=== PATIENT | male | born 1940 | race Caucasian/White ===

== ENCOUNTER → 2017-06-24 07:39 | Outpatient (CLI) | payer MEDICARE, OTHER, SELFPAY ==
[2017-06-24 07:51] LABS: Red Blood Cells-Urine 0 SEEN /hpf (0-5); Squamous Epithelial Cells - UA 0 SEEN /hpf (0-5)
[2017-06-24 10:02] LABS: Anion Gap 8 (5-15); BUN 22 mg/dL (7-18); BUN/Creat Ratio 13.7 RATIO (10-20); Calcium,Total 8.4 mg/dL (8.5-10.1); Chloride 107 mmol/L (98-107); Creatinine, Serum 1.61 mg/dL (0.70-1.30); EST Glomerular Filtration Rate 45 mL/min (>60); Est Glom Filt Rate - Afr Amer 54 mL/min (>60); Glucose 83 mg/dL (74-106); Potassium 3.9 mmol/L (3.5-5.1); Sodium Level 141 mmol/L (136-145)
[2017-06-24 12:08] LABS: Color, Urine Yellow (Yellow); Glucose, Dipstick Normal (Normal); Ketone-Dipstick Negative (Negative); Leukocyte Esterase-Dipstick 25 /ul (Negative); Nitrite-Dipstick Negative (Negative); Occult Blood-Urine Negative /ul (Negative); Protein-Dipstick Negative (Negative); Urine Bilirubin Dipstick Negative (Negative); Urine Clarity Clear (Clear); Urine Urobilinogen Normal (Normal)
[2017-06-24 12:19] LABS: Bacteria RARE /hpf (None Seen); Mucous, Urine 2+ /hpf (<or=2+); White Blood Cells 0-5 SEEN /hpf (0-5)
[2017-06-24 12:29] LABS: Protein, Urine (Random) 15.6 mg/dL (<11.9); Protein:Creat Ratio 116 mg/g CRE (0-200)
== END ==
PROVIDERS: Family Provider Family Medicine; PCP Family Medicine; Visit Provider Family Medicine
DX: R94.4 Abnormal results of kidney function studies (principal)
CPT/HCPCS: 36415; 80048; 81001; 82570; 84156

== ENCOUNTER → 2017-07-23 14:17 | Outpatient (CLI) | payer MEDICARE, OTHER, SELFPAY ==
--- NOTE | 2017-07-23 14:18 | US_ITS ---
STUDY: ULTRASOUND - URINARY BLADDER REASON FOR EXAM: Male, 76 years old. Chronic kidney disease TECHNIQUE: Ultrasound evaluation of the urinary bladder was performed with real-time and static barraza-scale imaging. COMPARISON: None. FINDINGS: There is no right UVJ calculus. There is no left UVJ calculus. The distended volume of the urinary bladder is 484 ml. The empty volume of the urinary bladder is 59 ml. The bladder wall is within normal limits. The bladder wall measures 2.8 mm. There is no demonstrated bladder wall mass lesion. There are no demonstrated bladder calculi. US/Post Void Residual Bladder IMPRESSION: Postvoid residual of 59 cc. There was, unremarkable urinary bladder ultrasound. Electronically Signed: Ernie Lincoln, at 23:57 EDT Tel , Service support ,
== END ==
PROVIDERS: Family Provider Family Medicine; PCP Family Medicine; Visit Provider Family Medicine
DX: I12.9 Hypertensive chronic kidney disease with stage 1 through stage 4 chronic kidney disease, or unspecified chronic kidney disease (principal); N18.3 Chronic kidney disease, stage 3 (moderate)
CPT/HCPCS: 51798

== ENCOUNTER → 2017-08-02 08:53 | Outpatient (CLI) | payer MEDICARE, OTHER, SELFPAY ==
--- NOTE | 2017-08-02 08:56 | RDU_ITS ---
Reason For Study: CKD Right Renal Artery Left Renal Artery Right renal artery ostium Left renal artery ostium 151.0/19.2 103.0/25.5 RSV/EDV. PSV/EDV. Right renal artery proximal Left renal artery proximal PSV/EDV 120.0/21.0 PSV/EDV. 135.0/21.9 . Right renal artery mid 107.0/19.7 Left renal artery mid 131.0/21.9 PSV/EDV. PSV/EDV . Right renal artery distal 99.4/15.5 Left renal artery distal 141.0/29.3 PSV/EDV. PSV/EDV. Right RAR 1.3. Left RAR 1.7. Right Renal Parenchyma Left Renal Parenchyma Upper Pole Medula 20.5/5.8 PSV/EDV. Left upper pole medulla 31.8/6.4 Right upper pole medulla EDR .29 . PSV/EDV . Right upper pole medulla R.I. .72 . Left upper pole medulla EDR .20 . Upper Aron Cortx 14.4/3.7 PSV/EDV. Left upper pole medulla R.I. .80 . Right upper pole cortex EDR .26 . UP Cortex 23.2/5.5 PSV/EDV. Right upper pole cortex R.I. .74 . Left upper pole cortex EDR .24 . Right lower Pole medulla 21.3/3.5 Left upper pole cortex R.I. .76 . PSV/EDV . Left lower Pole medulla 22.3/4.9 Right lower pole medulla EDR .16 . PSV/EDV . Right lower pole medulla R.I. .83 . Left lower pole medulla EDR .22 . Lower Pole Cortex 16.9/3.5 PSV/EDV. Left lower pole medulla R.I. .78 . Right lower pole cortex EDR .21 . Lower Pole Cortx 21.1/5.2 PSV/EDV. Right lower pole cortex R.I. .79 . Left lower pole cortex EDR .25 . Right Renal Hilar Left lower pole cortex R.I. .75 . Right Hilar avg 65.2/11.9 PSV/EDV. Left Renal Hilar Right hilar acceleration time 51 LT Hilar avg 68.9/15.5 PSV/EDV . m/sec. Left hilar acceleration time 44 Right Renal Dimensions m/sec. Right kidney size 10.6 cm . Left Renal Dimensions Right cortical dimension 1.6 cm . Left kidney size 9.6 cm . Left cortical dimension 1.5 cm . Aorta Proximal abdominal aorta 1.8 x 1.8 cm . Distal abdominal aorta 1.7 x 1.7 cm . Proximal abdominal aorta peak systolic velocity is 89.1 cm/sec . Distal abdominal aorta peak systolic velocity is 118.0 cm/sec . Interpretation Summary Dimensions of the intra-abdominal aorta appear normal, without evidence of aneurysmal dilatation. Renal artery velocities are bilaterally normal. Acceleration times are normal bilaterally. Renal- aortic ratios are also bilaterally normal. There is no evidence of hemodynamically significant renal artery stenosis on either side. Renovascular resistance appears to be bilaterally elevated . The right cortical dimension is increased. The left cortical dimension is normal. Kidneys appear normal in size bilaterally. Ordering Physician: Marino Patrick Referring Physician: Marino Patrick Performed By: Devorah Damon RVT
== END ==
PROVIDERS: Family Provider Family Medicine; PCP Family Medicine; Visit Provider Family Medicine
DX: I12.9 Hypertensive chronic kidney disease with stage 1 through stage 4 chronic kidney disease, or unspecified chronic kidney disease (principal); N18.3 Chronic kidney disease, stage 3 (moderate)
CPT/HCPCS: 93975

== ENCOUNTER → 2017-08-19 08:06 | Outpatient (CLI) | payer MEDICARE, OTHER, SELFPAY ==
[2017-08-19 10:23] LABS: AST(SGOT) 15 U/L (15-37); Alanine Aminotransfer ALT/SGPT 18 U/L (16-61); Albumin, Serum 3.2 g/dL (3.2-5.0); Alkaline Phosphatase 83 U/L (45-117); Bilirubin, Direct 0.25 mg/dL (0.00-0.30); Cholesterol 97 mg/dL (200); Globulin 3.2 g/dL (2.2-4.2); High Density Lipoprotein 40 mg/dL; Protein, Total 6.4 g/dL (6.4-8.2); Triglycerides 95 mg/dL; Very Low Density Lipoprotein 19 mg/dL (5-40)
== END ==
PROVIDERS: Family Provider Family Medicine; PCP Family Medicine; Visit Provider Internal Medicine Cardiovascular Disease
DX: E78.5 Hyperlipidemia, unspecified (principal); Z79.899 Other long term (current) drug therapy
CPT/HCPCS: 36415; 80061; 80076

== ENCOUNTER → 2017-10-04 07:51 | Outpatient (CLI) | payer MEDICARE, OTHER, SELFPAY ==
[2017-10-04 10:35] LABS: Hematocrit 37.6 % (40-54); Hemoglobin 13.1 g/dl (13.0-16.5); Mean Corp Hgb Conc 34.8 g/gl (32-36); Mean Corpuscular Hgb 37.3 pg (27.0-32.0); Mean Corpuscular Volume 107.1 fL (80-94); Mean Platelet Vol. 11.3 fl (6.2-12.0); Platelet Count 142 K/mm3 (150-450); RBC Distribution Width SD 46.1 fl (35.1-43.9); Red Blood Count 3.51 M/mm3 (4.6-6.2); White Blood Count 6.3 K/mm3 (4.4-11.0)
[2017-10-04 10:36] LABS: Scan Indicated on CBC? Y/N NO
[2017-10-04 10:57] LABS: AST(SGOT) 16 U/L (15-37); Alanine Aminotransfer ALT/SGPT 24 U/L (16-61); Albumin, Serum 3.3 g/dL (3.2-5.0); Alkaline Phosphatase 57 U/L (45-117); Anion Gap 6 (5-15); BUN 19 mg/dL (7-18); Calcium,Total 8.4 mg/dL (8.5-10.1); Chloride 111 mmol/L (98-107); Cholesterol 114 mg/dL (200); Creatinine, Serum 1.46 mg/dL (0.70-1.30); EST Glomerular Filtration Rate 50 mL/min (>60); Est Glom Filt Rate - Afr Amer 60 mL/min (>60); Globulin 3.2 g/dL (2.2-4.2); Glucose 80 mg/dL (74-106); High Density Lipoprotein 51 mg/dL; Phosphorus 2.7 mg/dL (2.5-4.9); Potassium 4.2 mmol/L (3.5-5.1); Protein, Total 6.5 g/dL (6.4-8.2); Sodium Level 146 mmol/L (136-145); Triglycerides 131 mg/dL; Very Low Density Lipoprotein 26 mg/dL (5-40)
[2017-10-04 11:06] LABS: PTHIN 57.2 pg/mL (18.4-80.1)
[2017-10-04 11:08] LABS: Vitamin D,25 Hydroxy 40.6 ng/mL (29.95-100.01)
[2017-10-06 09:36] LABS: Vitamin B12 851 pg/mL (211-911)
== END ==
PROVIDERS: Family Provider Family Medicine; PCP Family Medicine; Visit Provider Family Medicine
DX: E78.5 Hyperlipidemia, unspecified (principal); E55.9 Vitamin D deficiency, unspecified; D75.89 Other specified diseases of blood and blood-forming organs; I12.9 Hypertensive chronic kidney disease with stage 1 through stage 4 chronic kidney disease, or unspecified chronic kidney disease; N18.3 Chronic kidney disease, stage 3 (moderate)
CPT/HCPCS: 80053; 80061; 81002; 82306; 82570; 82607; 82746; 83970; 84100; 84156; 85027

== ENCOUNTER → 2018-03-08 07:39 | Outpatient (CLI) | payer MEDICARE, OTHER, SELFPAY ==
[2018-03-08 08:12] LABS: Red Blood Cells-Urine 0 SEEN /hpf (0-5); Squamous Epithelial Cells - UA 0 SEEN /hpf (0-5)
[2018-03-08 10:28] LABS: Color, Urine Yellow (Yellow); Glucose, Dipstick Normal (Normal); Ketone-Dipstick Negative (Negative); Leukocyte Esterase-Dipstick 25 /ul (Negative); Nitrite-Dipstick Negative (Negative); Occult Blood-Urine Negative /ul (Negative); Protein-Dipstick Negative (Negative); Specific Gravity, Urine 1.025 (1.002-1.030); Urine Bilirubin Dipstick Negative (Negative); Urine Clarity Sl. Cloudy (Clear); Urine Urobilinogen Normal (Normal)
[2018-03-08 10:31] LABS: Protein, Urine (Random) 10.6 mg/dL (<11.9); Protein:Creat Ratio 59 mg/g CRE (0-200)
[2018-03-08 10:36] LABS: White Blood Cells 0-5 SEEN /hpf (0-5)
[2018-03-08 10:37] LABS: Bacteria RARE /hpf (None Seen); Mucous, Urine 1+ /hpf (<or=2+)
[2018-03-08 10:49] LABS: Basophil# 0.02 X10^3/uL; Basophil% 0.4 % (0-1); Eosinophil# 0.11 X10^3/uL; Eosinophils% 2.2 % (0-5); Hematocrit 37.5 % (40-54); Hemoglobin 12.5 g/dl (13.0-16.5); Lymphocyte % 30.4 % (19-41); Mean Corp Hgb Conc 33.3 g/gl (32-36); Mean Corpuscular Hgb 35.6 pg (27.0-32.0); Mean Corpuscular Volume 106.8 fL (80-94); Mean Platelet Vol. 10.8 fl (6.2-12.0); Monocyte# 0.34 X10^3/uL; Monocyte% 6.9 % (0-10); Neutrophil # 2.96 X10^3/uL (2.7-7.7); Neutrophil % 59.9 % (47-70); Platelet Count 137 K/mm3 (150-450); RBC Distribution Width CV 12.8 % (11.6-14.6); RBC Distribution Width SD 49.4 fl (35.1-43.9); Red Blood Count 3.51 M/mm3 (4.6-6.2); White Blood Count 4.9 K/mm3 (4.4-11.0)
[2018-03-08 10:51] LABS: POSITIVE COUNT NO; POSITIVE DIFFERENTIAL NO; POSITIVE MORPHOLOGY NO
[2018-03-08 11:12] LABS: AST(SGOT) 17 U/L (15-37); Alanine Aminotransfer ALT/SGPT 20 U/L (16-61); Alkaline Phosphatase 57 U/L (45-117); Anion Gap 8 (5-15); BUN 18 mg/dL (7-18); BUN/Creat Ratio 11.4 RATIO (10-20); Calcium,Total 8.5 mg/dL (8.5-10.1); Chloride 110 mmol/L (98-107); Cholesterol 108 mg/dL (200); Creatinine, Serum 1.58 mg/dL (0.70-1.30); EST Glomerular Filtration Rate 45 mL/min (>60); Est Glom Filt Rate - Afr Amer 55 mL/min (>60); Globulin 3.1 g/dL (2.2-4.2); Glucose 78 mg/dL (74-106); High Density Lipoprotein 40 mg/dL; Potassium 4.2 mmol/L (3.5-5.1); Protein, Total 6.1 g/dL (6.4-8.2); Sodium Level 144 mmol/L (136-145); Triglycerides 127 mg/dL; Very Low Density Lipoprotein 25 mg/dL (5-40)
[2018-03-08 12:01] LABS: PTHIN 37.3 pg/mL (18.4-80.1)
[2018-03-08 12:02] LABS: Vitamin D,25 Hydroxy 40.5 ng/mL (29.95-100.01)
== END ==
PROVIDERS: Family Provider Family Medicine; PCP Family Medicine; Referring Provider Family Medicine; Visit Provider Family Medicine
DX: I12.9 Hypertensive chronic kidney disease with stage 1 through stage 4 chronic kidney disease, or unspecified chronic kidney disease (principal); N18.3 Chronic kidney disease, stage 3 (moderate); E78.5 Hyperlipidemia, unspecified; E55.9 Vitamin D deficiency, unspecified
CPT/HCPCS: 36415; 80053; 80061; 81001; 82306; 82570; 83970; 84100; 84156; 85025

== ENCOUNTER → 2018-09-15 | Outpatient (CLI) | payer MEDICARE, OTHER, SELFPAY ==
[2017-10-19 15:07] VITALS: BMI 27.0
[2018-09-15 08:20] LABS: Bacteria 0 SEEN /hpf (None Seen); Red Blood Cells-Urine 0 SEEN /hpf (0-5); Squamous Epithelial Cells - UA 0 SEEN /hpf (0-5); White Blood Cells 0 SEEN /hpf (0-5)
[2018-09-15 10:00] LABS: Color, Urine Yellow (Yellow); Glucose, Dipstick Normal (Normal); Ketone-Dipstick 5 mg/dl (Negative); Leukocyte Esterase-Dipstick 25 /ul (Negative); Nitrite-Dipstick Negative (Negative); Occult Blood-Urine Negative /ul (Negative); Protein-Dipstick 15 mg/dl (Negative); Urine Bilirubin Dipstick Negative (Negative); Urine Clarity Clear (Clear); Urine Urobilinogen 1 mg/dl (Normal)
[2018-09-15 10:06] LABS: Absolute Lymphocyte Count 1.49 X10^3/ul (0.83-4.51); Absolute Neutrophil Count 3.2 X10^3/uL (2.0-7.7); Basophil# 0.01 X10^3/uL; Basophil% 0.2 % (0-1); Eosinophil# 0.07 X10^3/uL; Eosinophils% 1.3 % (0-5); Hematocrit 38.5 % (40-54); Hemoglobin 13.1 g/dl (13.0-16.5); Lymphocyte # 1.49 X10^3/ul (4.0); Lymphocyte % 28.5 % (19-41); Mean Corpuscular Volume 105.8 fL (80-94); Mean Platelet Vol. 10.8 fl (6.2-12.0); Monocyte# 0.43 X10^3/uL; Monocyte% 8.2 % (0-10); Neutrophil # 3.21 X10^3/uL (2.7-7.7); Neutrophil % 61.6 % (47-70); Platelet Count 141 K/mm3 (150-450); RBC Distribution Width CV 12.3 % (11.6-14.6); RBC Distribution Width SD 47.2 fl (35.1-43.9); Red Blood Count 3.64 M/mm3 (4.6-6.2); White Blood Count 5.2 K/mm3 (4.4-11.0)
[2018-09-15 10:10] LABS: POSITIVE COUNT NO; POSITIVE DIFFERENTIAL NO; POSITIVE MORPHOLOGY NO
[2018-09-15 10:12] LABS: Mucous, Urine 3+ /hpf (<or=2+)
[2018-09-15 11:07] LABS: ALB/GLOB Ratio 1.1 RATIO (0.9-2.4); AST(SGOT) 12 U/L (15-37); Alanine Aminotransfer ALT/SGPT 17 U/L (16-61); Albumin, Serum 3.3 g/dL (3.2-5.0); Alkaline Phosphatase 59 U/L (45-117); Anion Gap 2 (5-15); BUN 22 mg/dL (7-18); BUN/Creat Ratio 14.3 RATIO (10-20); Calcium,Total 8.5 mg/dL (8.5-10.1); Chloride 111 mmol/L (98-107); Cholesterol 98 mg/dL (200); Creatinine, Serum 1.54 mg/dL (0.70-1.30); EST Glomerular Filtration Rate 47 mL/min (>60); Est Glom Filt Rate - Afr Amer 56 mL/min (>60); Globulin 3.1 g/dL (2.2-4.2); Glucose 90 mg/dL (74-106); High Density Lipoprotein 40 mg/dL; Potassium 4.3 mmol/L (3.5-5.1); Protein, Total 6.4 g/dL (6.4-8.2); Sodium Level 140 mmol/L (136-145); Triglycerides 111 mg/dL; Very Low Density Lipoprotein 22 mg/dL (5-40)
[2018-09-15 15:20] LABS: Vitamin B12 751 pg/mL (211-911)
== END | disposition home or self-care (01) ==
PROVIDERS: Family Provider Family Medicine; PCP Family Medicine; Referring Provider Family Medicine; Visit Provider Family Medicine
DX: E78.5 Hyperlipidemia, unspecified (principal); D53.9 Nutritional anemia, unspecified; I12.9 Hypertensive chronic kidney disease with stage 1 through stage 4 chronic kidney disease, or unspecified chronic kidney disease; N18.3 Chronic kidney disease, stage 3 (moderate)
CPT/HCPCS: 36415; 80053; 80061; 81001; 82607; 82746; 85025

== ENCOUNTER → 2018-12-26 | Outpatient (CLI) | payer MEDICARE, OTHER, SELFPAY ==
[2018-10-28 09:28] VITALS: BMI 26.9
[2018-12-26 14:17] LABS: PSA,Total - Annual Screen 0.42 ng/mL (0.00-4.00)
== END | disposition home or self-care (01) ==
LOC: MFPLAB 11:15
PROVIDERS: Family Provider Family Medicine; PCP Family Medicine; Visit Provider Family Medicine
DX: Z12.5 Encounter for screening for malignant neoplasm of prostate (principal)
CPT/HCPCS: 36415; 84153; G0103

== ENCOUNTER → 2019-06-06 | Outpatient (CLI) | payer MEDICARE, OTHER, SELFPAY ==
[2018-10-28 09:28] VITALS: BMI 26.9
[2019-06-06 08:16] LABS: Bacteria 0 SEEN /hpf (None Seen); Mucous, Urine 0 SEEN /hpf (<or=2+); Red Blood Cells-Urine 0 SEEN /hpf (0-5); Squamous Epithelial Cells - UA 0 SEEN /hpf (0-5)
[2019-06-06 10:24] LABS: Absolute Lymphocyte Count 1.45 X10^3/uL (0.83-4.51); Absolute Neutrophil Count 3.4 X10^3/uL (2.0-7.7); Basophil# 0.02 X10^3/uL; Basophil% 0.4 % (0-1); Eosinophil# 0.07 X10^3/uL; Eosinophils% 1.3 % (0-5); Hemoglobin 12.6 g/dL (13.0-16.5); Lymphocyte # 1.45 X10^3/ul (4.0); Lymphocyte % 27.3 % (19-41); Mean Corp Hgb Conc 34.1 g/dL (32-36); Mean Corpuscular Hgb 36.6 pg (27.0-32.0); Mean Corpuscular Volume 107.6 fL (80-94); Mean Platelet Vol. 11.2 fl (6.2-12.0); Monocyte# 0.38 X10^3/uL; Monocyte% 7.2 % (0-10); NRBC Flagged by Analyzer 0 % (0-5); Neutrophil # 3.38 X10^3/uL (2.7-7.7); Neutrophil % 63.6 % (47-70); Platelet Count 132 K/mm3 (150-450); RBC Distribution Width CV 12.6 % (11.6-14.6); RBC Distribution Width SD 48.9 fl (35.1-43.9); Red Blood Count 3.44 M/mm3 (4.6-6.2); White Blood Count 5.3 K/mm3 (4.4-11.0)
[2019-06-06 10:34] LABS: Color, Urine Yellow (Yellow); Glucose, Dipstick Normal (Normal); Ketone-Dipstick Negative (Negative); Leukocyte Esterase-Dipstick 25 /ul (Negative); Nitrite-Dipstick Negative (Negative); Occult Blood-Urine Negative /ul (Negative); Protein-Dipstick Negative (Negative); Specific Gravity, Urine 1.025 (1.002-1.030); Urine Bilirubin Dipstick Negative (Negative); Urine Clarity Sl. Cloudy (Clear); Urine Urobilinogen Normal (Normal)
[2019-06-06 10:39] LABS: Protein, Urine (Random) 10.5 mg/dL (<11.9); Protein:Creat Ratio 66 mg/g CRE (0-200)
[2019-06-06 10:42] LABS: Vitamin B12 632 pg/mL (211-911); Vitamin D,25 Hydroxy 49.4 ng/mL
[2019-06-06 10:44] LABS: PTHIN 71.2 pg/mL (18.4-80.1)
[2019-06-06 10:46] LABS: Calcium Oxalate Crystals Ur 2+ /hpf (<or=2+); White Blood Cells 0-5 SEEN /hpf (0-5)
[2019-06-06 11:31] LABS: AST(SGOT) 15 U/L (15-37); Alanine Aminotransfer ALT/SGPT 21 U/L (16-61); Albumin, Serum 3.2 g/dL (3.2-5.0); Alkaline Phosphatase 65 U/L (45-117); Anion Gap 3 (5-15); BUN 23 mg/dL (7-18); BUN/Creat Ratio 14.4 RATIO (10-20); Calcium,Total 8.6 mg/dL (8.5-10.1); Chloride 113 mmol/L (98-107); Cholesterol 103 mg/dL (200); EST Glomerular Filtration Rate 45 mL/min (>60); Est Glom Filt Rate - Afr Amer 54 mL/min (>60); Globulin 3.2 g/dL (2.2-4.2); Glucose 84 mg/dL (74-106); High Density Lipoprotein 44 mg/dL; Phosphorus 3.1 mg/dL (2.5-4.9); Protein, Total 6.4 g/dL (6.4-8.2); Sodium Level 142 mmol/L (136-145); Triglycerides 104 mg/dL; Very Low Density Lipoprotein 21 mg/dL (5-40)
== END | disposition home or self-care (01) ==
LOC: MFPLAB 08:13
PROVIDERS: PCP Family Medicine; Referring Provider Family Medicine; Visit Provider Family Medicine
DX: E55.9 Vitamin D deficiency, unspecified (principal); D53.9 Nutritional anemia, unspecified; E78.5 Hyperlipidemia, unspecified; I12.9 Hypertensive chronic kidney disease with stage 1 through stage 4 chronic kidney disease, or unspecified chronic kidney disease; N18.3 Chronic kidney disease, stage 3 (moderate)
CPT/HCPCS: 36415; 80053; 80061; 81001; 82306; 82570; 82607; 82746; 83970; 84100; 84156; 85025

== ENCOUNTER → 2019-10-09 | Outpatient (CLI) | payer MEDICARE, OTHER, SELFPAY ==
[2019-09-20 10:28] VITALS: BMI 26.4
--- NOTE | 2019-10-09 06:57 | ECHOD_ITS ---
Left Ventricle Normal LV size. The estimated ejection fraction is 65 %. Stage 3 diastolic dysfunction. No regional wall motion abnormalities noted. Right Ventricle Normal RV size. Normal systolic function. Atria The left atrium is moderately enlarged. Normal right atrium. Mitral Valve Normal mitral valve. Mild (1+) eccentric mitral valve insufficiency. Tricuspid Valve Normal tricuspid valve. Mild (1+) tricuspid valve insufficiency. Aortic Valve Trisinus/trileaflet aortic valve. Mild focal aortic valve calcification. Pulmonic Valve Normal pulmonic valve. Great Vessels Normal aortic root. The pulmonary artery is normal size. Normal inferior vena cava. Pericardium/Pleural No pericardial effusion. MMode/2D Measurements & Calculations LVIDd: 5.1 cm IVSd: 0.86 cm Ao root diam: 3.5 cm LVIDs: 3.5 cm LVPWd: 0.78 cm RVDd: 3.9 cm FS: 31.9 % LAV(MOD-bp): 85.5 ml LA A4 area: 29.4 cm2 LA dimension(2D): 4.9 cm LAV(MOD-bp) Indexed: 43.3 ml/m2 LAV(MOD-sp2): 65.3 ml LAV(MOD-sp4): 102.9 ml RA A4 area: 16.5 cm2 Time Measurements MV dec time: 0.16 sec Doppler Measurements & Calculations MV E max micheal: 120.9 cm/sec Lat Peak E' Micheal: 11.6 cm/sec Med Peak E' Micheal: 5.8 cm/sec MV A max micheal: 55.1 cm/sec E/E' lat: 10.4 E/E' med: 20.8 MV E/A: 2.2 MV V2 max: 126.8 cm/sec Ao V2 max: 154.2 cm/sec LV V1 max: 105.9 cm/sec MV max P.4 mmHg Ao max P.5 mmHg LV V1 max P.5 mmHg MV V2 mean: 46.3 cm/sec Ao V2 mean: 113.6 cm/sec LV V1 mean P.5 mmHg MV mean P.3 mmHg Ao mean P.6 mmHg LV V1 mean: 73.9 cm/sec MV V2 VTI: 41.6 cm Ao V2 VTI: 40.4 cm LV V1 VTI: 28.0 cm TR max micheal: 285.2 cm/sec MV P1/2t-pr_phl: 162.3 msec TR max P.5 mmHg Interpretation Summary Normal LV size. The estimated ejection fraction is 65 %. Stage 3 diastolic dysfunction. The left atrium is moderately enlarged. Mild (1+) tricuspid valve insufficiency. Ordering Physician: Markos Dey Referring Physician: Markos Dey
--- NOTE | 2019-10-09 09:10 | STRESSREP_ITS ---
Stress Test Report Exercise and pharmacologic myocardial perfusion stress test. 79-year-old man with a history of coronary artery bypass surgery. Stress protocol: Resting EKG demonstrated sinus bradycardia with a rate of 44 bpm resting blood pressure 104/58 mmHg. The patient exercised for a total duration of 4 minutes and 30 seconds attaining a maximum heart rate of 65 bpm which was 46% of maximum predicted heart rate the maximum workload was 6.4 metabolic equivalents. The patient maintained sinus rhythm throughout the recording. The test was termi nated prematurely due to leg discomfort. No chest pain no dizziness was noted shortness of breath was noted. The test was switched to a pharmacologic myocardial perfusion stress test. 0.4 mg of regadenoson was infused per usual protocol followed by rapid intravenous saline flush injection continuous EKG monitoring was performed. The maximum heart rate was 58 bpm which was 41% of maximum predicted heart rate the maximum workload was 1 metabolic equivalent. At rest there were no ST or T wave changes noted to suggest abnormal flow reserve at peak infusion nonspecific ST-T wave changes were noted. The peak blood pressure was 120/60 with a final blood pressure 100/52 mmHg. Myocardial perfusion protocol. 11.4 mCi of technetium 99m sestamibi was injected at rest. 0.4 mg of regadenoson was infused per usual protocol. At peak infusion 35.2 mCi of technetium 99m sestamibi was injected stress images were obtained stress and rest images were reconstructed and compared in the short axis vertical long horizontal long axis. Gated images were also obtained per Perfusion SPECT analysis: Review of the stress images demonstrate normal uptake of tracer noted in all areas of myocardium except for small portion of the basal inferior wall. This is present on the stress and resting images to a similar extent suggesting previous basal inferior infarct. No obvious ischemia was noted. Gated SPECT analysis: The gated ejection fraction is 65%. Conclusion: Pharmacologic myocardial perfusion stress test with no evidence of ischemia noted. Previous basal inferior infarct cannot be completely excluded. Preserved ejection fraction.
== END | disposition home or self-care (01) ==
LOC: CVS 06:57
PROVIDERS: PCP Family Medicine; Referring Provider Internal Medicine Cardiovascular Disease; Visit Provider Internal Medicine Cardiovascular Disease
DX: I25.10 Atherosclerotic heart disease of native coronary artery without angina pectoris (principal); R06.00 Dyspnea, unspecified; Z95.1 Presence of aortocoronary bypass graft
CPT/HCPCS: 78452; 93017; 93306; A9500; A4216; J2785

== ENCOUNTER → 2019-12-13 | Outpatient (CLI) | payer MEDICARE, OTHER, SELFPAY ==
[2019-10-31 13:49] VITALS: BMI 27.0
--- NOTE | 2019-12-13 14:33 | RAD_ITS ---
STUDY: X-RAY - RIGHT SHOULDER REASON FOR EXAM: Male, 79 years old. Pain TECHNIQUE: 4 view(s) of the shoulder. COMPARISON: None. FINDINGS: There is no evidence of fracture or dislocation. There are mild degenerative changes in the acromioclavicular joint and glenohumeral joint. There are no radiodense foreign bodies. RAD/Shoulder min 2 Views IMPRESSION: No fracture or dislocation in the right shoulder. Mild degenerative change. Electronically Signed: Ernie Lincoln, at 16:27 EDT Tel , Service support ,
== END | disposition home or self-care (01) ==
LOC: MTRAD 14:32
PROVIDERS: PCP Family Medicine; Referring Provider Family Medicine; Visit Provider Family Medicine
DX: M25.511 Pain in right shoulder (principal)
CPT/HCPCS: 73030

== ENCOUNTER → 2020-02-26 08:07 | Outpatient (CLI) | payer MEDICARE, OTHER, SELFPAY ==
[2019-10-31 13:49] VITALS: BMI 27.0
[2020-02-26 10:10] LABS: Absolute Lymphocyte Count 1.65 X10^3/uL (0.83-4.51); Absolute Neutrophil Count 4.5 X10^3/uL (2.0-7.7); Basophil# 0.04 X10^3/uL; Basophil% 0.6 % (0-1); Eosinophil# 0.33 X10^3/uL; Eosinophils% 4.7 % (0-5); Hematocrit 35.6 % (40-54); Hemoglobin 11.8 g/dL (13.0-16.5); Lymphocyte # 1.65 X10^3/ul (4.0); Lymphocyte % 23.5 % (19-41); Mean Corp Hgb Conc 33.1 g/dL (32-36); Mean Corpuscular Hgb 36.8 pg (27.0-32.0); Mean Corpuscular Volume 110.9 fL (80-94); Mean Platelet Vol. 10.6 fl (6.2-12.0); Monocyte# 0.47 X10^3/uL; Monocyte% 6.7 % (0-10); NRBC Flagged by Analyzer 0 % (0-5); Neutrophil # 4.48 X10^3/uL (2.7-7.7); Neutrophil % 63.6 % (47-70); Platelet Count 208 K/mm3 (150-450); RBC Distribution Width CV 12.7 % (11.6-14.6); RBC Distribution Width SD 51.9 fl (35.1-43.9); Red Blood Count 3.21 M/mm3 (4.6-6.2)
[2020-02-26 10:27] LABS: Vitamin B12 916 pg/mL (211-911)
[2020-02-26 10:47] LABS: ALB/GLOB Ratio 0.9 RATIO (0.9-2.4); AST(SGOT) 19 U/L (15-37); Alanine Aminotransfer ALT/SGPT 25 U/L (16-61); Alkaline Phosphatase 80 U/L (45-117); Anion Gap 6 (5-15); BUN 24 mg/dL (7-18); BUN/Creat Ratio 13.2 RATIO (10-20); Calcium,Total 8.6 mg/dL (8.5-10.1); Chloride 108 mmol/L (98-107); Cholesterol 119 mg/dL (200); Creatinine, Serum 1.82 mg/dL (0.70-1.30); EST Glomerular Filtration Rate 38 mL/min (>60); Est Glom Filt Rate - Afr Amer 46 mL/min (>60); Globulin 3.5 g/dL (2.2-4.2); Glucose 84 mg/dL (74-106); High Density Lipoprotein 42 mg/dL; Potassium 3.3 mmol/L (3.5-5.1); Protein, Total 6.5 g/dL (6.4-8.2); Sodium Level 142 mmol/L (136-145); Triglycerides 145 mg/dL; Very Low Density Lipoprotein 29 mg/dL (5-40)
== END ==
PROVIDERS: PCP Family Medicine; Visit Provider Family Medicine
DX: I25.10 Atherosclerotic heart disease of native coronary artery without angina pectoris (principal); D53.9 Nutritional anemia, unspecified; E55.9 Vitamin D deficiency, unspecified
CPT/HCPCS: 36415; 80053; 80061; 82306; 82607; 82746; 85025

== ENCOUNTER → 2020-04-11 13:50 | Outpatient (CLI) | payer MEDICARE, OTHER, SELFPAY ==
[2020-03-08 13:29] VITALS: BMI 25.5
[2020-04-11 15:43] LABS: Anion Gap 5 (5-15); BUN 23 mg/dL (7-18); BUN/Creat Ratio 12.2 RATIO (10-20); Calcium,Total 8.7 mg/dL (8.5-10.1); Chloride 108 mmol/L (98-107); Creatinine, Serum 1.89 mg/dL (0.70-1.30); EST Glomerular Filtration Rate 37 mL/min (>60); Est Glom Filt Rate - Afr Amer 44 mL/min (>60); Glucose 92 mg/dL (74-106); Potassium 3.9 mmol/L (3.5-5.1); Sodium Level 141 mmol/L (136-145)
== END ==
PROVIDERS: PCP Family Medicine; Referring Provider Family Medicine; Visit Provider Family Medicine
DX: N18.30 Chronic kidney disease, stage 3 unspecified (principal)
CPT/HCPCS: 36415; 80048

== ENCOUNTER → 2020-05-10 09:55 | Outpatient (CLI) | payer MEDICARE, OTHER, SELFPAY ==
[2020-03-08 13:29] VITALS: BMI 25.5
== END ==
PROVIDERS: PCP Family Medicine; Referring Provider Internal Medicine Cardiovascular Disease; Visit Provider Internal Medicine Cardiovascular Disease
DX: R07.89 Other chest pain (principal); R00.2 Palpitations; R55 Syncope and collapse; R42 Dizziness and giddiness; I25.709 Atherosclerosis of coronary artery bypass graft(s), unspecified, with unspecified angina pectoris; Z95.1 Presence of aortocoronary bypass graft
CPT/HCPCS: 93225; 93226

== ENCOUNTER → 2020-07-31 09:06 | Outpatient (CLI) | payer MEDICARE, OTHER, SELFPAY ==
[2020-03-08 13:29] VITALS: BMI 25.5
[2020-07-31 10:25] LABS: Basophil# 0.05 X10^3/uL; Basophil% 0.7 % (0-1); Eosinophil# 0.05 X10^3/uL; Eosinophils% 0.7 % (0-5); Hematocrit 40.9 % (40-54); Hemoglobin 13.7 g/dL (13.0-16.5); Mean Corp Hgb Conc 33.5 g/dL (32-36); Mean Corpuscular Hgb 36.8 pg (27.0-32.0); Mean Corpuscular Volume 109.9 fL (80-94); Mean Platelet Vol. 11.1 fl (6.2-12.0); Monocyte# 0.49 X10^3/uL; Monocyte% 6.5 % (0-10); NRBC Flagged by Analyzer 0 % (0-5); Neutrophil # 4.97 X10^3/uL (2.7-7.7); Neutrophil % 65.4 % (47-70); Platelet Count 139 K/mm3 (150-450); RBC Distribution Width CV 12.1 % (11.6-14.6); RBC Distribution Width SD 49.6 fl (35.1-43.9); Red Blood Count 3.72 M/mm3 (4.6-6.2); White Blood Count 7.6 K/mm3 (4.4-11.0)
[2020-07-31 10:48] LABS: Protein, Urine (Random) < 6.0 mg/dL (<11.9)
[2020-07-31 11:02] LABS: PTHIN 95.6 pg/mL (18.4-80.1)
[2020-07-31 11:05] LABS: Vitamin B12 554 pg/mL (211-911); Vitamin D,25 Hydroxy 45.1 ng/mL
[2020-07-31 11:44] LABS: ALB/GLOB Ratio 1.1 RATIO (0.9-2.4); AST(SGOT) 16 U/L (15-37); Alanine Aminotransfer ALT/SGPT 18 U/L (16-61); Albumin, Serum 3.3 g/dL (3.2-5.0); Alkaline Phosphatase 63 U/L (45-117); Anion Gap 5 (5-15); BUN 31 mg/dL (7-18); BUN/Creat Ratio 17.3 RATIO (10-20); Calcium,Total 8.7 mg/dL (8.5-10.1); Chloride 107 mmol/L (98-107); Cholesterol 137 mg/dL (200); Creatinine, Serum 1.79 mg/dL (0.70-1.30); EST Glomerular Filtration Rate 39 mL/min (>60); Est Glom Filt Rate - Afr Amer 47 mL/min (>60); Glucose 85 mg/dL (74-106); High Density Lipoprotein 52 mg/dL; Potassium 3.9 mmol/L (3.5-5.1); Protein, Total 6.3 g/dL (6.4-8.2); Sodium Level 141 mmol/L (136-145); Triglycerides 133 mg/dL; Very Low Density Lipoprotein 27 mg/dL (5-40)
== END ==
PROVIDERS: PCP Family Medicine; Referring Provider Family Medicine; Visit Provider Family Medicine
DX: E78.5 Hyperlipidemia, unspecified (principal); D53.9 Nutritional anemia, unspecified; N18.30 Chronic kidney disease, stage 3 unspecified; E55.9 Vitamin D deficiency, unspecified
CPT/HCPCS: 36415; 80053; 80061; 82306; 82570; 82607; 82746; 83970; 84156; 85025

== ENCOUNTER → 2020-12-26 08:31 | Outpatient (CLI) | payer MEDICARE, OTHER, SELFPAY ==
[2020-12-26 08:41] LABS: Bacteria 0 SEEN /hpf (None Seen); Mucous, Urine 0 SEEN /hpf (<or=2+); Red Blood Cells-Urine 0 SEEN /hpf (0-5); Squamous Epithelial Cells - UA 0 SEEN /hpf (0-5); White Blood Cells 0 SEEN /hpf (0-5)
[2020-12-26 09:52] LABS: Color, Urine Yellow (Yellow); Glucose, Dipstick Normal (Normal); Ketone-Dipstick Negative (Negative); Leukocyte Esterase-Dipstick Negative /ul (Negative); Nitrite-Dipstick Negative (Negative); Occult Blood-Urine Negative /ul (Negative); Protein-Dipstick Negative (Negative); Urine Bilirubin Dipstick Negative (Negative); Urine Clarity Clear (Clear); Urine Urobilinogen Normal (Normal)
[2020-12-26 09:55] LABS: Absolute Lymphocyte Count 1.57 X10^3/uL (0.83-4.51); Absolute Neutrophil Count 3.6 X10^3/uL (2.0-7.7); Basophil# 0.02 X10^3/uL; Basophil% 0.3 % (0-1); Eosinophil# 0.06 X10^3/uL; Hematocrit 37.7 % (40-54); Hemoglobin 12.7 g/dL (13.0-16.5); Lymphocyte # 1.57 X10^3/ul (0.83-4.51); Lymphocyte % 27.4 % (19-41); Mean Corp Hgb Conc 33.7 g/dL (32-36); Mean Corpuscular Hgb 36.7 pg (27.0-32.0); Mean Platelet Vol. 10.9 fl (6.2-12.0); Monocyte# 0.44 X10^3/uL; Monocyte% 7.7 % (0-10); NRBC Flagged by Analyzer 0 % (0-5); Neutrophil # 3.62 X10^3/uL (2.7-7.7); Neutrophil % 63.1 % (47-70); Platelet Count 132 K/mm3 (150-450); RBC Distribution Width CV 12.1 % (11.6-14.6); RBC Distribution Width SD 48.1 fl (35.1-43.9); Red Blood Count 3.46 M/mm3 (4.6-6.2); White Blood Count 5.7 K/mm3 (4.4-11.0)
[2020-12-26 10:05] LABS: Protein, Urine (Random) < 6.0 mg/dL (<11.9); Protein:Creat Ratio 92 mg/g CRE (0-200)
[2020-12-26 10:42] LABS: PTHIN 89.6 pg/mL (18.4-80.1)
[2020-12-26 10:45] LABS: ALB/GLOB Ratio 0.9 RATIO (0.9-2.4); AST(SGOT) 19 U/L (15-37); Alanine Aminotransfer ALT/SGPT 22 U/L (16-61); Albumin, Serum 2.9 g/dL (3.2-5.0); Alkaline Phosphatase 55 U/L (45-117); Anion Gap 2 (5-15); BUN 18 mg/dL (7-18); BUN/Creat Ratio 11.1 RATIO (10-20); Calcium,Total 8.4 mg/dL (8.5-10.1); Chloride 109 mmol/L (98-107); Cholesterol 109 mg/dL (200); Creatinine, Serum 1.62 mg/dL (0.70-1.30); EST Glomerular Filtration Rate 44 mL/min (>60); Est Glom Filt Rate - Afr Amer 53 mL/min (>60); Globulin 3.3 g/dL (2.2-4.2); Glucose 91 mg/dL (74-106); High Density Lipoprotein 45 mg/dL; Phosphorus 2.7 mg/dL (2.5-4.9); Potassium 3.9 mmol/L (3.5-5.1); Protein, Total 6.2 g/dL (6.4-8.2); Sodium Level 139 mmol/L (136-145); Triglycerides 122 mg/dL; Very Low Density Lipoprotein 24 mg/dL (5-40)
[2020-12-27 17:04] LABS: Ferritin 355 ng/mL (26-388); Iron 115 ug/dL (65-175); Iron Binding Capacity,Total 270 ug/dL (250-450); PERCENT IRON SATURATION 42.6 % (15.0-55.0)
[2020-12-27 17:18] LABS: Vitamin B12 824 pg/mL (211-911)
== END ==
PROVIDERS: PCP Family Medicine; Referring Provider Family Medicine; Visit Provider Family Medicine
DX: I12.9 Hypertensive chronic kidney disease with stage 1 through stage 4 chronic kidney disease, or unspecified chronic kidney disease (principal); N18.30 Chronic kidney disease, stage 3 unspecified; E78.5 Hyperlipidemia, unspecified; D64.9 Anemia, unspecified; D63.1 Anemia in chronic kidney disease
CPT/HCPCS: 36415; 80053; 80061; 81001; 82570; 82607; 82728; 83540; 83550; 83970; 84100; 84156; 85025

== ENCOUNTER → 2021-02-25 16:13 | Outpatient (CLI) | payer MEDICARE, OTHER, SELFPAY ==
--- NOTE | 2021-02-25 16:16 | MRI_ITS ---
STUDY: MRI BRAIN WITHOUT CONTRAST REASON FOR EXAM: Male, 80 years old. Dysdiadochokinesia and lightheadedness TECHNIQUE: Standardized multiplanar fat and water weighted pulse sequences were obtained. COMPARISON: None. FINDINGS: Brain parenchyma is intact without focal lesions, mass effect, extra parenchymal fluid collections, hydrocephalus or herniation. There is moderate chronic white matter ischemic change and mild global brain atrophy. Major vascular flow structures are intact. Craniocervical junction is unremarkable. There are bilateral mastoid effusions. Nasopharynx is clear. MRI/Brain without Contrast IMPRESSION: 1. No acute or focal disease. 2. Moderate chronic white matter involutional/ischemic change. Electronically Signed: Rodriguez Bright MD at 20:29 EST Tel , Service support ,
== END ==
PROVIDERS: PCP Family Medicine; Visit Provider Family Medicine
DX: R27.8 Other lack of coordination (principal)
CPT/HCPCS: 70551

== ENCOUNTER 2021-04-10 11:07 | Outpatient (CLI) | payer MEDICARE, OTHER, SELFPAY ==
[2021-04-10 11:55] LABS: PTHIN 41.5 pg/mL (18.4-80.1)
[2021-04-10 11:56] LABS: Albumin, Serum 2.9 g/dL (3.2-5.0); BUN 18 mg/dL (7-18); BUN/Creat Ratio 11.8 RATIO (10-20); Calcium,Total 8.9 mg/dL (8.5-10.1); Chloride 109 mmol/L (98-107); Creatinine, Serum 1.52 mg/dL (0.70-1.30); EST Glomerular Filtration Rate 47 mL/min (>60); Est Glom Filt Rate - Afr Amer 57 mL/min (>60); Glucose 86 mg/dL (74-106); Phosphorus 3.4 mg/dL (2.5-4.9); Potassium 4.6 mmol/L (3.5-5.1); Sodium Level 139 mmol/L (136-145)
== END 2021-04-10 23:59 | disposition short-term general hospital (02) ==
LOC: POLAB3 11:08
PROVIDERS: PCP Family Medicine; Visit Provider Internal Medicine Nephrology
DX: N18.32 Chronic kidney disease, stage 3b (principal)
CPT/HCPCS: 36415; 80069; 83970

== ENCOUNTER 2021-04-15 14:53 | Outpatient (CLI) | payer MEDICARE, OTHER, SELFPAY ==
--- NOTE | 2021-04-15 14:59 | US_ITS ---
STUDY: RENAL ULTRASOUND - COMPLETE REASON FOR EXAM: Male, 80 years old. CKD3 TECHNIQUE: Ultrasound evaluation of the kidneys was performed with real-time and static zafar-scale imaging. COMPARISON: 18 FINDINGS: RIGHT KIDNEY: Normal location of the right kidney, which is normal in size. The right kidney measures 10x5.2 x4.7cm. There is a normal cortex of the right kidney. The renal cortex measures 1.5 cm. Cyst measures 15 x 13 mm. There are no right renal calculi. There is no right hydronephrosis. DISTAL RIGHT URETER: There is non-visualization of the distal right ureter. There is no demonstrated right ureterovesical junction calculus. There is a visualized right ureteral jet. LEFT KIDNEY: Normal location of the left kidney, which is normal in size. The left kidney measures 9.9 x 4.9 x 5.5 cm. There is a normal cortex of the left kidney. The renal cortex measures 1.5 cm. Cyst measures 7 x 9 mm. There are no left renal calculi. There is no left hydronephrosis. DISTAL LEFT URETER: There is non-visualization of the distal left ureter. There is no demonstrated left ureterovesical junction calculus. There is a visualized left ureteral jet. AORTA: There is no elongation or tortuosity of the abdominal aorta. I.V.C.: The IVC is obscured. BLADDER: The distended urinary bladder has a volume of 386 ml. There is a normal wall thickness of the distended urinary bladder. There is no demonstrated mass within the urinary bladder. There are no demonstrated bladder calculi. US/Kidney and Bladder IMPRESSION: There are simple cysts in both kidneys. No follow up required. Electronically Signed: Leif Manjarrez MD at 15:57 EST , Service support ,
== END 2021-04-15 23:59 | disposition short-term general hospital (02) ==
LOC: US 14:57
PROVIDERS: PCP Family Medicine; Referring Provider Internal Medicine Nephrology; Visit Provider Internal Medicine Nephrology
DX: N18.32 Chronic kidney disease, stage 3b (principal)
CPT/HCPCS: 76770

== ENCOUNTER 2021-05-27 08:18 | Outpatient (CLI) | payer MEDICARE, OTHER, SELFPAY ==
[2021-05-27 10:08] LABS: Albumin, Serum 3.1 g/dL (3.2-5.0); BUN 19 mg/dL (7-18); BUN/Creat Ratio 12.1 RATIO (10-20); Calcium,Total 8.6 mg/dL (8.5-10.1); Chloride 109 mmol/L (98-107); Creatinine, Serum 1.57 mg/dL (0.70-1.30); EST Glomerular Filtration Rate 45 mL/min (>60); Est Glom Filt Rate - Afr Amer 55 mL/min (>60); Glucose 86 mg/dL (74-106); Phosphorus 3.1 mg/dL (2.5-4.9); Potassium 3.8 mmol/L (3.5-5.1); Sodium Level 141 mmol/L (136-145)
== END 2021-05-27 23:59 | disposition home or self-care (01) ==
LOC: MFPLAB 08:20
PROVIDERS: PCP Family Medicine; Referring Provider Family Medicine; Visit Provider Internal Medicine Nephrology
DX: N18.32 Chronic kidney disease, stage 3b (principal)
CPT/HCPCS: 36415; 80069

== ENCOUNTER → 2021-10-21 | Outpatient (CLI) | payer MEDICARE, OTHER, SELFPAY ==
[2021-10-21 10:37] LABS: AST(SGOT) 19 U/L (15-37); Alanine Aminotransfer ALT/SGPT 21 U/L (16-61); Albumin, Serum 3.2 g/dL (3.2-5.0); Alkaline Phosphatase 56 U/L (45-117); Anion Gap 7 (5-15); BUN 20 mg/dL (7-18); BUN/Creat Ratio 11.3 RATIO (10-20); Calcium,Total 8.8 mg/dL (8.5-10.1); Chloride 109 mmol/L (98-107); Cholesterol 95 mg/dL (200); Creatinine, Serum 1.77 mg/dL (0.70-1.30); EST Glomerular Filtration Rate 39 mL/min (>60); Est Glom Filt Rate - Afr Amer 48 mL/min (>60); Glucose 91 mg/dL (74-106); High Density Lipoprotein 38 mg/dL; Phosphorus 2.7 mg/dL (2.5-4.9); Potassium 4.1 mmol/L (3.5-5.1); Protein, Total 6.2 g/dL (6.4-8.2); Sodium Level 141 mmol/L (136-145); Triglycerides 119 mg/dL; Very Low Density Lipoprotein 24 mg/dL (5-40)
== END | disposition home or self-care (01) ==
LOC: MFPLAB 08:23
PROVIDERS: Internal Medicine Cardiovascular Disease; PCP Family Medicine; Visit Provider Internal Medicine Nephrology
DX: N18.32 Chronic kidney disease, stage 3b (principal); I25.709 Atherosclerosis of coronary artery bypass graft(s), unspecified, with unspecified angina pectoris; E78.5 Hyperlipidemia, unspecified
CPT/HCPCS: 36415; 80048; 80061; 80076; 84100

== ENCOUNTER 2022-01-28 08:57 | Outpatient (CLI) | payer MEDICARE, OTHER, SELFPAY | END 2022-01-28 23:59 | disposition home or self-care (01) | LOC: CVS 08:57 | PROVIDERS: PCP Family Medicine; Visit Provider Internal Medicine Cardiovascular Disease | DX: R03.0 Elevated blood-pressure reading, without diagnosis of hypertension (principal); I95.1 Orthostatic hypotension; I10 Essential (primary) hypertension | CPT/HCPCS: 93788 ==

== ENCOUNTER → 2022-05-25 | Outpatient (CLI) | payer MEDICARE, OTHER, SELFPAY ==
--- NOTE | 2022-05-25 09:59 | CDU_ITS ---
Reason For Study: Dizziness Rt. Velocities/BP Lt. Velocities/BP Prox CCA 80.6/10.6 cm/sec. Prox CCA 83.3/13.9 cm/sec. Mid CCA 73.2/10.6 cm/sec. Mid CCA 71.0/12.7 cm/sec. Dist CCA 57.2/5.6 cm/sec. Dist CCA 61.1/14.9 cm/sec. Prox ICA 87.9/19.2 cm/sec. Prox ICA 108.9/23.0 cm/sec. Mid ICA 73.2/17.9 cm/sec. Mid ICA 76.6/21.0 cm/sec. Dist ICA 91.4/20.0 cm/sec. Dist ICA 77.0/22.5 cm/sec. Rt. ICA/CCA = 1.2. Lt. ICA/CCA = 1.5. Prox ECA 103.9/4.4 cm/sec. Prox ECA 102.7/5.6 cm/sec. Rt. Vert. 23.9/4.0 cm/sec. Lt. Vert. 44.0/10.0 cm/sec. Right Extracranial There is heterogeneous, irregular atherosclerotic plaque noted in the right common carotid artery. There is heterogeneous, irregular atherosclerotic plaque noted in the right internal carotid artery. There is heterogeneous, irregular atherosclerotic plaque noted in the right external carotid artery. Antegrade flow is noted in the right vertebral artery. Left Extracranial There is heterogeneous, irregular atherosclerotic plaque noted in the left common carotid artery. There is heterogeneous, irregular atherosclerotic plaque noted in the left internal carotid artery. There is heterogeneous, irregular atherosclerotic plaque noted in the left external carotid artery. Antegrade flow is noted in the left vertebral artery. Procedure Carotid Duplex [id number]. This is a Carotid Duplex examination using B-mode, color flow and specral Doppler. The exam was diagnostic. Exam performed in department. VL/Carotid Duplex Ultrasound Interpretation Summary Mild (<50%) stenosis right extracranial internal carotid. Mild (<50%) stenosis left extracranial internal carotid. Patent and antegrade vertebrals bilaterally. Ordering Physician: Markos Dey Referring Physician: Marino Patrick Performed By: Serg Schmidt RVT
== END | disposition home or self-care (01) ==
LOC: CVS 09:58
PROVIDERS: PCP Family Medicine; Visit Provider Internal Medicine Cardiovascular Disease
DX: R42 Dizziness and giddiness (principal); I73.9 Peripheral vascular disease, unspecified; I25.709 Atherosclerosis of coronary artery bypass graft(s), unspecified, with unspecified angina pectoris; I10 Essential (primary) hypertension; E78.5 Hyperlipidemia, unspecified
CPT/HCPCS: 93880

== ENCOUNTER → 2022-06-03 | Outpatient (CLI) | payer MEDICARE, OTHER, SELFPAY ==
[2022-06-03 17:28] LABS: Absolute Lymphocyte Count 1.41 X10^3/uL (0.83-4.51); Basophil# 0.03 X10^3/uL; Basophil% 0.5 % (0-1); Eosinophil# 0.06 X10^3/uL; Hematocrit 37.5 % (40-54); Hemoglobin 12.7 g/dL (13.0-16.5); Lymphocyte # 1.41 X10^3/ul (0.83-4.51); Lymphocyte % 23.8 % (19-41); Mean Corp Hgb Conc 33.9 g/dL (32-36); Mean Corpuscular Hgb 36.3 pg (27.0-32.0); Mean Corpuscular Volume 107.1 fL (80-94); Mean Platelet Vol. 10.6 fl (6.2-12.0); Monocyte# 0.39 X10^3/uL; Monocyte% 6.6 % (0-10); NRBC Flagged by Analyzer 0 % (0-5); Neutrophil % 67.6 % (47-70); Platelet Count 161 K/mm3 (150-450); RBC Distribution Width CV 12.6 % (11.6-14.6); RBC Distribution Width SD 49.6 fl (35.1-43.9); White Blood Count 5.9 K/mm3 (4.4-11.0)
[2022-06-03 18:10] LABS: Vitamin B12 705 pg/mL (211-911)
[2022-06-03 18:34] LABS: AST(SGOT) 24 U/L (15-37); Alanine Aminotransfer ALT/SGPT 21 U/L (16-61); Albumin, Serum 3.2 g/dL (3.2-5.0); Alkaline Phosphatase 56 U/L (45-117); Anion Gap 6 (5-15); BUN 26 mg/dL (7-18); Calcium,Total 8.7 mg/dL (8.5-10.1); Chloride 104 mmol/L (98-107); Cholesterol 118 mg/dL (200); Creatinine, Serum 1.63 mg/dL (0.70-1.30); EST Glomerular Filtration Rate 43 mL/min (>60); Est Glom Filt Rate - Afr Amer 52 mL/min (>60); Globulin 3.2 g/dL (2.2-4.2); Glucose 106 mg/dL (74-106); High Density Lipoprotein 40 mg/dL; Phosphorus 2.6 mg/dL (2.5-4.9); Potassium 4.7 mmol/L (3.5-5.1); Protein, Total 6.4 g/dL (6.4-8.2); Sodium Level 136 mmol/L (136-145); Thyroid Stim Hormone (TSH) 3.23 uIU/mL (0.358-3.74); Triglycerides 192 mg/dL; Very Low Density Lipoprotein 38 mg/dL (5-40)
[2022-06-04 07:49] LABS: PTHIN 60.8 pg/mL (18.4-80.1)
== END | disposition home or self-care (01) ==
LOC: MFPLAB 14:43
PROVIDERS: PCP Family Medicine; Referring Provider Family Medicine; Visit Provider Family Medicine
DX: N18.30 Chronic kidney disease, stage 3 unspecified (principal); D53.9 Nutritional anemia, unspecified; I25.10 Atherosclerotic heart disease of native coronary artery without angina pectoris
CPT/HCPCS: 36415; 80053; 80061; 82306; 82607; 82746; 83970; 84100; 84443; 85025

== ENCOUNTER → 2022-06-26 | Outpatient (CLI) | payer MEDICARE, OTHER, SELFPAY ==
[2022-06-26 15:33] LABS: CPK Total, Creatine Kinase 115 U/L (39-308); Ferritin 347 ng/mL (26-388)
== END | disposition home or self-care (01) ==
LOC: MTLAB 12:35
PROVIDERS: PCP Family Medicine; Referring Provider Family Medicine; Visit Provider Family Medicine
DX: M79.10 Myalgia, unspecified site (principal); G62.9 Polyneuropathy, unspecified
CPT/HCPCS: 36415; 82550; 82728; 83735; 84207; 84425

== ENCOUNTER → 2022-08-19 | Outpatient (CLI) | payer MEDICARE, OTHER, SELFPAY ==
--- NOTE | 2022-08-19 13:36 | NEURO ---
NCS and/or EMG Patient Report Ordering Doctor: Marino Patrick DATE OF SERVICE: 08/19/22 Deon presents for electrodiagnostic testing of the lower limbs. He reports frequent falls, but is unsure of the reason why he is falling. He does report some weakness. Electrodiagnostic findings: Right peroneal motor nerve demonstrates normal distal latency, amplitude with borderline reduced conduction velocity. Left peroneal motor nerve demonstrates normal distal latency, amplitude and conduction velocity. Tibial motor response is normal bilaterally. Prolonged right tibial, right peroneal and left tibial F wave. Prolonged left peroneal F-wave. Prolonged H reflex bilaterally. Prolonged sural latency is noted bilaterally. Normal superficial peroneal responses. On needle EMG, all muscles tested in the lower limbs, as well as the lumbar paraspinals showed no evidence of denervation with normal motor unit action potentials. Electrodiagnostic impression: This is an abnormal study in the lower limbs 1. Electrodiagnostic findings suggestive of a mild peripheral polyneuropathy, with motor and sensory nerve involvement, without evidence of axon loss. However, this seems unlikely to account for all his symptoms 2. No EMG evidence is noted for lumbosacral radiculopathy. Multi Select Codes Neurology Neurology Interp Codes: 58175-89 Musc test done w/n test comp (interp) (2) and 70661-53 Nrv cndj test 9-10 studies (interp)
== END | disposition home or self-care (01) ==
LOC: PSN 12:05
PROVIDERS: PCP Family Medicine; Referring Provider Family Medicine; Visit Provider Family Medicine
DX: G62.9 Polyneuropathy, unspecified (principal); R53.81 Other malaise
CPT/HCPCS: 95886; 95912

== ENCOUNTER → 2022-09-29 | Outpatient (CLI) | payer MEDICARE, OTHER, SELFPAY ==
[2022-09-29 10:23] LABS: Bacteria 0 SEEN /hpf (None Seen); Mucous, Urine 0 SEEN /hpf (<or=2+); Red Blood Cells-Urine 0 SEEN /hpf (0-5)
[2022-09-29 12:49] LABS: Glucose, Dipstick Normal (Normal); Ketone-Dipstick Negative (Negative); Leukocyte Esterase-Dipstick 25 /ul (Negative); Nitrite-Dipstick Negative (Negative); Occult Blood-Urine Negative /ul (Negative); Protein-Dipstick Negative (Negative); Specific Gravity, Urine 1.025 (1.002-1.030); Urine Bilirubin Dipstick Negative (Negative); Urine Urobilinogen Normal (Normal)
[2022-09-29 12:51] LABS: Absolute Lymphocyte Count 1.13 X10^3/uL (0.83-4.51); Absolute Neutrophil Count 3.6 X10^3/uL (2.0-7.7); Basophil# 0.02 X10^3/uL; Basophil% 0.4 % (0-1); Eosinophil# 0.06 X10^3/uL; Eosinophils% 1.2 % (0-5); Hematocrit 37.5 % (40-54); Hemoglobin 12.4 g/dL (13.0-16.5); Lymphocyte # 1.13 X10^3/ul (0.83-4.51); Lymphocyte % 21.8 % (19-41); Mean Corp Hgb Conc 33.1 g/dL (32-36); Mean Corpuscular Hgb 36.3 pg (27.0-32.0); Mean Corpuscular Volume 109.6 fL (80-94); Mean Platelet Vol. 11.3 fl (6.2-12.0); Monocyte# 0.35 X10^3/uL; Monocyte% 6.8 % (0-10); NRBC Flagged by Analyzer 0 % (0-5); Neutrophil # 3.59 X10^3/uL (2.7-7.7); Neutrophil % 69.2 % (47-70); POSITIVE COUNT YES; Platelet Count 122 K/mm3 (150-450); RBC Distribution Width CV 12.2 % (11.6-14.6); RBC Distribution Width SD 49.3 fl (35.1-43.9); Red Blood Count 3.42 M/mm3 (4.6-6.2); White Blood Count 5.2 K/mm3 (4.4-11.0)
[2022-09-29 12:56] LABS: Color, Urine Yellow (Yellow); Urine Clarity Clear (Clear)
[2022-09-29 13:01] LABS: Protein, Urine (Random) 9.6 mg/dL (<11.9); Protein:Creat Ratio 115 mg/g CRE (0-200)
[2022-09-29 13:28] LABS: Differential Comment SCANNED; Differential Indicated SCAN CRITERIA MET
[2022-09-29 13:40] LABS: Vitamin B12 816 pg/mL (211-911)
[2022-09-29 13:42] LABS: PTHIN 58.5 pg/mL (18.4-80.1)
[2022-09-29 13:49] LABS: Squamous Epithelial Cells - UA 0-5 SEEN /hpf (0-5); White Blood Cells 0-5 SEEN /hpf (0-5)
[2022-09-29 15:01] LABS: ALB/GLOB Ratio 0.9 RATIO (0.9-2.4); AST(SGOT) 16 U/L (15-37); Alanine Aminotransfer ALT/SGPT 17 U/L (16-61); Alkaline Phosphatase 74 U/L (45-117); Anion Gap 6 (5-15); BUN 24 mg/dL (7-18); BUN/Creat Ratio 12.8 RATIO (10-20); Calcium,Total 8.8 mg/dL (8.5-10.1); Chloride 109 mmol/L (98-107); Cholesterol 111 mg/dL (200); Creatinine, Serum 1.88 mg/dL (0.70-1.30); EST Glomerular Filtration Rate 37 mL/min (>60); Est Glom Filt Rate - Afr Amer 44 mL/min (>60); Ferritin 347 ng/mL (26-388); Globulin 3.3 g/dL (2.2-4.2); Glucose 92 mg/dL (74-106); High Density Lipoprotein 42 mg/dL; Iron 127 ug/dL (65-175); Iron Binding Capacity,Total 321 ug/dL (250-450); Phosphorus 3.1 mg/dL (2.5-4.9); Potassium 4.7 mmol/L (3.5-5.1); Protein, Total 6.3 g/dL (6.4-8.2); Sodium Level 137 mmol/L (136-145); Thyroid Stim Hormone (TSH) 3.12 uIU/mL (0.358-3.74); Triglycerides 55 mg/dL; Very Low Density Lipoprotein 11 mg/dL (5-40)
[2022-10-07 03:06] LABS: Vitamin B1, Thiamine 139.1 nmol/L (66.5-200.0)
== END | disposition home or self-care (01) ==
LOC: MFPLAB 10:19
PROVIDERS: PCP Family Medicine; Visit Provider Family Medicine
DX: I12.9 Hypertensive chronic kidney disease with stage 1 through stage 4 chronic kidney disease, or unspecified chronic kidney disease (principal); N18.30 Chronic kidney disease, stage 3 unspecified; D64.9 Anemia, unspecified
CPT/HCPCS: 36415; 80053; 80061; 81001; 82570; 82607; 82728; 82746; 83540; 83550; 83970; 84100; 84156; 84207; 84425; 84443; 85025

== ENCOUNTER 2022-11-03 15:40 | Emergency (ER) | payer MEDICARE, OTHER, SELFPAY ==
[2022-11-03 15:43] VITALS: BP 209/81; PULSE 51; RESP 12; TEMP 35.9; O2SAT 100; BMI 23.8
--- NOTE | 2022-11-03 15:46 | EKG12_ITS ---
Test Reason : WEAKNESS Blood Pressure : / mmHG Vent. Rate : 050 BPM Atrial Rate : 050 BPM P-R Int : 136 ms QRS Dur : 090 ms QT Int : 474 ms P-R-T Axes : 044 034 037 degrees QTc Int : 432 ms Sinus bradycardia Otherwise normal ECG Confirmed by KERWIN MORELOS, WALDEMAR ([id number]), image editor REGINALD ESPINOZA ([id number]) on 11/05/2022 8:58:51 AM Referred By: Marino Patrick Confirmed By:FELIPE SURESH MD
--- NOTE | 2022-11-03 16:47 | EX.ED.DYSGE1 ---
HPI History of Present Illness Chief Complaint: Weakness Narrative Narrative: Patient presenting for evaluation. He was told by his [place] doctor that his potassium was high. He reports that it is 5.7. Patient states he does not have any symptoms of anything. He does have a history of CABG, CAD, hypertension, orthostatic hypotension and is on midodrine. He feels at his normal baseline. He has chronic lightheadedness this was not new. He states he went in today for routine blood work and was sent to the ER after resulted. 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 Atherosclerosis of coronary artery bypass graft without angina pectoris Chronic kidney disease (CKD) Claudication Dyspnea on exertion Essential (primary) hypertension Hyperlipidemia Left ventricular diastolic dysfunction Lightheadedness Home Medications aspirin 81 mg tablet,delayed release 81 mg PO BID 05/13/15 [History Last Taken 03/16/17 05:30 81 MG] cholecalciferol (vitamin D3) 25 mcg (1,000 unit) tablet 1,000 unit PO BID 05/13/15 [History Last Taken 03/16/17 05:30 1000 UNIT] cyanocobalamin (vitamin B-12) 1,000 mcg tablet 1,000 mcg PO DAILY 05/13/15 [History Last Taken 03/16/17 05:30 1000 MCG] nitroglycerin 0.4 mg sublingual tablet 0.4 mg sublingual Q5M PRN Chest Pain 05/13/15 [History Last Taken Unknown] Handicap Parking Placard #1 ea 06/03/21 [Rx Last Taken Unknown] ranolazine 1,000 mg tablet,extended release,12 hr (Ranexa) 1,000 mg PO BID #180 tabs 08/21/21 [Rx Last Taken Unknown] pravastatin 10 mg tablet 10 mg PO QHS #30 tabs 11/20/21 [Rx Last Taken Unknown] atenolol 25 mg tablet 12.5 mg PO BID 02/24/22 [History Last Taken Unknown] midodrine 2.5 mg tablet 2.5 mg PO TID Fax to [facility] #270 tabs 02/24/22 [Rx Last Taken Unknown] Allergy/AdvReac Type Severity Reaction Status Date / Time Penicillins Allergy Hives Verified 11/03/22 15:43 amlodipine AdvReac Intermediate dizziness Verified 11/03/22 15:43 Iodinated Contrast Media AdvReac Other Verified 11/03/22 15:43 [DYEE] Family History Father Cancer Mother Hypertension Surgical History H/O coronary artery bypass surgery (05/17/15) History of appendectomy History of herniorrhaphy History of left heart catheterization (09/2015) Hx of cholecystectomy (03/16/17) Social History Smoking Status: Former smoker ROS ROS ED Constitutional Constitutional ED: Denies chills, fever(s) or sweats Eyes Eyes: Denies blurry vision or change in vision ENT ENT ED: Denies ear pain or sore throat Cardiovascular Cardiovascular: Denies chest pain, palpitations or racing heartbeat Respiratory/Chest Respiratory/Chest: Denies cough, dyspnea or sputum Gastrointestinal Gastrointestinal: Denies abdominal pain, constipation, diarrhea, nausea or vomiting Genitourinary Genitourinary ED: Denies dysuria, hematuria or urinary frequency Musculoskeletal Musculoskeletal: Denies arthralgias, myalgias or neck pain Integumentary Denies abscess, Abrasions or rash Neurologic Neurologic: Denies headache(s), paresthesias or weakness Psychiatric Psychiatric: Denies anxiety, depression, suicidal ideation or suicidal thoughts Endocrine Endocrinology: Denies polydipsia or polyuria EXAM Physical Exam Const Vital Signs: 11/03/22 15:43 11/03/22 17:05 11/03/22 17:16 Temperature 96.7 F L Temperature Source Temporal Pulse Rate 51 L Respiratory Rate 12 Respiratory Effort Normal Non-Labored Blood Pressure 209/81 H 202/69 H Blood Pressure Mean 123 113 Pulse Ox 100 Oxygen Delivery Method Room Air 11/03/22 17:55 11/03/22 18:53 Temperature Temperature Source Pulse Rate 85 Respiratory Rate 18 Respiratory Effort Blood Pressure 191/74 H 214/92 H Blood Pressure Mean 113 Pulse Ox 56 Oxygen Delivery Method Positive well nourished General Appearance ED: NAD; Negative for pallor HEENT Reports moist mucous membranes Eyes PERRL and EOMs intact bilaterally Chest Wall inspection of chest normal and palpation of chest normal Resp normal respiratory effort and clear to auscultation bilaterally Auscultation: Negative for rales, rhonchi or wheezes Cardio regular rate and regular rhythm GI normal to inspection, nondistended, normoactive bowel sounds Extremity General Extremety ED: Negative for edema General Extremity: Negative for edema Neuro oriented x3 and CN's II-XII intact bilaterally Motor Exam: strength 5/5 throughout Psych mental status grossly normal Skin no rashes or lesions noted General Skin Exam: Negative for jaundice or pallor MDM MDM MDM Narrative Medical decision making narrative: Patient asymptomatic with an elevated potassium. I will obtain a CBC and BMP. He has no other symptoms. I will address his blood pressure if needed. Patient CBC was unremarkable. BMP shows a creatinine 1.68 which is near baseline. Electrolytes are normal. No hyperkalemia. Patient's blood pressure is still elevated although he is asymptomatic of it. I did speak with Dr. Bull Mcguire who is on-call for Dr. Marino Patrick. We did discuss his high blood pressure and the fact that he does get orthostatic hypotension and is on midodrine. He has not taken his nighttime dose of atenolol either. I discussed with him that the patient was asymptomatic of this and he only came in because he was told his potassium was high. 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 Patient amenable to this. I do not believe he needs further work-up or imaging. He will check his blood pressures at home and call the office tomorrow for follow-up visit. Impression 1. Feared complaint not found 2. Hypertension Lab Data Labs: Laboratory Results - last 24 hr 11/03/22 16:35 WBC 5.8 RBC 3.48 L Hgb 12.9 L Hct 37.5 L MCV 107.8 H MCH 37.1 H MCHC 34.4 RDW Std Deviation 48.7 H RDW Coeff of Fidelia 12.3 Plt Count 127 L MPV 10.5 Immature Gran % (Auto) 0.300 Neut % (Auto) 66.4 Lymph % (Auto) 25.3 Bourbon % (Auto) 6.2 Eos % (Auto) 1.6 Baso % (Auto) 0.2 Absolute Neuts (auto) 3.8 Absolute Lymphs (auto) 1.46 Nucleated RBC % 0 Sodium 138 Potassium 4.4 Chloride 108 H Carbon Dioxide 25.0 Anion Gap 5 BUN 23 H Creatinine 1.68 H Estim Creat Clear Calc 33.90 Est GFR (MDRD) Af Amer 51 L Est GFR (MDRD) Non-Af 42 L BUN/Creatinine Ratio 13.7 Glucose 84 Calcium 9.0 Discharge Plan Triage Chief Complaint: Weakness ED Provider: John Stewart Dx/Rx/DC Orders Instructions: ED Hypertension, Established Prescriptions: No Action ranolazine [Ranexa] 1,000 mg tablet extended release 12 hr 1,000 mg PO BID Qty: 180 3RF atenolol 25 mg tablet 12.5 mg PO BID Rx Instructions: 1/2 tab bid cyanocobalamin (vitamin B-12) 1,000 MCG tablet 1,000 mcg PO DAILY Patient Comments: Vitamin B supplement aspirin 81 MG tablet 81 mg PO BID Patient Comments: Blood thinner for heart health nitroglycerin 0.4 MG tablet 0.4 mg SUBLINGUAL Q5M PRN (Reason: Chest Pain) Patient Comments: Chest pain cholecalciferol (vitamin D3) 1,000 UNIT tablet 1,000 unit PO BID Patient Comments: Vitamin D supplement (DME) Handicap Parking Placard See Rx Instructions .Route .MEDSUPPLY Qty: 1 0RF Rx Instructions: As directed pravastatin 10 mg tablet 10 mg PO QHS Qty: 30 11RF midodrine 2.5 mg tablet 2.5 mg PO TID Qty: 270 3RF Primary Care Provider: Marino Patrick Referrals: Marino Patrick MD [Primary Care Provider] - Disposition Disposition: Home, Self Care Discharge Date/Time: 11/03/22 18:54
[2022-11-03 17:03] LABS: Absolute Lymphocyte Count 1.46 X10^3/uL (0.83-4.51); Absolute Neutrophil Count 3.8 X10^3/uL (2.0-7.7); Basophil# 0.01 X10^3/uL; Basophil% 0.2 % (0-1); Eosinophil# 0.09 X10^3/uL; Eosinophils% 1.6 % (0-5); Hematocrit 37.5 % (40-54); Hemoglobin 12.9 g/dL (13.0-16.5); Lymphocyte # 1.46 X10^3/ul (0.83-4.51); Lymphocyte % 25.3 % (19-41); Mean Corp Hgb Conc 34.4 g/dL (32-36); Mean Corpuscular Hgb 37.1 pg (27.0-32.0); Mean Corpuscular Volume 107.8 fL (80-94); Mean Platelet Vol. 10.5 fl (6.2-12.0); Monocyte# 0.36 X10^3/uL; Monocyte% 6.2 % (0-10); NRBC Flagged by Analyzer 0 % (0-5); Neutrophil # 3.84 X10^3/uL (2.7-7.7); Neutrophil % 66.4 % (47-70); Platelet Count 127 K/mm3 (150-450); RBC Distribution Width CV 12.3 % (11.6-14.6); RBC Distribution Width SD 48.7 fl (35.1-43.9); Red Blood Count 3.48 M/mm3 (4.6-6.2); White Blood Count 5.8 K/mm3 (4.4-11.0)
[2022-11-03 17:16] VITALS: BP 202/69
[2022-11-03 17:51] LABS: Anion Gap 5 (5-15); BUN 23 mg/dL (7-18); BUN/Creat Ratio 13.7 RATIO (10-20); Chloride 108 mmol/L (98-107); Creatinine, Serum 1.68 mg/dL (0.70-1.30); EST Glomerular Filtration Rate 42 mL/min (>60); Est Glom Filt Rate - Afr Amer 51 mL/min (>60); Glucose 84 mg/dL (74-106); Potassium 4.4 mmol/L (3.5-5.1); Sodium Level 138 mmol/L (136-145)
[2022-11-03 17:55] VITALS: BP 191/74
--- NOTE | 2022-11-03 18:52 | ED.RN ---
BP UPON DISCHARGE 214/92. PER RODNEY BUSH FOR DISCHARGE AT THIS TIME. PT TO TAKE BP MEDS AT HOME AND HOLD MIDODRINE FOR TONIGHT
[2022-11-03 18:53] VITALS: BP 214/92; PULSE 85; RESP 18; O2SAT 56
== END 2022-11-03 18:54 | disposition home or self-care (01) ==
PROVIDERS: Emergency Provider Student in an Organized Health Care Education/Training Program; PCP Family Medicine; Visit Provider Student in an Organized Health Care Education/Training Program
DX: Z71.1 Person with feared health complaint in whom no diagnosis is made (principal); I12.9 Hypertensive chronic kidney disease with stage 1 through stage 4 chronic kidney disease, or unspecified chronic kidney disease; N18.9 Chronic kidney disease, unspecified; E78.5 Hyperlipidemia, unspecified; Z87.891 Personal history of nicotine dependence; I25.10 Atherosclerotic heart disease of native coronary artery without angina pectoris; Z95.1 Presence of aortocoronary bypass graft; Z79.899 Other long term (current) drug therapy; Z79.82 Long term (current) use of aspirin; Z90.49 Acquired absence of other specified parts of digestive tract
CPT/HCPCS: 80048; 85025; 93005; 99283; A4216

== ENCOUNTER 2022-11-24 12:00 | Outpatient (RCR) | payer MEDICARE, OTHER, SELFPAY ==
--- NOTE | 2022-07-06 18:25 | HP.PTEVAL_ITS ---
Patient's Visit Information PEDRO LUIS THAYER is a 81 year old M referred to Physical Therapy by Dr. Marino Patrick MD with a diagnosis of NEUROPATHY, DEBILITY AND LOSS OF BALANCE. Date of Evaluation: 07/06/22 Physical Therapist: Mary Hurst, PT, Cert MDT - Visit Plan Frequency: 2x /Week Duration: 4-6 Weeks Plan: GAIT AND BALANCE TRAINING. STAIR TRAINING. JERED LE ROM, STRETCHING AND STRENGTHENING. START SLOW AND PROGRESS SLOW. AVOID PAIN. - Subjective THIS PATIENT PRESENTS TO PT WITH C/O BURNING IN HIS HAMSTRINGS AND WEAKNESS IN HIS QUADS. HE REPORTS HE IS DIZZY ALL THE TIME AND SOME DAYS IT IS STRONGER THAN OTHERS. 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 HE STATES HE FEELS HIS HEART PROBLEM IS RELATED TO HIS DIZZINESS BUT THE DOCTORS DON'T COMPLETELY AGREE. HE REPORTS HE TIRES VERY EASILY. HE REPORTS HIS GOAL FOR THERAPY IS TO START IMPROVING AGAIN LIKE HE WAS WHEN HE WAS GOING TO THERAPY AT [facility] IN APPROX MAY 2022. HE REPORTS HE WAS IMPROVING AND THE THERAPIST THOUGHT HE WAS AT A POINT WHERE HE COULD CONTINUE TO IMPROVE ON HIS OWN BUT HE HASN'T. HE REPORTS COMPLIANCE WITH HOME PT PROGRAM GIVEN. PATIENT REPORTS HIS BALANCE IS TERRIBLE AND IT HAS BEEN DETERIORATING OVER THE LAST YEAR. PAIN: JERED BUTTOCK/HAMSTRINGS: WORST 8/10, LEAST 0/10. WORSE: WALKING - HAS TO STOP AFTER ABOUT 1/2 MILE TO REST FOR ABOUT 5 MIN THEN CAN GO MORE. BETTER: SITTING. OTHER: HAS BEEN WALKING ABOUT A MILE AT THE [facility] [place] EVERY DAY AND IT IS LIMITED BY HIS BUTTOCK AND HAMSTRING SORENESS/PAIN AND LIGHT HEADEDNESS. August [employer] IN [place] PENDING. P MH/Recent major surgery: NEUROSTATIC HYPOTENTION. COVID JULY 2019. R BICEP RUPTURE. OTHER: PATIENT REPORTS THAT A FEW MONTHS AGO HE GOT A TWINGE OF PAIN BEHIND HIS LEFT KNEE AND EVER SINCE THEN HE CAN'T SET HIS L FOOT FLAT ON THE FLOOR WHEN HE FIRST GETS UP IN THE MORNING BUT THEN IT STRETCHES OUT IN ABOUT 5- 10 MINUTES. HE REPORTS IT DOESN'T HURT WHEN HE STRETCHES IT OUT IT JUST LOOSENS UP. HE REPORTS THIS OCCURED BEFORE HAVING THERAPY AT [facility]. - Objective Sitting/Standing Posture: POOR. FH. RSH'S. DECREASED LORDOSIS. . INCREASED KYPHOSIS. UNABLE TO STAND ERECT. Other Observations: THIS PATIENT AMBULATES INDEP'LY INTO PT WITH STRAIGHT CANE AND UNSTEADY GAIT BUT NO LOB. HE REPORTS HE HASN'T HAD ANY FALLS SINCE MAY AND THAT ALTHOUGH HIS GAIT IS UNSTEADY HE ISN'T CURRENTLY FALLING. Sensory deficit: JERED LE LIGHT TOUCH SENSATION GROSSLY INTACT AND SYMMETRICAL. ROM deficit: TIGHT JERED HIPS, KNEES AND ANKLE. ONLY ABLE TO DORSIFLEX LEFT ANKLE TO NEUTRAL AND R ANKLE TO +5 DEG IN SITTING. Motor deficit: LLE: HIP 4-/5, KNEES 4-/5, ANKLE DORSIFLEX 2+/5. R LE: HIP 4-/5, KNEE 4-/5, ANKLE DORSIFLEX 3-/5. Lumbar mvmt loss: flex - MIN. ext - CORINNE. R SG - MOD. L SG - MOD. Core strength: POOR. Palpation: PATIENT DENIES TENDERNESS WITH PALPATION OF JERED KNEES, HS'S AND CALVES. OTHER: SEE TUG TIME BELOW. PATIENT REPOTS THAT EVEN THOUGH IT WASN'T MUCH EX IT DID CAUSE PRESSURE IN HIS HEAD AND HE IS USE TO THAT. - Balance/Special Test Scores Lower Extremity Functional Score: 32 TUG Test Time Seconds: 28.9 30 Second Chair Rise Test Seconds: 7 - Goals Goal 1:: DECREASE C/O JERED BUTTOCK/HS PAIN WITH WALKING Goal Time Frame: 6-8 Weeks Goal 2:: PATIENT WILL BE INDEP AND SAFE WITH GAIT WITH LEAST ASSISTIVE DEVICE X 1 MILE WITHOUT INCREASED PAIN. Goal Time Frame: 8-12 Weeks Goal 3:: PATIENT WILL COMPLETE 10 STANDS IN 30 SECS WITH ONE OR LESS UE ASSIST TO DEMONSTRATE IMPROVED FUNCTIONAL STRENGTH Goal Time Frame: 4-6 Weeks Goal 4:: PATIENT WILL COMPLETE TUG IN < 20 SECS WITH STRAIGHT CANE INDEP'LY WITHOUT LOB TO DEMONSTRATE IMPROVED GAIT STABILITY Goal 5:: PATIENT WILL BE INDEP WITH A HEP FOR CONTINUED IMPROVEMENT ONCE FORMAL PHYSICAL THERAPY CONCLUDES. - Anticipated Interventions Patient/Client Instruction: Educate patient on: Condition, Plan of Care, Risk Factors For the Purpose of:: To improve self management Therapeutic Exercise to Include: Strength training, Balance training, Flexibilty training, Gait and locomotor training, Neuromotor development For the Purpose of:: To decrease pain, To increase ROM, To improve muscle performance and motor function, To increase tolerance to activity/condition/position, To improve ability of physical actions for home/community/work/leisure, To improve gait and locomotor functions Thank you for the opportunity to evaluate your patient. For Medicare and Medicare HMO plans, please review the plan of care and approve it. It will need to be FAXED BACK to us at [phone] for Medicare purposes. For Medicare only, by signing this I certify the plan of care. Please let me know if there are questions or concerns regarding this plan of care. Physician Signature: Date:
--- NOTE | 2022-08-07 13:50 | HP.PTREVAL_ITS ---
Dr. Marino Patrick MD, It has been my pleasure to treat PEDRO LUIS THAYER over the last 10 visits for NEUROPATHY, DEBILITY AND LOSS OF BALANCE. Please see the progress note below for an update on the physical therapy plan of care! Subjective: PATIENT REPORTS FALLING YESTERDAY BUT STATES HE DIDN'T HURT HIMSELF. REPORTS HE WAS GETTING TIRED WALKING AT THE [facility], STARTED TO SEE DOUBLE SO DECIDED TO SIT DOWN. WHEN HE WENT TO SIT DOWN HE LEANED FORWARD AND JUST KEPT GOING BEFORE HE COULD GET HIS BUTT ON THE BENCH. ABLE TO GET HIMSELF UP. REPORTS THIS IS FIRST FALL IN ABOUT A MONTH. PATIENT REPORTS IMPROVEMENT SINCE STARTING THERAPY HERE. STATES HE IS ABLE TO WALK A LITTLE FURTHER WITH A LITTLE LESS PAIN. I'M FEELING A LITTLE MORE EASE AND STRENGTH IN MY LEGS. PATIENT REPORTS HE LIKES THE THERAPY AND HE FEELS BETTER AFTER THE SESSIONS. STATES HE WOULD LIKE TO CONTINUE PT TO SEE IF HE CAN CONTINUE TO MORE PROGRESS. I REALLY DON'T HAVE A LOT OF PAIN NOW EXCEPT IN THE MORNINGS. PATIENT REPORTS HE CAN GET HIS LEFT FOOT FLAT ON THE FLOOR BETTER NOW BUT IT IS STILL PRETTY HARD IN THE MORNING - NOT BAD THOUGH. Objective/Function: PATIENT WAS SEEN TODAY FOR RE-ASSESSMENT OF PROGRESS TOWARD THE SET PT GOALS AND THE NEED FOR FURTHER PHYSICAL THERAPY VS READINESS FOR DISCHARGE. PATIENT IS MAKING SLOW PROGRESS TOWARD ALL PT GOALS AND IS A GOOD CANDIDAT TO CONTINUE PT BASED ON PROGRESS MADE AND ROOM FOR FURTHER IMPROVEMENT. PATIENT IS AGREEABLE. UPON EXAM TODAY: ROM deficit: TIGHT JERED HIPS, KNEES AND ANKLE. ABLE TO DORSIFLEX LEFT ANKLE TO +5 AND R ANKLE TO +8 DEG IN SITTING. Motor deficit: LLE: HIP 4-/5, KNEES 4-/5, ANKLE DORSIFLEX 3-/5. R LE: HIP 4- /5, KNEE 4-/5, ANKLE DORSIFLEX 3/5. Lumbar mvmt loss: flex - MIN. ext - CORINNE. R SG - MOD. L SG - MOD. PATIENT DENIES PAIN WITH LUMBAR ROM TESTING ALL PLANES. Core strength: POOR Plan Plan: CONT PT 2X'S A WK X 10 VISITS FOR. GAIT AND BALANCE TRAINING. STAIR TRAINING. JERED LE ROM, STRETCHING AND STRENGTHENING. START SLOW AND PROGRESS SLOW. AVOID PAIN. Balance/Gait/Functional tests - Balance/Special Test Scores Lower Extremity Functional Score: 32 TUG Test Time Seconds: 20.99 Tug Test: 20-30sec.=variable mobility 30 Second Chair Rise Test Seconds: 8 Goals Goal 1:: DECREASE C/O JERED BUTTOCK/HS PAIN WITH WALKING Goal Time Frame: 6-8 Weeks Goal Progress: Progressing Goal 2:: PATIENT WILL BE INDEP AND SAFE WITH GAIT WITH LEAST ASSISTIVE DEVICE X 1 MILE WITHOUT INCREASED PAIN. Goal Time Frame: 8-12 Weeks Goal Progress: Progressing Goal 3:: PATIENT WILL COMPLETE 10 STANDS IN 30 SECS WITH ONE OR LESS UE ASSIST TO DEMONSTRATE IMPROVED FUNCTIONAL STRENGTH Goal Time Frame: 4-6 Weeks Goal Progress: Progressing Goal 4:: PATIENT WILL COMPLETE TUG IN < 20 SECS WITH STRAIGHT CANE INDEP'LY WITHOUT LOB TO DEMONSTRATE IMPROVED GAIT STABILITY Goal Progress: Progressing Goal 5:: PATIENT WILL BE INDEP WITH A HEP FOR CONTINUED IMPROVEMENT ONCE FORMAL PHYSICAL THERAPY CONCLUDES. Goal Progress: Progressing Anticipated Interventions Patient/Client Instruction: Educate patient on: Condition, Plan of Care, Risk Factors For the Purpose of:: To improve self management Therapeutic Exercise to Include: Strength training, Balance training, Flexibilty training, Gait and locomotor training, Neuromotor development For the Purpose of:: To decrease pain, To increase ROM, To improve muscle performance and motor function, To increase tolerance to activity/condition/position, To improve ability of physical actions for home/community/work/leisure, To improve gait and locomotor functions Please do not hesitate to contact me at [phone] by phone or if you have questions or concerns regarding this new plan of care! Sincerely, Mary Hurst, PT, Cert MDT
--- NOTE | 2022-10-05 15:39 | HP.PTREVAL_ITS ---
Re-Evaluation Intro: Dr. Marino Patrick MD, It has been my pleasure to treat PEDRO LUIS THAYER over the last 19 visits for NEUROPATHY, DEBILITY AND LOSS OF BALANCE. Please see the progress note below for an update on the physical therapy plan of care! Subjective Subjective: I CAN CLIMB STEPS NOW WITHOUT TOO MUCH DIFFICULTY A COUPLE TIMES NOW. PATIENT REPORTS HE FEELS HE IS GETTING STRONGER AND HE CAN GET UP OUT OF A CHAIR EASIER NOW. STATES HIS PROGRESS IS VERY MUCH LIMITED BY HIS DIZZINESS. HE REPORTS DX OF NEUROSTATIC HYPOTENSION. STATES HE HAS GOOD DAYS AND BAD DAYS WITH THE DIZZINESS BUT MORE BAD DAYS THAN GOOD. STATES THE DIZZINESS MAKES HIM FEEL WOBBLY. HE REPORTS THAT AFTER A LOT OF TESTING THEY HAVE NOT DETERMINED A TREATMENT TO HELP HIS DIZZINESS. PATIENT DENIES ANY RECENT FALLS BUT SOME NEAR FALLS. PATIENT REPORTS COMPLIANCE WITH HIS STRENGTHENING HEP WHICH TAKES HIM ABOUT 25 MINUTES A DAY. STATES HE WALKED 1/2 MILE TODAY AND ONLY STOPPED ONCE BECAUSE HIS HIPS WERE SORE (RESTED ABOUT 1-2 MINUTES THEN COULD KEEP GOING). STATES HE WALKS A 1/2 MILE JUST ABOUT EVERY DAY. PATIENT REPORTS THAT HIS LEGS STILL GET STIFF AND SORE (LIKE THEY HAVE FOR 2 YEARS) WHEN HE WALKS, DOES HIS HEP AND AFTER PT SESSIONS BUT THEY RECOVER QUICKLY WITH REST AFTER 5-10 MINUTES. PATIENT REPORTS HE WANTS TO CONTINUE PT TO SEE HOW MUCH STRONGER HE CAN GET AND TO LEARN THE BEST HOME EX PROGRAM POSSIBLE THAT HE CAN CONTINUE THE REST OF HIS LIFE. HE STATES HE DOES NOT PLAN TO COME TO A GYM WITH OR WITHOUT A CAREGIVER ONCE FORMAL PHYSICAL THERAPY IS DONE. PATIENT REPORTS HE SOLD HIS CAR BUT STILL DRIVES A LITTLE BIT AND DROVE HIMSELF TO THE [employer] TO WALK AND HERE TO PT TODAY. Objective Objective/Function: PATIENT WAS SEEN TODAY FOR RE-ASSESSMENT OF PROGRESS TOWARD THE SET PT GOALS AND THE NEED FOR FURTHER PHYSICAL THERAPY VS READINESS FOR DISCHARGE. PATIENT IS MAKING SLOW PROGRESS TOWARD ALL PT GOALS AND IS A GOOD CANDIDAT TO CONTINUE PT BASED ON PROGRESS MADE AND ROOM FOR FURTHER IMPROVEMENT. PATIENT IS AGREEABLE. UPON EXAM TODAY: ROM deficit: TIGHT JERED HIPS, KNEES AND ANKLE. ABLE TO DORSIFLEX LEFT ANKLE TO +5 AND R ANKLE TO +8 DEG IN SITTING. Motor deficit: LLE: HIP 4-/5, KNEES 4-/5, ANKLE DORSIFLEX 4-/5 (IN AVAILABLE ROM). R LE: HIP 4-/5, KNEE 4-/5, ANKLE DORSIFLEX 3+/5 (IN AVAILABLE ROM). Core strength: FAIR. SEE IMPROVED TUG TIME AND STS TEST SCORES BELOW. PATIENT BECAME LIGHT HEADED AFTER STS TEST AND IT TOOK ABOUT 5 MINUTES FOR IT TO RESOLVE BACK TO BASELINE. PATIENT AMBULATED INDEP'LY INTO AND OUT OF PT (CONTACT GUARD WITH PATIENTS BELT) TODAY WITH STRAIGHT CANE AND NO LOB. PATIENT questioning IF DOING HEP EVERY OTHER DAY MIGHT HELP HIS PAIN. THIS PT RECOMMENDED CONTINUING HEP DAILY TOLERATED BUT NOT TO DO HEP ON DAYS HE COMES TO PT. PATIENT AGREEABLE. 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 Plan Plan Plan: *GAIT BELT FOR SAFETY* CONT PT 2X'S A WK X 10 VISITS FOR... GAIT AND BALANCE TRAINING. STAIR TRAINING. JERED LE ROM, STRETCHING AND STRENGTHENING. AVOID PAIN AND LIGHT HEADEDNESS BY GIVING MANY REST BREAKS NEEDED. FOCUS ON HEP PATIENT DOES NOT PLAN TO EX IN A GYM ONCE FORMAL PT CONCLUDES. Balance/Gait/Functional tests Balance/Special Test Scores Lower Extremity Functional Score: 40 TUG Test Time Seconds: 16.23 Tug Test: <20 sec.=mostly independent 30 Second Chair Rise Test Seconds: 9 Goals Goals Goal 1:: DECREASE C/O JERED BUTTOCK/HS PAIN WITH WALKING Goal Time Frame: 6-8 Weeks Goal Progress: Progressing Goal 2:: PATIENT WILL BE INDEP AND SAFE WITH GAIT WITH LEAST ASSISTIVE DEVICE X 1 MILE WITHOUT INCREASED PAIN. Goal Time Frame: 8-12 Weeks Goal Progress: Progressing Goal 3:: PATIENT WILL COMPLETE 10 STANDS IN 30 SECS WITH ONE OR LESS UE ASSIST TO DEMONSTRATE IMPROVED FUNCTIONAL STRENGTH Goal Time Frame: 4-6 Weeks Goal Progress: Progressing Goal 4:: PATIENT WILL COMPLETE TUG IN < 20 SECS WITH STRAIGHT CANE INDEP'LY WITHOUT LOB TO DEMONSTRATE IMPROVED GAIT STABILITY Goal Progress: Goal Met Goal 5:: PATIENT WILL BE INDEP WITH A HEP FOR CONTINUED IMPROVEMENT ONCE FORMAL PHYSICAL THERAPY CONCLUDES. Goal Progress: Progressing Anticipated Interventions Anticipated Interventions Patient/Client Instruction: Educate patient on: Condition, Plan of Care and Risk Factors For the Purpose of:: To improve self management Therapeutic Exercise to Include: Strength training, Balance training, Flexibilty training, Gait and locomotor training and Neuromotor development For the Purpose of:: To decrease pain, To increase ROM, To improve muscle performance and motor function, To increase tolerance to activity/condition/position, To improve ability of physical actions for home/community/work/leisure and To improve gait and locomotor functions Re-Evaluation Ending Re-evaluation ending: Please do not hesitate to contact me at [phone] by phone or if you have questions or concerns regarding this new plan of care! Sincerely, Mary Hurst, PT, Cert MDT
--- NOTE | 2022-11-24 12:48 | HP.PTDCS(3) ---
Discharge Summary D/C Summary: It has been my pleasure to treat PEDRO LUIS THAYER referred by Dr. Marino Patrick MD, with the diagnosis of for a total of visit(s). Discharge Date: Please see the following information for a summary of their discharge status. D/C Information d/c sentence: If there are questions or concerns regarding this patient's physical therapy, please feel free to call me at [phone]. Thank you for the referral of this patient. Sincerely, Mary Hurst, PT, Cert MDT Balance/Gait/Functional tests Balance/Special Test Scores Tug Test: <20 sec.=mostly independent TUG Test Time Seconds: 18.23
== END 2022-11-24 19:00 | disposition home or self-care (01) ==
LOC: PT 12:00
PROVIDERS: PCP Family Medicine; Referring Provider Family Medicine; Visit Provider Family Medicine
DX: G62.9 Polyneuropathy, unspecified (principal); R53.81 Other malaise; R26.81 Unsteadiness on feet
CPT/HCPCS: 97110; 97162; 97164

== ENCOUNTER 2023-03-04 11:00 | Outpatient (RCR) | payer MEDICARE, OTHER, SELFPAY ==
--- NOTE | 2023-02-04 11:55 | HP.PTEVAL ---
Patient's Visit Information Visit Information Visit Information: PEDRO LUIS THAYER is a 82 year old M referred to Physical Therapy by MINDY Briceno with a diagnosis of debility. Date of Evaluation: 02/04/23 Physical Therapist: Bull Chaudhry, JASONT, OCS, CSCS Visit Plan Frequency: 2x /Week Duration: 4-6 Weeks Plan: 2x/week for 4-6 weeks Pt to start going back to [facility] and walking with family 2-3x/week, take bigger steps and always use wh walker, also reviewed picking up throw rugs and turning on lights) In clinic: please ensure HEp for UE and LE strength(pt to bring copies of previous exercises), also wrk on balance and weight shift and gait training with longer steps and up taller, steps as an exercise, funcitonal strength. Goal to get him going at home, previous EXTRACTOR FILLER states gym ex at [facility] likely not realistic. Subjective Subjective: Losing strength in my legs. Has orthrostatic hypotension and is lightheaded alot which has effect on stability. Was here for therapy August through November. Two falls in last 2 weeks. First helping look for blanket bending over to get heat control and bumped off balance. Throw rug in doorway tripped him. uses wh walker to get around all the time. Lives in house one story with steps to enter without railing but has railing in garage. basic ADLs: Increased time to dress(20 minutes), Dtr makes meals, has stage 4 ovarian CA, Dtr helping out. bathjroom self, shower in walk in but has railing in shower stall and chair. Not employed. Spends day eating breakfast, reading a book or watch TV, eat lunch, take a nap, reead a book, eat dinner. Sometimes goes to [facility] but limited since got sick. used to do 5 days per week 5-8 laps. used to use a cane. Neuropathy none. Objective Objective: walks hunched over with short steps with and without walker but needs walker for safety or SBA without it. Turns with short choppy steps slowly and poor balance. Trasnfers using UE only , slow and stiff. Steps with two rails reciprocally SBA. VC to take bigger steps and walkup taller are very helpful and appears safer immediately although fatigues quickly. Walked 200 feet today. Stiffness obvious in B HS and quads and gastroc. AROM hips and knees and ankles WFL for elderly movement. reflexes 1/3 patella and achilles sensation LE WNL to gross light touch. coordination toe tap is challenging, heel tap is OK. DF strength 3+, knee flex/ext 4-, hip flexion, abd and ext 3+ R and 3 L. Balance/Special Test Scores Functional Gait Assessment Score: 15 % Disability: 50.0000 Lower Extremity Functional Score: 18 TUG Test Time Seconds: 30 30 Second Chair Rise Test Seconds: 7 Goals Goal 1:: 11 30 sec sit to stand and ,20 on TUG Goal Time Frame: 4-6 Weeks Goal 2:: FGA 20/30 to minimize fallr isk Goal Time Frame: 4-6 Weeks Goal 3:: I appropr HEP to limit future difficulties and falls Goal Time Frame: 4-6 Weeks Goal 4:: Pt feel 505 better in overall mobility at home Goal Time Frame: 4-6 Weeks Goal 5:: 38 LEFS Goal Time Frame: 4-6 Weeks Rehabilitation Potential Physical Therapy Diagnosis: weakness and imbalance effecting funcitona nd safety at home. Got away from HEp since terminal diagnosis Rehabilitation Potential: Good Anticipated Interventions Patient/Client Instruction: Educate patient on: Condition and Risk Factors For the Purpose of:: To decrease pain, To increase ROM, To improve nutrient delivery to tissue, To improve muscle performance and motor function, To improve ability to perform ADL's and To increase tolerance to activity/condition/position Therapeutic Exercise to Include: Strength training, Balance training, Coordination, Flexibilty training and Gait and locomotor training For the Purpose of:: To improve nutrient delivery to tissue, To improve muscle performance and motor function, To increase tolerance to activity/condition/position, To improve performance and independence with ADL's and To improve ability of physical actions for home/community/work/leisure Text: Thank you for the opportunity to evaluate your patient. For Medicare and Medicare HMO plans, please review the plan of care and approve it. It will need to be FAXED BACK to us at [phone] for Medicare purposes. For Medicare only, by signing this I certify the plan of care. Please let me know if there are questions or concerns regarding this plan of care. Physician Signature: Date:
--- NOTE | 2023-03-04 11:57 | HP.PTDCSUM ---
Discharge Summary D/C summary: It has been my pleasure to treat PEDRO LUIS THAYER referred by MINDY Briceno, with the diagnosis of debility for a total of 8 visit(s). Discharge Date: 03/04/23 Please see the following information for a summary of their discharge status. Subjective Subjective: Feels stronger. Doing HEP most days at home. Has some B HS pain rated at 8/10. Some days hard to get out of bed. Overall Improvement % Improvement: 50 Objective Objective/Function: Walking safe adn mod I with wh walker. Improved on FGA by 6 points, TUG by 12 seconds adn 30 sec sit to stand by 4 Wants to continue via HEP vs more therapy Goals Goal 1:: 11 30 sec sit to stand and ,20 on TUG Goal Progress: Goal Met Goal 2:: FGA 20/30 to minimize fallr isk Goal Progress: Goal Met Goal 3:: I appropr HEP to limit future difficulties and falls Goal Progress: Goal Met Goal 4:: Pt feel 505 better in overall mobility at home Goal Progress: Goal Met Goal 5:: 38 LEFS Goal Progress: Progressing Plan Plan: d/ c D/C Information d/c sentence: If there are questions or concerns regarding this patient's physical therapy, please feel free to call me at [phone]. Thank you for the referral of this patient. Sincerely, Bull Chaudhry, DPT, OCS, CSCS Balance/Gait/Functional tests Balance/Special Test Scores Functional Gait Assessment Score: 21 % Disability: 30.0000 Lower Extremity Functional Score: 26 TUG Test Time Seconds: 18 Tug Test: >30sec.=impaired mobility 30 Second Chair Rise Test Seconds: 12 Improvement % Improvement: 50
== END 2023-03-04 19:00 | disposition home or self-care (01) ==
LOC: PT 11:00
PROVIDERS: PCP Family Medicine; Referring Provider Nurse Practitioner Family; Visit Provider Nurse Practitioner Family
DX: R53.81 Other malaise (principal)
CPT/HCPCS: 97110; 97162; 97164

== ENCOUNTER → 2023-04-22 | Outpatient (CLI) | payer MEDICARE, OTHER, SELFPAY ==
--- NOTE | 2023-04-22 13:58 | VDLE_ITS ---
Reason For Study: swelling RIGHT LEFT GSV is normal. GSV is normal. CFV is compressible, spontaneous, phasic, CFV is compressible, spontaneous, phasic, competent and demonstrates normal competent, and demonstrates normal augmentation. augmentation. FV is compressible, spontaneous, phasic, FV is compressible, spontaneous, phasic, competent and demonstrates normal competent and demonstrates normal augmentation. augmentation. POP V is compressible, spontaneous, phasic, POP V is compressible, spontaneous, phasic, competent and demonstrates normal competent and demonstrates normal augmentation. augmentation. T/P Trunk is compressible. T/P Trunk is compressible. PTV is compressible. PTV is compressible. RT PerV is compressible. LT PerV is compressible. Procedure This is a venous duplex using B-mode, color flow and spectral Doppler. Exam performed in department. The exam was diagnostic. A preliminary report was called and/or faxed to Joceline Barrera. VL/Venous Duplex US - Juni Extrem Interpretation Summary Deep veins of the bilateral lower extremities are patent and compressible segme ntally. There is no evidence of bilateral lower extremity deep vein thrombosis. The bilateral great saphenous veins appear patent and compressible segmentally. Ordering Physician: Joceline Mejia Performed By: Colt Frausto, RVT
== END | disposition home or self-care (01) ==
PROVIDERS: PCP Family Medicine; Referring Provider Nurse Practitioner Family; Visit Provider Nurse Practitioner Family
DX: R60.0 Localized edema (principal); M79.89 Other specified soft tissue disorders
CPT/HCPCS: 93970

== ENCOUNTER → 2023-04-30 | Outpatient (CLI) | payer MEDICARE, OTHER, SELFPAY ==
--- OUTSIDE RECORDS SUMMARY | 2023-04-30 13:17 | XMS RPT_ITS | CCD ---
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 Name Role Phone Meena JOHNSON, Deb Jack Unavailable Unavailable MD Yissel, [place] S Unavailable Sean Baron Unavailable Unavailable Unavailable Primary Care Provider UnavailMarii Kramer Primary Care Provider Bill Deyril S Unavailable MIGUELINA SOTO Referring Unavailabl e SCHINNER, MARII BERUMEN Primary Care Unavailabl e MIGUELINA SOTO Referring Unavailabl e SCHINNERMARII EDPOST Primary Care Unavailabl e MIGUELINA SOTO Referring Unavailabl e SCHMARII FRAZIER Primary Care Unavailabl e ARSH, ALESHIA Y Referring Unavailable ARSH, ALESHIA Y Referring Unavailable O'CRISTHIAN, ROBB Attending Unavailable ARSH, ALESHIA Y Referring Unavailable O'CRISTHIAN, ROBB Attending Unavailable ARSH, ALESHIA Y Referring Unavailable ARSH, ALESHIA Y Referring Unavailable O'CRISTHIAN, ROBB Attending Unavailable ARSH, ALESHIA Y Referring Unavailable O'CRISTHIAN, ROBB Attending Unavailable ARSH, ALESHIA Y Referring Unavailable O'CRISTHIAN, ROBB Attending Unavailable ARSH, ALESHIA Y Referring Unavailable ARSH, ALESHIA Y Referring Unavailable O'CRISTHIAN, ROBB Attending Unavailable ARSH, ALESHIA Y Referring Unavailable O'CRISTHIAN, ROBB Attending Unavailable ARSH, ALESHIA Y Referring Unavailable O'CRISTHIAN, ROBB Attending Unavailable ARSH, ALESHIA Y Attending Unavailable ARSH, ALESHIA Y Referring Unavailable SCHMARII FRAZIER EDPOST Primary Care Unavailabl e ARSH, ALESHIA Y Referring Unavailable [facility] Primary Care MIGUELINA Light Attending ALESHIA Hein Referring Unavailable Allergies Allergy Classification Reported Allergen(s) Allergy Type Date of Onset Reaction(s) Facility (20 sources) iodine; Translations: [IODINE] Drug Allergy 07-16-2010 [facility] [employer] Work Phone: (3 sources) Penicillin G Potassium drug allergy 07-16-2010 [facility] Work Phone: (20 sources) Penicillins; Translations: [PENICILLINS] Propensity to adverse reactions to drug 07-09-2005 [facility] Work Phone: Medications Completed/Discontinued Medications Medication Drug Class(es) Dates Sig (Normalized) Sig (Original) acetaminophen 325 mg oral tablet (20 sources) take 2 tablets by mouth every six hours as needed acetaminophen (TYLENOL) 325 mg tablet Take 650 mg by mouth every 6 hours as needed. 0 Active Problems Active Problems Problem Classification Problem Date Documented Date Episodic/Chronic Complication of device; implant or graft (9 sources) Atherosclerosis of coronary artery bypass graft(s) without angina pectoris; Translations: [Arteriosclerosis of coronary artery bypass graft] Onset: 07-16-2010 11-27-2015 Chronic Conditions associated with dizziness or vertigo (20 sources) Dizziness; Translations: [Dizziness and giddiness] Onset: 03-25-2022 Episodic Coronary atherosclerosis and other heart disease (20 sources) Atherosclerotic heart disease of telida coronary artery without angina pectoris; Translations: [Coronary arteriosclerosis] Onset: 07-09-2005 Resolved: 09-11-2015 11-27-2015 Chronic Disorders of lipid metabolism (3 sources) Hyperlipidemia; Translations: [Hyperlipidemia, unspecified] Onset: 04-01-2011 04-01-2011 Chronic Essential hypertension (20 sources) Benign essential hypertension; Translations: [Essential (primary) hypertension] Onset: 07-09-2005 07-09-2005 Chronic Other circulatory disease (3 sources) Orthostatic hypotension; Translations: [Orthostatic hypotension] Episodic Other circulatory disease (1 source) Orthostatic hypotension; Translations: [Orthostatic hypotension] Onset: 08-14-2022 Episodic Other connective tissue disease (1 source) Recurrent falls ; Translations: [Repeated falls] Episodic Other nervous system disorders (1 source) Ataxia; Translations: [Ataxia, unspecified] Episodic Other nervous system disorders (1 source) Dysarthria; Translations: [Dysarthria and anarthria] Episodic Peripheral and visceral atherosclerosis (3 sources) Peripheral vascular disease; Translations: [Peripheral vascular disease, unspecified] Onset: 09-24-2015 09-24-2015 Chronic Spondylosis; intervertebral disc disorders; other back problems (20 sources) Degeneration of cervical intervertebral disc; Translations: [Other cervical disc degeneration, unspecified cervical region] Onset: 09-11-2009 09-11-2009 Chronic Unclassified (9 sources) Body mass index (BMI) 32.0-32.9, adult; Translations: [Body mass index (BMI) 31.0-31.9, adult] Onset: 09-05-2013 Resolved: 03-14-2015 03-08-2014 Chronic Unclassified (3 sources) Aortocoronary artery bypass graft, repeated; Translations: [Presence of aortocoronary bypass graft] Onset: 05-23-2015 05-23-2015 Unclassified (3 sources) Long-term drug therapy; 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] Onset: 07-16-2010 07-16-2010 Past or Other Problems Problem Classification Problem Date Documented Da te Episodic/Chronic Coronary atherosclerosis and other heart disease (3 sources) Presence of aortocoronary bypass graft; Translations: [Presence of aortocoronary bypass graft] Onset: 07-16-2010 07-16-2010 Episodic Other and unspecified benign neoplasm (20 sources) History of polyp of colon; Translations: [Personal history of colonic polyps] Onset: 06-04-2008 06-04-2008 Episodic Other and unspecified benign neoplasm (20 sources) Benign neoplasm of rectum and anal canal; Translations: [Benign neoplasm of rectum] Onset: 06-18-2011 06-18-2011 Episodic Other circulatory disease (3 sources) Elevated blood-pressure reading without diagnosis of hypertension; Translations: [Elevated blood-pressure reading, without diagnosis of hypertension] Onset: 09-24-2015 09-24-2015 Episodic Other connective tissue disease (20 sources) Impingement syndrome of shoulder region; Translations: [Impingement syndrome of unspecified shoulder] Onset: 06-29-2014 06-29-2014 Episodic Other non-traumatic joint disorders (20 sources) Shoulder pain; Translations: [Pain in left shoulder] Onset: 06-29-2014 06-29-2014 Episodic Other non-traumatic joint disorders (1 source) Pain in left shoulder; Translations: [Pain in joint, shoulder region] Onset: 06-29-2014 06-29-2014 Episodic Spondylosis; intervertebral disc disorders; other back problems (20 sources) Brachial neuritis; Translations: [Radiculopathy, cervical region] Onset: 12-14-2011 12-14-2011 Episodic Unclassified (6 sources) Abnormal result of cardiovascular function study, unspecified; Translations: [Abnormal result of cardiovascular function study, unspecified] Onset: 07-16-2010 Resolved: 11-27-2015 07-16-2010 Episodic Unclassified (3 sources) FH: Hypertension; Translations: [Family history of ischemic heart disease and other diseases of the circulatory system] 03-08-2014 Episodic Results Test Name Value Interpretation Reference Range Facil ity Vital Signs Date Time Vital Sign Value Performing Clinician Ten gonzalez 09-04-2022 11:56-0400 Body height 176.5 cm Card Nurse Work Phone: [facility] 09-04-2022 11:56-0400 Body weight 70.76 kg Card Nurse Work Phone: [facility] 09-04-2022 11:56-0400 Diastolic blood pressure 55 mm[Hg] Card Nurse Work Phone: [facility] 09-04-2022 11:56-0400 Heart rate 54 /min Card Nurse Work Phone: [facility] 09-04-2022 11:56-0400 Systolic blood pressure 113 mm[Hg] Card Nurse Work Phone: [facility] 08-14-2022 13:08-0400 Body height 176.5 cm Miguelina Soto DO Work Phone: [facility] 08-14-2022 13:08-0400 Body weight 70.76 kg Miguelina Soto DO Work Phone: [facility] 03-25-2022 11:00-0500 Diastolic blood pressure 78 mm[Hg] Robb Rosas PT [facility] 03-25-2022 11:00-0500 Heart rate 59 /min Robb Rosas PT [facility] 03-25-2022 11:00-0500 SaO2% (BldA) [Mass fraction] 93 % Robb Rosas PT [facility] 03-25-2022 11:00-0500 Systolic blood pressure 162 mm[Hg] Robb Rosas PT [facility] 03-17-2022 10:23-0500 SaO2% (BldA) [Mass fraction] 100 % Aleshia Ray MD Work Phone: [facility] 03-17-2022 10:07-0500 Body height 177.8 cm Aleshia Ray MD Work Phone: [facility] 03-17-2022 10:07-0500 Body weight 73.48 kg Aleshia Ray MD Work Phone: [facility] 03-17-2022 10:07-0500 Respiratory rate 16 /min Aleshia Ray MD Work Phone: [facility] 03-02-2017 11:39-0500 BMI (Body Mass Index) 26.43 kg/m2 Deb Sam[facility]go [facility] Work Phone: 03-02-2017 11:39-0500 BP Diastolic 60 mm[Hg] Deb Robledo RN [facility] Work Phone: 03-02-2017 11:39-0500 BP Systolic 100 mm[Hg] Deb Robledo RN [facility] Work Phone: 03-02-2017 11:39-0500 Height 175.26 cm Deb Robledo RN [facility] Work Phone: 03-02-2017 11:39-0500 Pulse (Heart Rate) 56 /min Deb Robledo RN [facility] Work Phone: 03-02-2017 11:39-0500 Respiratory Rate 20 /min Deb Robledo RN [facility] Work Phone: 03-02-2017 11:39-0500 Weight 81.19 kg Deb Robledo RN [facility] Work Phone: 08-26-2016 10:01-0400 BMI (Body Mass Index) 27.21 kg/m2 MD [facility] Work Phone: 08-26-2016 10:01-0400 BP Diastolic 50 mm[Hg] MD [facility] Work Phone: 08-26-2016 10:01-0400 BP Systolic 100 mm[Hg] MD [facility] Work Phone: 08-26-2016 10:01-0400 Height 175.26 cm MD [facility] Work Phone: 08-26-2016 10:01-0400 Pulse (Heart Rate) 64 /min MD [facility] Work Phone: 08-26-2016 10:01-0400 Respiratory Rate 24 /min MD [facility] Work Phone: 08-26-2016 10:01-0400 Weight 83.6 kg MD [facility] Work Phone: 05-26-2016 14:12-0500 BSA (Body Surface Area) 2 m2 MD [facility] Work Phone: 10-03-2015 14:58-0400 Pulse Oximetry 98 % MD [facility] Work Phone: Encounters Encounter Date Encounter Type Care Provider Facility Start: 09-11-2022 End: 09-11-2022 ambulatory MIGUELINA SOTO Facility:[facility] Start: 09-04-2022 End: 09-04-2022 ambulatory MIGUELINA SOTO Facility:[facility] Start: 09-04-2022 End: 09-04-2022 Nursing evaluation of patient and report Card Prevention Nurse Work Phone: Preventive Cardiology Procedures Date Procedure Procedure Detail Performing Clinician Start: 04-20-2022 Mri brain brain stem w/o contrast material Aleshia Ray MD Work Phone: Start: 03-02-2017 End: 03-02-2017 HANDY Dey MD Start: 03-02-2017 End: 03-02-2017 Follow Up Appt 6 months Jersey Felix Start: 01-27-2017 End: 02-17-2017 *Hepatic Function Panel Jersey Felix Start: 01-27-2017 End: 02-17-2017 Lipid Perri panel - Serum or Plasma Markos Dey MD Start: 08-26-2016 End: 03-02-2017 HANDY Dey MD Start: 08-26-2016 End: 03-02-2017 Follow Up Appt 6 months Jersey Felix Start: 07-29-2016 End: 07-29-2016 *Hepatic Function Panel Jersey Felix Start: 07-29-2016 End: 07-29-2016 Lipid Perri panel - Serum or Plasma Markos Dey MD Start: 05-26-2016 End: 05-26-2016 HANDY Fermin PA-C Work Phone: Start: 05-26-2016 End: 05-26-2016 Follow Up Appt 3 months Thuy lewis PA-C Work Phone: Start: 02-24-2016 End: 02-25-2016 *Hepatic Function Panel Jersey Felix Start: 02-24-2016 End: 02-25-2016 Lipid Perri panel - Serum or Plasma Markos Dey MD Start: 11-28-2015 End: 11-28-2015 Follow Up Appt 6 months Jersey Felix Start: 11-28-2015 End: 11-28-2015 MMM Markos Dey MD Start: 10-03-2015 End: 10-03-2015 BRASS PICKLER Markos Dey MD Start: 10-03-2015 End: 10-03-2015 Follow Up Appt 2 months Jersey Felix Start: 09-11-2015 End: 09-25-2015 Us abdominal real time w/image limited Markos Dey MD Start: 09-09-2015 End: 09-09-2015 *BMP Markos Dey MD Start: 09-09-2015 End: 09-09-2015 CBC W Auto Differential panel - Blood Markos Dey MD Start: 08-04-2015 End: 08-26-2015 *Hepatic Function Panel Jersey Felix Start: 08-04-2015 End: 08-26-2015 Lipid 1996 panel - Serum or Plasma Markos Dey MD Start: 07-22-2015 End: 09-25-2015 Nuclear stress test -exercise Markos Dey MD Start: 06-05-2015 End: 09-25-2015 Chest x-ray Markos Dey MD Start: 06-05-2015 End: 06-05-2015 Ecg routine ecg w/least 12 lds w/i&r Markos Dey MD Start: 06-05-2015 End: 06-05-2015 Follow Up Appt 3 months Jersey Felix Start: 06-05-2015 End: 06-05-2015 MMJersey Dey MD Start: 06-05-2015 End: 06-06-2015 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 to 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 wildlife officer Markos Dey MD Start: 03-14-2015 End: 03-14-2015 HANDY Fermin PA-C Work Phone: Start: 03-14-2015 End: 03-14-2015 Follow Up Appt 6 months Thuy lewis PA-C Work Phone: Start: 09-06-2014 End: 09-07-2014 Documentation of current medications Markos Dey MD Start: 09-06-2014 End: 09-06-2014 Follow Up Appt 6 months Jersey Felix Start: 09-06-2014 End: 09-06-2014 MMM Markos Dey MD Start: 09-01-2014 End: 03-21-2015 *Hepatic Function Panel Jersey Felix Start: 09-01-2014 End: 03-21-2015 Lipid 1996 panel - Serum or Plasma Markos Dey MD Start: 03-08-2014 End: 03-08-2014 HANDY Fermin PA-C Work Phone: Start: 03-08-2014 End: 03-08-2014 Ecg routine ecg w/least 12 lds w/i&r Thuy Fermin PA-C Work Phone: Start: 03-08-2014 End: 03-08-2014 Follow Up Appt 6 months Thuy lewis PA-C Work Phone: Start: 03-08-2014 End: 03-23-2014 Nuclear stress test -exercise Thuy Fermin PA-C Work Phone: Start: 02-03-2014 End: 02-21-2014 *Hepatic Function Panel Jersey Felix Start: 02-03-2014 End: 02-21-2014 Lipid 1996 panel - Serum or Plasma Markos Dey MD Start: 09-05-2013 End: 09-05-2013 Follow Up Appt 6 months Jersey Felix Start: 09-05-2013 End: 09-05-2013 DEEPA Dey MD Start: 07-04-2013 End: 08-16-2013 *Hepatic Function Panel Jersey Felix Start: 07-04-2013 End: 08-16-2013 Lipid 1996 panel - Serum or Plasma Markos Dey MD Start: 03-06-2013 End: 03-06-2013 BRASS PICKLER Thuy Fermin PA-C Work Phone: Start: 03-06-2013 End: 03-06-2013 Ecg routine ecg w/least 12 lds w/i&r Thuy Fermin PA-C Work Phone: Start: 03-06-2013 End: 03-06-2013 Follow Up Appt 6 months Thuy lewis PA-C Work Phone: Start: 01-03-2013 End: 01-26-2013 *Hepatic Function Panel Jersey Felix Start: 01-03-2013 End: 01-26-2013 Lipid 1996 panel - Serum or Plasma Markos Dey MD Start: 09-02-2012 End: 09-02-2012 Follow Up Appt 6 months Jersey Felix Start: 09-02-2012 End: 09-02-2012 DEEPA Dey MD Start: 07-04-2012 End: 07-29-2012 *Hepatic Function Panel Jersey Felix Start: 07-04-2012 End: 07-29-2012 Lipid 1996 panel - Serum or Plasma Markos Dey MD Start: 01-29-2012 End: 01-29-2012 Follow Up Appt 6 months Jersey Felix Start: 10-01-2011 End: 02-02-2012 *Hepatic Function Panel Jersey Felix Start: 10-01-2011 End: 02-02-2012 Lipid 1996 panel - Serum or Plasma Markos Dey MD Start: 06-12-2011 End: 06-12-2011 Follow Up Appt 6 months Jersey Felix History of coronary artery bypass grafting Hx of CABG Miguelina Soto DO Work Phone: Plan of Treatment Date Care Activity Detail Author Start: 12-04-2022 Covid-19 Vaccine ( season) Covid-19 Vaccine () [facility] Start: 12-04-2022 Influenza vaccination C [facility] Start: 04-05-2022 ADVANCE DIRECTIVE DISCUSSION ADVANCE DIRECTIVE DISCUSSION [facility] Start: 04-05-2022 DEPRESSION ASSESSMENT DEPRESSION ASS ESSMENT [facility] Start: 03-17-2022 End: 05-17-2022 Cobalamin (Vitamin B12) [Mass/volume] in Serum or Plasma VITAMIN B12 BLOOD Lab Routine Dizziness Expected: 03/17/2022, Expires: 05/17/2022 [facility] Work Phone: Immunizations Immunization Date Immunization Notes Care Provider Fa cility 01-07-2021 influenza virus vacc ine, unspecified formulation Mri (I-Stat/1.5t) Work Phone: [facility] 02-12-2016 pneumococcal conjuga te vaccine, 13 valent Aleshia Ray MD Work Phone: [facility] 01-31-2015 FLUZONE HIGH-DOSE 2015-16, PF, 180 mcg/0.5 mL injection Aleshia Ray MD Work Phone: [facility] 07-09-2005 pneumococcal polysaccharide vaccine, 23 valent Aleshia Ray MD Work Phone: [facility] Work Phone: 07-09-2005 tetanus and diphther ia toxoids, adsorbed, preservative free, for adult use (2 Lf of tetanus toxoid and 2 Lf of diphtheria toxoid) Aleshia Ray MD Work Phone: [facility] Work Phone: Payers Date Payer Category Payer Medicare [id number] 2021 Unknown MMO MMO MEDICARE SUPPLEMENT [id number] 2021-Present [phone] [address] [place] [address] Indemnity [id number] 2005 Medicare MEDICARE MEDICAR E A AND B [id number] 2005-Present [phone] [address] [address] [place] [address] Medicare [id number] 2005 Medicare [id number] Social History Date Type Detail Facility Start: 03-17-2022 [facility] End: 07-09-1981 History of tobacco use Current smoker [facility] End: 07-09-1981 History of tobacco use Cigarette Smoker [facility] Start: 03-17-2022 End: 04-18-2022 Cigarettes smoked current (pack per day) - Reported [address] [facility] Start: 03-17-2022 Tobacco use and exposure Smoke less tobacco non-user [facility] Start: 03-17-2022 End: 08-14-2022 Alcohol intake Current drinker of alcohol (finding) [facility] Start: 03-17-2022 Tobacco Comment Former smoker; Never used smokeless; Smoking details Type: cigarette; Amount: 40+ cigs/day; Tobocco comments 3 packs per day for 50 years; Tobacco modified 05/16/[address] [facility] Start: 1940 Sex Assigned At Not on file C [facility] Start: 03-17-2022 End: 04-18-2022 Tobacco use panel [facility] Adult Depression Scr eening Assessment [address] [facility] Clinical Notes 03-17-2022 to 09-04-2022 Radha Thompson RN - 09/04/2022 11:58 AM EDTTelephone Encounter - Liudmila Vinicius - 09/02/2022 12:51 PM EDTTelephone Encounter - Hue Fowler - 08/17/2022 11:26 AM EDT Note Date & Type Note Facility 09-04-2022 Nurse Note Chief Complaint: Supine Hypertension Vitals: BP 113/55 (BP Site: Right Arm, BP Position: Standing, BP Cuff Size: Regular Adult) Pulse (!) 54 Ht 176.5 cm (5' 9.5 ) Wt 70.8 kg (156 lb) BMI 22.71 kg/m Patient presents for 24 hour ambulatory blood pressure monitoring. Instructions given for monitor. [employer] monitor programmed for patient Applied patient monitor. Explained to patient the event form and also explained that on the event form they must document blood pressure medications and diuretic/water pills taken morning, noon, and night. Explained to the patient that they must keep the 24-hour monitor dry, to be still when the cuff inflates (to help reduce errors), and to resume daily activity once cuff deflates. Explained to patient to return monitor by mail via FedEx no later than: 09/06/2022. Patient understood. Patient signed financial release form and is aware that they will be billed if the monitor is not returned by the specified date. Patient received copy of the financial responsibility form. documented in this encounter [facility] 09-02-2022 Miscellaneous Notes Left voicemail for Pedro Luis on 09/02/2022 letting him know that a [employer] message has been sent to him with some important medication instructions for his autonomic testing on 09/11/2022. I asked him to please review his [employer] message as soon as possible and if he has any questions to please call the autonomic lab at [phone]. documented in this encounter [facility] 08-17-2022 Miscellaneous Notes August 17, 2022 Patient Name:PATIENT Pedro Luis Bell Contact Information: [phone] Last visit with EP Provider: 08/14/2022 Reason for Call: Received Outside records dated for 08/14/[address] Soto. Records available in shared EP drive / patients epic chart Physician: Miguelina Soto MD Thank you, Hue Fowler The patient was informed that our caregivers are afforded 72 business hours to review and respond telephone messages. documented in this encounter [facility] 08-14-2022 Miscellaneous Notes Left voicemail for Pedro Luis on 08/14/2022 letting him know that a [employer] message has been sent to him with some important medication instructions for his autonomic testing on 08/18/2022. I asked him to please review his [employer] message as soon as possible and if he has any questions to please call the autonomic lab at [phone]. documented in this encounter [facility] 08-14-2022 Note HNO ID: [id number] Author: Miguelina Soto, DO Service: ? Author Type: Physician Type: Progress Notes Filed: 08/14/2022 7:06 PM Note Text: [facility] Department of Cardiovascular Medicine SECTION OF CARDIAC PACING and ELECTROPHYSIOLOGY OUTPATIENT VISIT DATE August 14, 2022 OUTPATIENT VISIT TYPE CONSULTATION PRIMARY CARE PHYSICIAN: To use this Smartlink, specify the provider ID whose address you want to display, e.g., .PROVADDR[1 (where 1 is the provider ID). REFERRING PHYSICIAN Aleshia Ray [address] [facility] [address] CHIEF COMPLAINT: [place] HISTORY OF PRESENT ILLNESS: Cardiac consultation at the request of Dr. Aleshia Ray. A copy of this consultation note will be provided to the requesting physician by way of shared Medical record or letter to requesting physician via US mail. Mr. Bell is a 82 year old male who is seen today for an opinion regarding postural lightheadedness and OH. He has seen Dr. Ray from neurology as well and Dr. 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 He was treated with midodrine without improvement. He also has been to physical therapy for this as well. He relates he feels trouble focusing, he has trouble with his balance, when he turns he feel he is going to fall. He has had these episodes. He relates an episode when he hung his coat up and when he backed up he lost his balance and fell. This started about two years ago and thinks this was related, he relates that he thinks his speech may be related. His feels he had always been a cautious speaker, but feels his speech is lower and harder to understand, he feels he loses the strength in his speech. Denies bladder complaints drinks 2 liters of water a day so relates voids often. Monitor 05/10/2020 Echo 10/09/2019 Stress Test 10/09/2019 09/10/2015 Cath 09/10/2015 Stress 03/23/2014 Nursing Intake: Mr. Bell is a 82 year old male who is seen today for orthostatic hypotension. He has a PMH of colon cancer, CAD, HLD, HTN and pre-infarction syndrome. He had a CABG x1 in 1981 followed by a CABG x4 in 2015. He has had lightheadedness and dizziness for the past two to three years. It is constant when he stands, never sitting or lying. He was diagnosed with orthostatic hypotension and prescribed midodrine but noted no improvement. He also complains of feeling off balance with walking which has improved slightly with physical therapy. He has been seen by Dr. Ray in neurology and had a normal MRI. He denies chest pain, orthopnea, edema, palpitations, PND or syncope. He drinks 64 ounces of water a day. He eats a normal sodium diet. He wears knee high compression garments. He does his physical therapy. He recounts he had a sinus infection, tooth infection, the flu and then covid in July and symptoms may have started after that. PAST CARDIAC HISTORY: CAD with history of CABG PAST MEDICAL HISTORY Diagnosis Date Benign neoplasm of colon Benign neoplasm of rectum and anal canal Coronary atherosclerosis of unspecified type of vessel, telida or graft Coronary artery disease Family history of malignant neoplasm of gastrointestinal tract Hyperlipidemia Leukocytosis Personal history of colonic polyps Preinfarction syndrome (HCC) Unspecified essential hypertension Essential hypertension PAST SURGICAL HISTORY Procedure Laterality Date APPENDECTOMY CABG (2) VEIN GRAFTS AND ARTERIAL GRAFT(S 05/17/2015 redo x4 CARDIAC CATH multiple COLONOSCOPY FLX DX W/COLLJ SPEC WHEN PFRMD 2008 Colonoscopy COLONOSCOPY FLX DX W/COLLJ SPEC WHEN PFRMD 04/23/2015 COLONOSCOPY W/BIOPSY SINGLE/MULTIPLE 06/18/11 repeat 3 years COLSC FLX W/RMVL OF TUMOR POLYP LESION SNARE TQ 06/14/08 CORONARY ARTERY BYP W/VEIN AND ARTERY GRAFT 1 VEIN 1981 CABG, single graft HEART SURGERY HX PAST SURGICAL HISTORY OF Sinus surgery, Dr. Celine Kiser PAST SURGICAL HISTORY OF Nasal polypectomy RPR UMBILICAL HRNA 5 YRS/> REDUCIBLE Hernia repair, umbilical >5yr SOCIAL HISTORY Social History Tobacco Use Smoking status: Former Packs/day: 3.00 Years: 50.00 Pack years: 150.00 Types: Cigarettes Quit date: 07/09/1981 Years since quittin.1 Smokeless tobacco: Never Tobacco comments: Former smoker; Never used smokeless; Smoking details Type: cigarette; Amount: 40+ cigs/day; Tobocco comments 3 packs per day for 50 years; Tobacco modified 05/16/2015 Substance Use Topics Alcohol use: Yes Alcohol/week: 3.0 standard drinks Types: 3 Cans of beer per week Drug use: No FAMILY HISTORY Problem Relation Age of Onset Colon Cancer Father Cancer Sister suspected colon Hypertension Mother Alzheimer's Disease Mother ALLERGIES: ALLERGIES Allergen Reactions Penicillins Hives Iodine Hives Severity: Moderate Allergy to heart cath dye MEDICATIONS: atenolol (TENORMIN) 25 mg tablet Take 12.5 mg by mouth twi (more content not included)... [facility] 08-14-2022 History of Presen t illness Narrative Images from the original note were not included. [facility] Department of Cardiovascular Medicine SECTION OF CARDIAC PACING and ELECTROPHYSIOLOGY OUTPATIENT VISIT DATE August 14, 2022 OUTPATIENT VISIT TYPE CONSULTATION PRIMARY CARE PHYSICIAN: To use this Smartlink, specify the provider ID whose address you want to display, e.g., .[email or web address][1 (where 1 is the provider ID). REFERRING PHYSICIAN Aleshia Ray [address] [facility] [place] [address] CHIEF COMPLAINT: OH HISTORY OF PRESENT ILLNESS: Cardiac consultation at the request of Dr. Aleshia Ray. A copy of this consultation note will be provided to the requesting physician by way of shared Medical record or letter to requesting physician via US mail. Mr. Bell is a 82 year old male who is seen today for an opinion regarding postural lightheadedness and OH. He has seen Dr. Ray from neurology as well and Dr. 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 He was treated with midodrine without improvement. He also has been to physical therapy for this as well. He relates he feels trouble focusing, he has trouble with his balance, when he turns he feel he is going to fall. He has had these episodes. He relates an episode when he hung his coat up and when he backed up he lost his balance and fell. This started about two years ago and thinks this was related, he relates that he thinks his speech may be related. His feels he had always been a cautious speaker, but feels his speech is lower and harder to understand, he feels he loses the strength in his speech. Denies bladder complaints drinks 2 liters of water a day so relates voids often. Monitor 05/10/2020 Echo 10/09/2019 Stress Test 10/09/2019 09/10/2015 Cath 09/10/2015 Stress 03/23/2014 Nursing Intake: Mr. Bell is a 82 year old male who is seen today for orthostatic hypotension. He has a PMH of colon cancer, CAD, HLD, HTN and pre-infarction syndrome. He had a CABG x1 in 1981 followed by a CABG x4 in 2015. He has had lightheadedness and dizziness for the past two to three years. It is constant when he stands, never sitting or lying. He was diagnosed with orthostatic hypotension and prescribed midodrine but noted no improvement. He also complains of feeling off balance with walking which has improved slightly with physical therapy. He has been seen by Dr. Ray in neurology and had a normal MRI. He denies chest pain, orthopnea, edema, palpitations, PND or syncope. He drinks 64 ounces of water a day. He eats a normal sodium diet. He wears knee high compression garments. He does his physical therapy. He recounts he had a sinus infection, tooth infection, the flu and then covid in July and symptoms may have started after that. PAST CARDIAC HISTORY: CAD with history of CABG PAST MEDICAL HISTORY Diagnosis Date Benign neoplasm of colon Benign neoplasm of rectum and anal canal Coronary atherosclerosis of unspecified type of vessel, telida or graft Coronary artery disease Family history of malignant neoplasm of gastrointestinal tract Hyperlipidemia Leukocytosis Personal history of colonic polyps Preinfarction syndrome (HCC) Unspecified essential hypertension Essential hypertension PAST SURGICAL HISTORY Procedure Laterality Date APPENDECTOMY CABG (2) VEIN GRAFTS & ARTERIAL GRAFT(S 05/17/2015 redo x4 CARDIAC CATH multiple COLONOSCOPY FLX DX W/COLLJ SPEC WHEN PFRMD 2008 Colonoscopy COLONOSCOPY FLX DX W/COLLJ SPEC WHEN PFRMD 04/23/2015 COLONOSCOPY W/BIOPSY SINGLE/MULTIPLE 06/18/11 repeat 3 years COLSC FLX W/RMVL OF TUMOR POLYP LESION SNARE TQ 06/14/08 CORONARY ARTERY BYP W/VEIN & ARTERY GRAFT 1 VEIN 1981 CABG, single graft HEART SURGERY HX PAST SURGICAL HISTORY OF Sinus surgery, Dr. Celine Kiser PAST SURGICAL HISTORY OF Nasal polypectomy RPR UMBILICAL HRNA 5 YRS/> REDUCIBLE Hernia repair, umbilical >5yr SOCIAL HISTORY Social History Tobacco Use Smoking status: Former Packs/day: 3.00 Years: 50.00 Pack years: 150.00 Types: Cigarettes Quit date: 07/09/1981 Years since quittin.1 Smokeless tobacco: Never Tobacco comments: Former smoker; Never used smokeless; Smoking details Type: cigarette; Amount: 40+ cigs/day; Tobocco comments 3 packs per day for 50 years; Tobacco modified 05/16/2015 Substance Use Topics Alcohol use: Yes Alcohol/week: 3.0 standard drinks Types: 3 Cans of beer per week Drug use: No FAMILY HISTORY Problem Relation Age of Onset Colon Cancer Father Cancer Sister suspected colon Hypertension Mother Alzheimer's Disease Mother ALLERGIES: ALLERGIES Allergen Reactions Penicillins Hives Iodine Hives Severity: Moderate Allergy to heart cath dye MEDICATIONS: atenolol (TENORMIN) 25 mg tablet Take 12.5 mg by mouth twice daily. midodrine (PROAMATINE) 2.5 mg tablet Take 2.5 mg by mouth three times daily. ranolazine SR (RANEXA) 1,000 mg Tb12 Take 1 tablet by mouth twice daily. isosorbide mononitrate ER (IMDUR) 60 mg 24 hr tablet Take 1 tablet by mouth once daily. COMPOUNDED PRESCRIPTION Lab order: CBC and BMP and Vitamin D25-OH level. Diagnoses: (D64.89) Anemia due to other cause; (R79.89) Low serum calcium; (I10) Essential hypertension, benign; Z79.899 FLUZONE HIGH-DOSE , PF, 180 mcg/0.5 mL injection (Patient not taking: Reported on 03/17/2022) aspirin, enteric coated (ASPIRIN, ENTERIC COATED) 81 mg EC tablet 2 tablet,delayed release (DR/EC) Once per day Oral metoprolol tartrate, short acting, (LOPRESSOR) 25 mg tablet Take 25 mg by mouth twice daily. cholecalciferol (VITAMIN D3) 1,000 unit tab Take 1,000 Units by mouth twice daily. methyl salicylate-menthol 15-1 % crea Apply 1 application to affected area three times daily. acetaminophen (TYLENOL) 325 mg tablet Take 650 mg by mouth every 6 hours as needed. nitroglycerin sublingual 0.4 mg SUBLINGUAL SL tablet Dissolve 0.4 mg under the tongue every 5 minutes as needed. cyanocobalamin (VITAMIN B-12) 1,000 mcg tab Take 1,000 mcg by mouth once daily. SIMVASTATIN 40 MG TAB take 1/2 tablet at hs METOPROLOL 50 MG TAB one tab 2 times a day REVIEW OF SYSTEMS: GENERAL: Positive for:Weakness HEENT: Positive for:Glasses and Ringing in Ears NECK: Negative for: Swelling, Pain, Stiffness RESPIRATORY: Positive for: Cough GASTROINTESTINAL: Positive for: Trouble swallowing and Change in bowel habits MUSCULOSKELETAL: Positive for: Muscle or joint pain and Stiffness NEUROLOGIC/PSYCHIATRIC: Positive for: Nervousness or anxiety, Depressed mood, Memory loss SKIN: Negative for: Rash, Itching HEMATOLOGICAL/LYMPHATIC: Positive for: Easy bruising and Easy bleeding ENDOCRINE: Positive for: Frequent urination PHYSICAL EXAMINATION: There were no vitals taken for this visit. BP w/Orthostatic Vitals Date and Time Orthostatic BP Orthostatic Pulse BP Pulse BP Position BP Site BP Cuff Size 08/14/22 1309 184/80 55 -- -- Standing -- -- 08/14/22 1308 199/91 57 -- -- Supine -- -- General: Well appearing, in no acute distress. Skin: No clubbing, no cyanosis. Eyes: Extra ocular movements intact Oropharynx: Teeth in good repair. Neck: No jugular venous distention, no carotid bruits, carotids have a normal upstroke, no palpable thyromegaly. Increased kyphosis Lungs: Clear to auscultation bilaterally, no wheezing or rhonchi. Heart: Regular rhythm, PMI not displaced, S1, S2 normal, no S3, no S4, no heaves, no rub and no murmur. Abdomen: Soft, nontender, bowel sounds normal, no palpable organomegaly, no bruits. Extremities: No peripheral edema . Grade 2/4 distal pulses bilaterally. Neuro: Oriented to person, place and time, alert, cooperative, speech slightly slow, very unsteady standing form seated, abnormal gait right foot rotates laterally and he walks on his left toe (relates tight hamstring on left) he fell back with rhomberg (caught him and steady when open his eyes). He is a bit unsteady with turns. CARDIOVASCULAR MEDICINE TESTING: Electrocardiogram: sinus 50 bpm I have personally reviewed the Electrocardiogram. IMPRESSION: 1. Supine hypertension - ICD9: 401.9, ICD10: I10 (primary diagnosis) 2. Orthostatic hypotension - ICD9: 458.0, ICD10: I95.1 3. Postural lightheadedness - ICD9: 780.4, ICD10: R42 4. Ataxia - ICD9: 781.3, ICD10: R27.0 5. Dysarthria - ICD9: 784.51, ICD10: R47.1 6. Recurrent falls - ICD9: V15.88, ICD10: R29.6 7. Hx of CABG - ICD9: V45.81, ICD10: Z95.1 8. Coronary artery disease involving telida coronary artery of telida heart, unspecified whether angina present - ICD9: 414.01, ICD10: I25.10 PLAN AND RECOMMENDATIONS: Pedro Luis did not have OH on his bedside exam though his supine BP was markedly elevated and to a lesser extent so was his standing. They relate he has had positive OH prior and he had his midodrine shortly prior to our visit. They brought his home BP logs and his home seated BP have all been reasonable so I suspect I am seeing an elevation related to midodrine and in part migrating this large health [facility] prior to his visit (I see this not uncommonly in the clinic) I have asked them to continue to monitor at home as well. 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 He has unsteady gait, ataxia, abnormal rhomberg, dysarthria described as weaking of voice and to me slowed voice, he has increased kyphosis and my initial impression when we discussed his history was possible MSA but he has not bladder/urinary complaints which makes this seem much less likely. I recommend that we have him undergo Neurocardio Autonomic Reflex Test and discussed he will need to hold his midodine for three days and I encouraged use extreme caution. With his history of CAD he can't stop his beta jake which will likely affect his HR response, this does create a significant challenge and we will have to use caution when interpreting the results, deep breathing in particular may not be valid, but the other component is to reassess supine HTN/OH off midodrine and the brevity of a neuro tilt would be preferable to a cardiac tilt which I don't think he will tolerate. I also recommend a 24 hour BP monitor to assess nocturnal HTN. He wants to do in [place], but I cautioned this may not be available there, these are not well reimbursed, are challenging to interpret and so many centers just don't do them. My instinct is for him to see one of the movement disorder specialists to get an opinion but would discuss with Dr. Ray first as I am a cardiac electrophysiogist and may be overstepping in this regard. He has been improving with PT and I encourage him to continue. I reinforced the importance of not lying supine after taking the midodrine. He knows not to take within 4 hours of bed and I advised not to take his afternoon dose until after his nap that he takes most days even if this is at the expense of being able to take an evening dose. Lifestyle recommendations for OH Orhostatic hypotension is a condition in which the body has difficulty regulating the blood pressure with standing. This results in a drop in BP with position change or prolonged standing which can increase the risk for falls and passing out. Many medications can affect this process and sometimes stopping or reducing offending medications can help. There are also a few medications that can lessen the frequency or severity of symptoms but these medications will not fix the problem. Medications alone are not enough to manage orthostatatic hypotension (OH). Caution and care can go a long way to prevent falls and injury. I recommend caution with sudden position changes. For example avoid jumping up from the couch to answer the phone, or getting up suddenly in the middle of the night to use the restroom. Try to avoid bending over and standing suddenly. When possible kneel down rather than bend at the waist. Care with bending over to tie your shoes, instead place foot on a stool or similar so that you can reach without bending head down. When getting up from lying or sitting, take your time, sit on the edge of the chair/bed and stop for a second or two before standing to ensure you are not dizzy. Then stand but stop for a couple seconds and make sure you feel okay before starting to walk, this gives your body just a couple seconds to equilibrate but also allows you time to make sure you feel okay before walking. If you feel dizzy, sit or lie back down for a few minutes and then retry. Avoid standing still for periods of time as this will increase the drop in BP. Try to sway, dance, march in place or contract your but and thigh muscles while standing. This muscle contraction can slow down the fall in BP. Examples of times to be caution are standing in like at the store, standing at the counter or sink preparing meals or doing dishes, at the counter looking in the mirror for hygiene, and importantly the shower. The shower is a common time for falls in part due to the hot humid environment and in part due to standing. When in the shower try to avoid hot showers, if you do take a hot shower, cool the water in stages. Consider towel drying in the shower, so the change in temp is not as dramatic when leaving the shower. Use the techniques mentioned above to avoid standing still. Importantly, have a bench or chair in the shower to sit if you become lightheaded. Avoid large meals and especially large amounts of simple carbohydrates. Symptoms can be exacerbated by the displacement of blood to digest large meals and simple carbohydrates are easier to digest and may increase these responses. Eat frequent small meals and snacks instead. It is important to stay hydrated, most people should drink at least 3 liters of fluid a day and I recommend half be water. If you have heart or kidney failure check with your doctor to ensure you do not need to restrict fluid. Many people with orthostatic hypotension have hypertension, so a high salt diet may not be best for you. It is important to discuss this with your doctor, if you to not have a contraindication a higher sodium diet may be helpful. Compression garments can significantly help symptoms but importantly, knee high compression stalkings offer little benefit. I recommend either leggings (ankle to waist, 20-30mmHg) or a combination of thigh high and an abdominal binder (can be easier to put on and take off than the leggings). Patients with orthostatic hypotension are very prone to deconditioning and functional decline. It is very important to exercise regularly, this will not improve your BP control but importantly can help you maintain function and by strengthening your muscles and protecting your joints, may improve balance and lessen risks for falls and injuries. Work with your doctor to develop and appropriate exercise program. Patients with debilitating symptoms should speak with their primary care doctor for consideration for physical therapy for gait and stability training. Some patients are more symptomatic in the morning after first getting up, this is due to a combination of being supine (flat) all night and also relatively dehydrated. If you have this problem. My advice is to place a stretch band and glass or bottle of water on your night stand. When you first wake, while still lying in bed place the stretch band over one of your feet and hold the ends in your hands and perform 10-15 band resisted leg stretches with each leg. Then sit on the side of the bed and drink the glass of water prior to standing. It is important that you pay attention to your body and recognize the warning signs. If you feel dizzy or feel that you are going to pass out, do not try to go somewhere else (for example if in the kitchen going to the living room or if in the bathroom going to the bedroom). Stop wherever you are and do one of two things: First is postural response. Postural response simply means lie down flat on your back until the symptoms pass. If you cannot lie down then sit down or in a pinch lean over a counter or table but this is a last resort. The second option is physical counter manuevers. Physical counter maneuvers are techniques that try to elevate the blood pressure to you brain to stop passing out these are only temoporizing measures to try to avoid passsing out. You can cross your legs and tighten the muscles of your abdomen, butt and thighs. You can pull your hands apart and tighten the same muscles (this can be done standing or sitting) or you can open and close, squeezing your hands very firmly (like squeeze the juice out of two oranges). Physical counter maneuvers may stop a passing out spell but importantly when you relax the blood tends to fall so be sure to lie down or sit down after. If you have a spell don't be to quick to get back up. Lie there for a few minutes, then sit. If someone is with you have them get you a glass of water and drink it quickly as this may temporarily raise you BP. If you feel okay then stand, if you feel dizzy again lay back down. I would caution against returning to the activity that provoked your symptoms, the recovery period is a good time to take a breath and lie down or sit down and rest for a short period of time. CONTACT INFORMATION: Miguelina Soto DO As a national referral center for Syncope and related conditions, seeing patients from across the country, we cannot provide work, FMLA, disability or other forms, or cardiac clearance. Please contact the patient's primary care physician or clinical state wildlife officer for the documentation requested. We will provide the office notes from the patient's most recent visit if they have not already been received, and other tests or evaluations performed here can be made available upon request. documented in this encounter [facility] 08-11-2022 Miscellaneous Notes August 11, 2022 Patient Name:PATIENT Pedro Luis Bell Contact Information: Last visit with EP Provider: 08/11/2022 Reason for Call: Received Fax [facility]- History Report / Physical. Documents placed in patient EP Drive. Original Documents filed in our office Physician: Miguelina Soto MD Thank youHue The patient was informed that our caregivers are afforded 72 business hours to review and respond telephone messages. documented in this encounter [facility] 08-11-2022 Miscellaneous Notes August 11, 2022 Patient Name:PATIENT Pedro Luis Bell Contact Information: Last visit with EP Provider: 08/10/2022 Reason for Call: Received Faxed Records from [facility] Records- All documents has been placed in the EP Drive for review of patients upcoming new consult appointment on 08/14 Physician: Miguelina Soto MD Thank you, Hue Fowler The patient was informed that our caregivers are afforded 72 business hours to review and respond telephone messages. documented in this encounter [facility] 08-10-2022 Miscellaneous Notes August 10, 2022 Patient Name:PATIENT Pedro Luis Bell Contact Information: Last visit with EP Provider: Visit date not found. Upcoming appointment for 08/14/22 Reason for Call: Patient called to confirm if results from Dr. Yissel gordillo has arrived. I have advised the patient, records were not show. A fax number to our office has been provided. The patient will contact Dr. Rosado office to have files faxed Physician: Miguelina Soto MD Thank you, Hue Fowler The patient was informed that our caregivers are afforded 72 business hours to review and respond telephone messages. documented in this encounter [facility] 07-29-2022 Miscellaneous Notes Received request of office note of Dr. Ray, last office notes and MRI results have been fax to pt primary physician Marii kenny md at [phone] documented in this encounter [facility] 06-30-2022 Miscellaneous Notes Received xray and office notes have been sent to scanning., no upcomming apt. documented in this encounter [facility] 04-24-2022 Note HNO ID: [id number] Author: Robb Rosas, PT Service: ? Author Type: Physical Therapist Type: Progress Notes Filed: 04/24/2022 2:01 PM Note Text: Episode Visit Count: 9 Therapist That Will Accept/Oversee The Plan Of Care: Robb Rosas Start of Care Date: 03/25/22 Onset Date: 03/25/20 Plan of Care Certification Date: 03/25/22 Next Certification Due Date: 04/29/22 [facility] PHYSICAL THERAPY DISCONTINUANCE OF CARE PLAN OF CARE UPDATE: Assessment: Pedro Luis Bell is discontinued from Physical Therapy services due to maximal benefit.. Patient was seen for 9 visits from Start of Care Date: 03/25/22 to 04/24/2022 and treatment included: Therapeutic exercise, Neuromuscular re-education, and Self-custodial management. Goals for Episode of Care: created on 03/25/22 through 05/06/22 Goals updated on 04/24/2022. Patient will be able to correct postural deviations independently in order to allow for normal mechanics, to decrease current pain and prevent future Recurrence. -- MET Patient will improve FGA to 22 or greater in order to perform functional tasks with improved stability. -- PARTIALLY MET< 19/22 Patient will be independent with home exercise program and progression. -- MET Patient will deny dizziness with turning , walking, and standing. -- NOT MET Patient will be able to walk household and community distances with safe, functional gait pattern with trace report of dizziness/imbalance. -- NOT MET Patient will demonstrate the ability to complete VOR in static and dynamic positions with trace report of dizziness. -- NOT MET Patient Goals: sit <> stand and ambulation community distances without limitation due to light headedness -- NOT MET SUBJECTIVE: Patient Reason for Visit: Visit began 15 min early dur to pt. early arrival. Pt. reports that he plans to f/u with Dr. Ray. Per pt. chart MRI negative for acute changes of the brain. Pt. reports that referring provider is currenlty on vacation but he has questions regarding his MRI upon her return. Pt. no longer has BLE pain and reports he's noticed improved strength as well as balance. No change overall with the frequency, intensity, and duration of feeling light headed. Notices worse symptoms if he forgets to take his medication for HTN. Symptoms reduce with seated or static standing rest. Denies vertigo, falls since last visit, and denies nausea or motion sensitiivty.. Vestibular Dizziness: Yes Description: light headed Rating of current symptoms: 6/10 Frequency: Constant Symptoms worsened by: standing;walking Symptoms improved by: sitting;being still Imbalance: Yes Imbalance triggered by: Walking When was your most recent fall?: 2-3 weeks ago per pt. report Did the fall occur inside or outside?: outside How did the fall occur?: tripping over handle of broom - reported to PT the visit following this fall, denies repeated falls since Injuries resulting from fall? : no Dizziness during fall?: no How often do you lose your balance?: that was the only time, I tripped over something in the garage. Nausea: no Motion Sickness: None Headache: No Neck Symptoms: No Jaw Symptoms: No Ear Symptoms: No Hearing Changes: No recent changes Tinnitus: both ears equally Tinnitus Description: buzzing Tinnitus Frequency: Constant Pain: Post Treatment Pain Post Treatment Symptoms: reports 4/10 lightheadedness upon leaving. PROMIS Scales Higher is Better 03/11/2022 Phys Func - Score 29 (severe dysfunction) Phys Func - Percentile 2 % GH Physical - Score 26.7 (Poor) GH Physical - Percentile 1 % GH Mental - Score 25.1 (Poor) GH Mental - Percentile 1 % T-scores: mean of general population = 50. 5 points is clinically meaningfully difference Percentiles provide an indication of how the patient's score ranks in relation to the general population. Higher percentile rankings indicate better function/quality of life. 50th percentile is the average of the general population and indicates half of respondents had a worse score. T-scores: mean of general population = 50. 5 points is clinically meaningfully difference Percentiles provide an indication of how the patient's score ranks in relation to the general population. Higher percentile rankings indicate better function/quality of life. 50th percentile is the average of the general population and indicates half of respondents had a worse score. OBJECTIVE MEASURES WITH LEVEL OF FUNCTION: Functional Gait Assessment Gait level surface : 2 - Mild impairment- walks 20' uses assist device, slower speed, mild gait deviation Change in gait speed: 2 - Mild impairment- is able to change speed but demonstrates mild gait deviations or no gait deviations but unable to achieve a significant change in velocity, or uses an assistive device Gait and horizontal head turns: 2 - Mild impairment- performs R/L head turns smoothly (more content not included)... [facility] 04-24-2022 History of Presen t illness Narrative Episode Visit Count: 9 Therapist That Will Accept/Oversee The Plan Of Care: Robb Rosas Start of Care Date: 03/25/22 Onset Date: 03/25/20 Plan of Care Certification Date: 03/25/22 Next Certification Due Date: 04/29/22 REHABILITATION AND SPORTS THERAPY PHYSICAL THERAPY DISCONTINUANCE OF CARE PLAN OF CARE UPDATE: Assessment: Pedro Luis Zacheryraoul is discontinued from Physical Therapy services due to maximal benefit.. Patient was seen for 9 visits from Start of Care Date: 03/25/22 to 04/24/2022 and treatment included: Therapeutic exercise, Neuromuscular re-education, and Self-custodial management. Goals for Episode of Care: created on 03/25/22 through 05/06/22 Goals updated on 04/24/2022. Patient will be able to correct postural deviations independently in order to allow for normal mechanics, to decrease current pain and prevent future Recurrence. -- MET Patient will improve FGA to 22 or greater in order to perform functional tasks with improved stability. -- PARTIALLY MET< Patient will be independent with home exercise program and progression. -- MET Patient will deny dizziness with turning , walking, and standing. -- NOT MET Patient will be able to walk household and community distances with safe, functional gait pattern with trace report of dizziness/imbalance. -- NOT MET Patient will demonstrate the ability to complete VOR in static and dynamic positions with trace report of dizziness. -- NOT MET Patient Goals: sit <> stand and ambulation community distances without limitation due to light headedness -- NOT MET SUBJECTIVE: Patient Reason for Visit: Visit began 15 min early dur to pt. early arrival. Pt. reports that he plans to f/u with Dr. Ray. Per pt. chart MRI negative for acute changes of the brain. Pt. reports that referring provider is anhy on vacation but he has questions regarding his MRI upon her return. Pt. no longer has BLE pain and reports he's noticed improved strength as well as balance. No change overall with the frequency, intensity, and duration of feeling light headed. Notices worse symptoms if he forgets to take his medication for HTN. Symptoms reduce with seated or static standing rest. Denies vertigo, falls since last visit, and denies nausea or motion sensitiivty.. Vestibular Dizziness: Yes Description: light headed Rating of current symptoms: 6/10 Frequency: Constant Symptoms worsened by: standing;walking Symptoms improved by: sitting;being still Imbalance: Yes Imbalance triggered by: Walking When was your most recent fall?: 2-3 weeks ago per pt. report Did the fall occur inside or outside?: outside How did the fall occur?: tripping over handle of broom - reported to PT the visit following this fall, denies repeated falls since Injuries resulting from fall? : no Dizziness during fall?: no How often do you lose your balance?: that was the only time, I tripped over something in the garage. Nausea: no Motion Sickness: None Headache: No Neck Symptoms: No Jaw Symptoms: No Ear Symptoms: No Hearing Changes: No recent changes Tinnitus: both ears equally Tinnitus Description: buzzing Tinnitus Frequency: Constant Pain: Post Treatment Pain Post Treatment Symptoms: reports 4/10 lightheadedness upon leaving. PROMIS Scales Higher is Better 03/11/2022 Phys Func - Score 29 (severe dysfunction) Phys Func - Percentile 2 % GH Physical - Score 26.7 (Poor) GH Physical - Percentile 1 % GH Mental - Score 25.1 (Poor) GH Mental - Percentile 1 % T-scores: mean of general population = 50. 5 points is clinically meaningfully difference Percentiles provide an indication of how the patient's score ranks in relation to the general population. Higher percentile rankings indicate better function/quality of life. 50th percentile is the average of the general population and indicates half of respondents had a worse score. T-scores: mean of general population = 50. 5 points is clinically meaningfully difference Percentiles provide an indication of how the patient's score ranks in relation to the general population. Higher percentile rankings indicate better function/quality of life. 50th percentile is the average of the general population and indicates half of respondents had a worse score. OBJECTIVE MEASURES WITH LEVEL OF FUNCTION: Functional Gait Assessment Gait level surface : 2 - Mild impairment- walks 20' uses assist device, slower speed, mild gait deviation Change in gait speed: 2 - Mild impairment- is able to change speed but demonstrates mild gait deviations or no gait deviations but unable to achieve a significant change in velocity, or uses an assistive device Gait and horizontal head turns: 2 - Mild impairment- performs R/L head turns smoothly with slight change in gait velocity, minor disruption to smooth gait path or uses assistive device Gait and vertical head turns: 1 - Moderate impairment- performs R/L head turns with moderate change in gait velocity, slows down, staggers but recovers, can continue to walk Gait and pivot: 2 - Mild impairment- pivot turns safely in >3 sec, stops, no loss of balance Step over obstacle: 2 - Mild impairment- is able to step over box, but must slow down and adjust steps to clear box Gait with narrow base of support : 2 - Mild impairment- ambulates 7-9 steps Gait with eyes closed : 2 - Mild impairment- walks 20' uses assist device, slower speed, mild gait deviation, deviates 6-10 outside of 12 walkway Ambulates backward : 2 - Mild impairment- walks 20', uses assist device, slower speed, mild gait deviations, deviates 6-10 outside 12 [address] Steps: 2 - Mild impairment- alternating feet, must use rail Functional Gait Assessment Total : 19 TREATMENT: Neuromuscular Re-Education: 1: amb 20' alt fast and slow every 5' 2x cues to remind pt. to use the SC 2: amb reverse with SC 10' using SC and CGA x1 3: amb 10' forward with eyes closed using SC 4: amb 20' turn and pivot with SC 5: amb 20' with Horrizontal head turns 2x cue to remind pt. to use SC, LOB with no assistance required for recovery 6: amb 20' with vertical head turns, 2x cue to remind pt. to use SC, no LOB 7: amb 20' and stepping over 2x 6 hurdles using SC 2x 8: tandem stepping completes 10 consecutive steps with use of SC, denies increased light headedness 9: side stepping level firm surface with straight cane and CGA 20' 2x to the L and R Skilled Intervention: Skilled judgment used to assess appropriate program for balance and coordination activity. Ensured patient safety with use of gait belt and AD. Reviewed and educated patient on additions/changes for home program as noted above with an (*). Patient education as noted. Gait Training: Gait Cues: cues to reduce speed, demonstrates reciprocal pattern asecending and descending Assistive Device: SC Assist Level: SBA Stair Traininx 4 6 steps ascending and descending using HR and straight cane Skilled Intervention: Patient was provided stand by assist during pre-gait/gait training to prevent falls and insure safety. Gait belt utilized during session for safety. Reviewed and educated patient on additions/changes for home program as noted above with an (*). Correct performance of home program was facilitated with verbal, visual, and tactile cueing. Self-Long-Term Management: 1: *Strongly encouraged continued compliance with HEP and use of SC indoors as well as outdoors. 2: *discussed the importance of compliance with HTN medication. Discussed significant improvement on FGA by 5 points since 04/01/22 but PT balance/gait training does not seem to be reducing cheif complaint of light headedness. Pt. encouraged to f/u with Neurologist. Skilled Intervention: Skilled judgment in the selection of proper modification for activity of daily living/home management based on clinical presentation, deficits, and needs. Reviewed patient specific diagnosis in relation to activities of daily living/home management. Activity progression based on professional judgement. Reviewed and educated patient on additions/changes for home program as noted above with an (*). Billing Neuromuscular Re-Education Treatment Minutes: 30 Self-Care/Home Management Treatment Minutes: 10 Gait Training Treatment Minutes: 3 Total Treatment Time Minutes (timed/untimed): 43 Robb Rosas PT documented in this encounter [facility] 04-23-2022 Miscellaneous Notes Call back to patient's Mirella to advise that MRI brain impression states NO acute intracranial process. MRI brain is normal. DEENA Santana, RN April 23, 2022 3:20 PM Patient's spouse called the office asking if Dr. Ray has has a chance to review Pedro Luis's recent MRI? She is requesting a call back with results/ Dr. Ray's recommendations for next steps. Please advise, Arleen Jeffery documented in this encounter [facility] 04-21-2022 Note HNO ID: [id number] Author: Robb Rosas, PT Service: ? Author Type: Physical Therapist Type: Progress Notes Filed: 04/21/2022 2:49 PM Note Text: Episode Visit Count: 8 Therapist That Will Accept/Oversee The Plan Of Care: Robb Rosas Start of Care Date: 03/25/22 Onset Date: 03/25/20 Plan of Care Certification Date: 03/25/22 Next Certification Due Date: 04/29/22 Patient Identified by Name and Date of : Yes REHABILITATION AND SPORTS THERAPY PHYSICAL THERAPY TREATMENT NOTE ASSESSMENT: Pedro Luis Bell tolerated the session with decreased endurance and dizziness and elevated BP. He demonstrated difficulty with standing. Seated exercises performed due to pt feeling very light headed and increased BP. Post treatment BP 162/70 The patient will continue to benefit from ongoing skilled physical therapy to progress toward set goals. PLAN FOR NEXT VISIT: Continue dynamic balance training, add reaching out side of SAMY while using straight cane. MRI wednesday04/20/22. Will complete PN 04/24/22. SUBJECTIVE: Patient Reason for Visit: Pt reports that he is very light headed today. His BP was running lower this morning. Pt reports that he forgot to take his BP medication at noon today. Pt states walking 5 lasp at the [place] this morning using his cane and having to rest at lap 3 and felt very wobbly. Pt questioning MRI results, advised pt to reach out physician to go over results. Vestibular Dizziness: Yes Description: light headed Rating of current symptoms: 6/10 (with sitting upon initial encounter) Pain: Post Treatment Pain Post Treatment Symptoms: Pt reports that light headediness decreased to 5/10, still felt very unsteady. OBJECTIVE MEASURES WITH LEVEL OF FUNCTION: TREATMENT: Therapeutic Exercise: 1: seated HS stretch 3x30 sec each side (more tightness on the L HS) 2: STS 1x2 with 1 UE support (discontinued due to increased dizziness upon standing.) 3: LAQ 2x5 BLE 4: *Seated marching 2x5 BLE Skilled Intervention: Patient was educated in proper exercise technique and purpose for exercises. Reviewed and educated patient on additions/changes for home exercise program as above (*). Skilled judgment was provided in selection of appropriate interventions. Correct performance of therapeutic exercises was facilitated with verbal and visual cuing. Billing Therapeutic Exercise Treatment Minutes: 30 Total Treatment Time Minutes (timed/untimed): 30 Nery Wylie, RETURNED ITEM CLERK Robb Rosas, PT [facility] 04-20-2022 Note HNO ID: [id number] Author: YENNY Atkins) Service: ? Author Type: Technologist Type: Progress Notes Filed: 04/20/2022 1:20 PM Note Text: Radiology Service Progress Note PATIENT NAME: Pedro Luis Bell DATE OF SERVICE: April 20, 2022 TIME: 1:20 PM PATIENT IDENTITY VERIFICATION COMPLETED USING TWO (2) IDENTIFIERS: Name and Date of confirmed by patient verbally. FALL SCREENING: Has the patient had 2 falls in the last year or 1 fall with injury or currently using an Ambulatory Assistive Device (Walker, Cane, Wheelchair, Crutches, etc.)? No PATIENT GENDER DATA: Male PATIENT RELEVANT IMPLANT DATA REVIEWED: Yes RADIOLOGY DEPARTMENT: MR; Exam(s) Completed: Head: Routine Brain PERIPHERAL IV DATA: Not applicable SIGNED BY: RT Wilbert(Maria L) April 20, 2022 1:20 PM [facility] 04-20-2022 History of Presen t illness Narrative Radiology Service Progress Note PATIENT NAME: Pedro Luis Bell DATE OF SERVICE: April 20, 2022 TIME: 1:20 PM PATIENT IDENTITY VERIFICATION COMPLETED USING TWO (2) IDENTIFIERS: Name and Date of confirmed by patient verbally. FALL SCREENING: Has the patient had 2 falls in the last year or 1 fall with injury or currently using an Ambulatory Assistive Device (Walker, Cane, Wheelchair, Crutches, etc.)? No PATIENT GENDER DATA: Male PATIENT RELEVANT IMPLANT DATA REVIEWED: Yes RADIOLOGY DEPARTMENT: MR; Exam(s) Completed: Head: Routine Brain PERIPHERAL IV DATA: Not applicable SIGNED BY: RT Wilbert(R) April 20, 2022 1:20 PM documented in this encounter [facility] 04-15-2022 Note HNO ID: [id number] Author: Robb Rosas, PT Service: ? Author Type: Physical Therapist Type: Progress Notes Filed: 04/15/2022 1:37 PM Note Text: Episode Visit Count: 7 Therapist That Will Accept/Oversee The Plan Of Care: Robb Rosas Start of Care Date: 03/25/22 Onset Date: 03/25/20 Plan of Care Certification Date: 03/25/22 Next Certification Due Date: 04/29/22 REHABILITATION AND SPORTS THERAPY PHYSICAL THERAPY TREATMENT NOTE ASSESSMENT: Pedro Luis Bell tolerated the session with decreased symptoms. He demonstrated improvements in activity tolerance, completing 4 sets of 20' hurdles forward and lateral stepping before requiring seated rest without increased intensity of lightheadedness reported.. He reports less light headedness and demonstrates improved balance when instructed to maintain his gaze on a stationary object as opposed to looking at his feet. Pt. Demonstrates less sway when cued to increase weight bearing through straight cane, especially while SLS. The patient will continue to benefit from ongoing skilled physical therapy to progress toward set goals. PLAN FOR NEXT VISIT: Continue dynamic balance training, add reaching out side of SAMY while using straight cane. MRI wednesday04/20/22. Will complete PN 04/24/22. SUBJECTIVE: Patient Reason for Visit: Pt. reports that he feels better today. He was able to walk four laps today at the [place]ault, one lap being without his cane. Both of the legs are feeling better. Denies falls since last visit. He feels much more confident. Visit began 9 min early due to pt. early arrival. Vestibular Dizziness: Yes Description: light headed Rating of current symptoms: 3/10 Symptoms improved by: sitting Pain: Pain Pain Level: 1 Pain Location: Leg - Left Description: Aching (posterior thighs) OBJECTIVE MEASURES WITH LEVEL OF FUNCTION: TREATMENT: Therapeutic Exercise: 1: seated HS stretch 3x30 sec each side (more tightness on the L HS) 2: step ups forward 2 3x8 leading with the R and 3x8 leading with L with x1 RUE on // bar 3: LAQ 1x5 each leg Skilled Intervention: Patient was educated in proper exercise technique and purpose for exercises. Reviewed and educated patient on additions/changes for home exercise program as above (*). Skilled judgment was provided in selection of appropriate interventions. Correct performance of therapeutic exercises was facilitated with verbal, visual, and tactile cuing. Additional time necessary for intermittent rest due to lightheadedness and fatigue. Educated patient on rationale for performing exercises in regards to decreasing fatigue , including balance, increase ease of ADL, and ROM and function . Patient education as noted. Neuromuscular Re-Education: 1: 20' 1 step forward, 1 step over 6x6 hurdles 4x with straight cane and CGA x1 2: 20' lateral stepping over 6x6 hurdles using straight cane 4x to the R and 4x to the L, CGA 3: toe taps forard 6 oleg forward and back 3x5 reps each LE using straight cane and CGA Skilled Intervention: Skilled judgment used to assess appropriate program for balance and coordination activity. Education in proprioceptive/kinesthetic awareness during standing and dynamic activities. Ensured patient safety with use of gait belt and // bars. Reviewed and educated patient on additions/changes for home program as noted above with an (*). Patient education as noted. Self-Long-Term Management: 1: *discussed amb at [place] using cane to assist with poor propioception in the BLE but maintaining gaze on something stationary rather than the feet to avoid dizziness due to poor gaze stability when watching moving objects. Skilled Intervention: Skilled judgment in the selection of proper modification for activity of daily living/home management based on clinical presentation, deficits, and needs. Physical assistance was provided during education for modifications and patient safety. Reviewed patient specific diagnosis in relation to activities of daily living/home management. Activity progression based on professional judgement. Reviewed and educated patient on additions/changes for home program as noted above with an (*). Billing Therapeutic Exercise Treatment Minutes: 10 Neuromuscular Re-Education Treatment Minutes: 25 Self-Care/Home Management Treatment Minutes: 5 Total Treatment Time Minutes (timed/untimed): 40 Robb Rosas, PT [facility] 04-13-2022 Note HNO ID: [id number] Author: Robb Rosas, PT Service: ? Author Type: Physical Therapist Type: Progress Notes Filed: 04/13/2022 1:36 PM Note Text: Episode Visit Count: 6 Therapist That Will Accept/Oversee The Plan Of Care: Robb Rosas Start of Care Date: 03/25/22 Onset Date: 03/25/20 Plan of Care Certification Date: 03/25/22 Next Certification Due Date: 04/29/22 REHABILITATION AND SPORTS THERAPY PHYSICAL THERAPY TREATMENT NOTE ASSESSMENT: Pedro Luis Bell tolerated the session with increased symptoms. He reported increased lightheadedness with stepping forward and lateral over 6 oleg obstacles, reporting increase from 4/10 to 6/10. He demonstrates less proprioception and and more weakness with LLE during balance and strengthening exercises. The patient will continue to benefit from ongoing skilled physical therapy to progress toward set goals. PLAN FOR NEXT VISIT: Continue dynamic balance training on firm level surfaces with PT assist and gait belt, include directional changes and weight shifting. Seated rest as needed to manage symptoms. SUBJECTIVE: Patient Reason for Visit: Pt. reports no change in light headedness overall. Denies falls since last visit. Vestibular Dizziness: Yes Description: light headed Rating of current symptoms: 4/10 Symptoms improved by: sitting Pain: OBJECTIVE MEASURES WITH LEVEL OF FUNCTION: TREATMENT: Therapeutic Exercise: 1: seated HS stretch 3x30 sec each side (more tightness on the L HS) 2: sit <> stand slowly, 3x5 (pt. reports increased lightheadedness despite 20-30 sec of pause in standing and sitting between each rep. transitions completeded very slow. Increased posterior thigh pain) Skilled Intervention: Patient was educated in proper exercise technique and purpose for exercises. Reviewed and educated patient on additions/changes for home exercise program as above (*). Educated patient on rationale for performing exercises in regards to decreasing fatigue , including balance, increase ease of ADL, and ROM and function . Patient education as noted. Neuromuscular Re-Education: 1: 6x6 hurdles set up over 20' course with pattern step over x2, followed by step to the R or L 2 steps repeated 4x with CGA and straight cane 2: 6x6 hurdles set up over 20' course with pattern step over forward and side step 2 alt to the L and R 4x with SC and CGA x1 (increaesed light headedness and it resolved immediately upon sitting) 3: 3x6 hurdles side stepping over 20' course 3x R and 3x LLE leading 4: *requires seated rest between each set of dynamic balance exercises today due to increased dizziness 5: BOSU ball taps forward using straight cane 2x20 (increased light headed ness to 6/10) Skilled Intervention: Skilled judgment used to assess appropriate program for balance and coordination activity. Education in proprioceptive/kinesthetic awareness during standing and dynamic activities. Ensured patient safety with use of gait belt. Self-Long-Term Management: 1: *discussed completing HEP exercises with slow controlled tempo as opposed to using momentum for exercises to be most effective for functional strengthening Skilled Intervention: Skilled judgment in the selection of proper modification for activity of daily living/home management based on clinical presentation, deficits, and needs. Activity progression based on professional judgement. Reviewed and educated patient on additions/changes for home program as noted above with an (*). Billing Therapeutic Exercise Treatment Minutes: 8 Neuromuscular Re-Education Treatment Minutes: 30 Self-Care/Home Management Treatment Minutes: 2 Total Treatment Time Minutes (timed/untimed): 40 Robb Rosas, PT [facility] 04-13-2022 History of Presen t illness Narrative Episode Visit Count: 6 Therapist That Will Accept/Oversee The Plan Of Care: Robb Rosas Start of Care Date: 03/25/22 Onset Date: 03/25/20 Plan of Care Certification Date: 03/25/22 Next Certification Due Date: 04/29/22 REHABILITATION AND SPORTS THERAPY PHYSICAL THERAPY TREATMENT NOTE ASSESSMENT: Pedro Luis Bell tolerated the session with increased symptoms. He reported increased lightheadedness with stepping forward and lateral over 6 oleg obstacles, reporting increase from 4/10 to 6/10. He demonstrates less proprioception and and more weakness with LLE during balance and strengthening exercises. The patient will continue to benefit from ongoing skilled physical therapy to progress toward set goals. PLAN FOR NEXT VISIT: Continue dynamic balance training on firm level surfaces with PT assist and gait belt, include directional changes and weight shifting. Seated rest as needed to manage symptoms. SUBJECTIVE: Patient Reason for Visit: Pt. reports no change in light headedness overall. Denies falls since last visit. Vestibular Dizziness: Yes Description: light headed Rating of current symptoms: 4/10 Symptoms improved by: sitting Pain: OBJECTIVE MEASURES WITH LEVEL OF FUNCTION: TREATMENT: Therapeutic Exercise: 1: seated HS stretch 3x30 sec each side (more tightness on the L HS) 2: sit <> stand slowly, 3x5 (pt. reports increased lightheadedness despite 20-30 sec of pause in standing and sitting between each rep. transitions completeded very slow. Increased posterior thigh pain) Skilled Intervention: Patient was educated in proper exercise technique and purpose for exercises. Reviewed and educated patient on additions/changes for home exercise program as above (*). Educated patient on rationale for performing exercises in regards to decreasing fatigue , including balance, increase ease of ADL, and ROM and function . Patient education as noted. Neuromuscular Re-Education: 1: 6x6 hurdles set up over 20' course with pattern step over x2, followed by step to the R or L 2 steps repeated 4x with CGA and straight cane 2: 6x6 hurdles set up over 20' course with pattern step over forward and side step 2 alt to the L and R 4x with SC and CGA x1 (increaesed light headedness and it resolved immediately upon sitting) 3: 3x6 hurdles side stepping over 20' course 3x R and 3x LLE leading 4: *requires seated rest between each set of dynamic balance exercises today due to increased dizziness 5: BOSU ball taps forward using straight cane 2x20 (increased light headed ness to 6/10) Skilled Intervention: Skilled judgment used to assess appropriate program for balance and coordination activity. Education in proprioceptive/kinesthetic awareness during standing and dynamic activities. Ensured patient safety with use of gait belt. Self-Long-Term Management: 1: *discussed completing HEP exercises with slow controlled tempo as opposed to using momentum for exercises to be most effective for functional strengthening Skilled Intervention: Skilled judgment in the selection of proper modification for activity of daily living/home management based on clinical presentation, deficits, and needs. Activity progression based on professional judgement. Reviewed and educated patient on additions/changes for home program as noted above with an (*). Billing Therapeutic Exercise Treatment Minutes: 8 Neuromuscular Re-Education Treatment Minutes: 30 Self-Care/Home Management Treatment Minutes: 2 Total Treatment Time Minutes (timed/untimed): 40 Robb Rosas, PT documented in this encounter [facility] 04-10-2022 Note HNO ID: [id number] Author: Robb Rosas PT Service: ? Author Type: Physical Therapist Type: Progress Notes Filed: 04/10/2022 1:51 PM Note Text: Episode Visit Count: 5 Therapist That Will Accept/Oversee The Plan Of Care: Robb Rosas Start of Care Date: 03/25/22 Onset Date: 03/25/20 Plan of Care Certification Date: 03/25/22 Next Certification Due Date: 04/29/22 Patient Identified by Name and Date of : Yes REHABILITATION AND SPORTS THERAPY PHYSICAL THERAPY TREATMENT NOTE ASSESSMENT: Pedro Luis Bell tolerated the session with fatigue. He demonstrated difficulty with weight shifting on level surface front to back and alt toe taps on edge of BOSU. The patient will continue to benefit from ongoing skilled physical therapy to progress toward set goals. PLAN FOR NEXT VISIT: Start visit with hamstring stretching, add functional strengthening. Complete sit to stands slowly due to orthostatic hypotension. Continue gait and balance training, specifically negociating obstacles using straight cane. SUBJECTIVE: Patient Reason for Visit: Pt reports that he is feeling good today. Pt states that he walked a total of 6 laps at the [employer] today, resting inbetween laps 4AND5, BLE were fatigued at the end of the walk. Vestibular Dizziness: Yes Description: light headed Rating of current symptoms: 4/10 Pain: OBJECTIVE MEASURES WITH LEVEL OF FUNCTION: Pt challenged with weight shifting with alt toe taps on edge of BOSU. TREATMENT: Therapeutic Exercise: 1: seated HS stretch 3x30 sec each side (more tightness on the L HS) 3: seated LAQ 2x10 each LE Skilled Intervention: Patient was educated in proper exercise technique and purpose for exercises. Skilled judgment was provided in selection of appropriate interventions. Correct performance of therapeutic exercises was facilitated with verbal and visual cuing. Neuromuscular Re-Education: 1: weight shifting forward and back on firm surface eyes open 2x30 sec each (Min A provided at gait belt withRLE in front of LLE) 2: weight shifting side to side on firm surface eyes open, 2x30 sec each 3: Weight shifting on foam forward and back and side to side x10 each (light headediness increased to 5-6/10) 4: NBOS EO x30 seconds on firm surface 5: NBOS with EC on firm ground x30 seconds 6: Semi-tandem stance EO x30 seconds B 7: Static standing on foam with head turns 5x 8: Static standing on foam with looking up and down x 5 9: walking in // bars with horizontal head turns x2 10: walking in // bars with looking up nad looking down x 2 11: Alt toe taps on even ground x 10 B 12: Alt toe taps on edge of BOSU x5 B (1 bout of LOB with Mod A provided at gait belt and use of pt's BUE onto parallel bars) Skilled Intervention: Skilled judgment used to assess appropriate program for balance and coordination activity. Ensured patient safety with use of gait belt. 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 He demonstrated difficulty with weight shifting on level surface front to back and alt toe taps on edge of BOSU. The patient will continue to benefit from ongoing skilled physical therapy to progress toward set goals. PLAN FOR NEXT VISIT: Start visit with hamstring stretching, add functional strengthening. Complete sit to stands slowly due to orthostatic hypotension. Continue gait and balance training, specifically negociating obstacles using straight cane. SUBJECTIVE: Patient Reason for Visit: Pt reports that he is feeling good today. Pt states that he walked a total of 6 laps at the [email or web address] today, resting inbetween laps 4&5, BLE were fatigued at the end of the walk. Vestibular Dizziness: Yes Description: light headed Rating of current symptoms: 4/10 Pain: OBJECTIVE MEASURES WITH LEVEL OF FUNCTION: Pt challenged with weight shifting with alt toe taps on edge of BOSU. TREATMENT: Therapeutic Exercise: 1: seated HS stretch 3x30 sec each side (more tightness on the L HS) 3: seated LAQ 2x10 each LE Skilled Intervention: Patient was educated in proper exercise technique and purpose for exercises. Skilled judgment was provided in selection of appropriate interventions. Correct performance of therapeutic exercises was facilitated with verbal and visual cuing. Neuromuscular Re-Education: 1: weight shifting forward and back on firm surface eyes open 2x30 sec each (Min A provided at gait belt withRLE in front of LLE) 2: weight shifting side to side on firm surface eyes open, 2x30 sec each 3: Weight shifting on foam forward and back and side to side x10 each (light headediness increased to 5-6/10) 4: NBOS EO x30 seconds on firm surface 5: NBOS with EC on firm ground x30 seconds 6: Semi-tandem stance EO x30 seconds B 7: Static standing on foam with head turns 5x 8: Static standing on foam with looking up and down x 5 9: walking in // bars with horizontal head turns x2 10: walking in // bars with looking up nad looking down x 2 11: Alt toe taps on even ground x 10 B 12: Alt toe taps on edge of BOSU x5 B (1 bout of LOB with Mod A provided at gait belt and use of pt's BUE onto parallel bars) Skilled Intervention: Skilled judgment used to assess appropriate program for balance and coordination activity. Ensured patient safety with use of gait belt. Billing Therapeutic Exercise Treatment Minutes: 8 Neuromuscular Re-Education Treatment Minutes: 35 Total Treatment Time Minutes (timed/untimed): 43 NOE Razo PT documented in this encounter [facility] 04-08-2022 Note HNO ID: [id number] Author: Robb Rosas PT Service: ? Author Type: Physical Therapist Type: Progress Notes Filed: 04/08/2022 11:58 AM Note Text: Episode Visit Count: 4 Therapist That Will Accept/Oversee The Plan Of Care: Robb Rosas Start of Care Date: 03/25/22 Onset Date: 03/25/20 Plan of Care Certification Date: 03/25/22 Next Certification Due Date: 04/29/22 REHABILITATION AND SPORTS THERAPY PHYSICAL THERAPY TREATMENT NOTE ASSESSMENT: Pedro Luis Bell tolerated the session with decreased symptoms and improved activity tolerance. He demonstrated difficulty with weight shifting on foam surface as well as tilt board. LOB consistent with eyes closed, but he does much better when he has 1-2 UE support. Symptoms of lightheadedness seem to increase the most following unstable surface and eyes closed balance activities. The patient will continue to benefit from ongoing skilled physical therapy to progress toward set goals. PLAN FOR NEXT VISIT: Start visit with hamstring stretching, add functional strengthening. Complete sit to stands slowly due to orthostatic hypotension. Continue gait and balance training, specifically negociating obstacles using straight cane. SUBJECTIVE: Patient Reason for Visit: Pt. arrived 14 min early and visit started at that time. He reports that he feels better overall and has lightheadness. He walked 5 laps at the [employer] this morning without difficulty or symptoms while using a straight cane. Vestibular Dizziness: Yes Description: light headed Rating of current symptoms: 3/10 Pain: OBJECTIVE MEASURES WITH LEVEL OF FUNCTION: TREATMENT: Therapeutic Exercise: 1: seated HS stretch 3x30 sec each side (more tightness on the L HS) 2: sit to stand with x1 UE support 2x5 (dc after 2nd set due to complaints of dizziness that resolved with sitting in a chair with lumbar support) 3: seated LAQ 2x each LE Skilled Intervention: Patient was educated in proper exercise technique and purpose for exercises. Reviewed and educated patient on additions/changes for home exercise program as above (*). Skilled judgment was provided in selection of appropriate interventions. Correct performance of therapeutic exercises was facilitated with verbal, visual, and tactile cuing. Educated patient on rationale for performing exercises in regards to decreasing fatigue , including balance, increase ease of ADL, and ROM and function . Patient education as noted. Neuromuscular Re-Education: 1: weight shifting forward and back on firm surface eyes open 2x30 sec each 2: weight shifting side to side on firm surface eyes open, 2x30 sec each 3: weight shifting forward and back on foam surface eyes open 2x30 sec each 4: weight shifting side to side on foam surface, eyes open 2x30 sec each 5: weight shifting forward and back on firm surface eyes closed 2x30 sec each 6: weight shifting side to side on firm surface eyes closed, 2x30 sec each 7: tilt board, eyes open, forward and back taps x1 UE support 2x20 8: tilt board, eyes open, side to side taps x1 UE support 2x20 9: tilt board, eyes closed, forward and back taps x2 UE support 2x20 10: tilt board, eyes closed, side to side taps x2 UE support 2x20 Skilled Intervention: Skilled judgment used to assess appropriate program for balance and coordination activity. Education in proprioceptive/kinesthetic awareness during standing and dynamic activities. Ensured patient safety with use of // bars and gait belt. Patient education as noted. Billing Therapeutic Exercise Treatment Minutes: 10 Neuromuscular Re-Education Treatment Minutes: 30 Total Treatment Time Minutes (timed/untimed): 40 Robb Rosas, PT [facility] 04-08-2022 History of Presen t illness Narrative Episode Visit Count: 4 Therapist That Will Accept/Oversee The Plan Of Care: Robb Rosas Start of Care Date: 03/25/22 Onset Date: 03/25/20 Plan of Care Certification Date: 03/25/22 Next Certification Due Date: 04/29/22 REHABILITATION AND SPORTS THERAPY PHYSICAL THERAPY TREATMENT NOTE ASSESSMENT: Pedro Luis Bell tolerated the session with decreased symptoms and improved activity tolerance. He demonstrated difficulty with weight shifting on foam surface as well as tilt board. LOB consistent with eyes closed, but he does much better when he has 1-2 UE support. Symptoms of lightheadedness seem to increase the most following unstable surface and eyes closed balance activities. The patient will continue to benefit from ongoing skilled physical therapy to progress toward set goals. PLAN FOR NEXT VISIT: Start visit with hamstring stretching, add functional strengthening. Complete sit to stands slowly due to orthostatic hypotension. Continue gait and balance training, specifically negociating obstacles using straight cane. SUBJECTIVE: Patient Reason for Visit: Pt. arrived 14 min early and visit started at that time. He reports that he feels better overall and has lightheadness. He walked 5 laps at the [employer] this morning without difficulty or symptoms while using a straight cane. Vestibular Dizziness: Yes Description: light headed Rating of current symptoms: 3/10 Pain: OBJECTIVE MEASURES WITH LEVEL OF FUNCTION: TREATMENT: Therapeutic Exercise: 1: seated HS stretch 3x30 sec each side (more tightness on the L HS) 2: sit to stand with x1 UE support 2x5 (dc after 2nd set due to complaints of dizziness that resolved with sitting in a chair with lumbar support) 3: seated LAQ 2x each LE Skilled Intervention: Patient was educated in proper exercise technique and purpose for exercises. Reviewed and educated patient on additions/changes for home exercise program as above (*). Skilled judgment was provided in selection of appropriate interventions. Correct performance of therapeutic exercises was facilitated with verbal, visual, and tactile cuing. Educated patient on rationale for performing exercises in regards to decreasing fatigue , including balance, increase ease of ADL, and ROM and function . Patient education as noted. Neuromuscular Re-Education: 1: weight shifting forward and back on firm surface eyes open 2x30 sec each 2: weight shifting side to side on firm surface eyes open, 2x30 sec each 3: weight shifting forward and back on foam surface eyes open 2x30 sec each 4: weight shifting side to side on foam surface, eyes open 2x30 sec each 5: weight shifting forward and back on firm surface eyes closed 2x30 sec each 6: weight shifting side to side on firm surface eyes closed, 2x30 sec each 7: tilt board, eyes open, forward and back taps x1 UE support 2x20 8: tilt board, eyes open, side to side taps x1 UE support 2x20 9: tilt board, eyes closed, forward and back taps x2 UE support 2x20 10: tilt board, eyes closed, side to side taps x2 UE support 2x20 Skilled Intervention: Skilled judgment used to assess appropriate program for balance and coordination activity. Education in proprioceptive/kinesthetic awareness during standing and dynamic activities. Ensured patient safety with use of // bars and gait belt. Patient education as noted. Billing Therapeutic Exercise Treatment Minutes: 10 Neuromuscular Re-Education Treatment Minutes: 30 Total Treatment Time Minutes (timed/untimed): 40 Robb Rosas PT documented in this encounter [facility] 04-07-2022 Note HNO ID: [id number] Author: Robb Rosas PT Service: ? Author Type: Physical Therapist Type: Progress Notes Filed: 04/07/2022 2:52 PM Note Text: Episode Visit Count: 3 Therapist That Will Accept/Oversee The Plan Of Care: Robb Rosas Start of Care Date: 03/25/22 Onset Date: 03/25/20 Plan of Care Certification Date: 03/25/22 Next Certification Due Date: 04/29/22 REHABILITATION AND SPORTS THERAPY PHYSICAL THERAPY TREATMENT NOTE ASSESSMENT: Pedro Luis Bell tolerated the session with fatigue and increased symptoms. He demonstrated difficulty with static balance exercises that involved eyes closed while standing on foam without UE support. He was able to complete static standing exercises with head movements, eyes closed while on foam if he had x1 UE support at // bars although he demonstrated increased sway and reports of increased lightheadedness. The patient will continue to benefit from ongoing skilled physical therapy to progress toward set goals. PLAN FOR NEXT VISIT: Continue balance training tomorrow. SUBJECTIVE: Patient Reason for Visit: Pt.arrived 10 min before appointment time. He reports that he walked 1/4 mile at the [employer]. He stopped due to blurry double vision and feeling light headed. These symptoms resolved within 5 min of sitting still. Denies falls since last visit. Vestibular Dizziness: Yes Description: light headed Rating of current symptoms: 4/10 Frequency: Constant Duration: all the time Symptoms worsened by: walking Symptoms improved by: being still;sitting Pain: OBJECTIVE MEASURES WITH LEVEL OF FUNCTION: TREATMENT: Therapeutic Exercise: 1: seated HS stretch 3x30 sec each side (more tightness on the L HS) Skilled Intervention: Patient was educated in proper exercise technique and purpose for exercises. Skilled judgment was provided in selection of appropriate interventions. Correct performance of therapeutic exercises was facilitated with verbal, visual, and tactile cuing. Educated patient on rationale for performing exercises in regards to decreasing fatigue , including balance, increase ease of ADL, and ROM and function . Neuromuscular Re-Education: 1: static standing head movements vertical and horrizontal 5x each, with BUE on// bars 2: static standing head movements vertical and horrizontal 5x each, no UE support 3: NBOS standing head movements vertical and horrizontal 5x each, with BUE on// bars 4: NBOS standing head movements vertical and horrizontal 5x each, no UE support 5: semi-tandem standing head movements vertical and horrizontal 5x each, with BUE on// bars 6: semi-tanem standing head movements vertical and horrizontal 5x each, no UE support (LOB, PT assist) 7: static standing foam head movements vertical and horrizontal 5x each, with BUE on// bars 8: static standing on foam head movements vertical and horrizontal 5x each, no UE support 9: static standing head movements vertical and horrizontal 5x each, with BUE on// bars eyes closed 10: static standing head movements vertical and horrizontal 5x each, no UE support eyes closed (LOB PT assist) 11: amb with eyes open, vertical and horrizontal head movement using straight cane 20' 3x each Skilled Intervention: Skilled judgment used to assess appropriate program for balance and coordination activity. Education in proprioceptive/kinesthetic awareness during standing and dynamic activities. Ensured patient safety with use of // bars and gait belt. Reviewed and educated patient on additions/changes for home program as noted above with an (*). Patient education as noted. Billing Neuromuscular Re-Education Treatment Minutes: 35 Self-Care/Home Management Treatment Minutes: 5 Total Treatment Time Minutes (timed/untimed): 40 Robb Rosas, PT [facility] 04-07-2022 History of Presen t illness Narrative Episode Visit Count: 3 Therapist That Will Accept/Oversee The Plan Of Care: Robb Rosas Start of Care Date: 03/25/22 Onset Date: 03/25/20 Plan of Care Certification Date: 03/25/22 Next Certification Due Date: 04/29/22 REHABILITATION AND SPORTS THERAPY PHYSICAL THERAPY TREATMENT NOTE ASSESSMENT: Pedro Luis Bell tolerated the session with fatigue and increased symptoms. He demonstrated difficulty with static balance exercises that involved eyes closed while standing on foam without UE support. He was able to complete static standing exercises with head movements, eyes closed while on foam if he had x1 UE support at // bars although he demonstrated increased sway and reports of increased lightheadedness. The patient will continue to benefit from ongoing skilled physical therapy to progress toward set goals. PLAN FOR NEXT VISIT: Continue balance training tomorrow. SUBJECTIVE: Patient Reason for Visit: Pt.arrived 10 min before appointment time. He reports that he walked 1/4 mile at the [email or web address]. He stopped due to blurry double vision and feeling light headed. These symptoms resolved within 5 min of sitting still. Denies falls since last visit. Vestibular Dizziness: Yes Description: light headed Rating of current symptoms: 4/10 Frequency: Constant Duration: all the time Symptoms worsened by: walking Symptoms improved by: being still;sitting Pain: OBJECTIVE MEASURES WITH LEVEL OF FUNCTION: TREATMENT: Therapeutic Exercise: 1: seated HS stretch 3x30 sec each side (more tightness on the L HS) Skilled Intervention: Patient was educated in proper exercise technique and purpose for exercises. Skilled judgment was provided in selection of appropriate interventions. Correct performance of therapeutic exercises was facilitated with verbal, visual, and tactile cuing. Educated patient on rationale for performing exercises in regards to decreasing fatigue , including balance, increase ease of ADL, and ROM and function . Neuromuscular Re-Education: 1: static standing head movements vertical and horrizontal 5x each, with BUE on// bars 2: static standing head movements vertical and horrizontal 5x each, no UE support 3: NBOS standing head movements vertical and horrizontal 5x each, with BUE on// bars 4: NBOS standing head movements vertical and horrizontal 5x each, no UE support 5: semi-tandem standing head movements vertical and horrizontal 5x each, with BUE on// bars 6: semi-tanem standing head movements vertical and horrizontal 5x each, no UE support (LOB, PT assist) 7: static standing foam head movements vertical and horrizontal 5x each, with BUE on// bars 8: static standing on foam head movements vertical and horrizontal 5x each, no UE support 9: static standing head movements vertical and horrizontal 5x each, with BUE on// bars eyes closed 10: static standing head movements vertical and horrizontal 5x each, no UE support eyes closed (LOB PT assist) 11: amb with eyes open, vertical and horrizontal head movement using straight cane 20' 3x each Skilled Intervention: Skilled judgment used to assess appropriate program for balance and coordination activity. Education in proprioceptive/kinesthetic awareness during standing and dynamic activities. Ensured patient safety with use of // bars and gait belt. Reviewed and educated patient on additions/changes for home program as noted above with an (*). Patient education as noted. Billing Neuromuscular Re-Education Treatment Minutes: 35 Self-Care/Home Management Treatment Minutes: 5 Total Treatment Time Minutes (timed/untimed): 40 Robb Rosas PT documented in this encounter [facility] 04-03-2022 Note HNO ID: [id number] Author: Robb Rosas PT Service: ? Author Type: Physical Therapist Type: Progress Notes Filed: 04/03/2022 9:52 AM Note Text: Episode Visit Count: 2 Therapist That Will Accept/Oversee The Plan Of Care: Robb Rosas Start of Care Date: 03/25/22 Onset Date: 03/25/20 Plan of Care Certification Date: 03/25/22 Next Certification Due Date: 04/29/22 REHABILITATION AND SPORTS THERAPY PHYSICAL THERAPY TREATMENT NOTE ASSESSMENT: Pedro Luis Bell tolerated the session with consistent lightheadedness throughout visit which only resolved somewhat with seated rest between activities.. He demonstrated nystagmus right beating and left beating without torsion in right and left maik-hallpike positional testing respectively. The nystagmus did not stop >60 sec and continued with fixation switched each side. He had increased light headedness with sitting up, but minimal when sitting up slowly. Pt. Had difficulty with eyes closed with NBOS on foam, but does well on firm surface suggesting he is compensating with the visual and somatosensory systems while BVL is possible due to B positive head thrust test. Pt. Is scheduled to have an MRI and has been seen by a neurologist. PT explained the test results and physical therapy emphasizing balance training until MRI results and f/u with neurology. I The patient will continue to benefit from ongoing skilled physical therapy to progress toward set goals. PLAN FOR NEXT VISIT: HS stretching, dynamic and static balance training. SUBJECTIVE: Patient Reason for Visit: Pt. denies falls since last visit and no change in light headedness symptoms with walking. He tried to get dressed in the dark to not wake up his and this resulted in almost losing his balance. He was able to hold on to the red without falling but he surprised him. Vestibular Description: light headed Rating of current symptoms: 4/10 Pain: Pain Pain Level: 0 Post Treatment Pain Post Treatment Pain Level: 0 OBJECTIVE MEASURES WITH LEVEL OF FUNCTION: Oculomotor Testing Fixation Present Gaze Evoked Nystagmus: Present Right Gaze : Right beat Left Gaze : Left beat Up Gaze : No nystagmus Down Gaze : No nystagmus Head Thrusts: Right positive;Left positive Oculomotor Testing Fixation Removed Center Gaze : No nystagmus Right Gaze : Right beat Left Gaze : Left beat Up Gaze : No nystagmus Down Gaze : No nystagmus Positional Testing Right [place]-Hallpike: Symptomatic;Right beat;Greater than 60 seconds;Comments (continues with fixation) Left Maik-Hallpike: Symptomatic;Greater than 60 seconds;Left beat;Comments Left Maik-Halpike Comments: continues with fixation Right Ear Down: Symptomatic;No nystagmus Left Ear Down: No nystagmus;Symptomatic Positional Test Comments: reports that his back and neck feels better following test, continues to have same intensity of light headedness CTSIB Eyes open, firm surface Trial 1 (sec): 30 Eyes open, firm surface Trial 1 (sway): Mild Eyes closed, firm surface Trial 1 (sec): 30 Eyes closed, firm surface Trial 1 (sway): Moderate Eyes open, foam surface Trial 1 (sec): 30 Eyes open, foam surface Trial 1 (sway): Moderate Eyes closed, foam surface Trial 1 (sec): 5 Eyes closed, foam surface Trial 1 (sway): Loss of balance Tandem standing, eyes open Trial 1 (sec): 2 Tandem standing, eyes open Trial 1 (sway): Loss of balance Tandem standing, eyes open Trial 2 (sec): 1 Tandem standing, eyes open Trial 2 (sway): Loss of balance Tandem standing, eyes open Trial 3 (sec): 1 Tandem standing, eyes open Trial 3 (sway): Loss of balance Partial tandem standing, eyes open Trial 1 (sec): 30 Partial tandem standing, eyes open Trial 1 (sway): Mild Partial tandem standing, eyes closed Trial 1 (sec): 30 Partial tandem standing, eyes closed Trial 1 (sway): Moderate TREATMENT: Neuromuscular Re-Education: 1: maik hallpike right 2x 2: maik garcia pike 2x L 3: cervical spine flexed 30 degrees, R ear down 2x 4: cervical spine flexed 30 degrees, L ear down 2x 5: NBOS firm surface EO 30 sec 1x 6: NBOS foam surface EC 30 sec 1x 7: NBOS firm surface EO 30 sec 1x 8: NBOS foam surface EC 30 sec 1x 9: tandem stance attempt 3x 10: semi tandem stance firm surface EO 30 sec 1x 11: semi tandem stance firm surface EC 30 sec 1x Skilled Intervention: Skilled judgment used to assess appropriate program for balance and coordination activity. Education in proprioceptive/kinesthetic awareness during standing and dynamic activities. Ensured patient safety with use of // bars and gait belt. Provided written instruction for home program to facilitate proper performance and compliance. Patient education as noted. Self-Long-Term Management: 1: *discussed positional testing results and nystagmus present with and without fixation -- Pt. will have an MRI and has been seen by neurology. At this time, we will prioritize balance (more content not included)... [facility] 04-03-2022 History of Presen t illness Narrative Episode Visit Count: 2 Therapist That Will Accept/Oversee The Plan Of Care: Robb Rosas Start of Care Date: 03/25/22 Onset Date: 03/25/20 Plan of Care Certification Date: 03/25/22 Next Certification Due Date: 04/29/22 REHABILITATION AND SPORTS THERAPY PHYSICAL THERAPY TREATMENT NOTE ASSESSMENT: Pedro Luis Bell tolerated the session with consistent lightheadedness throughout visit which only resolved somewhat with seated rest between activities.. He demonstrated nystagmus right beating and left beating without torsion in right and left maik-hallpike positional testing respectively. The nystagmus did not stop >60 sec and continued with fixation switched each side. He had increased light headedness with sitting up, but minimal when sitting up slowly. Pt. Had difficulty with eyes closed with NBOS on foam, but does well on firm surface suggesting he is compensating with the visual and somatosensory systems while BVL is possible due to B positive head thrust test. Pt. Is scheduled to have an MRI and has been seen by a neurologist. PT explained the test results and physical therapy emphasizing balance training until MRI results and f/u with neurology. I The patient will continue to benefit from ongoing skilled physical therapy to progress toward set goals. PLAN FOR NEXT VISIT: HS stretching, dynamic and static balance training. SUBJECTIVE: Patient Reason for Visit: Pt. denies falls since last visit and no change in light headedness symptoms with walking. He tried to get dressed in the dark to not wake up his and this resulted in almost losing his balance. He was able to hold on to the red without falling but he surprised him. Vestibular Description: light headed Rating of current symptoms: 4/10 Pain: Pain Pain Level: 0 Post Treatment Pain Post Treatment Pain Level: 0 OBJECTIVE MEASURES WITH LEVEL OF FUNCTION: Oculomotor Testing Fixation Present Gaze Evoked Nystagmus: Present Right Gaze : Right beat Left Gaze : Left beat Up Gaze : No nystagmus Down Gaze : No nystagmus Head Thrusts: Right positive;Left positive Oculomotor Testing Fixation Removed Center Gaze : No nystagmus Right Gaze : Right beat Left Gaze : Left beat Up Gaze : No nystagmus Down Gaze : No nystagmus Positional Testing Right [place]-Hallpike: Symptomatic;Right beat;Greater than 60 seconds;Comments (continues with fixation) Left [place]-Hallpike: Symptomatic;Greater than 60 seconds;Left beat;Comments Left Maik-Halpike Comments: continues with fixation Right Ear Down: Symptomatic;No nystagmus Left Ear Down: No nystagmus;Symptomatic Positional Test Comments: reports that his back and neck feels better following test, continues to have same intensity of light headedness CTSIB Eyes open, firm surface Trial 1 (sec): 30 Eyes open, firm surface Trial 1 (sway): Mild Eyes closed, firm surface Trial 1 (sec): 30 Eyes closed, firm surface Trial 1 (sway): Moderate Eyes open, foam surface Trial 1 (sec): 30 Eyes open, foam surface Trial 1 (sway): Moderate Eyes closed, foam surface Trial 1 (sec): 5 Eyes closed, foam surface Trial 1 (sway): Loss of balance Tandem standing, eyes open Trial 1 (sec): 2 Tandem standing, eyes open Trial 1 (sway): Loss of balance Tandem standing, eyes open Trial 2 (sec): 1 Tandem standing, eyes open Trial 2 (sway): Loss of balance Tandem standing, eyes open Trial 3 (sec): 1 Tandem standing, eyes open Trial 3 (sway): Loss of balance Partial tandem standing, eyes open Trial 1 (sec): 30 Partial tandem standing, eyes open Trial 1 (sway): Mild Partial tandem standing, eyes closed Trial 1 (sec): 30 Partial tandem standing, eyes closed Trial 1 (sway): Moderate TREATMENT: Neuromuscular Re-Education: 1: maik hallpike right 2x 2: maik garcia pike 2x L 3: cervical spine flexed 30 degrees, R ear down 2x 4: cervical spine flexed 30 degrees, L ear down 2x 5: NBOS firm surface EO 30 sec 1x 6: NBOS foam surface EC 30 sec 1x 7: NBOS firm surface EO 30 sec 1x 8: NBOS foam surface EC 30 sec 1x 9: tandem stance attempt 3x 10: semi tandem stance firm surface EO 30 sec 1x 11: semi tandem stance firm surface EC 30 sec 1x Skilled Intervention: Skilled judgment used to assess appropriate program for balance and coordination activity. Education in proprioceptive/kinesthetic awareness during standing and dynamic activities. Ensured patient safety with use of // bars and gait belt. Provided written instruction for home program to facilitate proper performance and compliance. Patient education as noted. Self-Long-Term Management: 1: *discussed positional testing results and nystagmus present with and without fixation -- Pt. will have an MRI and has been seen by neurology. At this time, we will prioritize balance/gait training to reduce fall risk 2: *discouraged attempting to get dressed or amb without adequate light 3: *provided hand out discussing vestibular rehabilitation pt. education Skilled Intervention: Skilled judgment in the selection of proper modification for activity of daily living/home management based on clinical presentation, deficits, and needs. Physical assistance was provided during education for modifications and patient safety. Educated the patient regarding recommendations and provided written instruction to facilitate compliance. Reviewed patient specific diagnosis in relation to activities of daily living/home management. Reviewed and educated patient on additions/changes for home program as noted above with an (*). Correct performance of home program was facilitated with verbal, visual, and tactile cueing. Billing Neuromuscular Re-Education Treatment Minutes: 30 Self-Care/Home Management Treatment Minutes: 15 Total Treatment Time Minutes (timed/untimed): 45 Robb Rosas PT documented in this encounter [facility] 04-01-2022 Note HNO ID: [id number] Author: Robb Rosas PT Service: ? Author Type: Physical Therapist Type: Progress Notes Filed: 04/01/2022 1:47 PM Note Text: Episode Visit Count: 1 Therapist That Will Accept/Oversee The Plan Of Care: Robb Rosas Start of Care Date: 03/25/22 Onset Date: 03/25/20 Plan of Care Certification Date: 03/25/22 Next Certification Due Date: 04/29/22 REHABILITATION AND SPORTS THERAPY PHYSICAL THERAPY TREATMENT NOTE ASSESSMENT: Pedro Luis Bell tolerated the session with continued complaints of feeling light-headed upon standing, walking with head turns or pivoting, as well as ascending steps. He demonstrates minimal increased risk for falls scoring a 12/30 on FGA using a straight cane. He requires intermittent seated rest due to increased light headedness and LE pain with exertion. LE symptoms reduce briefly with seated rest and repeated lumbar flexion, however light headedness is consistently rated at 4/10 throughout visit. The patient will continue to benefit from ongoing skilled physical therapy . PLAN FOR NEXT VISIT: SUBJECTIVE: Patient Reason for Visit: Continues to report light headedness with ambulation, being still, transitional movements, turning, and ascending steps. Complains of BLE pain of the hamstrings with sitting or standing. Vestibular Rating of current symptoms: 5/10 Symptoms worsened by: walking;turning head quickly Symptoms improved by: sitting;being still Pain: OBJECTIVE MEASURES WITH LEVEL OF FUNCTION: Functional Gait Assessment Gait level surface : 2 - Mild impairment- walks 20' uses assist device, slower speed, mild gait deviation Change in gait speed: 2 - Mild impairment- is able to change speed but demonstrates mild gait deviations or no gait deviations but unable to achieve a significant change in velocity, or uses an assistive device Gait and horizontal head turns: 1 - Moderate impairment- performs R/L head turns with moderate change in gait velocity, slows down, staggers but recovers, can continue to walk Gait and vertical head turns: 1 - Moderate impairment- performs R/L head turns with moderate change in gait velocity, slows down, staggers but recovers, can continue to walk Gait and pivot: 1 - Moderate impairment- turns slowly, requires verbal cueing, requires several small steps following turn and stop Step over obstacle: 2 - Mild impairment- is able to step over box, but must slow down and adjust steps to clear box Gait with narrow base of support : 0 - Severe impairment- ambulates less than 4 steps heel to toe or cannot perform without assistance Gait with eyes closed : 1 - Moderate impairment- walks 20', slow speed, abnormal gait pattern, evidence for imbalance, deviates 10-15 [address], requires more than 9 sec to ambulate 20 Ambulates backward : 2 - Mild impairment- walks 20', uses assist device, slower speed, mild gait deviations, deviates 6-10 outside 12 [address] Steps: 2 - Mild impairment- alternating feet, must use rail Functional Gait Assessment Total : 14 TREATMENT: Therapeutic Exercise: 1: *seated lumbar flexion 2-3x10 -- to reduce LE or LBP as needed (instructed to complete slowly, to avoid light headedness or dizziness due to quick positional changes) 2: *seated ankle pumps 2x10 to reduce stiffness when amb in the am Skilled Intervention: Patient was educated in proper exercise technique and purpose for exercises. Reviewed and educated patient on additions/changes for home exercise program as above (*). Skilled judgment was provided in selection of appropriate interventions. Provided written instruction for home exercise program to facilitate proper performance and compliance. Correct performance of therapeutic exercises was facilitated with verbal, visual, and tactile cuing. Educated patient on rationale for performing exercises in regards to decreasing fatigue , including balance, increase ease of ADL, and ROM and function . Patient education as noted. Neuromuscular Re-Education: 1: amb 20' alt fast and slow every 5' 2: amb reverse with SC 3: amb 10' forward with eyes closed using SC 4: amb 20' turn and pivot with SC 5: amb 20' with Horrizontal head turns 6: amb 20' with vertical head turns 7: amb 20' and stepping over x1 6 oleg using SC 8: tandem stepping attempts 3 consecutve steps prior to LOB with PT assist Skilled Intervention: Skilled judgment used to assess appropriate program for balance and coordination activity. Ensured patient safety with use of gait belt. Reviewed and educated patient on additions/changes for home program as noted above with an (*). Patient education as noted. Gait Training: Gait Cues: tactile, visual, verbal due to visual deficits Assistive Device: SC Assist Level: CGA Stair Trainin x 6 with R HR ascending and descending 1x Skilled Intervention: Patient was provided contact guard assistance during (more content not included)... [facility] 04-01-2022 History of Presen t illness Narrative Episode Visit Count: 1 Therapist That Will Accept/Oversee The Plan Of Care: Robb O'Cristhian Start of Care Date: 03/25/22 Onset Date: 03/25/20 Plan of Care Certification Date: 03/25/22 Next Certification Due Date: 04/29/22 REHABILITATION AND SPORTS THERAPY PHYSICAL THERAPY TREATMENT NOTE ASSESSMENT: Pedro Luis Bell tolerated the session with continued complaints of feeling light-headed upon standing, walking with head turns or pivoting, as well as ascending steps. He demonstrates minimal increased risk for falls scoring a 12/30 on FGA using a straight cane. He requires intermittent seated rest due to increased light headedness and LE pain with exertion. LE symptoms reduce briefly with seated rest and repeated lumbar flexion, however light headedness is consistently rated at 4/10 throughout visit. The patient will continue to benefit from ongoing skilled physical therapy . PLAN FOR NEXT VISIT: SUBJECTIVE: Patient Reason for Visit: Continues to report light headedness with ambulation, being still, transitional movements, turning, and ascending steps. Complains of BLE pain of the hamstrings with sitting or standing. Vestibular Rating of current symptoms: 5/10 Symptoms worsened by: walking;turning head quickly Symptoms improved by: sitting;being still Pain: OBJECTIVE MEASURES WITH LEVEL OF FUNCTION: Functional Gait Assessment Gait level surface : 2 - Mild impairment- walks 20' uses assist device, slower speed, mild gait deviation Change in gait speed: 2 - Mild impairment- is able to change speed but demonstrates mild gait deviations or no gait deviations but unable to achieve a significant change in velocity, or uses an assistive device Gait and horizontal head turns: 1 - Moderate impairment- performs R/L head turns with moderate change in gait velocity, slows down, staggers but recovers, can continue to walk Gait and vertical head turns: 1 - Moderate impairment- performs R/L head turns with moderate change in gait velocity, slows down, staggers but recovers, can continue to walk Gait and pivot: 1 - Moderate impairment- turns slowly, requires verbal cueing, requires several small steps following turn and stop Step over obstacle: 2 - Mild impairment- is able to step over box, but must slow down and adjust steps to clear box Gait with narrow base of support : 0 - Severe impairment- ambulates less than 4 steps heel to toe or cannot perform without assistance Gait with eyes closed : 1 - Moderate impairment- walks 20', slow speed, abnormal gait pattern, evidence for imbalance, deviates 10-[address], requires more than 9 sec to ambulate 20 Ambulates backward : 2 - Mild impairment- walks 20', uses assist device, slower speed, mild gait deviations, deviates 6-[address] Steps: 2 - Mild impairment- alternating feet, must use rail Functional Gait Assessment Total : 14 TREATMENT: Therapeutic Exercise: 1: *seated lumbar flexion 2-3x10 -- to reduce LE or LBP as needed (instructed to complete slowly, to avoid light headedness or dizziness due to quick positional changes) 2: *seated ankle pumps 2x10 to reduce stiffness when amb in the am Skilled Intervention: Patient was educated in proper exercise technique and purpose for exercises. Reviewed and educated patient on additions/changes for home exercise program as above (*). Skilled judgment was provided in selection of appropriate interventions. Provided written instruction for home exercise program to facilitate proper performance and compliance. Correct performance of therapeutic exercises was facilitated with verbal, visual, and tactile cuing. Educated patient on rationale for performing exercises in regards to decreasing fatigue , including balance, increase ease of ADL, and ROM and function . Patient education as noted. Neuromuscular Re-Education: 1: amb 20' alt fast and slow every 5' 2: amb reverse with SC 3: amb 10' forward with eyes closed using SC 4: amb 20' turn and pivot with SC 5: amb 20' with Horrizontal head turns 6: amb 20' with vertical head turns 7: amb 20' and stepping over x1 6 oleg using SC 8: tandem stepping attempts 3 consecutve steps prior to LOB with PT assist Skilled Intervention: Skilled judgment used to assess appropriate program for balance and coordination activity. Ensured patient safety with use of gait belt. Reviewed and educated patient on additions/changes for home program as noted above with an (*). Patient education as noted. Gait Training: Gait Cues: tactile, visual, verbal due to visual deficits Assistive Device: SC Assist Level: CGA Stair Trainin x 6 with R HR ascending and descending 1x Skilled Intervention: Patient was provided contact guard assistance during pre-gait/gait training to prevent falls and insure safety. Facilitated proper gait cycle with the use of verbal, visual, and tactile cues for correction of gait deviations identified in the objective section above. Gait belt utilized during session for safety. Education provided to patient regarding the proper sequence for stair negotiation. Correct performance of home program was facilitated with verbal, visual, and tactile cueing. Self-Long-Term Management: 1: *discussed avoiding use of steps at home. 2: *discussed amb on the first level at home using straight cane and taking rests prior to increased lightheadedness Skilled Intervention: Skilled judgment in the selection of proper modification for activity of daily living/home management based on clinical presentation, deficits, and needs. Provided written instruction for activities of daily living techniques to facilitate proper performance and compliance. Reviewed patient specific diagnosis in relation to activities of daily living/home management. Reviewed and educated patient on additions/changes for home program as noted above with an (*). Provided written instruction for home program to facilitate proper performance and compliance. Correct performance of home program was facilitated with verbal, visual, and tactile cueing. Billing Therapeutic Exercise Treatment Minutes: 10 Neuromuscular Re-Education Treatment Minutes: 20 Self-Care/Home Management Treatment Minutes: 5 Gait Training Treatment Minutes: 5 Total Treatment Time Minutes (timed/untimed): 40 Robb Rosas PT documented in this encounter [facility] 03-25-2022 Note HNO ID: [id number] Author: Robb Rosas PT Service: ? Author Type: Physical Therapist Type: Progress Notes Filed: 03/25/2022 1:34 PM Note Text: Episode Visit Count: 1 Therapist That Will Accept/Oversee The Plan Of Care: Robb Rosas Start of Care Date: 03/25/22 Onset Date: 03/25/20 Plan of Care Certification Date: 03/25/22 Next Certification Due Date: 04/29/22 Patient Identified by Name and Date of : Yes REHABILITATION AND SPORTS THERAPY PHYSICAL THERAPY EVALUATION PLAN OF CARE: Assessment: Pedro Luis Bell presents with diagnosis of dizziness that interferes with rising from a chair (increased lightheadedness with increased speed of transfers) . He presents with impairments in ADL's, balance, gait, independence in exercise, overall function, patient reported outcome measures, sensation, and symptom management. . Prognosis for therapy is Fair due to: limited tolerance to activity;multiple co- morbidities;chronic nature of impairments;clinical presentation;advanced age . He will benefit from skilled therapy services to meet the goals established for this plan of care as noted below. Goals for Episode of Care: created on 03/25/22 through 05/06/22 Patient will be able to correct postural deviations independently in order to allow for normal mechanics, to decrease current pain and prevent future recurrence. Patient will improve FGA to 22 or greater in order to perform functional tasks with improved stability. Patient will be independent with home exercise program and progression. Patient will deny dizziness with turning , walking, and standing. Patient will be able to walk household and community distances with safe, functional gait pattern with trace report of dizziness/imbalance. Patient will demonstrate the ability to complete VOR in static and dynamic positions with trace report of dizziness. Patient Goals: sit <> stand and ambulation community distances without limitation due to light headedness Planned Interventions, Frequency, and Duration: Current Frequency: 2x/week Duration: 6 weeks Total Number of Visits Planned: 12 Planned Treatment Interventions: Patient/Family/Caregiver Education;Gait Training (01792);Self-custodial management ([id number]);Therapeutic activities (44964);Neuromuscular re-education (46456);Therapeutic exercise (51332) PLAN FOR NEXT VISIT: positional testing and FGA Patient demonstrates good understanding of plan of care and treatment. The above goals and plan of care were discussed and agreed upon by patient/family. SUBJECTIVE: Pedro Luis Bell is a 81 year old male seen today for for dizziness pt. describes as being light headedness that onset 2 years ago. Symptoms onset upon standing and are worse the quicker he stands. He has continuous dizziness with walking and his activity tolerance with ambulation is limited by LE pain. Negociating stairs causes lightheadedness and SOB. His double vision has been treated with glasses with improvment, but reports blurried vision with ambulation. Pt. has had coronary graph x4 in 2015, but reports the dizziness onset in 2019 without any other known cause. He has f/u with cardiology who changed his medication for HTN a few times without reducing dizziness symptoms. He will f/u with cardiology again August 2022. He has had 2-3 falls in the past year without injury, most recent being upon turning and tripping over a broom in his garage. Symptoms completely subside with sitting and are not provoked by rolling or sit <> supine transitions. He is scheduled for a MRI 04/20/22. Patient Goals: sit <> stand and ambulation community distances without limitation due to light headedness Functional Limitations: rising from a chair (increased lightheadedness with increased speed of transfers) Prior Level of Function: Independent without limitations Relevant History Past Relevant Medical Conditions: Cardiac;Hypertension Preferred Language: [place] Home Environment Patient Lives With: Spouse Intake Information: Prescription present Previous Treatment: (seen by cardiology and neurology) Falls Interview: Two or more falls in the last year Falls Intervention: Instructed patient on safety and use of assistive device and awareness in regards to falls prevention. Concussion History of Concussion: No Vestibular Symptom onset: gradual Dizziness: Yes Description: light headed Rating of current symptoms: 3/10 Frequency: Intermittent Symptoms worsened by: walking (stairs, turning) Symptoms improved by: turning;walking Imbalance: Yes Imbalance triggered by: Turning;Walking Fall Assessment: History of falls When was your most recent fall?: 3 weeks ago Did the fall occur inside or outside?: inside How did the fall occur?: sweeping the garage, upon turning tripped over a broom Injuries resulting from fall? : no Dizziness during fall?: yes Nausea: no Motion Sickness: Current (more content not included)... [facility] 03-25-2022 History of Presen t illness Narrative Episode Visit Count: 1 Therapist That Will Accept/Oversee The Plan Of Care: Robb Rosas Start of Care Date: 03/25/22 Onset Date: 03/25/20 Plan of Care Certification Date: 03/25/22 Next Certification Due Date: 04/29/22 Patient Identified by Name and Date of : Yes REHABILITATION AND SPORTS THERAPY PHYSICAL THERAPY EVALUATION PLAN OF CARE: Assessment: Pedro Luis Bell presents with diagnosis of dizziness that interferes with rising from a chair (increased lightheadedness with increased speed of transfers) . He presents with impairments in ADL's, balance, gait, independence in exercise, overall function, patient reported outcome measures, sensation, and symptom management. . Prognosis for therapy is Fair due to: limited tolerance to activity;multiple co- morbidities;chronic nature of impairments;clinical presentation;advanced age . He will benefit from skilled therapy services to meet the goals established for this plan of care as noted below. Goals for Episode of Care: created on 03/25/22 through 05/06/22 Patient will be able to correct postural deviations independently in order to allow for normal mechanics, to decrease current pain and prevent future recurrence. Patient will improve FGA to 22 or greater in order to perform functional tasks with improved stability. Patient will be independent with home exercise program and progression. Patient will deny dizziness with turning , walking, and standing. Patient will be able to walk household and community distances with safe, functional gait pattern with trace report of dizziness/imbalance. Patient will demonstrate the ability to complete VOR in static and dynamic positions with trace report of dizziness. Patient Goals: sit <> stand and ambulation community distances without limitation due to light headedness Planned Interventions, Frequency, and Duration: Current Frequency: 2x/week Duration: 6 weeks Total Number of Visits Planned: 12 Planned Treatment Interventions: Patient/Family/Caregiver Education;Gait Training (06839);Self-custodial management (41567);Therapeutic activities (17767);Neuromuscular re-education (39664);Therapeutic exercise (70041) PLAN FOR NEXT VISIT: positional testing and FGA Patient demonstrates good understanding of plan of care and treatment. The above goals and plan of care were discussed and agreed upon by patient/family. SUBJECTIVE: Pedro Luis Bell is a 81 year old male seen today for for dizziness pt. describes as being light headedness that onset 2 years ago. Symptoms onset upon standing and are worse the quicker he stands. He has continuous dizziness with walking and his activity tolerance with ambulation is limited by LE pain. Negociating stairs causes lightheadedness and SOB. His double vision has been treated with glasses with improvment, but reports blurried vision with ambulation. Pt. has had coronary graph x4 in 2015, but reports the dizziness onset in 2019 without any other known cause. He has f/u with cardiology who changed his medication for HTN a few times without reducing dizziness symptoms. He will f/u with cardiology again August 2022. He has had 2-3 falls in the past year without injury, most recent being upon turning and tripping over a broom in his garage. Symptoms completely subside with sitting and are not provoked by rolling or sit <> supine transitions. He is scheduled for a MRI 04/20/22. Patient Goals: sit <> stand and ambulation community distances without limitation due to light headedness Functional Limitations: rising from a chair (increased lightheadedness with increased speed of transfers) Prior Level of Function: Independent without limitations Relevant History Past Relevant Medical Conditions: Cardiac;Hypertension Preferred Language: [place] Home Environment Patient Lives With: Spouse Intake Information: Prescription present Previous Treatment: (seen by cardiology and neurology) Falls Interview: Two or more falls in the last year Falls Intervention: Instructed patient on safety and use of assistive device and awareness in regards to falls prevention. Concussion History of Concussion: No Vestibular Symptom onset: gradual Dizziness: Yes Description: light headed Rating of current symptoms: 3/10 Frequency: Intermittent Symptoms worsened by: walking (stairs, turning) Symptoms improved by: turning;walking Imbalance: Yes Imbalance triggered by: Turning;Walking Fall Assessment: History of falls When was your most recent fall?: 3 weeks ago Did the fall occur inside or outside?: inside How did the fall occur?: sweeping the garage, upon turning tripped over a broom Injuries resulting from fall? : no Dizziness during fall?: yes Nausea: no Motion Sickness: Current Headache: No Neck Symptoms: No Jaw Symptoms: No Ear Symptoms: No Hearing Changes: No recent changes Tinnitus: both ears equally Tinnitus Description: buzzing (chirping) Tinnitus Frequency: Constant History of Syncope: Yes History of Migraine: No Pain: PROMIS Scales Higher is Better 03/11/2022 Phys Func - Score 29 (severe dysfunction) Phys Func - Percentile 2 % GH Physical - Score 26.7 (Poor) GH Physical - Percentile 1 % GH Mental - Score 25.1 (Poor) GH Mental - Percentile 1 % T-scores: mean of general population = 50. 5 points is clinically meaningfully difference Percentiles provide an indication of how the patient's score ranks in relation to the general population. Higher percentile rankings indicate better function/quality of life. 50th percentile is the average of the general population and indicates half of respondents had a worse score. T-scores: mean of general population = 50. 5 points is clinically meaningfully difference Percentiles provide an indication of how the patient's score ranks in relation to the general population. Higher percentile rankings indicate better function/quality of life. 50th percentile is the average of the general population and indicates half of respondents had a worse score. OBJECTIVE MEASURES WITH LEVEL OF FUNCTION: Vision Vision Deficits: Diplopia;Wears corrective lenses Posture / Alignment Posture: Forward head;Increased thoracic kyphosis Oculomotor Testing Fixation Present Ocular ROM: WNL Spontaneous Nystagmus: No nystagmus Gaze Evoked Nystagmus: Present Center Gaze : No nystagmus Right Gaze : Right beat Left Gaze : Left beat Up Gaze : No nystagmus Down Gaze : No nystagmus Smooth pursuit: Horizontal, Vertical and Diagonal all WNL Saccadic eye movements: Horizontal, vertical and oblique all WNL. Head Thrusts: Right positive VOR cancelation: Positive Convergence (Distance): 3 feet Oculomotor Testing Fixation Removed Spontaneous Nystagmus: Right beat;Left beat Gaze Evoked Nystagmus: Present Center Gaze : No nystagmus Right Gaze : Right beat Left Gaze : Left beat Up Gaze : No nystagmus Down Gaze : No nystagmus Head Shake: Negative Gait Gait: Modified Independent Gait Distance (feet): 100 Gait Device: Cane Gait Deviations: General Deviations General Deviations/Observations: Sally decreased;Difficulty changing direction/turning;Lateral sway increased;Non-functional gait speed;Wide base of support;Visual scanning/environmental awareness decreased;Trunk Control Decreased;Step length decreased Education: Education Learning Preferences: Demonstration;Explanation;Perfor james;Printed Materials Barriers: Visual Deficit Learning/educational needs: Home exercise program;Plan of Care;Posture;Gait Training;Safety Education Provided: Yes, see treatment interventions for education provided Education Provided To: Patient Education Mode/Type: Demonstration;Explanation/Discus is[place] Response to Education/Teach Back: States/Identifies;Return Demonstration TREATMENT: PT Treatment Interventions: Self-Long-Term Management Evaluation Self-Long-Term Management: 1: *encouraged use of AD 2: *discussed intermittent seated rest to avoid increased SOB, lightheadedness, and LE pain to the point of losing his balance 3: *discussed orthostatic hypotension in addition to vestibular testing results today 4: *discussed current plan to reduce speed of transitional movements and to address balance deficits until results of MRI are known. Spontaneous nystagmus change of direction suggests some possible central involvement that may be contributing to symptoms Skilled Intervention: Skilled judgment in the selection of proper modification for activity of daily living/home management based on clinical presentation, deficits, and needs. Educated the patient regarding recommendations and provided written instruction to facilitate compliance. Reviewed patient specific diagnosis in relation to activities of daily living/home management. Reviewed and educated patient on additions/changes for home program as noted above with an (*). Correct performance of home program was facilitated with verbal, visual, and tactile cueing. Billing * Evaluation Moderate Complexity: 1 Unit Self-Care/Home Management Treatment Minutes: 15 Total Treatment Time Minutes (timed/untimed): 45 Robb Rosas PT documented in this encounter [facility] 03-18-2022 Miscellaneous Notes Received voicemail 03-17-22 at 3:06 PM. Hi Mirella Arabella. My was in there this morning. [place] [birth year]. We were talking about medications. I thought you said amlodipine. He is not taking that. It's been scratched off the list but it was on his list to take there that you had. The one I think you might be talking about that I don't see on the list is atenolol 25 mg and he takes 0.5 tab twice a day. Appreciate it if you could call me back. [phone]. Thank you. Call back to patient's . She states that Dr. Ray said to decrease the amlodipine but after leaving the appointment they realized that the patient hadn't been taking amlodipine in a while. He's actually been taking atenolol 12.5 mg BID. 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 Spoke with Dr. Ray who stated that because patient is not taking amlodipine there is no need to change medication regimen. Call back to patient's Mirella. No answer. Detailed voicemail left. DEENA Santana, ELIZABETH March 18, 2022 12:05 PM documented in this encounter [facility] 03-17-2022 Note HNO ID: [id number] Author: Aleshia Ray MD Service: ? Author Type: Physician Type: Progress Notes Filed: 03/17/2022 2:16 PM Note Text: NEW OFFICE VISIT March 17, 2022 Dizziness Subjective HISTORY AND PHYSICAL Pedro Luis Bell 81 year old man with intractable dizziness as ligheaded for 2 years , it is all the time when he stands up Or when walking, never when lying down or sitting Has been followed by state wildlife officer for orthostatic hypotension and was given midodrine but his dizziness never improved And with all other conservative treatment . Today in the office, patient had a blood pressure sitting and lying and another blood pressure when he stood He immediately felt dizzy after standing up 108/53 p 56 143/55 p55 Falling forwards when he loses balance and falls Feels imbalanced when walking Slurred speech , thinks that that can be new for the last 6 months No neck pain or back pain , no confusion or loss of consciousness Generalized weakness, no focal weakness or numbness and no vision changes Review of Systems Review of Systems Constitutional Positive for Night Sweats and Fatigue Eyes Positive for Change in vison not corrected by glasses Hent Positive for Tinnitus Cardiovascular Positive for Lightheadedness and Leg pain with walking Respiratory Positive for SOB with exertion GI: Negative Positive for Sexual Dysfunction Endocrine: Negative Musculoskeletal Positive for Stiff Joints Integumentary: Negative Heme/Lymph Positive for Easy Bruising Allergy/Immunologic: Negative Neurologic Positive for Memory Problems, Weakness and Slurred Speech Psychiatric Positive for Depression Patient's Review of Systems has been reviewed with the patient and updated as appropriate. Objective There were no vitals filed for this visit. Physical Exam EXAM: NOSE: no erythema or exudate PHARYNX: normal, no erythema NECK: supple and no adenopathy CHEST: Normal chest wall exam NODES: Neurological Exam MENTAL STATUS: Alert, oriented to person, place and time and Follows commands CRANIAL NERVES: PERRLA, EOM's intact, Facial sensation intact, Face symmetric, Hearing intact to finger rub bilaterally, No dysarthria, Tongue protrudes midline, and Shoulder shrug intact and symmetric MOTOR: No drift MOTOR STRENGTH: Upper and lower extremity 5/5 bilaterally REFLEXES: UE and LE reflexes are equal and reactive SENSATION: Intact light touch COORDINATION: Finger-to- nose-finger intact bilaterally GAIT: Normal-based PAST MEDICAL HISTORY Diagnosis Date 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 0 amLODIPine (NORVASC) 5 mg tablet Take 1 tablet by mouth once daily. 0 aspirin, enteric coated (ASPIRIN, ENTERIC COATED) 81 mg EC tablet 2 tablet,delayed release (DR/EC) Once per day Oral cholecalciferol (VITAMIN D3) 1,000 unit tab Take 1,000 Units by mouth twice daily. acetaminophen (TYLENOL) 325 mg tablet Take 650 mg by mouth every 6 hours as needed. nitroglycerin sublingual 0.4 mg SUBLINGUAL SL tablet Dissolve 0.4 mg under the tongue every 5 minutes as needed. cyanocobalamin (VITAMIN B-12) 1,000 mcg tab Take 1,000 mcg by mouth once daily. isosorbide mononitrate ER (IMDUR) 60 mg 24 hr tablet Take 1 tablet by mouth once daily. 0 COMPOUNDED PRESCRIPTION Lab order: CBC and BMP and Vitamin D25-OH level. Diagnoses: (D64.89) Anemia due to other cause; (R79.89) Low serum calcium; (I10) Essential hypertension, benign; Z79.899 1 Each 0 FLUZONE HIGH-DOSE , PF, 180 mcg/0.5 mL injection (Patient not taking: Reported on 03/17/2022) metoprolol tartrate, short acting, (LOPRESSOR) 25 mg tablet Take 25 mg by mouth twice daily. methyl salicylate-menthol 15-1 % crea Apply 1 application to affected area three times daily. SIMVASTATIN 40 MG TAB take 1/2 tablet at hs 0 METOPROLOL 50 MG TAB one tab 2 times a day 0 No current facility-administered medications for this visit. Social Connections: Not on file No diagnosis found. Assessment and Plan 81 years old man with orthostatic hypotension which has been treated by the state wildlife officer, but has been intractable to treatment With continuous complaint of dizziness as lightheaded and feeling imbalance when walking This dizziness never happen when lying in bed or sitting And when it happened he goes and sit down and that will improve his dizziness And the slurred speech is a new finding as per h (more content not included)... [facility] 03-17-2022 History of Presen t illness Narrative NEW OFFICE VISIT March 17, 2022 Dizziness Subjective HISTORY AND PHYSICAL Pedro Luis Bell 81 year old man with intractable dizziness as ligheaded for 2 years , it is all the time when he stands up Or when walking, never when lying down or sitting Has been followed by state wildlife officer for orthostatic hypotension and was given midodrine but his dizziness never improved And with all other conservative treatment . Today in the office, patient had a blood pressure sitting and lying and another blood pressure when he stood He immediately felt dizzy after standing up 108/53 p 56 143/55 p55 Falling forwards when he loses balance and falls Feels imbalanced when walking Slurred speech , thinks that that can be new for the last 6 months No neck pain or back pain , no confusion or loss of consciousness Generalized weakness, no focal weakness or numbness and no vision changes Review of Systems Review of Systems Constitutional Positive for Night Sweats and Fatigue Eyes Positive for Change in vison not corrected by glasses Hent Positive for Tinnitus Cardiovascular Positive for Lightheadedness and Leg pain with walking Respiratory Positive for SOB with exertion GI: Negative Positive for Sexual Dysfunction Endocrine: Negative Musculoskeletal Positive for Stiff Joints Integumentary: Negative Heme/Lymph Positive for Easy Bruising Allergy/Immunologic: Negative Neurologic Positive for Memory Problems, Weakness and Slurred Speech Psychiatric Positive for Depression Patient's Review of Systems has been reviewed with the patient and updated as appropriate. Objective There were no vitals filed for this visit. Physical Exam EXAM: NOSE: no erythema or exudate PHARYNX: normal, no erythema NECK: supple and no adenopathy CHEST: Normal chest wall exam NODES: Neurological Exam MENTAL STATUS: Alert, oriented to person, place and time and Follows commands CRANIAL NERVES: PERRLA, EOM's intact, Facial sensation intact, Face symmetric, Hearing intact to finger rub bilaterally, No dysarthria, Tongue protrudes midline, and Shoulder shrug intact and symmetric MOTOR: No drift MOTOR STRENGTH: Upper and lower extremity 5/5 bilaterally REFLEXES: UE and LE reflexes are equal and reactive SENSATION: Intact light touch COORDINATION: Finger-to- nose-finger intact bilaterally GAIT: Normal-based PAST MEDICAL HISTORY Diagnosis Date 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 0 amLODIPine (NORVASC) 5 mg tablet Take 1 tablet by mouth once daily. 0 aspirin, enteric coated (ASPIRIN, ENTERIC COATED) 81 mg EC tablet 2 tablet,delayed release (DR/EC) Once per day Oral cholecalciferol (VITAMIN D3) 1,000 unit tab Take 1,000 Units by mouth twice daily. acetaminophen (TYLENOL) 325 mg tablet Take 650 mg by mouth every 6 hours as needed. nitroglycerin sublingual 0.4 mg SUBLINGUAL SL tablet Dissolve 0.4 mg under the tongue every 5 minutes as needed. cyanocobalamin (VITAMIN B-12) 1,000 mcg tab Take 1,000 mcg by mouth once daily. isosorbide mononitrate ER (IMDUR) 60 mg 24 hr tablet Take 1 tablet by mouth once daily. 0 COMPOUNDED PRESCRIPTION Lab order: CBC and BMP and Vitamin D25-OH level. Diagnoses: (D64.89) Anemia due to other cause; (R79.89) Low serum calcium; (I10) Essential hypertension, benign; Z79.899 1 Each 0 FLUZONE HIGH-DOSE , PF, 180 mcg/0.5 mL injection (Patient not taking: Reported on 03/17/2022) metoprolol tartrate, short acting, (LOPRESSOR) 25 mg tablet Take 25 mg by mouth twice daily. methyl salicylate-menthol 15-1 % crea Apply 1 application to affected area three times daily. SIMVASTATIN 40 MG TAB take 1/2 tablet at hs 0 METOPROLOL 50 MG TAB one tab 2 times a day 0 No current facility-administered medications for this visit. Social Connections: Not on file No diagnosis found. Assessment and Plan 81 years old man with orthostatic hypotension which has been treated by the state wildlife officer, but has been intractable to treatment With continuous complaint of dizziness as lightheaded and feeling imbalance when walking This dizziness never happen when lying in bed or sitting And when it happened he goes and sit down and that will improve his dizziness And the slurred speech is a new finding as per his Office Visit on 03/17/22 MRI BRAIN WO IVCON VITAMIN B12 BLOOD MAGNESIUM BLD CONSULT TO PHYSICAL THERAPY CONSULT TO SPEECH THERAPY CONSULT TO CARDIOLOGY Total time in minutes spent with patient, reviewing records, labs, imaging, formulating plan, and documentin minutes with more than 50% of the time spent in patient education/counselling/coordinati ng care with the patient and /or family. March 17, 2022 Aleshia Ray M.D. [facility] Neurological [place] [facility] Department of Neurology documented in this encounter [facility] documented [facility] Diagnosis Orthostatic hypotension- Primary documented in this encounter [facility] note* Diagnosis Dizziness- Primary Dizziness and giddiness documented in this encounter [facility] note* Diagnosis Dizziness- Primary Dizziness and giddiness documented in this encounter [facility] note* Diagnosis Dizziness- Primary Dizziness and giddiness documented in this encounter [facility] note* Diagnosis Dizziness Dizziness and giddiness documented in this encounter [facility] note* Diagnosis Dizziness- Primary Dizziness and giddiness documented in this encounter [facility] note* Diagnosis Dizziness- Primary Dizziness and giddiness documented in this encounter [facility] note* Diagnosis Dizziness- Primary Dizziness and giddiness documented in this encounter [facility] note* Diagnosis Supine hypertension- Primary Orthostatic hypotension Postural lightheadedness Dizziness and giddiness Ataxia Lack of coordination Dysarthria Recurrent falls Personal history of fall Hx of CABG Postsurgical aortocoronary bypass status Coronary artery disease involving telida coronary artery of telida heart, unspecified whether angina present documented in this encounter [facility] note* Diagnosis Supine hypertension [I10 (ICD-10-CM)]- Primary documented in this encounter [facility] note* Diagnosis Dizziness Dizziness and giddiness documented [facility] Outpatient Procedure (Routine) - Authorized Specialty Diagnoses / Procedures Referred By Timoac t Referred To [facility] Diagnoses Orthostatic hypotension Procedures ECG COMPLETE ECG ROUTINE ECG W/LEAST 12 LDS W/I&R Miguelina Soto DO [address] [facility] [place] [address] [facility] [address] [place] [address] Referral ID Status Reason Start Date Expiration Date Visits Requested Visits Authorized [id number] Authorized Auto-Generat ed Referral 2 03/17/2023 1 1 [facility] Reason for Referral Specialty Diagnoses / Procedures Referred By Contac t Referred To Contact Cardiology Diagnoses Orthostatic hypotension Procedures CONSULT TO CARDIOLOGY OFFICE/OUTPATIENT [facility] 60-74 MINUTES Aleshia Ray MD [address] [place] [address] Referral ID Status Reason Start Date Expiration Date Visits Requested Visits Authorized [id number] Authorized PCP Requested Referral 2 03/17/2023 1 1 Specialty Diagnoses / Procedures Referred By Contac t Referred To Contact [facility] Diagnoses Dizziness Procedures CONSULT TO SPEECH THERAPY OFFICE/OUTPATIENT [facility] 60-74 MINUTES Aleshia Ray MD [address] [place] [address] [facility] [place] [address] Referral ID Status Reason Start Date Expiration Date Visits Requested Visits Authorized [id number] Authorized Auto-Generat ed Referral 2 03/17/2023 99 99 Specialty Diagnoses / Procedures Referred By Contac t Referred To Contact [facility] Diagnoses Dizziness Procedures CONSULT TO PHYSICAL THERAPY PHYSICAL THERAPY EVALUATION HIGH COMPLEX 45 MINS Aleshia Ray MD [address] [place] [address] [facility] [place] [address] Referral ID Status Reason Start Date Expiration Date Visits Requested Visits Authorized [id number] Authorized PCP Requested Referral Auto-Generate d Referral 2 03/17/2023 99 99 Specialty Diagnoses / Procedures Referred By Contac t Referred To Contact MR IMAGING Diagnoses Dizziness Procedures MRI BRAIN WO IVCON MRI BRAIN BRAIN STEM W/O CONTRAST MATERIAL Aleshia Ray MD [address] [place] [address] Mr Imaging Referral ID Status Reason Start Date Expiration Date Visits Requested Visits Authorized [id number] Authorized Auto-Generat ed Referral 2 04/16/2023 1 1 Specialty Diagnoses / Procedures Referred By Contac t Referred To Contact [facility] Diagnoses Dizziness Procedures PT REHAB FOLLOW UP ORDER THERAPEUTIC EXERCISES RE, EA 15 MIN. Robb Rosas, PT [facility] [address] [place] [address] Referral ID Status Reason Start Date Expiration Date Visits Requested Visits Authorized [id number] Pending Review PCP Requested Referral Auto-Generate d Referral 2 06/23/2022 1 1 Specialty Diagnoses / Procedures Referred By Contac t Referred To Contact MR IMAGING Diagnoses Dizziness Procedures MRI BRAIN WO IVCON MRI BRAIN BRAIN STEM W/O CONTRAST MATERIAL Aleshia Ray MD [address] [place] [address] [place] [address] Referral ID Status Reason Start Date Expiration Date V isits Requested Visits Authorized [id number] Closed Auto-Generate d Referral 03/17/2022 04/16/2023 1 1 Advance Directives Documents on File Type Date Recorded 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 the event this information is protected by the Federal Confidentiality of Alcohol and Drug Abuse Patient Records regulations: The Federal rules restrict any use of the information to criminally investigate or prosecute any alcohol or drug abuse patient.[facility] Center[facility] the event this information is protected by the Federal Confidentiality of Alcohol and Drug Abuse Patient Records regulations: The Federal rules restrict any use of the information to criminally investigate or prosecute any alcohol or drug abuse patient.[facility] CenterIn the event this information is protected by the Federal Confidentiality of Alcohol and Drug Abuse Patient Records regulations: The Federal rules restrict any use of the information to criminally investigate or prosecute any alcohol or drug abuse patient.[facility] CenterIn the event this information is protected by the Federal Confidentiality of Alcohol and Drug Abuse Patient Records regulations: The Federal rules restrict any use of the information to criminally investigate or prosecute any alcohol or drug abuse patient.[facility] CenterIn the event this information is protected by the Federal Confidentiality of Alcohol and Drug Abuse Patient Records regulations: The Federal rules restrict any use of the information to criminally investigate or prosecute any alcohol or drug abuse patient.[facility] CenterIn the event this information is protected by the Federal Confidentiality of Alcohol and Drug Abuse Patient Records regulations: The Federal rules restrict any use of the information to criminally investigate or prosecute any alcohol or drug abuse patient.[facility] CenterIn the event this information is protected by the Federal Confidentiality of Alcohol and Drug Abuse Patient Records regulations: The Federal rules restrict any use of the information to criminally investigate or prosecute any alcohol or drug abuse patient.[facility] CenterIn the event this information is protected by the Federal Confidentiality of Alcohol and Drug Abuse Patient Records regulations: The Federal rules restrict any use of the information to criminally investigate or prosecute any alcohol or drug abuse patient.[facility] CenterIn the event this information is protected by the Federal Confidentiality of Alcohol and Drug Abuse Patient Records regulations: The Federal rules restrict any use of the information to criminally investigate or prosecute any alcohol or drug abuse patient.[facility] CenterIn the event this information is protected by the Federal Confidentiality of Alcohol and Drug Abuse Patient Records regulations: The Federal rules restrict any use of the information to criminally investigate or prosecute any alcohol or drug abuse patient.[facility] CenterIn the event this information is protected by the Federal Confidentiality of Alcohol and Drug Abuse Patient Records regulations: The Federal rules restrict any use of the information to criminally investigate or prosecute any alcohol or drug abuse patient.[facility] CenterIn the event this information is protected by the Federal Confidentiality of Alcohol and Drug Abuse Patient Records regulations: The Federal rules restrict any use of the information to criminally investigate or prosecute any alcohol or drug abuse patient.[facility] CenterIn the event this information is protected by the Federal Confidentiality of Alcohol and Drug Abuse Patient Records regulations: The Federal rules restrict any use of the information to criminally investigate or prosecute any alcohol or drug abuse patient.[facility] CenterIn the event this information is protected by the Federal Confidentiality of Alcohol and Drug Abuse Patient Records regulations: The Federal rules restrict any use of the information to criminally investigate or prosecute any alcohol or drug abuse patient.[facility] CenterIn the event this information is protected by the Federal Confidentiality of Alcohol and Drug Abuse Patient Records regulations: The Federal rules restrict any use of the information to criminally investigate or prosecute any alcohol or drug abuse patient.[facility] CenterIn the event this information is protected by the Federal Confidentiality of Alcohol and Drug Abuse Patient Records regulations: The Federal rules restrict any use of the information to criminally investigate or prosecute any alcohol or drug abuse patient.[facility] CenterIn the event this information is protected by the Federal Confidentiality of Alcohol and Drug Abuse Patient Records regulations: The Federal rules restrict any use of the information to criminally investigate or prosecute any alcohol or drug abuse patient.[facility] CenterIn the event this information is protected by the Federal Confidentiality of Alcohol and Drug Abuse Patient Records regulations: The Federal rules restrict any use of the information to criminally investigate or prosecute any alcohol or drug abuse patient.[facility] CenterIn the event this information is protected by the Federal Confidentiality of Alcohol and Drug Abuse Patient Records regulations: The Federal rules restrict any use of the information to criminally investigate or prosecute any alcohol or drug abuse patient.[facility] CenterIn the event this information is protected by the Federal Confidentiality of Alcohol and Drug Abuse Patient Records regulations: The Federal rules restrict any use of the information to criminally investigate or prosecute any alcohol or drug abuse patient.[facility] CenterIn the event this information is protected by the Federal Confidentiality of Alcohol and Drug Abuse Patient Records regulations: The Federal rules restrict any use of the information to criminally investigate or prosecute any alcohol or drug abuse patient.[facility] CenterIn the event this information is protected by the Federal Confidentiality of Alcohol and Drug Abuse Patient Records regulations: The Federal rules restrict any use of the information to criminally investigate or prosecute any alcohol or drug abuse patient.[facility] Reason for Visit (unrecogniz ed section and content) Specialty Diagnoses / Procedures Referred By Darrell rapp Referred To Contact [facility] Diagnoses Dizziness Procedures CONSULT TO PHYSICAL THERAPY PHYSICAL THERAPY EVALUATION HIGH COMPLEX 45 MINS Aleshia Ray MD [address] [place] [address] [facility] [address] [address] Referral ID Status Reason Start Date Expiration Date Visits Requested Visits Authorized [id number] Authorized PCP Requested Referral Auto-Generate d Referral 2 03/17/2023 99 99 Reason Comments Consult Light headed balance fatigue Reason Comments Patient Question Reason Comments PT Eval Specialty Diagnoses / Procedures Referred By Darrell rapp Referred To Contact [facility] Diagnoses Dizziness Procedures CONSULT TO PHYSICAL THERAPY PHYSICAL THERAPY EVALUATION HIGH COMPLEX 45 MINS Aleshia Ray MD [address] [place] [address] [facility] [address] [place] [address] Reason Comments Physical Therapy Reason Comments Patient Question MRI Results Reason Comments Patient Update Xray and office note s Reason Comments Patient Update Release Of Medical Records Reason Comments Patient Question Confirm if records w ere received Reason Comments Results [facility] R ecords- Previous Cardiology Records Reason Comments Results History Report/ Labs Reason Comments Procedure Upcoming Autonomic T esting 5/16-ANS W/TILT Specialty Diagnoses / Procedures Referred By Contac t Referred To Contact Cardiology Diagnoses Orthostatic hypotension Procedures CONSULT TO CARDIOLOGY OFFICE/OUTPATIENT [facility] 60-74 MINUTES Aleshia Ray MD [address] [place] [address] Referral ID Status Reason Start Date Expiration Date V isits Requested Visits Authorized [id number] Closed PCP Requested Referral 03/17/2022 03/17/2023 1 1 Reason Comments Received Outside Medical Records ECG/ He alth Chart Reason Comments Procedure Upcoming Autonomic T esting 6-ANS W/TILT Reason Comments Supine Hypertension Specialty Diagnoses / Procedures Referred By Contac t Referred To Contact MR IMAGING Diagnoses Dizziness Procedures MRI BRAIN WO IVCON MRI BRAIN BRAIN STEM W/O CONTRAST MATERIAL Aleshia Ray MD [address] [place] [address] Mr Imaging [id number] Referral ID Status Reason Start Date Expiration Date V isits Requested Visits Authorized [id number] Closed Auto-Generate d Referral 03/17/2022 04/16/2023 1 1 Care Teams (unrecognized sec tion and content) Machine Rope Maker Relationship Specialty Start Date End Date Marii Kenny [address] [place] [address] PCP - General Family Medicine 08/14/22 Markos Dey [address] [place], [place] [address] Referring Cardiology 08/14/22 Machine Rope Maker Relationship Specialty Start Date End Date Marii Kenny [address] [place], [place] [id number] PCP - General Family Medicine 08/14/22 Yissel, Markos S [address] [place] [address] Referring Cardiology 08/14/22 Machine Rope Maker Relationship Specialty Start Date End Date Marii Kenny [address] [place] [address] PCP - General Family Medicine 08/14/22 Yissel, Markos S [address] [place] [address] Referring Cardiology 08/14/22 (unrecognized sect ion and content) No Status Records Found INFORMATION SOURCE (unrecogn ized section and content) FOR RECORDS PERTAINING TO PATIENTS WHO ARE OR HAVE BEEN ENROLLED IN A CHEMICAL DEPENDENCY/SUBSTANCEABUSE PROGRAM, SOME INFORMATION MAY BE OMITTED. This clinical summary was aggregated from multiple sources. Caution should be exercised in using it in the provision of clinical care. This summary normalizes information from multiple sources, and as a consequence, information in this document may materially change the coding, format and clinical context of patient data. In addition, data may be omitted in some cases. CLINICAL DECISIONS SHOULD BE BASED ON THE PRIMARY CLINICAL RECORDS. [facility]. provides no warranty or guarantee of the accuracy or completeness of information in this document.
--- NOTE | 2023-04-30 15:07 | ST.MBS ---
Modified Barium Swallow Patient Information Study Date: 04/30/23 Study Time: 13:00 Direct Billable Minutes: 120 Total Minutes procedure & reportin Diagnosis: Dysphagia R13.10 Referring Physician: Joceline Mejia Reason for Referral: Objectively assess swallow function, assess risk for aspiration, and determine recommendations for least restrictive diet textures and compensatory strategies to improve safety of swallow. Medical History: PMH: Dementia (recently diagnosed), Falls, HTN, HLD. See EMR for full PMH. The patient has been experiencing swallowing difficulty since before January of 2023. His difficulty swallowing has gotten gradually worse. He reports trouble swallowing both food and drink. He feels as if they both get caught in his throat and that at times it feels like they go down his windpipe and cause him to cough. Hard, dry textures give him the most difficulty, as well as bread. For drinks, he feels as if everything gets tight, blocked up, and then he can't swallow. His daughter was present for the evaluation. She contributed to the history mentioned above, and she added that he takes large bites. She reports he coughs all day long, and he reports that he has phlegm and saliva build up. Current Diet Ordered: Soft solids / Thin liquids Dentition: WNL and Natural Teeth Mental Status: Impaired (Hx of dementia) Respiratory Status: Oxygenating on Room Air Penetration-Aspiration Scale Penetration-Aspiration Scale: OBJECTIVE ASSESSMENT OF SWALLOW FUNCTION (QUANTITATIVE ? PER TRIAL): PENETRATION / ASPIRATION SCALE (TONG): 1 = does not enter airway 2 = enters airway/above vocal folds/ejected 3 = enters airway/above vocal folds/not ejected 4 = enters airway/contacts vocal folds/ejected 5 = enters airway/contacts vocal folds/not ejected 6 = enters airway/below vocal folds/ejected 7 = enters airway/below vocal folds/not ejected despite effort 8 = enters airway/below vocal folds/no effort VIDEOFLOROSCOPIC SCALE SCORE (TONG): Grade I = aspiration of material that has penetrated into the laryngeal vestibule, intact cough reflex Grade II = aspiration < 10 % of the bolus, intact cough reflex Grade III = aspiration of < 10 % of the bolus, reduced cough reflex or aspiration of > 10 % of the bolus, intact cough reflex Grade IV = aspiration of > 10 % of the bolus, reduced cough reflex Penetration-Aspiration Scale Score Thin Liquid via teaspoon: Result: 5= enters airways/contacts vocal folds/not ejected Thin Liquid via teaspoon Trial 2: Result: 1= does not enter airway Thin Liquid via small single sip: cup: Result: 5= enters airways/contacts vocal folds/not ejected Comment: Cued cough and re-swallow Thin Liquid via small single sip: cup Effortful swallow: Result: 5= enters airways/contacts vocal folds/not ejected [place] Thick Liquid via small single sip: cup: Result: 2= enter airway/above vocal folds/ejected Pudding via teaspoon: Result: 1= does not enter airway Comment: Esophageal Screen - Retention throughout the mid and lower esophagus with retrograde flow remaining below the UES. Thin Liquid via single sip: straw: Result: 1= does not enter airway Comment: SILENT post prandial aspiration likely of residues remaining in the patient's laryngeal vestibule and pharynx from previous trials. 1/2 Cookie: Result: 1= does not enter airway Thin Liquid via small single sip: cup Chin tuck: Result: 2= enter airway/above vocal folds/ejected Comment: SILENT post prandial aspiration likely of residues remaining in the patient's laryngeal vestibule and pharynx from previous trials. Thin Liquid via small single sip: cup Chin tuck Trial 2: Result: 3= enters airways/above vocal folds/not ejected Thin Liquid via small single sip: cup Supraglottic swallow: Result: 3= enters airways/above vocal folds/not ejected [place] Thick Liquid via small single sip: cup Trial 2: Result: 3= enters airways/above vocal folds/not ejected Oral Phase Labial Seal: No Labial Escape Tongue Control During Bolus Hold: Posterior escape of less than half of bolus Bolus Preparation/Mastication: Timely and efficient chewing and mashing Bolus Transport/Lingual Motion: Slowed tongue motion Oral Residue: Residue collection on oral structures (piecemeal cookie) Pharyngeal Phase Initiation of Pharyngeal Swallow: Bolus head at posterior laryngeal surgace of epiglottis Soft Palate Elevation: No bolus between soft palate and pharyngeal wall Laryngeal Elevation: Partial superior movement thyroid cart/partial apprx aryt-epig petiole Anterior Hyoid Excursion: Partial anterior movement Epiglottic Movement: Complete inversion Laryngeal Vestibule Closure at Height of Swallow: Incomplete; narrow column of air/contrast in laryngeal vestibule Pharyngeal Stripping Wave: Present - diminished Pharyngoesophageal Segment Opening: Parital distension and partial duration; parital obstruction of flow Tongue Base Retraction: Wide column of contrast between tongue base & post. pharyngeal wall Pharyngeal Residue: Collection of residue within or on pharyngeal structures Esophageal Phase Esophageal Clearance: Esophageal retention w/ retrograde flow below pharyngoesophageal seg. Diagnosis/Impression Diagnosis: Mild-moderate oropharyngeal dysphagia R13.12; Esophageal dysphagia R13.14 Impression: The oral phase is primarily marked by... -Decreased bolus control with <1/2 of the bolus spilling posteriorly to the posterior surface of the laryngeal vestibule prior to swallow onset observed with thin liquids especially. -Slowed tongue motion for A-P transport -Mild oral residue after the swallow, which mostly cleared with independent initiation of a second swallow as needed. The pharyngeal phase is primarily marked by... -Decreased airway closure during the swallow due to decreased anterior hyoid excursion and laryngeal elevation. -Moderately decreased tongue base retraction, mildly decreased UES opening/duration, and moderately decreased pharyngeal stripping wave with resulting moderate pharyngeal residues after the swallow most notable with pudding and cookie. Independent double swallow cleared a majority of the pharyngeal residue. -SILENT post prandial aspiration observed during the thin liquid via straw and thin liquid via cup with chin tuck trials; however, aspirated contrast was likely of residues remaining in the patient's laryngeal vestibule and pharynx from previous trials. Consistent, trace laryngeal penetration of thin liquids without full ejection. Laryngeal penetration without full ejection of nectar thick liquids at the end of the study, as well. The esophageal phase is primarily marked by... -Esophageal retention of pudding and thin liquids in mid and lower esophagus with retrograde flow remaining below UES. Recommendations Diet: Mechanical Soft Textures (Soft and bite size textures - IDDSI Level 6) and Thin Liquids Comment: Frequent oral care. Consider 4-5 smaller meals per day. STOP MEAL AND RESUME LATER IF SENSATION OF RETENTION/BACKING UP IN THROAT. Compensatory Strategies: Small Bites, Small Sips (CHIN TUCK, intermittent cough and re-swallow), Slow Rate, Multiple Swallows (Double swallows with food), Alternate bites/solids and sips/liquids, Sitting upright and Remain sitting upright for 30 minutes after PO intake Supervision: Assist as needed (No consistent supervision as the patient lives alone; however, his daughter is present for some meals with him and she stated they can make him notes/signs to remind him of strategies.) Recommend Repeat Modified Barium Swallow: TBD Need for Skilled Speech Therapy Services: Yes Comment: -Train the patient in use of strategies to decrease risk for aspiration and reflux aspiration. -Ongoing assessment of diet tolerance of recommended textures. Consider diet advancement to Easy to Chew textures if the patient undergoes intervention with GI and is cleared for more solid textures. -Train the patient oropharyngeal exercise program to improve airway closure, pharyngeal motility, and UES opening/duration (Consider Tamela, Dunia, CTAR, Effortful, Yawn/jaw stretch). Recommended Referrals: GI Consult Education Completed: 1. Described result of evaluation. (Images reviewed, handouts for diet recommendations, strategies to decrease aspiration/reflux aspiration risk, and testing/preparation of SBS provided. PRECISION MACHINIST educated rationale for diet and strategies to decrease risk for choking and aspiration, as well as reflux aspiration.), 2. Pt understands evaluation & agrees with goals and treatment plan., 4. Family/caregivers understand evaluation & agree w/ goals & tx plan. and 7. Pt requires further education on strategies & risks. Status Active ST Patient: Active Contact Information [facility] Speech Therapy:: Celsa Dover M.A. [facility]-PRECISION MACHINIST Speech-Language Pathologist [facility] [address] [place] [address] [email or web address] [phone]
== END | disposition home or self-care (01) ==
LOC: RAD 12:56
PROVIDERS: PCP Family Medicine; Referring Provider Nurse Practitioner Family; Visit Provider Nurse Practitioner Family
DX: R13.10 Dysphagia, unspecified (principal)
CPT/HCPCS: 74230; 92611

== ENCOUNTER 2023-05-28 19:04 | Inpatient (IN) | payer MEDICARE, OTHER, SELFPAY ==
[2023-05-28 19:05] VITALS: BP 189/63; PULSE 68; RESP 22; TEMP 36.8; O2SAT 97; BMI 26.7
--- OUTSIDE RECORDS SUMMARY | 2023-05-28 19:20 | XMS RPT_ITS | CCD ---
Author Name Unknown Address [address] [place] [address] Organization [facility] Care Team Providers Care Trousseau Consultant Name Role Phone Meena JOHNSON, Deb Jack Unavailable Unavailable MD Yissel, Grainfield S Unavailable Sean Baron Unavailable Unavailable Unavailable Primary Care Provider UnavailMarii Kramer Primary Care Provider Bill Deyril S Unavailable MIGUELINA SOTO Referring Unavailabl e SCHINNER, MARII BERUMEN Primary Care Unavailabl e MIGUELINA SOTO Referring Unavailabl e SCHINNERMARII EDATHERTON Primary Care Unavailabl e MIGUELINA SOTO Referring [...] ARSH, ALESHIA Y Referring Unavailable SCHMARII FRAZIER EDATHERTON Primary Care Unavailabl e ARSH, ALESHIA Y Referring Unavailable [facility] Primary Care MIGUELINA Light Attending ALESHIA Hein Referring Unavailable Allergies Allergy Classification Reported Allergen(s) Allergy Type Date of Onset Reaction(s) Facility (20 sources) iodine; Translations: [IODINE] Drug Allergy 07-16-2010 [facility] [employer] Work Phone: (3 sources) Penicillin G Potassium drug allergy 07-16-2010 [facility] Work Phone: (20 sources) Penicillins; Translations: [PENICILLINS] Propensity to adverse reactions to drug 07-09-2005 [facility] Work Phone: Medications Completed/Discontinued Medications Medication Drug [...] disease (20 sources) 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; Translations: [Coronary [...] (3 sources) Long-term drug therapy; Translations: [Other superintendent container terminal (current) drug therapy] Onset: 07-16-2010 07-16-2010 Past [...] height 176.5 cm Card Nurse Work Phone: [facility] 09-04-2022 11:56-0400 Body weight 70.76 kg Card Nurse Work Phone: [facility] 09-04-2022 11:56-0400 Diastolic blood pressure 55 mm[Hg] Card Nurse Work Phone: [facility] 09-04-2022 11:56-0400 Heart rate 54 /min Card Nurse Work Phone: [facility] 09-04-2022 11:56-0400 Systolic blood pressure 113 mm[Hg] Card Nurse Work Phone: [facility] 08-14-2022 13:08-0400 Body height 176.5 cm Miguelina Soto DO Work Phone: [facility] 08-14-2022 13:08-0400 Body weight 70.76 kg Miguelina Soto DO Work Phone: [facility] 03-25-2022 11:00-0500 Diastolic blood pressure 78 mm[Hg] Robb Rosas PT [facility] 03-25-2022 11:00-0500 Heart rate 59 /min Robb Rosas PT [facility] 03-25-2022 11:00-0500 SaO2% (BldA) [Mass fraction] 93 % Robb Rosas PT [facility] 03-25-2022 11:00-0500 Systolic blood pressure 162 mm[Hg] Robb Rosas PT [facility] 03-17-2022 10:23-0500 SaO2% (BldA) [Mass fraction] 100 % Aleshia Ray MD Work Phone: [facility] 03-17-2022 10:07-0500 Body height 177.8 cm Aleshia Ray MD Work Phone: [facility] 03-17-2022 10:07-0500 Body weight 73.48 kg Aleshia Ray MD Work Phone: [facility] 03-17-2022 10:07-0500 Respiratory rate 16 /min Aleshia Ray MD Work Phone: [facility] 03-02-2017 11:39-0500 BMI (Body Mass Index) 26.43 kg/m2 Deb Sam[facility]go [employer] Work Phone: 03-02-2017 11:39-0500 BP Diastolic 60 mm[Hg] Deb Robledo RN [facility] Work Phone: 03-02-2017 11:39-0500 BP Systolic 100 mm[Hg] Deb Robledo RN [facility] Work Phone: 03-02-2017 11:39-0500 Height 175.26 cm Deb Robledo RN [facility] Work Phone: 03-02-2017 11:39-0500 Pulse (Heart Rate) 56 /min Deb Robledo RN [facility] Work Phone: 03-02-2017 11:39-0500 Respiratory Rate 20 /min Deb Robledo RN [facility] Work Phone: 03-02-2017 11:39-0500 Weight [...] 14:58-0400 Pulse Oximetry 98 % MD [facility] Work Phone: Encounters Encounter Date Encounter Type Care Provider Facility Start: 09-11-2022 End: 09-11-2022 ambulatory MIGUELINA SOTO Facility:[facility] Start: 09-04-2022 End: 09-04-2022 ambulatory MIGUELINA SOTO Facility:[facility] Start: 09-04-2022 End: 09-04-2022 Nursing evaluation of [...] 01-27-2017 End: 02-17-2017 *Hepatic Function Panel Jersey Feilx Start: 01-27-2017 End: 02-17-2017 Lipid Perri panel [...] Markos Dey MD Start: 10-03-2015 End: 10-03-2015 [employer] Markos Dey MD Start: 10-03-2015 End: 10-03-2015 Follow Up Appt 2 months Jersey Felix Start: 09-11-2015 End: 09-25-2015 Us abdominal real time w/image limited Markos Dey MD Start: 09-09-2015 End: 09-09-2015 *BMP Markos Dey MD Start: 09-09-2015 End: 09-09-2015 CBC W Auto Differential panel - Blood Mrakos Dey MD Start: 08-04-2015 End: 08-26-2015 *Hepatic [...] MD Start: 06-05-2015 End: 06-06-2015 Referral to analytical engineer Markos Dey MD Start: 03-14-2015 End: 03-14-2015 [...] 09-05-2013 Follow Up Appt 6 months Jersey Fleix Start: 09-05-2013 End: 09-05-2013 DEEPA Dey MD Start: 07-04-2013 End: 08-16-2013 *Hepatic Function Panel [place] Felix Start: 07-04-2013 End: 08-16-2013 Lipid 1996 panel - Serum or Plasma Markos Dey MD Start: 03-06-2013 End: 03-06-2013 [employer] Thuy Fermin PA-C Work Phone: Start: 03-06-2013 [...] Covid-19 Vaccine ( season) Covid-19 Vaccine () [facility] Start: 12-04-[address] [facility] Start: 04-05-2022 ADVANCE DIRECTIVE DISCUSSION ADVANCE DIRECTIVE DISCUSSION [facility] Start: 04-05-2022 DEPRESSION ASSESSMENT DEPRESSION ASS ESSMENT [facility] Start: 03-17-2022 End: 05-17-2022 Cobalamin (Vitamin B12) [Mass/volume] in Serum or Plasma VITAMIN B12 BLOOD Lab Routine Dizziness Expected: 03/17/2022, Expires: 05/17/2022 [facility] Work Phone: Immunizations Immunization Date Immunization Notes Care Provider Fa cility 01-07-2021 influenza virus vacc ine, unspecified formulation Mri (I-Stat/1.5t) Work Phone: [facility] 02-12-2016 pneumococcal conjuga te vaccine, 13 valent Aleshia Ray MD Work Phone: [facility] 01-31-2015 FLUZONE HIGH-DOSE 2015-16, PF, 180 mcg/0.5 mL injection Aleshia Ray MD Work Phone: [facility] 07-09-2005 pneumococcal polysaccharide vaccine, 23 valent Aleshia Ray MD Work Phone: [facility] Work Phone: 07-09-2005 tetanus and diphther ia toxoids, adsorbed, preservative free, for adult use (2 Lf of tetanus toxoid and 2 Lf of diphtheria toxoid) Aleshia Ray MD Work Phone: [facility] Work Phone: Payers Date Payer Category Payer Medicare [id number] 2021 Unknown MMO MMO MEDICARE SUPPLEMENT [id number] 2021-Present [phone] [address] [place] [address] Indemnity [id number] 2005 Medicare MEDICARE MEDICAR E A AND B [id number] 2005-Present [phone] [address] [address] [place] [address] Medicare [id number] 2005 Medicare [id number] Social History Date Type Detail Facility Start: 03-17-2022 [facility] End: 07-09-1981 History of tobacco use Current smoker [facility] End: 07-09-1981 History of tobacco use Cigarette Smoker [facility] Start: 03-17-2022 End: 04-18-2022 Cigarettes smoked current (pack per day) - Reported 3 [facility] Start: 03-17-2022 Tobacco use and exposure Smoke less tobacco non-user [facility] Start: 03-17-2022 End: 08-14-2022 Alcohol intake Current drinker of alcohol (finding) [facility] Start: 03-17-2022 Tobacco Comment Former smoker; Never used smokeless; Smoking details Type: cigarette; Amount: 40+ cigs/day; Tobocco comments 3 packs per day for 50 years; Tobacco modified 05/16/2015 [facility] Start: 1940 Sex Assigned At Not on file [facility] Start: 03-17-2022 End: 04-18-2022 Tobacco use panel [facility] Adult Depression Scr eening Assessment 6 [facility] Clinical Notes 03-17-2022 to 09-04-2022 Radha Thompson [...] blood pressure monitoring. Instructions given for monitor. [employer] monitor programmed for patient [employer] patient monitor. [...] financial responsibility form. documented in this encounter [facility] 09-02-2022 Miscellaneous Notes Left voicemail for Pedro Luis on 09/02/2022 letting him know that a [employer] [facility] message has been sent to him with some important medication instructions for his autonomic testing on 09/11/2022. I asked him to please review his [employer] [facility] message as soon as possible and if he has any questions to please call the autonomic lab at [phone]. documented in this encounter [facility] 08-17-2022 Miscellaneous Notes August 17, 2022 Patient Name:PATIENT Pedro Luis Bell Contact Information: [phone] Last visit with EP Provider: 08/14/2022 Reason for Call: Received Outside records dated for 08/14/[address] Soto. Records available in shared EP drive / patients epic chart Physician: Miguelina Soto MD Thank you, Hue Fowler The patient was informed that our caregivers are afforded 72 business hours to review and respond telephone messages. documented in this encounter [facility] 08-14-2022 Miscellaneous Notes Left voicemail for Pedro Luis on 08/14/2022 letting him know that a [employer] [facility] message has been sent to him with some important medication instructions for his autonomic testing on 08/18/2022. I asked him to please review his [employer] message as soon as possible and if he has any questions to please call the autonomic lab at [phone]. documented in this encounter [facility] 08-14-2022 Note HNO ID: [id number] Author: Miguelina Soto, DO Service: ? Author Type: Physician Type: Progress Notes Filed: 08/14/2022 7:06 PM Note Text: [facility] Department of Cardiovascular Medicine SECTION OF CARDIAC PACING and ELECTROPHYSIOLOGY OUTPATIENT VISIT DATE August 14, 2022 OUTPATIENT VISIT TYPE CONSULTATION PRIMARY CARE PHYSICIAN: To use this Smartlink, specify the provider ID whose address you want to display, e.g., .PROVADDR[1 (where 1 is the provider ID). REFERRING PHYSICIAN Aleshia Ray [address] [facility] [address] CHIEF COMPLAINT: [place] HISTORY OF PRESENT ILLNESS: [...] as well and Dr. Dey, his local analytical engineer. He was treated with midodrine without improvement. [...] Coronary atherosclerosis of unspecified type of vessel, cherokee or graft Coronary artery disease Family history [...] by mouth twi (more content not included)... [facility] 08-14-2022 History of Presen t illness Narrative Images from the original note were not included. [facility] Department of Cardiovascular Medicine SECTION OF CARDIAC PACING and ELECTROPHYSIOLOGY OUTPATIENT VISIT DATE August 14, 2022 OUTPATIENT VISIT TYPE CONSULTATION PRIMARY CARE PHYSICIAN: To use this Smartlink, specify the provider ID whose address you want to display, e.g., .PROVADDR[1 (where 1 is the provider ID). REFERRING PHYSICIAN Aleshia Ray [address] [place] [facility] [place] [address] CHIEF COMPLAINT: [place] HISTORY OF PRESENT ILLNESS: [...] as well and Dr. Dey, his local analytical engineer. He was treated with midodrine without improvement. [...] Coronary atherosclerosis of unspecified type of vessel, cherokee or graft Coronary artery disease Family history [...] ICD10: Z95.1 8. Coronary artery disease involving cherokee coronary artery of cherokee heart, unspecified whether angina present - ICD9: [...] nocturnal HTN. He wants to do in [place], but I cautioned this may not be [...] the patient's primary care physician or clinical analytical engineer for the documentation requested. We will provide the office notes from the patient's most recent visit if they have not already been received, and other tests or evaluations performed here can be made available upon request. documented in this encounter [facility] 08-11-2022 Miscellaneous Notes August 11, 2022 Patient Name:PATIENT Pedro Luis Bell Contact Information: Last visit with EP Provider: 08/11/2022 Reason for Call: Received Fax [facility]- History Report / Physical. Documents placed in patient EP Drive. Original Documents filed in our office Physician: Miguelina Soto MD Thank youHue The patient was informed that our caregivers are afforded 72 business hours to review and respond telephone messages. documented in this encounter [facility] 08-11-2022 Miscellaneous Notes August 11, 2022 Patient Name:PATIENT Pedro Luis Bell Contact Information: Last visit with EP Provider: 08/10/2022 Reason for Call: Received Faxed Records from [facility] Records- All documents has been placed in the EP Drive for review of patients upcoming new consult appointment on 08/14 Physician: Miguelina Soto MD Thank you, Hue Fowler The patient was informed that our caregivers are afforded 72 business hours to review and respond telephone messages. documented in this encounter [facility] 08-10-2022 Miscellaneous Notes August 10, 2022 Patient [...] respond telephone messages. documented in this encounter [facility] 07-29-2022 Miscellaneous Notes Received request of office note of Dr. Ray, last office notes and MRI results have been fax to pt primary physician Marii kenny md at [phone] documented in this encounter [facility] 06-30-2022 Miscellaneous Notes Received xray and office notes have been sent to scanning., no upcomming apt. documented in this encounter [facility] 04-24-2022 Note HNO ID: [id number] Author: Robb Rosas, PT Service: ? Author [...] treatment included: Therapeutic exercise, Neuromuscular re-education, and Self-fpc management. Goals for Episode of Care: created [...] head turns smoothly (more content not included)... [facility] 04-24-2022 History of Presen t illness Narrative [...] treatment included: Therapeutic exercise, Neuromuscular re-education, and Self-fpc management. Goals for Episode of Care: created [...] facilitated with verbal, visual, and tactile cueing. Self-Snf Management: 1: *Strongly encouraged continued compliance with [...] Robb Rosas PT documented in this encounter [facility] 04-23-2022 Miscellaneous Notes Call back to patient's [...] advise, Arleen Jeffery documented in this encounter [facility] 04-21-2022 Note HNO ID: [id number] Author: Robb Rosas, PT Service: ? Author [...] Treatment Time Minutes (timed/untimed): 30 Nery Wylie, DEPUTY SHERIFF GENERALIST/BAILIFF Robb Rosas, PT [facility] 04-20-2022 Note HNO ID: [id number] Author: YENNY Atkins) Service: ? Author Type: [...] Wilbert(Maria L) April 20, 2022 1:20 PM [facility] 04-20-2022 History of Presen t illness Narrative [...] 2022 1:20 PM documented in this encounter [facility] 04-15-2022 Note HNO ID: [id number] Author: Robb Rosas, PT Service: ? Author [...] with an (*). Patient education as noted. Self-Snf Management: 1: *discussed amb at gault using [...] Time Minutes (timed/untimed): 40 Robb Rosas, PT [facility] 04-13-2022 Note HNO ID: [id number] Author: Robb Rosas, PT Service: ? Author [...] patient safety with use of gait belt. Self-Snf Management: 1: *discussed completing HEP exercises with [...] Time Minutes (timed/untimed): 40 Robb Rosas, PT [facility] 04-13-2022 History of Presen t illness Narrative [...] patient safety with use of gait belt. Self-Snf Management: 1: *discussed completing HEP exercises with [...] Robb Rosas, PT documented in this encounter [facility] 04-10-2022 Note HNO ID: [id number] Author: Robb Rosas PT Service: ? Author [...] Treatment Time Minutes (timed/untimed): 43 Nery Wylie, DEPUTY SHERIFF GENERALIST/BAILIFF Robb Rosas, PT [facility] 04-10-2022 History of Presen t illness Narrative [...] a total of 6 laps at the [employer] today, resting inbetween laps 4&5, BLE were [...] NOE Razo PT documented in this encounter [facility] 04-08-2022 Note HNO ID: [id number] Author: Robb Rosas PT Service: ? Author [...] Time Minutes (timed/untimed): 40 Robb Rosas, PT [facility] 04-08-2022 History of Presen t illness Narrative [...] Robb Rosas PT documented in this encounter [facility] 04-07-2022 Note HNO ID: [id number] Author: Robb Rosas PT Service: ? Author [...] Time Minutes (timed/untimed): 40 Robb Rosas, PT [facility] 04-07-2022 History of Presen t illness Narrative [...] that he walked 1/4 mile at the [employer]. He stopped due to blurry double vision [...] Robb Rosas PT documented in this encounter [facility] 04-03-2022 Note HNO ID: [id number] Author: Robb Rosas PT Service: ? Author [...] Gaze : No nystagmus Positional Testing Right Maik-Hallpike: Symptomatic;Right beat;Greater than 60 seconds;Comments (continues with fixation) Left Maik-Hallpike: Symptomatic;Greater than 60 seconds;Left beat;Comments Left [place]-Halpike Comments: continues with fixation Right Ear Down: [...] performance and compliance. Patient education as noted. Self-Snf Management: 1: *discussed positional testing results and nystagmus present with and without fixation -- Pt. will have an MRI and has been seen by neurology. At this time, we will prioritize balance (more content not included)... [facility] 04-03-2022 History of Presen t illness Narrative [...] Gaze : No nystagmus Positional Testing Right Maik-Hallpike: Symptomatic;Right beat;Greater than 60 seconds;Comments (continues with [...] performance and compliance. Patient education as noted. Self-Snf Management: 1: *discussed positional testing results and [...] Robb Rosas PT documented in this encounter [facility] 04-01-2022 Note HNO ID: [id number] Author: Robb Rosas PT Service: ? Author [...] guard assistance during (more content not included)... [facility] 04-01-2022 History of Presen t illness Narrative [...] facilitated with verbal, visual, and tactile cueing. Self-Snf Management: 1: *discussed avoiding use of steps [...] Robb Rosas PT documented in this encounter [facility] 03-25-2022 Note HNO ID: [id number] Author: Robb Rosas PT Service: ? Author [...] 12 Planned Treatment Interventions: Patient/Family/Caregiver Education;Gait Training (41005);Self-fpc management (34351);Therapeutic activities (69855);Neuromuscular re-education (59230);Therapeutic exercise (60057) PLAN FOR NEXT VISIT: positional testing and [...] Past Relevant Medical Conditions: Cardiac;Hypertension Preferred Language: Turkish Home Environment Patient Lives With: Spouse Intake [...] Motion Sickness: Current (more content not included)... [facility] 03-25-2022 History of Presen t illness Narrative [...] 12 Planned Treatment Interventions: Patient/Family/Caregiver Education;Gait Training (51777);Self-fpc management (50250);Therapeutic activities (39310);Neuromuscular re-education (64498);Therapeutic exercise (76260) PLAN FOR NEXT VISIT: positional testing and [...] Past Relevant Medical Conditions: Cardiac;Hypertension Preferred Language: Turkish Home Environment Patient Lives With: Spouse Intake [...] Back: States/Identifies;Return Demonstration TREATMENT: PT Treatment Interventions: Self-Snf Management Evaluation Self-Snf Management: 1: *encouraged use of AD 2: [...] Robb Rosas PT documented in this encounter [facility] 03-18-2022 Miscellaneous Notes Received voicemail 03-17-22 at [...] it if you could call me back. [phone]. Thank you. Call back to patient's . She states that Dr. Ray said to decrease the amlodipine but after leaving the appointment they realized that the patient hadn't been taking amlodipine in a while. He's actually been taking atenolol 12.5 mg BID. Unable to get into the analytical engineer until August 2022. Spoke with Dr. Ray who stated that because patient is not taking amlodipine there is no need to change medication regimen. Call back to patient's Mirella. No answer. Detailed voicemail left. DEENA Santana, ELIZABETH March 18, 2022 12:05 PM documented in this encounter [facility] 03-17-2022 Note HNO ID: [id number] Author: Aleshia Ray MD Service: ? Author [...] down or sitting Has been followed by analytical engineer for orthostatic hypotension and was given midodrine [...] Coronary atherosclerosis of unspecified type of vessel, cherokee or graft Coronary artery disease Family history [...] hypotension which has been treated by the analytical engineer, but has been intractable to treatment With continuous complaint of dizziness as lightheaded and feeling imbalance when walking This dizziness never happen when lying in bed or sitting And when it happened he goes and sit down and that will improve his dizziness And the slurred speech is a new finding as per h (more content not included)... [facility] 03-17-2022 History of Presen t illness Narrative NEW OFFICE VISIT March 17, 2022 Dizziness Subjective HISTORY AND PHYSICAL Pedro Luis Bell 81 year old man with intractable dizziness as ligheaded for 2 years , it is all the time when he stands up Or when walking, never when lying down or sitting Has been followed by analytical engineer for orthostatic hypotension and was given midodrine [...] Coronary atherosclerosis of unspecified type of vessel, cherokee or graft Coronary artery disease Family history [...] hypotension which has been treated by the analytical engineer, but has been intractable to treatment With [...] family. March 17, 2022 Aleshia Ray M.D. [facility] [place] Department [facility]rology documented in this encounter [facility] Diagnosis Orthostatic hypotension- Primary documented in this encounter [facility] note* Diagnosis Dizziness- Primary Dizziness and giddiness documented in this encounter [facility] note* Diagnosis Dizziness- Primary Dizziness and giddiness documented in this encounter [facility] note* Diagnosis Dizziness- Primary Dizziness and giddiness documented in this encounter [facility] note* Diagnosis Dizziness Dizziness and giddiness documented in this encounter [facility] note* Diagnosis Dizziness- Primary Dizziness and giddiness documented in this encounter [facility] note* Diagnosis Dizziness- Primary Dizziness and giddiness documented in this encounter [facility] note* Diagnosis Dizziness- Primary Dizziness and giddiness documented in this encounter [facility] note* Diagnosis Supine hypertension- Primary Orthostatic hypotension Postural lightheadedness Dizziness and giddiness Ataxia Lack of coordination Dysarthria Recurrent falls Personal history of fall Hx of CABG Postsurgical aortocoronary bypass status Coronary artery disease involving cherokee coronary artery of cherokee heart, unspecified whether angina present documented in this encounter [facility] note* Diagnosis Supine hypertension [I10 (ICD-10-CM)]- Primary documented in this encounter [facility] note* Diagnosis Dizziness Dizziness and giddiness [facility] Outpatient Procedure (Routine) - Authorized Specialty Diagnoses / Procedures Referred By [place] t [facility]erred [facility] Diagnoses Orthostatic hypotension Procedures ECG COMPLETE ECG ROUTINE ECG W/LEAST 12 LDS W/I&R Miguelina Soto DO [address] [facility] [place] [address] [facility] [address] [place] [address] Referral ID Status Reason Start Date Expiration Date Visits Requested Visits Authorized [id number] Authorized Auto-Generat ed Referral 2 03/17/2023 1 [facility] Reason for Referral Specialty Diagnoses / Procedures Referred By Contac t Referred To Contact Cardiology Diagnoses Orthostatic hypotension Procedures CONSULT TO CARDIOLOGY OFFICE/OUTPATIENT [facility] 60-74 MINUTES Aleshia Ray MD [address] [place] [address] Referral ID Status Reason Start Date Expiration Date Visits Requested Visits Authorized [id number] Authorized PCP Requested Referral 2 03/17/2023 1 1 Specialty Diagnoses / Procedures Referred By Contac t Referred To Contact [facility] Diagnoses Dizziness Procedures CONSULT TO SPEECH THERAPY OFFICE/OUTPATIENT [facility] 60-74 MINUTES Aleshia Ray MD [address] [place] [address] [facility] [place] [place] [address] Referral ID Status Reason Start Date Expiration Date Visits Requested Visits Authorized [id number] Authorized Auto-Generat ed Referral 2 03/17/2023 99 99 Specialty Diagnoses / Procedures Referred By Contac t Referred To Contact [facility] Diagnoses Dizziness Procedures CONSULT TO PHYSICAL THERAPY PHYSICAL THERAPY EVALUATION HIGH COMPLEX 45 MINS Aleshia Ray MD [address] [place] [address] [facility] [address] Referral ID Status Reason Start Date Expiration Date Visits Requested Visits Authorized [id number] Authorized PCP Requested Referral Auto-Generate d Referral 2 03/17/2023 99 99 Specialty Diagnoses / Procedures Referred By Contac t Referred To Contact MR IMAGING Diagnoses Dizziness Procedures MRI BRAIN WO IVCON MRI BRAIN BRAIN STEM W/O CONTRAST MATERIAL Aleshia Ray MD [address] [place] [address] Mr Imaging Referral ID Status Reason Start Date Expiration Date Visits Requested Visits Authorized [id number] Authorized Auto-Generat ed Referral 2 04/16/2023 1 1 Specialty Diagnoses / Procedures Referred By Contac t Referred To Contact [facility] Diagnoses Dizziness Procedures PT REHAB FOLLOW UP ORDER THERAPEUTIC EXERCISES RE, EA 15 MIN. Robb Rosas, PT [facility] [place] [address] [place] [address] Referral ID Status Reason Start Date Expiration Date Visits Requested Visits Authorized [id number] Pending Review PCP Requested Referral Auto-Generate d Referral 2 06/23/2022 1 1 Specialty Diagnoses / Procedures Referred By Contac t Referred To Contact MR IMAGING Diagnoses Dizziness Procedures MRI BRAIN WO IVCON MRI BRAIN BRAIN STEM W/O CONTRAST MATERIAL Aleshia Ray MD [address] [place] [address] [place] [id number] Referral ID Status Reason Start Date Expiration Date V isits Requested Visits Authorized [id number] Closed Auto-Generate d Referral 03/17/2022 04/16/2023 1 1 Advance Directives Documents on File Type Date Recorded 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 Advance Directive(s) 06/25/2011 1:44 PM Documents on File Type Date Recorded 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 Advance Directive(s) 06/25/2011 1:44 PM [...] or prosecute any alcohol or drug abuse patient.[facility]bleIn the event this information is protected by the Federal Confidentiality of Alcohol and Drug Abuse Patient Records regulations: The Federal rules restrict any use of the information to criminally investigate or prosecute any alcohol or drug abuse patient.[facility] PrebleIn the event this information is protected by the Federal Confidentiality of Alcohol and Drug Abuse Patient Records regulations: The Federal rules restrict any use of the information to criminally investigate or prosecute any alcohol or drug abuse patient.[facility]bleIn the event this information is protected by the Federal Confidentiality of Alcohol and Drug Abuse Patient Records regulations: The Federal rules restrict any use of the information to criminally investigate or prosecute any alcohol or drug abuse patient.[facility]bleIn the event this information is protected by the Federal Confidentiality of Alcohol and Drug Abuse Patient Records regulations: The Federal rules restrict any use of the information to criminally investigate or prosecute any alcohol or drug abuse patient.[facility]bleIn the event this information is protected by the Federal Confidentiality of Alcohol and Drug Abuse Patient Records regulations: The Federal rules restrict any use of the information to criminally investigate or prosecute any alcohol or drug abuse patient.[facility]bleIn the event this information is protected by the Federal Confidentiality of Alcohol and Drug Abuse Patient Records regulations: The Federal rules restrict any use of the information to criminally investigate or prosecute any alcohol or drug abuse patient.[facility]bleIn the event this information is protected by the Federal Confidentiality of Alcohol and Drug Abuse Patient Records regulations: The Federal rules restrict any use of the information to criminally investigate or prosecute any alcohol or drug abuse patient.[facility]bleIn the event this information is protected by the Federal Confidentiality of Alcohol and Drug Abuse Patient Records regulations: The Federal rules restrict any use of the information to criminally investigate or prosecute any alcohol or drug abuse patient.[facility]bleIn the event this information is protected by the Federal Confidentiality of Alcohol and Drug Abuse Patient Records regulations: The Federal rules restrict any use of the information to criminally investigate or prosecute any alcohol or drug abuse patient.[facility]bleIn the event this information is protected by the Federal Confidentiality of Alcohol and Drug Abuse Patient Records regulations: The Federal rules restrict any use of the information to criminally investigate or prosecute any alcohol or drug abuse patient.[facility]bleIn the event this information is protected by the Federal Confidentiality of Alcohol and Drug Abuse Patient Records regulations: The Federal rules restrict any use of the information to criminally investigate or prosecute any alcohol or drug abuse patient.[facility]bleIn the event this information is protected by the Federal Confidentiality of Alcohol and Drug Abuse Patient Records regulations: The Federal rules restrict any use of the information to criminally investigate or prosecute any alcohol or drug abuse patient.[facility]bleIn the event this information is protected by the Federal Confidentiality of Alcohol and Drug Abuse Patient Records regulations: The Federal rules restrict any use of the information to criminally investigate or prosecute any alcohol or drug abuse patient.[facility]bleIn the event this information is protected by the Federal Confidentiality of Alcohol and Drug Abuse Patient Records regulations: The Federal rules restrict any use of the information to criminally investigate or prosecute any alcohol or drug abuse patient.[facility]bleIn the event this information is protected by the Federal Confidentiality of Alcohol and Drug Abuse Patient Records regulations: The Federal rules restrict any use of the information to criminally investigate or prosecute any alcohol or drug abuse patient.[facility]bleIn the event this information is protected by the Federal Confidentiality of Alcohol and Drug Abuse Patient Records regulations: The Federal rules restrict any use of the information to criminally investigate or prosecute any alcohol or drug abuse patient.[facility]bleIn the event this information is protected by the Federal Confidentiality of Alcohol and Drug Abuse Patient Records regulations: The Federal rules restrict any use of the information to criminally investigate or prosecute any alcohol or drug abuse patient.[facility]bleIn the event this information is protected by the Federal Confidentiality of Alcohol and Drug Abuse Patient Records regulations: The Federal rules restrict any use of the information to criminally investigate or prosecute any alcohol or drug abuse patient.[facility]bleIn the event this information is protected by the Federal Confidentiality of Alcohol and Drug Abuse Patient Records regulations: The Federal rules restrict any use of the information to criminally investigate or prosecute any alcohol or drug abuse patient.[facility]bleIn the event this information is protected by the Federal Confidentiality of Alcohol and Drug Abuse Patient Records regulations: The Federal rules restrict any use of the information to criminally investigate or prosecute any alcohol or drug abuse patient.[facility]bleIn the event this information is protected by the Federal Confidentiality of Alcohol and Drug Abuse Patient Records regulations: The Federal rules restrict any use of the information to criminally investigate or prosecute any alcohol or drug abuse patient.[facility]bleIn the event this information is protected by the Federal Confidentiality of Alcohol and Drug Abuse Patient Records regulations: The Federal rules restrict any use of the information to criminally investigate or prosecute any alcohol or drug abuse patient.[facility] Reason for Visit (unrecogniz ed section and content) Specialty Diagnoses / Procedures Referred By Darrell rapp Referred To Contact [facility] Diagnoses Dizziness Procedures CONSULT TO PHYSICAL THERAPY PHYSICAL THERAPY EVALUATION HIGH COMPLEX 45 MINS Aleshia Ray MD [address] [place] [address] [facility] [address] [address] Referral ID Status Reason Start Date Expiration Date Visits Requested Visits Authorized [id number] Authorized PCP Requested Referral Auto-Generate d Referral 2 03/17/2023 99 99 Reason Comments Consult Light headed balance fatigue Reason Comments Patient Question Reason Comments PT Eval Specialty Diagnoses / Procedures Referred By Darrell rapp Referred To Contact [facility] Diagnoses Dizziness Procedures CONSULT TO PHYSICAL THERAPY PHYSICAL THERAPY EVALUATION HIGH COMPLEX 45 MINS Aleshia Ray MD [address] [place] [address] [facility] [place] [address] [place] [address] Reason Comments Physical Therapy Reason Comments Patient Question MRI Results Reason Comments Patient Update Xray and office note s Reason Comments Patient Update Release Of Medical Records Reason Comments Patient Question Confirm if records w ere received Reason Comments Results [facility] R ecords- Previous Cardiology Records Reason Comments Results History Report/ Labs Reason Comments Procedure Upcoming Autonomic T esting 5/16-ANS W/TILT Specialty Diagnoses / Procedures Referred By Contac t Referred To Contact Cardiology Diagnoses Orthostatic hypotension Procedures CONSULT TO CARDIOLOGY OFFICE/OUTPATIENT [facility] 60-74 MINUTES Aleshia Ray MD [address] [place] [address] Referral ID Status Reason Start Date Expiration Date V isits Requested Visits Authorized [id number] Closed PCP Requested Referral 03/17/2022 03/17/2023 1 1 Reason Comments Received Outside Medical Records ECG/ He alth Chart Reason Comments Procedure Upcoming Autonomic T esting 6-ANS W/TILT Reason Comments Supine Hypertension Specialty Diagnoses / Procedures Referred By Contac t Referred To Contact MR IMAGING Diagnoses Dizziness Procedures MRI BRAIN WO IVCON MRI BRAIN BRAIN STEM W/O CONTRAST MATERIAL Aleshia Ray MD [address] [place] [address] Mr Imaging [id number] Referral ID Status Reason Start Date Expiration Date V isits Requested Visits Authorized [id number] Closed Auto-Generate d Referral 03/17/2022 04/16/2023 1 1 Care Teams (unrecognized sec tion and content) Trousseau Consultant Relationship Specialty Start Date End Date Marii Kenny [address] [place] [address] PCP - General Family Medicine 08/14/22 Markos Dey [address] [place], [place] [address] Referring Cardiology 08/14/22 Trousseau Consultant Relationship Specialty Start Date End Date Marii Kenny [address] [place], [place] [id number] PCP - General Family Medicine 08/14/22 Yissel, Markos S [address] [place] [id number] Referring Cardiology 08/14/22 Trousseau Consultant Relationship Specialty Start Date End Date Marii Kenny [address] [place] [address] PCP - General Family Medicine 08/14/22 Yissel, Markos S [address] [place] [address] Referring Cardiology 08/14/22 (unrecognized sect ion [...] BE BASED ON THE PRIMARY CLINICAL RECORDS. [facility]. provides no warranty or guarantee of the accuracy or completeness of information in this document.
--- NOTE | 2023-05-28 19:31 | CT_ITS ---
STUDY: CT BRAIN WITHOUT CONTRAST REASON FOR EXAM: Male, 82 years old. dizzy, double vision RADIATION DOSAGE (If Supplied By Facility): CTDIvol = ( 44.99 ) mGy, DLP = ( 846.73 ) mGycm TECHNIQUE: Transaxial CT imaging of the brain was performed without administration of intravenous contrast material. Individualized dose optimization techniques were used for this CT. COMPARISON: No relevant priors. FINDINGS: Normal soft tissue structures. Normal calvarium. There is moderate cerebral atrophy with widening of the extra-axial spaces and ventricular dilatation. There are areas of decreased attenuation within the white matter tracts of the supratentorial brain, consistent with microvascular disease changes. Normal basal ganglia and thalami. Normal brainstem. Normal cerebellum. There is no intracranial hemorrhage. There are no findings of an acute ischemic infarction. There is a mucous retention cyst within the left maxillary sinus. Remainder of the paranasal sinuses. Trace mucosal thickening, otherwise clear. Normal bilateral mastoid air cells. CT/Brain/Head without Contrast IMPRESSION: Chronic changes as described with no acute intracranial hemorrhage or space-occupying lesion. Electronically Signed: Kalie Anderson MD at 20:20 EST ,
--- NOTE | 2023-05-28 19:31 | EKG12_ITS ---
Test Reason : DYSRHYTHMIA Blood Pressure : / mmHG Vent. Rate : 067 BPM Atrial Rate : 067 BPM P-R Int : 214 ms QRS Dur : 090 ms QT Int : 400 ms P-R-T Axes : 077 038 044 degrees QTc Int : 422 ms Sinus rhythm with 1st degree A-V block Otherwise normal ECG Confirmed by CLAUDIO MORELOS, JERRICA ([id number]), society editor REGINALD ESPINOZA ([id number]) on 05/31/2023 9:42:27 AM Referred By: Confirmed By:JERRICA SNYDER MD
[2023-05-28 19:45] LABS: Absolute Lymphocyte Count 0.29 X10^3/uL (0.83-4.51); Absolute Neutrophil Count 5.2 X10^3/uL (2.0-7.7); Basophil# 0.02 X10^3/uL; Basophil% 0.3 % (0-1); Eosinophil# 0.02 X10^3/uL; Eosinophils% 0.3 % (0-5); Hematocrit 34.7 % (40-54); Lymphocyte # 0.29 X10^3/ul (0.83-4.51); Lymphocyte % 4.9 % (19-41); Mean Corp Hgb Conc 34.6 g/dL (32-36); Mean Corpuscular Volume 104.2 fL (80-94); Monocyte% 5.1 % (0-10); NRBC Flagged by Analyzer 0 % (0-5); Neutrophil # 5.23 X10^3/uL (2.7-7.7); Neutrophil % 88.7 % (47-70); POSITIVE DIFFERENTIAL YES; Platelet Count 116 K/mm3 (150-450); RBC Distribution Width CV 12.4 % (11.6-14.6); RBC Distribution Width SD 47.9 fl (35.1-43.9); Red Blood Count 3.33 M/mm3 (4.6-6.2); White Blood Count 5.9 K/mm3 (4.4-11.0)
[2023-05-28] MEDS: 0.9% Normal Saline (1000mL) 1,000 ML 150 ML IV (19:45)
[2023-05-28 19:47] LABS: Differential Indicated SCAN CRITERIA MET
[2023-05-28 19:53] LABS: Bacteria 0 SEEN /hpf (None Seen); Mucous, Urine 0 SEEN /hpf (<or=2+); Red Blood Cells-Urine 0 SEEN /hpf (0-5); Squamous Epithelial Cells - UA 0 SEEN /hpf (0-5); White Blood Cells 0 SEEN /hpf (0-5)
--- NOTE | 2023-05-28 20:00 | RAD_ITS ---
STUDY: X-RAY CHEST REASON FOR EXAM: Male, 82 years old. cough TECHNIQUE: Single AP portable view of the chest. COMPARISON: None. FINDINGS: There is minimal right midlung atelectasis. There is hazy opacity within the left midlung field, cannot exclude pneumonitis. There is no demonstrated pleural abnormality. Normal size heart. Normal mediastinum and victorino. Normal visualized pulmonary arteries. There is atherosclerotic calcification of the aortic arch with tortuosity. There are diffuse degenerative changes of the visualized thoracic spine. There is degenerative osteoarthritis of the bilateral shoulders. There is no demonstrated abnormality of the visualized soft tissue structures of the upper abdomen. RAD/Chest 1 View (Portable) IMPRESSION: Possible left mid lung pneumonitis with minimal right midlung atelectasis. No pleural effusion or pneumothorax. Electronically Signed: Kalie Anderson MD at 20:50 EST ,
[2023-05-28 20:02] LABS: Anion Gap 5 (5-15); BUN 22 mg/dL (7-18); BUN/Creat Ratio 14.7 RATIO (10-20); Calcium,Total 8.5 mg/dL (8.5-10.1); Chloride 107 mmol/L (98-107); EST Glomerular Filtration Rate 48 mL/min (>60); Est Glom Filt Rate - Afr Amer 58 mL/min (>60); Estimated Creatinine Clearance 37.97 ml/min; Glucose 99 mg/dL (74-106); Potassium 4.7 mmol/L (3.5-5.1); Sodium Level 137 mmol/L (136-145)
[2023-05-28 20:08] LABS: Color, Urine Yellow (Yellow); Glucose, Dipstick Normal (Normal); Ketone-Dipstick Negative (Negative); Leukocyte Esterase-Dipstick Negative /ul (Negative); Nitrite-Dipstick Negative (Negative); Occult Blood-Urine Negative /ul (Negative); Protein-Dipstick 15 mg/dl (Negative); Urine Bilirubin Dipstick Negative (Negative); Urine Clarity Clear (Clear); Urine Urobilinogen Normal (Normal)
--- NOTE | 2023-05-28 20:48 | EDS_ITS ---
HPI History of Present Illness Chief Complaint: General Illness Informant: patient and family Narrative Narrative: Patient presents with daughter secondary to generalized weakness. His earlier this week. He has been doing well and went to a [facility]. Daughter states today his energy was just completely zapped and had difficulty getting around and caring for himself. He does report a slight cough and slight shortness of breath. He has not had any fever. He tells me he has been dizzy (lightheaded) for years. He does report intermittent double vision. He denies recent fall or injury. 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 Chronic kidney disease (CKD) Claudication Dyspnea on exertion Essential (primary) hypertension Hyperlipidemia Left ventricular diastolic dysfunction Lightheadedness Home Medications aspirin 81 mg tablet,delayed release 81 mg PO BID 05/13/15 [History Last Taken 03/16/17 05:30 81 MG] cholecalciferol (vitamin D3) 25 mcg (1,000 unit) tablet 1,000 unit PO BID 05/13/15 [History Last Taken 03/16/17 05:30 1000 UNIT] cyanocobalamin (vitamin B-12) 1,000 mcg tablet 1,000 mcg PO DAILY 05/13/15 [History Last Taken 03/16/17 05:30 1000 MCG] nitroglycerin 0.4 mg sublingual tablet 0.4 mg sublingual Q5M PRN Chest Pain 05/13/15 [History Last Taken Unknown] Handicap Parking Placard #1 ea 06/03/21 [Rx Last Taken Unknown] ranolazine 1,000 mg tablet,extended release,12 hr (Ranexa) 1,000 mg PO BID #180 tabs 08/21/21 [Rx Last Taken Unknown] pravastatin 10 mg tablet 10 mg PO QHS #30 tabs 11/20/21 [Rx Last Taken Unknown] atenolol 25 mg tablet 12.5 mg PO BID 02/24/22 [History Last Taken Unknown] donepezil 5 mg tablet 5 mg PO QHS 05/28/23 [History Last Taken Unknown] Allergy/AdvReac Type Severity Reaction Status Date / Time Penicillins Allergy Hives Verified 11/18/22 11:30 amlodipine AdvReac Intermediate dizziness Verified 11/18/22 11:30 Iodinated Contrast Media AdvReac Other Verified 11/18/22 11:30 [DYEE] Family History Father Cancer Mother Hypertension Surgical History H/O coronary artery bypass surgery (05/17/15) History of appendectomy History of herniorrhaphy History of left heart catheterization (09/2015) Hx of cholecystectomy (03/16/17) Social History Smoking Status: Former smoker ROS ROS ED Constitutional Constitutional ED: Denies chills or fever(s) Eyes Eyes: Denies discharge from eye(s) ENT ENT ED: Denies discharge from eye(s), rhinorrhea or sore throat Cardiovascular Cardiovascular: Denies chest pain Respiratory/Chest Respiratory/Chest: Reports cough and dyspnea Gastrointestinal Gastrointestinal: Denies abdominal pain, nausea or vomiting Genitourinary Genitourinary ED: Denies dysuria Musculoskeletal Musculoskeletal: Denies back pain or extremity pain Integumentary Denies Abrasions or rash Neurologic Neurologic: Reports weakness; Denies headache(s) Allergic/Immunologic Allergic/Immunologic ED: Denies lip swelling or urticaria EXAM Physical Exam Const Vital Signs: 05/28/23 19:05 05/28/23 19:11 05/28/23 21:37 Temperature 98.2 F 98.1 F Temperature Source Oral Oral Pulse Rate 68 66 Respiratory Rate 22 H 27 H Respiratory Effort Normal Blood Pressure 189/63 H 159/60 H Blood Pressure Mean 105 93 Pulse Ox 97 95 Oxygen Delivery Method Room Air Positive well nourished and well developed General Appearance ED: well developed HEENT Reports moist mucous membranes Eyes EOMs intact bilaterally Chest Wall inspection of chest normal and palpation of chest normal Resp normal respiratory effort and clear to auscultation bilaterally Cardio regular rate and regular rhythm GI non-tender Auscultation: hypoactive bowel sounds Palpation: soft Extremity normal to inspection Neuro oriented x3 Neuro Narrative: No focal neurologic deficits. Psych mental status grossly normal Skin no rashes or lesions noted MDM MDM MDM Narrative Medical decision making narrative: Patient placed on equipment monitor phototypesetting. IV line initiated. EKG obtained to evaluate for cardiac arrhythmia/ischemia. Chest x-ray obtained to evaluate for acute lung pathology, cardiac size, or mediastinal abnormality. Labwork obtained to evaluate for leukocytosis, anemia, and electrolyte derangement. Urinalysis obtained to evaluate for infection/hematuria. Swab for COVID, influenza, and RSV obtained. Given the patient's double vision and dizziness a head CT was obtained to ensure no acute intracranial abnormalities. History & Record Review Discussion w/independent historian: Patient Additional record(s) reviewed:: Prior ED visit Lab Data Attestation: I reviewed the patient's lab results. Labs: Laboratory Results - last 24 hr 05/28/23 05/28/23 19:35 19:45 WBC 5.9 RBC 3.33 L Hgb 12.0 L Hct 34.7 L MCV 104.2 H MCH 36.0 H MCHC 34.6 RDW Std Deviation 47.9 H RDW Coeff of Fidelia 12.4 Plt Count 116 L MPV 10.0 Immature Gran % (Auto) 0.700 Neut % (Auto) 88.7 H Lymph % (Auto) 4.9 L [place] % (Auto) 5.1 Eos % (Auto) 0.3 Baso % (Auto) 0.3 Absolute Neuts (auto) 5.2 Absolute Lymphs (auto) 0.29 L Nucleated RBC % 0 Sodium 137 Potassium 4.7 Chloride 107 Carbon Dioxide 25.0 Anion Gap 5 BUN 22 H Creatinine 1.50 H Estim Creat Clear Calc 37.97 Est GFR (MDRD) Af Amer 58 L Est GFR (MDRD) Non-Af 48 L BUN/Creatinine Ratio 14.7 Glucose 99 Calcium 8.5 Urine Color Yellow Urine Clarity Clear Urine pH 5.0 Ur Specific [place] 1.020 Urine Protein 15 H Urine Glucose (UA) Normal Urine Ketones Negative Urine Occult Blood Negative Urine Nitrite Negative Urine Bilirubin Negative Urine Urobilinogen Normal Ur Leukocyte Esterase Negative Urine RBC 0 SEEN Urine WBC 0 SEEN Ur Squamous Epith Cells 0 SEEN Urine Bacteria 0 SEEN Urine Mucus 0 SEEN Radiography Diagnostic Testing: Clinical Impression(s) from Imaging Studies Brain CT 05/28/23 19:31 IMPRESSION: Chronic changes as described with no acute intracranial hemorrhage or space-occupying lesion. Electronically Signed: Kalie Anderson MD at 20:20 EST , Chest X-Ray 05/28/23 20:00 IMPRESSION: Possible left mid lung pneumonitis with minimal right midlung atelectasis. No pleural effusion or pneumothorax. Electronically Signed: Kalie Anderson MD at 20:50 EST , EKG Initial EKG: Attestation: I personally reviewed and interpreted this EKG as follows: Interpretation: Sinus Rhythm (Sinus at 67 first-degree AV block. No acute ischemia.) Treatment and Re-Evaluation :: CBC was a white count of 5.9 with 88% neutrophils. Hemoglobin is 12.0. Chemistry studies reveal a BUN of 22 and a creatinine of 1.5. This is actually slightly improved from his baseline. Urinalysis reveals no evidence of acute infection. Swab for flu and RSV is negative. Swab for COVID is positive. Portable chest x-ray per my interpretation was chronic changes with no focal infiltrate. Radiology interpretation is reviewed and feels there may be left midlung pneumonitis. CT scan of the head reveals chronic changes with no acute hemorrhage or lesion. EKG is sinus rhythm at 67 with no acute ischemia. Patient's blood pressure was significantly elevated here in the upper 180s systolic. I ordered labetalol, but before it could be given his pressure dropped 30 points. Test results are discussed with patient and family at bedside. Given his inability to get around today and care for himself they do feel he needs to be admitted tonight. Daughter will make phone calls to other family members to see if they can come to town to help care for him. I will speak with the hospitalist. Discharge Plan Triage Chief Complaint: General Illness ED Provider: Etta Torres Dx/Rx/DC Orders Clinical Impression: COVID-19, Weakness Prescriptions: No Action ranolazine [Ranexa] 1,000 mg tablet extended release 12 hr 1,000 mg PO BID Qty: 180 3RF atenolol 25 mg tablet 12.5 mg PO BID Rx Instructions: 1/2 tab bid cyanocobalamin (vitamin B-12) 1,000 MCG tablet 1,000 mcg PO DAILY Patient Comments: Vitamin B supplement aspirin 81 MG tablet 81 mg PO BID Patient Comments: Blood thinner for heart health nitroglycerin 0.4 MG tablet 0.4 mg SUBLINGUAL Q5M PRN (Reason: Chest Pain) Patient Comments: Chest pain cholecalciferol (vitamin D3) 1,000 UNIT tablet 1,000 unit PO BID Patient Comments: Vitamin D supplement donepezil 5 mg tablet 5 mg PO QHS Patient Comments: TAKE 1 TABLET BY MOUTH AT BEDTIME (DME) Handicap Parking Placard See Rx Instructions .Route .MEDSUPPLY Qty: 1 0RF Rx Instructions: As directed pravastatin 10 mg tablet 10 mg PO QHS Qty: 30 11RF Primary Care Provider: Marino Patrick Referrals: Marino Patrick MD [Primary Care Provider] - Disposition Disposition: Acute Care Hospital [facility]
[2023-05-28 21:37] VITALS: BP 159/60; PULSE 66; RESP 27; TEMP 36.7; O2SAT 95
--- NOTE | 2023-05-28 22:18 | PCM.HP.STD ---
HPI - General General Date of Admission: 05/28/23 Date of Service: 05/28/23 Chief Complaint: Dyspnea, cough, fatigue, malaise, body aches. HPI Narrative The patient is an 82 y/o M w/ PMHx: Dementia unclear type with unclear behavioral disturbance history, Chronic thrombocytopenia, CAD s/p CABG, Chronic Orthostasis, HTN, HLD, Chronic anemia, CKD stage III unclear subtype, Former tobacco use who presents to the [facility] ED on 05/28/23 with history of increased weakness and fatigue with [facility] evaluation the day prior with onset over the last 24 hours increased debility, fatigue, malaise, mild cough with dyspnea worsened with exertion with body aches and mild lightheadedness with no fevers or chills but does report decreased oral intake and taste/smell alteration prompting eventual ED evaluation. Also of note patient's spouse just recently passed earlier in the week. Workup in the ED included T98.2, heart rate 68, BP initially 199/63 with most recent repeat 154/66, respiratory rate 22, initially 97% on room air however did decrease to 92% on room air in the ED, CBC with WBC 5.9, hemoglobin 12, MCV 104.2, platelet 116 without marked shift, BMP with BUN/creatinine 22/1.50, urinalysis unremarkable, CT the brain with chronic changes with no acute intracranial findings, chest x-ray with questionable possible left midlung pneumonitis with minimal right midlung atelectasis, SARS COVID-positive, influenza/RSV PCR negative. In the ED patient administered labetalol 10 mg IV x 1 as well as maintenance IV fluids. [facility] Medical History (Updated 05/28/23 @ 23:[address] Ana Stewart MD) Atherosclerosis of coronary artery bypass graft of [place] heart with angina pectoris Chronic anemia Chronic idiopathic thrombocytopenia CKD (chronic kidney disease), stage III Claudication Dementia Essential (primary) hypertension Former tobacco use Hyperlipidemia Left ventricular diastolic dysfunction Orthostatic hypotension Home Medications aspirin 81 mg tablet,delayed release 81 mg PO BID 05/13/15 [History Last Taken 03/16/17 05:30 81 MG] cholecalciferol (vitamin D3) 25 mcg (1,000 unit) tablet 1,000 unit PO BID 05/13/15 [History Last Taken 03/16/17 05:30 1000 UNIT] cyanocobalamin (vitamin B-12) 1,000 mcg tablet 1,000 mcg PO DAILY 05/13/15 [History Last Taken 03/16/17 05:30 1000 MCG] nitroglycerin 0.4 mg sublingual tablet 0.4 mg sublingual Q5M PRN Chest Pain 05/13/15 [History Last Taken Unknown] Handicap Parking Placard #1 ea 06/03/21 [Rx Last Taken Unknown] ranolazine 1,000 mg tablet,extended release,12 hr (Ranexa) 1,000 mg PO BID #180 tabs 08/21/21 [Rx Last Taken Unknown] pravastatin 10 mg tablet 10 mg PO QHS #30 tabs 11/20/21 [Rx Last Taken Unknown] atenolol 25 mg tablet 12.5 mg PO BID 02/24/22 [History Last Taken Unknown] donepezil 5 mg tablet 5 mg PO QHS 05/28/23 [History Last Taken Unknown] Allergy/AdvReac Type Severity Reaction Status Date / Time Penicillins Allergy Hives Verified 11/18/22 11:30 amlodipine AdvReac Intermediate dizziness Verified 11/18/22 11:30 Iodinated Contrast Media AdvReac Other Verified 11/18/22 11:30 [DYEE] Family History Father Cancer Mother Hypertension Surgical History H/O coronary artery bypass surgery (05/17/15) History of appendectomy History of herniorrhaphy History of left heart catheterization (09/2015) Hx of cholecystectomy (03/16/17) Social History (Updated 05/28/23 @ 23:[address] Ana Stewart MD) household members: none Smoking Status: Former smoker alcohol intake: never substance use type: does not use ROS ROS Narrative Admission Review of Systems: CONSTITUTIONAL: No weight loss, fever, chills, + weakness or fatigue. HEENT: + Headache, altered taste/smell, mild congestion. Eyes: No visual loss, blurred vision, double vision or yellow sclerae. Ears, Nose, Throat: No hearing loss, sneezing. SKIN: No rash or itching, lesions, wounds. CARDIOVASCULAR: No chest pain, chest pressure or chest discomfort, palpitations, edema, orthopnea, syncopal events. RESPIRATORY: + shortness of breath, cough, No marked sputum, wheezing, hemoptysis. GASTROINTESTINAL: + anorexia. No nausea, vomiting, diarrhea, abdominal pain, melena, BRBPR. GENITOURINARY: No dysuria, frequency, urgency or retention. NEUROLOGICAL: + headache, No dizziness, syncope, paralysis, ataxia, numbness or tingling in the extremities, focal weakness, change in bowel or bladder control, seizure. MUSCULOSKELETAL: + muscle, back pain, joint pain or stiffness. HEMATOLOGIC: + anemia, easy bleeding/bruising. LYMPHATICS: No enlarged nodes. No history of splenectomy. PSYCHIATRIC: No history of depression or anxiety. ENDOCRINOLOGIC: No reports of sweating, cold or heat intolerance. No polyuria or polydipsia. ALLERGIES: + Hx hives. Vital Signs Vital Signs Vital Signs: 05/28/23 19:05 05/28/23 19:11 05/28/23 21:37 Temperature 98.2 F 98.1 F Temperature Source Oral Oral Pulse Rate 68 66 Respiratory Rate 22 H 27 H Respiratory Effort Normal Blood Pressure 189/63 H 159/60 H Blood Pressure Mean 105 93 Pulse Ox 97 95 Oxygen Delivery Method Room Air Weight Weight: 180 lb 15.992 oz Body Mass Index (BMI) 26.7 Physical Exam Narrative Physical Examination: General: Awake, alert, oriented x 3 including person, place and recent events, remains cooperative, seated upright in the ED bed, fatigued and ill-appearing, mildly increased respiratory rate. Skin: Normal color, normal turgor, no icterus, no cyanosis except occasional staged ecchymoses. HEENT: AT/NC, EOMI, PERRLA, moderately dry MM, no carotid bruits or JVD noted. Lungs: Diffusely diminished, greater bases, increased respiratory rate, no rales, ronchi or wheezing. Heart: Currently regular rate with regular rhythm; no gallop, rub audible. Abdomen: Soft, NTTP, no obvious distention, mildly hyperactive BS, no discerned HSM. Extremities: No cyanosis, no clubbing, mild bilateral distal edema, chronic he notes. Neurological: Patient awake, alert, oriented as noted, cognitive function suspect baseline intact but does have underlying dementia; pupils equally reactive to light and accommodation, cranial nerves II-XII grossly normal, moving all 4 extremities, no focal deficits, strength severely globally decreased secondary to acute presentation. Psychiatric: Affect appears fatigued, ill-appearing, no acute evidence of depressive or anxiety feelings but patient's of note did recently pass earlier in the week. Results Lab / Micro Data 05/28/23 19:35 05/28/23 19:35 Labs: Laboratory Results - last 24 hr 05/28/23 19:35: WBC 5.9, RBC 3.33 L, Hgb 12.0 L, Hct 34.7 L, MCV 104.2 H, MCH 36.0 H, MCHC 34.6, RDW Std Deviation 47.9 H, RDW Coeff of Fidelia 12.4, Plt Count 116 L, MPV 10.0, Immature Gran % (Auto) 0.700, Neut % (Auto) 88.7 H, Lymph % (Auto) 4.9 L, [place] % (Auto) 5.1, Eos % (Auto) 0.3, Baso % (Auto) 0.3, Absolute Neuts (auto) 5.2, Absolute Lymphs (auto) 0.29 L, Nucleated RBC % 0, Sodium 137, Potassium 4.7, Chloride 107, Carbon Dioxide 25.0, Anion Gap 5, BUN 22 H, Creatinine 1.50 H, Estim Creat Clear Calc 37.97, Est GFR (MDRD) Af Amer 58 L, Est GFR (MDRD) Non-Af 48 L, BUN/Creatinine Ratio 14.7, Glucose 99, Calcium 8.5 05/28/23 19:45: Urine Color Yellow, Urine Clarity Clear, Urine pH 5.0, Ur Specific [place] 1.020, Urine Protein 15 H, Urine Glucose (UA) Normal, Urine Ketones Negative, Urine Occult Blood Negative, Urine Nitrite Negative, Urine Bilirubin Negative, Urine Urobilinogen Normal, Ur Leukocyte Esterase Negative, Urine RBC 0 SEEN, Urine WBC 0 SEEN, Ur Squamous Epith Cells 0 SEEN, Urine Bacteria 0 SEEN, Urine Mucus 0 SEEN Micro: Microbiology 05/28/23 19:48 Mucosa - Nose SARS-CoV-2, Influenza & RSV (PCR) - Final SARS-CoV-2 (COVID 19) Imaging Radiology Impression Brain CT 05/28/23 19:31 IMPRESSION: Chronic changes as described with no acute intracranial hemorrhage or space-occupying lesion. Electronically Signed: Kalie Anderson MD at 20:20 EST , Chest X-Ray 05/28/23 20:00 IMPRESSION: Possible left mid lung pneumonitis with minimal right midlung atelectasis. No pleural effusion or pneumothorax. Electronically Signed: Kalie Anderson MD at 20:50 EST , Assessment & Plan Assessment/Plan (1) COVID-19: PLAN: Plan The patient is an 82 y/o M w/ PMHx: Dementia unclear type with unclear behavioral disturbance history, Chronic thrombocytopenia, CAD s/p CABG, Chronic Orthostasis, HTN, HLD, Chronic anemia, CKD stage III unclear subtype, Former tobacco use who presents to the [facility] ED on 05/28/23 with history of increased weakness and fatigue with [facility] evaluation the day prior with onset over the last 24 hours increased debility, fatigue, malaise, mild cough with dyspnea worsened with exertion with body aches and mild lightheadedness with no fevers or chills but does report decreased oral intake and taste/smell alteration prompting eventual ED evaluation. #1. Adult FTT secondary to Acute Viral Syndrome, COVID-19: Will admit to the [facility] telemetry, maintain on COVID precautions, will maintain on oxygen with wean as tolerated to room air, PRN albuterol, HOB, IS parameters, will obtain D-dimer, procalcitonin, CRP, CPK, Ferritin, LDH, trop and BNP, continue supportive care, judicious hydration, closely monitor for worsening status, will initiate and continue IV decadron x 10 doses, currently not candidate for IV remdesivir. PT/OT/CM consultations for discharge planning. #2. CAD: s/p CABG w/ saphenous vein graft to right coronary artery with unfortunately repeat cardiac cath following secondary to recurrent chest pain with demonstrated occlusion of saphenous vein graft to diagonal branch with also the [place] right coronary artery also occluded, left internal mammary to the left anterior descending patent, saphenous vein graft to RCA patent with recommended medical therapy at that time, will continue aspirin, statin, atenolol, Ranexa, not on KAYLI inhibitor/ARB. #3. Dementia, unclear type with unclear behavioral disturbance history: We will continue patient home donepezil regimen, complicates presentation, PT/OT/case management consulted for discharge planning. #4. Chronic thrombocytopenia: Admission platelets 116, baseline previously primarily 1 30-1 40 range although has most recently been 11/03/2022 platelet 127, possibly acute on chronic secondary to acute presentation #1, continue to trend CBC. #5. Chronic anemia, macrocytic: Admission hemoglobin 12, MCV 104.2, baseline hemoglobin appears primarily 12 range, stable, continue to trend. #6. Chronic Kidney Disease Stage III, unclear subtype: Admission BUN/Cr 22/1.50, baseline renal function 1.5-1.8 primarily, repeat BMP in AM. #7. Hypertension: Continue home regimen including atenolol cautiously given orthostasis history, PRN hydralazine. #8. Hyperlipidemia: We will continue patient on statin therapy. #9. Chronic orthostasis: Clarifying current regimen however previously patient was on midodrine, will add if appropriate. #10. Former tobacco usage: Encourage continued tobacco cessation. #11. DVT prophylaxis: Lovenox. #12. CODE status: Patient ALIX is his daughter Bryant and living will is currently in place. Discussed CODE status at length including difference between FULL code, DNR-CCA and DNR-CC status. Following discussions about the differences in these status, requested DNR-CCA, no intubation, no aggressive interventions. Advanced Care Planning Face to Face Time: 16 minutes. Charges/Coding Visit Charges Inpatient E&M: 68223 Init Hosp L3 Procedures Hospitalists Procedures: 06705 Advncd Care Plan 30 Min
--- OUTSIDE RECORDS SUMMARY | 2023-05-28 22:22 | XMS RPT_ITS | CCD ---
Author Name Unknown Address [address] [place] [address] Organization [facility] Care Team Providers Care Load Mixer Name Role Phone Meena JOHNSON, Deb Jack Unavailable Unavailable MD Yissel, De [place] S Unavailable Sean Baron Unavailable Unavailable Unavailable Primary Care Provider UnavailMarii Kramer Primary Care Provider Bill Deyril S Unavailable MIGUELINA SOTO Referring Unavailabl e SCHINNER, MARII BERUMEN Primary Care Unavailabl e MIGUELINA SOTO Referring Unavailabl e SCHINNERMARII EDPOINT PLEASANT Primary Care Unavailabl e MIGUELINA SOTO Referring [...] ARSH, ALESHIA Y Referring Unavailable SCHMARII FRAZIER [place] P[place]ASANT Primary Care Unavailabl e ARSH, ALESHIA Y Referring Unavailable [facility] Primary Care MIGUELINA Light Attending ALESHIA Hein Referring Unavailable Allergies Allergy Classification Reported Allergen(s) Allergy Type Date of Onset Reaction(s) Facility (20 sources) iodine; Translations: [IODINE] Drug Allergy 07-16-2010 [facility] [employer] Work Phone: (3 sources) Penicillin G Potassium drug allergy 07-16-2010 [facility] Work Phone: (20 sources) Penicillins; Translations: [PENICILLINS] Propensity to adverse reactions to drug 07-09-2005 [facility] Work Phone: Medications Completed/Discontinued Medications Medication Drug [...] disease (20 sources) Atherosclerotic heart disease of [place] coronary artery without angina pectoris; Translations: [Coronary [...] (3 sources) Long-term drug therapy; Translations: [Other feather separator (current) drug therapy] Onset: 07-16-2010 07-16-2010 Past [...] height 176.5 cm Card Nurse Work Phone: [facility] 09-04-2022 11:56-0400 Body weight 70.76 kg Card Nurse Work Phone: [facility] 09-04-2022 11:56-0400 Diastolic blood pressure 55 mm[Hg] Card Nurse Work Phone: [facility] 09-04-2022 11:56-0400 Heart rate 54 /min Card Nurse Work Phone: [facility] 09-04-2022 11:56-0400 Systolic blood pressure 113 mm[Hg] Card Nurse Work Phone: [facility] 08-14-2022 13:08-0400 Body height 176.5 cm Miguelina Soto DO Work Phone: [facility] 08-14-2022 13:08-0400 Body weight 70.76 kg Miguelina Soto DO Work Phone: [facility] 03-25-2022 11:00-0500 Diastolic blood pressure 78 mm[Hg] Robb Rosas PT [facility] 03-25-2022 11:00-0500 Heart rate 59 /min Robb Rosas PT [facility] 03-25-2022 11:00-0500 SaO2% (BldA) [Mass fraction] 93 % Robb Rosas PT [facility] 03-25-2022 11:00-0500 Systolic blood pressure 162 mm[Hg] Robb Rosas PT [facility] 03-17-2022 10:23-0500 SaO2% (BldA) [Mass fraction] 100 % Aleshia Ray MD Work Phone: [facility] 03-17-2022 10:07-0500 Body height 177.8 cm Aleshia Ray MD Work Phone: [facility] 03-17-2022 10:07-0500 Body weight 73.48 kg Aleshia Ray MD Work Phone: [facility] 03-17-2022 10:07-0500 Respiratory rate 16 /min Aleshia Ray MD Work Phone: [facility] 03-02-2017 11:39-0500 BMI (Body Mass Index) 26.43 kg/m2 Deb Sam[facility]go [facility] [employer] Work Phone: 03-02-2017 11:39-0500 BP Diastolic 60 mm[Hg] Deb Robledo RN [facility] Work Phone: 03-02-2017 11:39-0500 BP Systolic 100 mm[Hg] Deb Robledo RN [facility] Work Phone: 03-02-2017 11:39-0500 Height 175.26 cm Deb Robledo RN [facility] Work Phone: 03-02-2017 11:39-0500 Pulse (Heart Rate) 56 /min Deb Robledo RN [facility] Work Phone: 03-02-2017 11:39-0500 Respiratory Rate 20 /min Deb Robledo RN [facility] Work Phone: 03-02-2017 11:39-0500 Weight [...] Start: 09-11-2022 End: 09-11-2022 ambulatory MIGUELINA SOTO Facility:[facility] Start: 09-04-2022 End: 09-04-2022 ambulatory MIGUELINA SOTO Facility:[facility] Start: 09-04-2022 End: 09-04-2022 Nursing evaluation of [...] Markos Dey MD Start: 10-03-2015 End: 10-03-2015 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 Markos Dey MD Start: 10-03-2015 End: 10-03-2015 [...] MD Start: 06-05-2015 End: 06-06-2015 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 Markos Dey MD Start: 03-14-2015 End: 03-14-2015 [...] Markos Dey MD Start: 03-06-2013 End: 03-06-2013 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 Thuy Fermin PA-C Work Phone: Start: 03-06-2013 [...] Covid-19 Vaccine ( season) Covid-19 Vaccine () [facility] Start: 12-04-2022 Influenza vaccination C [facility] Start: 04-05-2022 ADVANCE DIRECTIVE DISCUSSION ADVANCE DIRECTIVE DISCUSSION [facility] Start: 04-05-2022 DEPRESSION ASSESSMENT DEPRESSION ASS ESSMENT [facility] Start: 03-17-2022 End: 05-17-2022 Cobalamin (Vitamin B12) [Mass/volume] in Serum or Plasma VITAMIN B12 BLOOD Lab Routine Dizziness Expected: 03/17/2022, Expires: 05/17/2022 [facility] Work Phone: Immunizations Immunization Date Immunization Notes Care Provider Fa cility 01-07-2021 influenza virus vacc ine, unspecified formulation Mri (I-Stat/1.5t) Work Phone: [facility] 02-12-2016 pneumococcal conjuga te vaccine, 13 valent Aleshia Ray MD Work Phone: [facility] 01-31-2015 FLUZONE HIGH-DOSE 2015-16, PF, 180 mcg/0.5 mL injection Aleshia Ray MD Work Phone: [facility] 07-09-2005 pneumococcal polysaccharide vaccine, 23 valent Aleshia Ray MD Work Phone: [facility] Work Phone: 07-09-2005 tetanus and diphther ia toxoids, adsorbed, preservative free, for adult use (2 Lf of tetanus toxoid and 2 Lf of diphtheria toxoid) Aleshia Ray MD Work Phone: [facility] Work Phone: Payers Date Payer Category Payer Medicare [id number] 2021 Unknown MMO MMO MEDICARE SUPPLEMENT [id number] 2021-Present [phone] [address] [place] [address] Indemnity [id number] 2005 Medicare MEDICARE MEDICAR E A AND B [id number] 2005-Present [phone] [address] [address] [place] [address] Medicare [id number] 2005 Medicare [id number] Social History Date Type Detail Facility [facility]: [facility] End: 07-09-1981 History of tobacco use Current smoker [facility] End: 07-09-1981 History of tobacco use Cigarette Smoker [facility] Start: 03-17-2022 End: 04-18-2022 Cigarettes smoked current (pack per day) - Reported 3 [facility] Start: 03-17-2022 Tobacco use and exposure Smoke less tobacco non-user [facility] Start: 03-17-2022 End: 08-14-2022 Alcohol intake Current drinker of alcohol (finding) [facility] Start: 03-17-2022 Tobacco Comment Former smoker; Never used smokeless; Smoking details Type: cigarette; Amount: 40+ cigs/day; Tobocco comments 3 packs per day for 50 years; Tobacco modified 05/16/2015 [facility] Start: 1940 Sex Assigned At Not on file C [facility] Start: 03-17-2022 End: 04-18-2022 Tobacco use panel [facility] Adult Depression Scr eening Assessment 6 [facility] Clinical Notes 03-17-2022 to 09-04-2022 Radha Thompson [...] blood pressure monitoring. Instructions given for monitor. Lookmash monitor programmed for patient Applied patient monitor. [...] financial responsibility form. documented in this encounter [facility] 09-02-2022 Miscellaneous Notes Left voicemail for Pedro Luis on 09/02/2022 letting him know that a RingRang message has been sent to him with some important medication instructions for his autonomic testing on 09/11/2022. I asked him to please review his RingRang message as soon as possible and if he has any questions to please call the autonomic lab at [phone]. documented in this encounter [facility] 08-17-2022 Miscellaneous Notes August 17, 2022 Patient Name:PATIENT Pedro Luis Bell Contact Information: [phone] Last visit with EP Provider: 08/14/2022 Reason for Call: Received Outside records dated for 08/14/[address] Soto. Records available in shared EP drive / patients epic chart Physician: Miguelina Soto MD Thank you, Hue Fowler The patient was informed that our caregivers are afforded 72 business hours to review and respond telephone messages. documented in this encounter [facility] 08-14-2022 Miscellaneous Notes Left voicemail for Pedro Luis on 08/14/2022 letting him know that a RingRang message has been sent to him with some important medication instructions for his autonomic testing on 08/18/2022. I asked him to please review his [employer]hart message as soon as possible and if he has any questions to please call the autonomic lab at [phone]. documented in this encounter [facility] 08-14-2022 Note HNO ID: [id number] Author: Miguelina Soto, DO Service: ? Author Type: Physician Type: Progress Notes Filed: 08/14/2022 7:06 PM Note Text: [facility] [place] [facility] Department of Cardiovascular Medicine SECTION OF CARDIAC PACING and ELECTROPHYSIOLOGY OUTPATIENT VISIT DATE August 14, 2022 OUTPATIENT VISIT TYPE CONSULTATION PRIMARY CARE PHYSICIAN: To use this Smartlink, specify the provider ID whose address you want to display, e.g., .PROVADDR[1 (where 1 is the provider ID). REFERRING PHYSICIAN Aleshia Ray [address] [facility] [address] CHIEF COMPLAINT: [place] HISTORY OF PRESENT ILLNESS: [...] as well and Dr. 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 He was treated with midodrine without improvement. [...] Coronary atherosclerosis of unspecified type of vessel, [place] or graft Coronary artery disease Family history [...] by mouth twi (more content not included)... [facility] 08-14-2022 History of Presen t illness Narrative Images from the original note were not included. [facility] [place] [facility] Department of Cardiovascular Medicine SECTION OF CARDIAC PACING and ELECTROPHYSIOLOGY OUTPATIENT VISIT DATE August 14, 2022 OUTPATIENT VISIT TYPE CONSULTATION PRIMARY CARE PHYSICIAN: To use this Smartlink, specify the provider ID whose address you want to display, e.g., .PROVADDR[1 (where 1 is the provider ID). REFERRING PHYSICIAN Aleshia Ray [address] [place] [facility] [place] [address] CHIEF COMPLAINT: [place] HISTORY OF PRESENT ILLNESS: [...] as well and Dr. 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 He was treated with midodrine without improvement. [...] Coronary atherosclerosis of unspecified type of vessel, [place] or graft Coronary artery disease Family history [...] ICD10: Z95.1 8. Coronary artery disease involving [place] coronary artery of [place] heart, unspecified whether angina present - ICD9: [...] nocturnal HTN. He wants to do in [place], but I cautioned this may not be [...] the patient's primary care physician or clinical panama hat hydraulic press operator for the documentation requested. We will provide the office notes from the patient's most recent visit if they have not already been received, and other tests or evaluations performed here can be made available upon request. documented in this encounter [facility] 08-11-2022 Miscellaneous Notes August 11, 2022 Patient Name:PATIENT Pedro Luis Bell Contact Information: Last visit with EP Provider: 08/11/2022 Reason for Call: Received Fax [facility]- History Report / Physical. Documents placed in patient EP Drive. Original Documents filed in our office Physician: Miguelina Soto MD Thank youHue The patient was informed that our caregivers are afforded 72 business hours to review and respond telephone messages. documented in this encounter [facility] 08-11-2022 Miscellaneous Notes August 11, 2022 Patient Name:PATIENT Pedro Luis Bell Contact Information: Last visit with EP Provider: 08/10/2022 Reason for Call: Received Faxed Records from [facility] Records- All documents has been placed in the EP Drive for review of patients upcoming new consult appointment on 08/14 Physician: Miguelina Soto MD Thank you, Hue Fowler The patient was informed that our caregivers are afforded 72 business hours to review and respond telephone messages. documented in this encounter [facility] 08-10-2022 Miscellaneous Notes August 10, 2022 Patient [...] respond telephone messages. documented in this encounter [facility] 07-29-2022 Miscellaneous Notes Received request of office note of Dr. Ray, last office notes and MRI results have been fax to pt primary physician Marii kenny md at [phone] documented in this encounter [facility] 06-30-2022 Miscellaneous Notes Received xray and office notes have been sent to scanning., no upcomming apt. documented in this encounter [facility] 04-24-2022 Note HNO ID: [id number] Author: Robb Rosas, PT Service: ? Author [...] treatment included: Therapeutic exercise, Neuromuscular re-education, and Self-skilled nursing management. Goals for Episode of Care: created [...] head turns smoothly (more content not included)... [facility] 04-24-2022 History of Presen t illness Narrative [...] treatment included: Therapeutic exercise, Neuromuscular re-education, and Self-skilled nursing management. Goals for Episode of Care: created [...] facilitated with verbal, visual, and tactile cueing. Self-Mcfp Management: 1: *Strongly encouraged continued compliance with [...] Robb Rosas PT documented in this encounter [facility] 04-23-2022 Miscellaneous Notes Call back to patient's [...] advise, Arleen Jeffery documented in this encounter [facility] 04-21-2022 Note HNO ID: [id number] Author: Robb Rosas, PT Service: ? 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 Author Type: [...] Wilbert(Maria L) April 20, 2022 1:20 PM [facility] 04-20-2022 History of Presen t illness Narrative [...] 2022 1:20 PM documented in this encounter [facility] 04-15-2022 Note HNO ID: [id number] Author: Robb Rosas, PT Service: ? Author [...] with an (*). Patient education as noted. Self-Mcfp Management: 1: *discussed amb at gault using [...] Time Minutes (timed/untimed): 40 Robb Rosas, PT [facility] 04-13-2022 Note HNO ID: [id number] Author: Robb Rosas, PT Service: ? Author [...] patient safety with use of gait belt. Self-Mcfp Management: 1: *discussed completing HEP exercises with [...] Time Minutes (timed/untimed): 40 Robb Rosas, PT [facility] 04-13-2022 History of Presen t illness Narrative [...] patient safety with use of gait belt. Self-Mcfp Management: 1: *discussed completing HEP exercises with [...] Robb Rosas, PT documented in this encounter [facility] 04-10-2022 Note HNO ID: [id number] Author: Robb Rosas PT Service: ? Author [...] Treatment Time Minutes (timed/untimed): 43 Nery Wylie, EVP OF [employer]ER Robb Rosas, PT [facility] 04-10-2022 History of Presen t illness Narrative [...] a total of 6 laps at the [employer] today, resting inbetween laps 4&5, BLE were [...] NOE Razo PT documented in this encounter [facility] 04-08-2022 Note HNO ID: [id number] Author: Robb Rosas PT Service: ? Author [...] Time Minutes (timed/untimed): 40 Robb Rosas, PT [facility] 04-08-2022 History of Presen t illness Narrative [...] Robb Rosas PT documented in this encounter [facility] 04-07-2022 Note HNO ID: [id number] Author: Robb Rossa PT Service: ? Author Type: Physical Therapist [...] Time Minutes (timed/untimed): 40 Robb Rosas, PT [facility] 04-07-2022 History of Presen t illness Narrative [...] that he walked 1/4 mile at the [employer]. He stopped due to blurry double vision [...] Robb Rosas PT documented in this encounter [facility] 04-03-2022 Note HNO ID: [id number] Author: Robb Rosas PT Service: ? Author [...] Maik-Hallpike: Symptomatic;Greater than 60 seconds;Left beat;Comments Left [place] Comments: continues with fixation Right Ear Down: [...] performance and compliance. Patient education as noted. Self-Mcfp Management: 1: *discussed positional testing results and nystagmus present with and without fixation -- Pt. will have an MRI and has been seen by neurology. At this time, we will prioritize balance (more content not included)... [facility] 04-03-2022 History of Presen t illness Narrative [...] performance and compliance. Patient education as noted. Self-Mcfp Management: 1: *discussed positional testing results and [...] Robb Rosas PT documented in this encounter [facility] 04-01-2022 Note HNO ID: [id number] Author: Robb Rosas PT Service: ? Author [...] guard assistance during (more content not included)... [facility] 04-01-2022 History of Presen t illness Narrative [...] facilitated with verbal, visual, and tactile cueing. Self-Mcfp Management: 1: *discussed avoiding use of steps [...] Robb Rosas PT documented in this encounter [facility] 03-25-2022 Note HNO ID: [id number] Author: Robb Rosas PT Service: ? Author [...] 12 Planned Treatment Interventions: Patient/Family/Caregiver Education;Gait Training (80782);Self-skilled nursing management (08199);Therapeutic activities (14017);Neuromuscular re-education (52614);Therapeutic exercise (40306) PLAN FOR NEXT VISIT: positional testing and [...] Past Relevant Medical Conditions: Cardiac;Hypertension Preferred Language: Greenlandic Home Environment Patient Lives With: Spouse Intake [...] Motion Sickness: Current (more content not included)... [facility] 03-25-2022 History of Presen t illness Narrative [...] 12 Planned Treatment Interventions: Patient/Family/Caregiver Education;Gait Training (41150);Self-skilled nursing management (68960);Therapeutic activities (57896);Neuromuscular re-education (68949);Therapeutic exercise (66177) PLAN FOR NEXT VISIT: positional testing and [...] Past Relevant Medical Conditions: Cardiac;Hypertension Preferred Language: Green[place]ic Home Environment Patient Lives With: Spouse Intake [...] Back: States/Identifies;Return Demonstration TREATMENT: PT Treatment Interventions: Self-Mcfp Management Evaluation Self-Mcfp Management: 1: *encouraged use of AD 2: [...] Robb Rosas PT documented in this encounter [facility] 03-18-2022 Miscellaneous Notes Received voicemail 03-17-22 at [...] it if you could call me back. [phone]. Thank you. Call back to patient's . She states that Dr. Ray said to decrease the amlodipine but after leaving the appointment they realized that the patient hadn't been taking amlodipine in a while. He's actually been taking atenolol 12.5 mg BID. Unable to get into the panama hat hydraulic press operator until August 2022. Spoke with Dr. Ray who stated that because patient is not taking amlodipine there is no need to change medication regimen. Call back to patient's Mirella. No answer. Detailed voicemail left. DEENA Santana, ELIZABETH March 18, 2022 12:05 PM documented in this encounter [facility] 03-17-2022 Note HNO ID: [id number] Author: Aleshia Ray MD Service: ? Author [...] down or sitting Has been followed by panama hat hydraulic press operator for orthostatic hypotension and was given midodrine [...] Coronary atherosclerosis of unspecified type of vessel, [place] or graft Coronary artery disease Family history [...] hypotension which has been treated by the panama hat hydraulic press operator, but has been intractable to treatment With continuous complaint of dizziness as lightheaded and feeling imbalance when walking This dizziness never happen when lying in bed or sitting And when it happened he goes and sit down and that will improve his dizziness And the slurred speech is a new finding as per h (more content not included)... [facility] 03-17-2022 History of Presen t illness Narrative NEW OFFICE VISIT March 17, 2022 Dizziness Subjective HISTORY AND PHYSICAL Pedro Luis Bell 81 year old man with intractable dizziness as ligheaded for 2 years , it is all the time when he stands up Or when walking, never when lying down or sitting Has been followed by panama hat hydraulic press operator for orthostatic hypotension and was given midodrine [...] Coronary atherosclerosis of unspecified type of vessel, [place] or graft Coronary artery disease Family history [...] hypotension which has been treated by the panama hat hydraulic press operator, but has been intractable to treatment With [...] family. March 17, 2022 Aleshia Ray M.D. [facility] [place] Department of Neurology documented in this encounter [facility] Diagnosis Orthostatic hypotension- Primary documented in this encounter [facility] note* Diagnosis Dizziness- Primary Dizziness and giddiness documented in this encounter [facility] note* Diagnosis Dizziness- Primary Dizziness and giddiness documented in this encounter [facility] note* Diagnosis Dizziness- Primary Dizziness and giddiness documented in this encounter [facility] note* Diagnosis Dizziness Dizziness and giddiness documented in this encounter [facility] note* Diagnosis Dizziness- Primary Dizziness and giddiness documented in this encounter [facility] note* Diagnosis Dizziness- Primary Dizziness and giddiness documented in this encounter [facility] note* Diagnosis Dizziness- Primary Dizziness and giddiness documented in this encounter [facility] note* Diagnosis Supine hypertension- Primary Orthostatic hypotension Postural lightheadedness Dizziness and giddiness Ataxia Lack of coordination Dysarthria Recurrent falls Personal history of fall Hx of CABG Postsurgical aortocoronary bypass status Coronary artery disease involving [place] coronary artery of [place] heart, unspecified whether angina present documented in this encounter [facility] note* Diagnosis Supine hypertension [I10 (ICD-10-CM)]- Primary documented in this encounter [facility] note* Diagnosis Dizziness Dizziness and giddiness [facility] Outpatient Procedure (Routine) - Authorized Specialty Diagnoses / Procedures Referred By Timoac t Referred To [facility] Diagnoses Orthostatic hypotension Procedures ECG COMPLETE ECG ROUTINE ECG W/LEAST 12 LDS W/I&R Miguelina Soto DO [address] [place] [address] [facility] [place] [address] [place] [address] Referral ID Status Reason Start Date Expiration Date Visits Requested Visits Authorized [id number] Authorized Auto-Generat ed Referral 2 03/17/2023 1 1 [facility] Reason for Referral Specialty Diagnoses / Procedures Referred By Contac t Referred To Contact Cardiology Diagnoses Orthostatic hypotension Procedures CONSULT TO CARDIOLOGY OFFICE/OUTPATIENT [facility] 60-74 MINUTES Aleshia Ray MD [address] [place] [address] Referral ID Status Reason Start Date Expiration Date Visits Requested Visits Authorized [id number] Authorized PCP Requested Referral 2 03/17/2023 1 1 Specialty Diagnoses / Procedures Referred By Contac t Referred To Contact [facility] Diagnoses Dizziness Procedures CONSULT TO SPEECH THERAPY OFFICE/OUTPATIENT [facility] 60-74 MINUTES Aleshia Ray MD [address] [place] [address] [facility] [place], [place] [id number] Referral ID Status Reason Start Date Expiration Date Visits Requested Visits Authorized [id number] Authorized Auto-Generat ed Referral 2 03/17/2023 99 99 Specialty Diagnoses / Procedures Referred By Contac t Referred To Contact [facility] Diagnoses Dizziness Procedures CONSULT TO PHYSICAL THERAPY PHYSICAL THERAPY EVALUATION HIGH COMPLEX 45 MINS Aleshia Ray MD [address] [place] [address] [facility] [place] [address] Referral ID Status Reason Start Date Expiration Date Visits Requested Visits Authorized [id number] Authorized PCP Requested Referral Auto-Generate d Referral 2 03/17/2023 99 99 Specialty Diagnoses / Procedures Referred By Contac t Referred To Contact [facility] Diagnoses Dizziness Procedures MRI BRAIN WO IVCON MRI BRAIN BRAIN STEM W/O CONTRAST MATERIAL Aleshia Ray MD [address] [place] [address] Mr Imaging Referral ID Status Reason Start Date Expiration Date Visits Requested Visits Authorized [id number] Authorized Auto-Generat ed Referral 2 04/16/2023 1 1 Specialty Diagnoses / Procedures Referred By Contac t Referred To Contact [facility] Diagnoses Dizziness Procedures PT REHAB FOLLOW UP ORDER THERAPEUTIC EXERCISES RE, EA 15 MIN. Robb Rosas, PT [facility] [place] [address] [place] [address] Referral ID Status Reason Start Date Expiration Date Visits Requested Visits Authorized [id number] Pending Review PCP Requested Referral Auto-Generate d Referral 2 06/23/2022 1 1 Specialty Diagnoses / Procedures Referred By Contac t Referred To Contact [facility] Diagnoses Dizziness Procedures MRI BRAIN WO IVCON MRI BRAIN BRAIN STEM W/O CONTRAST MATERIAL Aleshia Ray MD [address] [place] [address] [place] [address] Referral ID Status Reason Start Date Expiration Date V isits Requested Visits Authorized [id number] Closed Auto-Generate d Referral 03/17/2022 04/16/2023 1 1 Advance Directives Documents on File Type Date Recorded 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 Advance Directive(s) 06/25/2011 1:44 PM Documents on File Type Date Recorded 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 Advance Directive(s) 06/25/2011 1:44 PM [...] or prosecute any alcohol or drug abuse patient.[facility] HospitalIn the event this information is protected by the Federal Confidentiality of Alcohol and Drug Abuse Patient Records regulations: The Federal rules restrict any use of the information to criminally investigate or prosecute any alcohol or drug abuse patient.[facility] HospitalIn the event this information is protected by the Federal Confidentiality of Alcohol and Drug Abuse Patient Records regulations: The Federal rules restrict any use of the information to criminally investigate or prosecute any alcohol or drug abuse patient.[facility]In the event this information is protected by the Federal Confidentiality of Alcohol and Drug Abuse Patient Records regulations: The Federal rules restrict any use of the information to criminally investigate or prosecute any alcohol or drug abuse patient.[facility] HospitalIn the event this information is protected by the Federal Confidentiality of Alcohol and Drug Abuse Patient Records regulations: The Federal rules restrict any use of the information to criminally investigate or prosecute any alcohol or drug abuse patient.[facility] HospitalIn the event this information is protected by the Federal Confidentiality of Alcohol and Drug Abuse Patient Records regulations: The Federal rules restrict any use of the information to criminally investigate or prosecute any alcohol or drug abuse patient.[facility] HospitalIn the event this information is protected by the Federal Confidentiality of Alcohol and Drug Abuse Patient Records regulations: The Federal rules restrict any use of the information to criminally investigate or prosecute any alcohol or drug abuse patient.[facility] HospitalIn the event this information is protected by the Federal Confidentiality of Alcohol and Drug Abuse Patient Records regulations: The Federal rules restrict any use of the information to criminally investigate or prosecute any alcohol or drug abuse patient.[facility] HospitalIn the event this information is protected by the Federal Confidentiality of Alcohol and Drug Abuse Patient Records regulations: The Federal rules restrict any use of the information to criminally investigate or prosecute any alcohol or drug abuse patient.[facility] HospitalIn the event this information is protected by the Federal Confidentiality of Alcohol and Drug Abuse Patient Records regulations: The Federal rules restrict any use of the information to criminally investigate or prosecute any alcohol or drug abuse patient.[facility] HospitalIn the event this information is protected by the Federal Confidentiality of Alcohol and Drug Abuse Patient Records regulations: The Federal rules restrict any use of the information to criminally investigate or prosecute any alcohol or drug abuse patient.[facility] HospitalIn the event this information is protected by the Federal Confidentiality of Alcohol and Drug Abuse Patient Records regulations: The Federal rules restrict any use of the information to criminally investigate or prosecute any alcohol or drug abuse patient.[facility] HospitalIn the event this information is protected by the Federal Confidentiality of Alcohol and Drug Abuse Patient Records regulations: The Federal rules restrict any use of the information to criminally investigate or prosecute any alcohol or drug abuse patient.[facility] HospitalIn the event this information is protected by the Federal Confidentiality of Alcohol and Drug Abuse Patient Records regulations: The Federal rules restrict any use of the information to criminally investigate or prosecute any alcohol or drug abuse patient.[facility] HospitalIn the event this information is protected by the Federal Confidentiality of Alcohol and Drug Abuse Patient Records regulations: The Federal rules restrict any use of the information to criminally investigate or prosecute any alcohol or drug abuse patient.[facility] HospitalIn the event this information is protected by the Federal Confidentiality of Alcohol and Drug Abuse Patient Records regulations: The Federal rules restrict any use of the information to criminally investigate or prosecute any alcohol or drug abuse patient.[facility] HospitalIn the event this information is protected by the Federal Confidentiality of Alcohol and Drug Abuse Patient Records regulations: The Federal rules restrict any use of the information to criminally investigate or prosecute any alcohol or drug abuse patient.[facility] HospitalIn the event this information is protected by the Federal Confidentiality of Alcohol and Drug Abuse Patient Records regulations: The Federal rules restrict any use of the information to criminally investigate or prosecute any alcohol or drug abuse patient.[facility] HospitalIn the event this information is protected by the Federal Confidentiality of Alcohol and Drug Abuse Patient Records regulations: The Federal rules restrict any use of the information to criminally investigate or prosecute any alcohol or drug abuse patient.[facility] HospitalIn the event this information is protected by the Federal Confidentiality of Alcohol and Drug Abuse Patient Records regulations: The Federal rules restrict any use of the information to criminally investigate or prosecute any alcohol or drug abuse patient.[facility] HospitalIn the event this information is protected by the Federal Confidentiality of Alcohol and Drug Abuse Patient Records regulations: The Federal rules restrict any use of the information to criminally investigate or prosecute any alcohol or drug abuse patient.[facility] HospitalIn the event this information is protected by the Federal Confidentiality of Alcohol and Drug Abuse Patient Records regulations: The Federal rules restrict any use of the information to criminally investigate or prosecute any alcohol or drug abuse patient.[facility] HospitalIn the event this information is protected by the Federal Confidentiality of Alcohol and Drug Abuse Patient Records regulations: The Federal rules restrict any use of the information to criminally investigate or prosecute any alcohol or drug abuse patient.[facility] Reason for Visit (unrecogniz ed section and content) Specialty Diagnoses / Procedures Referred By Darrell rapp Referred To Contact [facility] Diagnoses Dizziness Procedures CONSULT TO PHYSICAL THERAPY PHYSICAL THERAPY EVALUATION HIGH COMPLEX 45 MINS Aleshia Ray MD [address] [place] [address] [facility] [address] [address] Referral ID Status Reason Start Date Expiration Date Visits Requested Visits Authorized [id number] Authorized PCP Requested Referral Auto-Generate d Referral 2 03/17/2023 99 99 Reason Comments Consult Light headed balance fatigue Reason Comments Patient Question Reason Comments PT Eval Specialty Diagnoses / Procedures Referred By Darrell rapp Referred To Contact [facility] Diagnoses Dizziness Procedures CONSULT TO PHYSICAL THERAPY PHYSICAL THERAPY EVALUATION HIGH COMPLEX 45 MINS Aleshia Ray MD [address] [place] [address] [facility] [place] [address] [place] [address] Reason Comments Physical Therapy Reason Comments Patient Question MRI Results Reason Comments Patient Update Xray and office note s Reason Comments Patient Update Release Of Medical Records Reason Comments Patient Question Confirm if records w ere received Reason Comments Results [facility] R ecords- Previous Cardiology Records Reason Comments Results History Report/ Labs Reason Comments Procedure Upcoming Autonomic T esting 5/16-ANS W/TILT Specialty Diagnoses / Procedures Referred By Contac t Referred To Contact Cardiology Diagnoses Orthostatic hypotension Procedures CONSULT TO CARDIOLOGY OFFICE/OUTPATIENT [facility] 60-74 MINUTES Aleshia Ray MD [address] [place] [address] Referral ID Status Reason Start Date Expiration Date V isits Requested Visits Authorized [id number] Closed PCP Requested Referral 03/17/2022 03/17/2023 1 1 Reason Comments Received Outside Medical Records ECG/ He alth Chart Reason Comments Procedure Upcoming Autonomic T esting 6-ANS W/TILT Reason Comments Supine Hypertension Specialty Diagnoses / Procedures Referred By Contac t Referred To Contact MR IMAGING Diagnoses Dizziness Procedures MRI BRAIN WO IVCON MRI BRAIN BRAIN STEM W/O CONTRAST MATERIAL Aleshia Ray MD [address] [place] [address] Mr Imaging [id number] Referral ID Status Reason Start Date Expiration Date V isits Requested Visits Authorized [id number] Closed Auto-Generate d Referral 03/17/2022 04/16/2023 1 1 Care Teams (unrecognized sec tion and content) Load Mixer Relationship Specialty Start Date End Date Marii Kenny [address] [place] [address] PCP - General Family Medicine 08/14/22 Markos Dey [address] [place], [place] [address] Referring Cardiology 08/14/22 Load Mixer Relationship Specialty Start Date End Date Marii Kenny [address] [place], [place] [id number] PCP - General Family Medicine 08/14/22 Yissel, Markos S [address] [place] [address] Referring Cardiology 08/14/22 Load Mixer Relationship Specialty Start Date End Date Marii Kenny [address] [place] [address] PCP - General Family Medicine 08/14/22 Yissel, Markos S [address] [place] [address] Referring Cardiology 08/14/22 (unrecognized sect ion [...] BE BASED ON THE PRIMARY CLINICAL RECORDS. [employer] [facility]. provides no warranty or guarantee of the accuracy or completeness of information in this document.
[2023-05-28 22:29] VITALS: BP 154/66; PULSE 62; PULSE 64; RESP 27; TEMP 37; O2SAT 92
[2023-05-28 22:30] VITALS: PULSE 64; RESP 26; O2SAT 95
--- OUTSIDE RECORDS SUMMARY | 2023-05-28 22:40 | XMS RPT_ITS | CCD ---
Author Name Unknown Address [address] [place] [address] Organization [facility] Care Team Providers Care Squad Sergeant Name Role Phone Meena JOHNSON, Deb Jack Unavailable Unavailable MD Yissel, Kewadin S Unavailable Sean Baron Unavailable Unavailable Unavailable Primary Care Provider UnavailMarii Kramer Primary Care Provider [phone] Bill Deyril S Unavailable MIGUELINA SOTO Referring Unavailabl e SCHINNER, MARII BERUMEN Primary Care Unavailabl e MIGUELINA SOTO Referring Unavailabl e SCHINNERMARII EDEAGAR Primary Care Unavailabl e MIGUELINA SOTO Referring [...] ARSH, ALESHIA Y Referring Unavailable SCHMARII FRAZIER EDEAGAR Primary Care Unavailabl e ARSH, ALESHIA Y Referring Unavailable [facility] Primary Care MIGUELINA Light Attending ALESHIA Hein Referring Unavailable Allergies Allergy Classification Reported Allergen(s) Allergy Type Date of Onset Reaction(s) Facility (20 sources) iodine; Translations: [IODINE] Drug Allergy 07-16-2010 [facility] [employer] Work Phone: (3 sources) Penicillin G Potassium drug allergy 07-16-2010 [facility] Work Phone: (20 sources) Penicillins; Translations: [PENICILLINS] Propensity to adverse reactions to drug 07-09-2005 [facility] Work Phone: Medications Completed/Discontinued Medications Medication Drug [...] disease (20 sources) 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; Translations: [Coronary [...] (3 sources) Long-term drug therapy; Translations: [Other exterminator (current) drug therapy] Onset: 07-16-2010 07-16-2010 Past [...] height 176.5 cm Card Nurse Work Phone: [facility] 09-04-2022 11:56-0400 Body weight 70.76 kg Card Nurse Work Phone: [facility] 09-04-2022 11:56-0400 Diastolic blood pressure 55 mm[Hg] Card Nurse Work Phone: [facility] 09-04-2022 11:56-0400 Heart rate 54 /min Card Nurse Work Phone: [facility] 09-04-2022 11:56-0400 Systolic blood pressure 113 mm[Hg] Card Nurse Work Phone: [facility] 08-14-2022 13:08-0400 Body height 176.5 cm Miguelina Soto DO Work Phone: [facility] 08-14-2022 13:08-0400 Body weight 70.76 kg Miguelina Soto DO Work Phone: [facility] 03-25-2022 11:00-0500 Diastolic blood pressure 78 mm[Hg] Robb Rosas PT [facility] 03-25-2022 11:00-0500 Heart rate 59 /min Robb Rosas PT [facility] 03-25-2022 11:00-0500 SaO2% (BldA) [Mass fraction] 93 % Robb Rosas PT [facility] 03-25-2022 11:00-0500 Systolic blood pressure 162 mm[Hg] Robb Rosas PT [facility] 03-17-2022 10:23-0500 SaO2% (BldA) [Mass fraction] 100 % Aleshia Ray MD Work Phone: [facility] 03-17-2022 10:07-0500 Body height 177.8 cm Aleshia Ray MD Work Phone: [facility] 03-17-2022 10:07-0500 Body weight 73.48 kg Aleshia Ray MD Work Phone: [facility] 03-17-2022 10:07-0500 Respiratory rate 16 /min Aleshia Ray MD Work Phone: [facility] 03-02-2017 11:39-0500 BMI (Body Mass Index) 26.43 kg/m2 Deb Samaniego [employer] Work Phone: 03-02-2017 11:39-0500 BP Diastolic 60 mm[Hg] Deb Robledo RN [facility] Work Phone: 03-02-2017 11:39-0500 BP Systolic 100 mm[Hg] Deb Robledo RN [facility] Work Phone: 03-02-2017 11:39-0500 Height 175.26 cm Deb Robledo RN [facility] Work Phone: 03-02-2017 11:39-0500 Pulse (Heart Rate) 56 /min Deb Robledo RN [facility] Work Phone: 03-02-2017 11:39-0500 Respiratory Rate 20 /min Deb Robledo RN [facility] Work Phone: 03-02-2017 11:39-0500 Weight [...] Start: 09-11-2022 End: 09-11-2022 ambulatory MIGUELINA SOTO Facility:[facility] Start: 09-04-2022 End: 09-04-2022 ambulatory MIGUELINA SOTO Facility: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 Markos Dey MD Start: 10-03-2015 End: 10-03-2015 [...] MD Start: 06-05-2015 End: 06-06-2015 Referral to executive search consultant Markos Dey MD Start: 03-14-2015 End: 03-14-2015 [...] Markos Dey MD Start: 03-06-2013 End: 03-06-2013 CAR WASHER Thuy Fermin PA-C Work Phone: Start: 03-06-2013 [...] Covid-19 Vaccine ( season) Covid-19 Vaccine () [facility] Start: 12-04-2022 Influenza vaccination [facility] Start: 04-05-2022 ADVANCE DIRECTIVE DISCUSSION ADVANCE DIRECTIVE DISCUSSION [facility] Start: 04-05-2022 DEPRESSION ASSESSMENT DEPRESSION ASS ESSMENT [facility] Start: 03-17-2022 End: 05-17-2022 Cobalamin (Vitamin B12) [Mass/volume] in Serum or Plasma VITAMIN B12 BLOOD Lab Routine Dizziness Expected: 03/17/2022, Expires: 05/17/2022 [facility] Work Phone: Immunizations Immunization Date Immunization Notes Care Provider Fa cility 01-07-2021 influenza virus vacc ine, unspecified formulation Mri (I-Stat/1.5t) Work Phone: [facility] 02-12-2016 pneumococcal conjuga te vaccine, 13 valent Aleshia Ray MD Work Phone: [facility] 01-31-2015 FLUZONE HIGH-DOSE 2015-16, PF, 180 mcg/0.5 mL injection Aleshia Ray MD Work Phone: [facility] 07-09-2005 pneumococcal polysaccharide vaccine, 23 valent Aleshia Ray MD Work Phone: [facility] Work Phone: 07-09-2005 tetanus and diphther ia toxoids, adsorbed, preservative free, for adult use (2 Lf of tetanus toxoid and 2 Lf of diphtheria toxoid) Aleshia Ray MD Work Phone: [facility] Work Phone: Payers Date Payer Category Payer Medicare [id number] 2021 Unknown MMO MMO MEDICARE SUPPLEMENT [id number] 2021-Present [phone] [address] [place] [address] Indemnity [id number] 2005 Medicare MEDICARE MEDICAR E A AND B [id number] 2005-Present [phone] [address] [address] [place] [address] Medicare [id number] 2005 Medicare [id number] Social History Date Type Detail Facility Start: 03-17-2022 [facility] End: 07-09-1981 History of tobacco use Current smoker [facility] End: 07-09-1981 History of tobacco use Cigarette Smoker [facility] Start: 03-17-2022 End: 04-18-2022 Cigarettes smoked current (pack per day) - Reported 3 [facility] Start: 03-17-2022 Tobacco use and exposure Smoke less tobacco non-user [facility] Start: 03-17-2022 End: 08-14-2022 Alcohol intake Current drinker of alcohol (finding) [facility] Start: 03-17-2022 Tobacco Comment Former smoker; Never used smokeless; Smoking details Type: cigarette; Amount: 40+ cigs/day; Tobocco comments 3 packs per day for 50 years; Tobacco modified 05/16/2015 [facility] Start: 1940 Sex Assigned At Not on file [facility] Start: 03-17-2022 End: 04-18-2022 Tobacco use panel [facility] Adult Depression Scr eening Assessment 6 [facility] Clinical Notes 03-17-2022 to 09-04-2022 Radha [...] blood pressure monitoring. Instructions given for monitor. Novomer monitor programmed for patient Applied patient monitor. [...] financial responsibility form. documented in this encounter [facility] 09-02-2022 Miscellaneous Notes Left voicemail for Pedro Luis on 09/02/2022 letting him know that a [employer] message has been sent to him with some important medication instructions for his autonomic testing on 09/11/2022. I asked him to please review his [employer] message as soon as possible and if he has any questions to please call the autonomic lab at [phone]. documented in this encounter [facility] 08-17-2022 Miscellaneous Notes August 17, 2022 Patient Name:PATIENT Pedro Luis Bell Contact Information: [phone] Last visit with EP Provider: 08/14/2022 Reason for Call: Received Outside records dated for 08/14/[address] Soto. Records available in shared EP drive / patients epic chart Physician: Miguelina Soto MD Thank you, Hue Fowler The patient was informed that our caregivers are afforded 72 business hours to review and respond telephone messages. documented in this encounter [facility] 08-14-2022 Miscellaneous Notes Left voicemail for Pedro Luis on 08/14/2022 letting him know that a [employer] message has been sent to him with some important medication instructions for his autonomic testing on 08/18/2022. I asked him to please review his [employer] message as soon as possible and if he has any questions to please call the autonomic lab at [phone]. documented in this encounter [facility] 08-14-2022 Note HNO ID: [id number] Author: Miguelina Soto, DO Service: ? Author Type: Physician Type: Progress Notes Filed: 08/14/2022 7:06 PM Note Text: [facility] Department of Cardiovascular Medicine SECTION OF CARDIAC PACING and ELECTROPHYSIOLOGY OUTPATIENT VISIT DATE August 14, 2022 OUTPATIENT VISIT TYPE CONSULTATION PRIMARY CARE PHYSICIAN: To use this Smartlink, specify the provider ID whose address you want to display, e.g., .PROVADDR[1 (where 1 is the provider ID). REFERRING PHYSICIAN Aleshia Ray [address] [address] CHIEF COMPLAINT: [place] HISTORY OF PRESENT ILLNESS: [...] as well and Dr. Dey, his local executive search consultant. He was treated with midodrine without improvement. [...] Coronary atherosclerosis of unspecified type of vessel, big lagoon or graft Coronary artery disease Family history [...] by mouth twi (more content not included)... [facility] 08-14-2022 History of Presen t illness Narrative Images from the original note were not included. [facility] Department of Cardiovascular Medicine SECTION OF CARDIAC PACING and ELECTROPHYSIOLOGY OUTPATIENT VISIT DATE August 14, 2022 OUTPATIENT VISIT TYPE CONSULTATION PRIMARY CARE PHYSICIAN: To use this Smartlink, specify the provider ID whose address you want to display, e.g., .PROVADDR[1 (where 1 is the provider ID). REFERRING PHYSICIAN Aleshia Ray [address] [facility] [place] [address] CHIEF COMPLAINT: [place] HISTORY OF PRESENT ILLNESS: [...] as well and Dr. Dey, his local executive search consultant. He was treated with midodrine without improvement. [...] Coronary atherosclerosis of unspecified type of vessel, big lagoon or graft Coronary artery disease Family history [...] ICD10: Z95.1 8. Coronary artery disease involving big lagoon coronary artery of [place] heart, unspecified whether angina present - ICD9: [...] nocturnal HTN. He wants to do in [place], but I cautioned this may not be [...] the patient's primary care physician or clinical executive search consultant for the documentation requested. We will provide the office notes from the patient's most recent visit if they have not already been received, and other tests or evaluations performed here can be made available upon request. documented in this encounter [facility] 08-11-2022 Miscellaneous Notes August 11, 2022 Patient Name:PATIENT Pedro Luis Bell Contact Information: Last visit with EP Provider: 08/11/2022 Reason for Call: Received Fax [facility]- History Report / Physical. Documents placed in patient EP Drive. Original Documents filed in our office Physician: Miguelina Soto MD Thank youHue The patient was informed that our caregivers are afforded 72 business hours to review and respond telephone messages. documented in this encounter [facility] 08-11-2022 Miscellaneous Notes August 11, 2022 Patient Name:PATIENT Pedro Luis Bell Contact Information: Last visit with EP Provider: 08/10/2022 Reason for Call: Received Faxed Records from [facility] Records- All documents has been placed in the EP Drive for review of patients upcoming new consult appointment on 08/14 Physician: Miguelina Soto MD Thank you, Hue Fowler The patient was informed that our caregivers are afforded 72 business hours to review and respond telephone messages. documented in this encounter [facility] 08-10-2022 Miscellaneous Notes August 10, 2022 [...] respond telephone messages. documented in this encounter [facility] 07-29-2022 Miscellaneous Notes Received request of office note of Dr. Ray, last office notes and MRI results have been fax to pt primary physician Marii kenny md at [phone] documented in this encounter [facility] 06-30-2022 Miscellaneous Notes Received xray and office notes have been sent to scanning., no upcomming apt. documented in this encounter [facility] 04-24-2022 Note HNO ID: [id number] Author: Robb Rosas, PT Service: ? Author [...] treatment included: Therapeutic exercise, Neuromuscular re-education, and Self-senior care management. Goals for Episode of Care: created [...] head turns smoothly (more content not included)... [facility] 04-24-2022 History of Presen t illness [...] treatment included: Therapeutic exercise, Neuromuscular re-education, and Self-senior care management. Goals for Episode of Care: created [...] facilitated with verbal, visual, and tactile cueing. Self-Fci Management: 1: *Strongly encouraged continued compliance with [...] Robb Rosas PT documented in this encounter [facility] 04-23-2022 Miscellaneous Notes Call back to [...] advise, Arleen Jeffery documented in this encounter [facility] 04-21-2022 Note HNO ID: [id number] Author: Robb Rosas, PT Service: ? Author [...] Treatment Time Minutes (timed/untimed): 30 Nery Wylie, OPTICAL INSTRUMENT SPECIALIST Robb Rosas, PT [facility] 04-20-2022 Note HNO ID: [id number] Author: YENNY Atkins) Service: ? Author Type: [...] Wilbert(Maria L) April 20, 2022 1:20 PM [facility] 04-20-2022 History of Presen t illness [...] 2022 1:20 PM documented in this encounter [facility] 04-15-2022 Note HNO ID: [id number] Author: Robb Rosas, PT Service: ? Author [...] with an (*). Patient education as noted. Self-Fci Management: 1: *discussed amb at gault using [...] Time Minutes (timed/untimed): 40 Robb Rosas, PT [facility] 04-13-2022 Note HNO ID: [id number] Author: Robb Rosas, PT Service: ? Author [...] patient safety with use of gait belt. Self-Fci Management: 1: *discussed completing HEP exercises with [...] Time Minutes (timed/untimed): 40 Robb Rosas, PT [facility] 04-13-2022 History of Presen t illness [...] patient safety with use of gait belt. Self-Fci Management: 1: *discussed completing HEP exercises with [...] Robb Rosas, PT documented in this encounter [facility] 04-10-2022 Note HNO ID: [id number] Author: Robb Rosas PT Service: ? Author [...] Treatment Time Minutes (timed/untimed): 43 Nery Wylie, OPTICAL INSTRUMENT SPECIALIST Robb Rosas, PT [facility] 04-10-2022 History of Presen t illness [...] a total of 6 laps at the [employer] today, resting inbetween laps 4&5, BLE were [...] NOE Razo PT documented in this encounter [facility] 04-08-2022 Note HNO ID: [id number] Author: Robb Rosas PT Service: ? Author [...] Time Minutes (timed/untimed): 40 Robb Rosas, PT [facility] 04-08-2022 History of Presen t illness [...] Robb Rosas PT documented in this encounter [facility] 04-07-2022 Note HNO ID: [id number] Author: Robb Rosas PT Service: ? Author [...] Total Treatment Time Minutes (timed/untimed): 40 Robb oRsas, PT [facility] 04-07-2022 History of Presen t illness [...] that he walked 1/4 mile at the [employer]. He stopped due to blurry double vision [...] Robb Rosas PT documented in this encounter [facility] 04-03-2022 Note HNO ID: [id number] Author: Robb Rosas PT Service: ? Author [...] Maik-Hallpike: Symptomatic;Greater than 60 seconds;Left beat;Comments Left [place]-Halpike Comments: continues with fixation Right Ear Down: [...] performance and compliance. Patient education as noted. Self-Fci Management: 1: *discussed positional testing results and nystagmus present with and without fixation -- Pt. will have an MRI and has been seen by neurology. At this time, we will prioritize balance (more content not included)... [facility] 04-03-2022 History of Presen t illness [...] performance and compliance. Patient education as noted. Self-Fci Management: 1: *discussed positional testing results and [...] Robb Rosas PT documented in this encounter [facility] 04-01-2022 Note HNO ID: [id number] Author: Robb Rosas PT Service: ? Author [...] guard assistance during (more content not included)... [facility] 04-01-2022 History of Presen t illness Narrative Episode Visit Count: 1 Therapist That Will Accept/Oversee The Plan Of Care: Robb O'Cristhian Start of Care Date: 03/25/22 Onset Date: 03/25/20 Plan of Care Certification Date: 03/25/22 Next Certification Due Date: 04/29/22 [facility] PHYSICAL THERAPY TREATMENT NOTE ASSESSMENT: ePdro Luis Bell tolerated the session with continued [...] facilitated with verbal, visual, and tactile cueing. Self-Fci Management: 1: *discussed avoiding use of steps [...] Robb Rosas PT documented in this encounter [facility] 03-25-2022 Note HNO ID: [id number] Author: Robb Rosas PT Service: ? Author [...] 12 Planned Treatment Interventions: Patient/Family/Caregiver Education;Gait Training (72123);Self-senior care management (74714);Therapeutic activities (40376);Neuromuscular re-education (03634);Therapeutic exercise (38455) PLAN FOR NEXT VISIT: positional testing and [...] Past Relevant Medical Conditions: Cardiac;Hypertension Preferred Language: Czech Home Environment Patient Lives With: Spouse Intake [...] Motion Sickness: Current (more content not included)... [facility] 03-25-2022 History of Presen t illness [...] 12 Planned Treatment Interventions: Patient/Family/Caregiver Education;Gait Training (40384);Self-senior care management (59082);Therapeutic activities (20266);Neuromuscular re-education (08707);Therapeutic exercise (34447) PLAN FOR NEXT VISIT: positional testing and [...] Past Relevant Medical Conditions: Cardiac;Hypertension Preferred Language: Czech Home Environment Patient Lives With: Spouse Intake [...] Back: States/Identifies;Return Demonstration TREATMENT: PT Treatment Interventions: Self-Fci Management Evaluation Self-Fci Management: 1: *encouraged use of AD 2: [...] Robb Rosas PT documented in this encounter [facility] 03-18-2022 Miscellaneous Notes Received voicemail 03-17-22 [...] it if you could call me back. [phone]. Thank you. Call back to patient's . She states that Dr. Ray said to decrease the amlodipine but after leaving the appointment they realized that the patient hadn't been taking amlodipine in a while. He's actually been taking atenolol 12.5 mg BID. Unable to get into the executive search consultant until August 2022. Spoke with Dr. Ray who stated that because patient is not taking amlodipine there is no need to change medication regimen. Call back to patient's Mirella. No answer. Detailed voicemail left. DEENA Santana, ELIZABETH March 18, 2022 12:05 PM documented in this encounter [facility] 03-17-2022 Note HNO ID: [id number] Author: Aleshia Ray MD Service: ? Author [...] down or sitting Has been followed by executive search consultant for orthostatic hypotension and was given midodrine [...] Coronary atherosclerosis of unspecified type of vessel, [place] or graft Coronary artery disease Family history [...] hypotension which has been treated by the executive search consultant, but has been intractable to treatment With continuous complaint of dizziness as lightheaded and feeling imbalance when walking This dizziness never happen when lying in bed or sitting And when it happened he goes and sit down and that will improve his dizziness And the slurred speech is a new finding as per h (more content not included)... [facility] 03-17-2022 History of Presen t illness Narrative NEW OFFICE VISIT March 17, 2022 Dizziness Subjective HISTORY AND PHYSICAL Pedro Luis Bell 81 year old man with intractable dizziness as ligheaded for 2 years , it is all the time when he stands up Or when walking, never when lying down or sitting Has been followed by executive search consultant for orthostatic hypotension and was given midodrine [...] Coronary atherosclerosis of unspecified type of vessel, [place] or graft Coronary artery disease Family history [...] hypotension which has been treated by the executive search consultant, but has been intractable to treatment With [...] family. March 17, 2022 Aleshia Ray M.D. [facility] [place] Department of Neurology documented in this encounter [facility] Diagnosis Orthostatic hypotension- Primary documented in this encounter [facility] note* Diagnosis Dizziness- Primary Dizziness and giddiness documented in this encounter [facility] note* Diagnosis Dizziness- Primary Dizziness and giddiness documented in this encounter [facility] note* Diagnosis Dizziness- Primary Dizziness and giddiness documented in this encounter [facility] note* Diagnosis Dizziness Dizziness and giddiness documented in this encounter [facility] note* Diagnosis Dizziness- Primary Dizziness and giddiness documented in this encounter [facility] note* Diagnosis Dizziness- Primary Dizziness and giddiness documented in this encounter [facility] note* Diagnosis Dizziness- Primary Dizziness and giddiness documented in this encounter [facility] note* Diagnosis Supine hypertension- Primary Orthostatic hypotension Postural lightheadedness Dizziness and giddiness Ataxia Lack of coordination Dysarthria Recurrent falls Personal history of fall Hx of CABG Postsurgical aortocoronary bypass status Coronary artery disease involving big lag[place] coronary artery of [place] heart, unspecified whether angina present documented in this encounter [facility] note* Diagnosis Supine hypertension [I10 (ICD-10-CM)]- Primary documented in this encounter [facility] note* Diagnosis Dizziness Dizziness and giddiness [facility] Outpatient Procedure (Routine) - Authorized Specialty Diagnoses / Procedures Referred By Timoac t Referred To [facility] Diagnoses Orthostatic hypotension Procedures ECG COMPLETE ECG ROUTINE ECG W/LEAST 12 LDS W/I&R Miguelina Soto DO [address] [facility] [place] [address] [facility] [address] [place] [address] Referral ID Status Reason Start Date Expiration Date Visits Requested Visits Authorized [id number] Authorized Auto-Generat ed Referral 2 03/17/2023 1 1 [facility] Reason for Referral Specialty Diagnoses / Procedures Referred By Contac t Referred To Contact Cardiology Diagnoses Orthostatic hypotension Procedures CONSULT TO CARDIOLOGY OFFICE/OUTPATIENT [facility] 60-74 MINUTES Aleshia Ray MD [address] [place] [address] Referral ID Status Reason Start Date Expiration Date Visits Requested Visits Authorized [id number] Authorized PCP Requested Referral 2 03/17/2023 1 1 Specialty Diagnoses / Procedures Referred By Contac t Referred To Contact [facility] Diagnoses Dizziness Procedures CONSULT TO SPEECH THERAPY OFFICE/OUTPATIENT [facility] 60-74 MINUTES Aleshia Ray MD [address] [place] [address] [facility] [place] [address] Referral ID Status Reason Start Date Expiration Date Visits Requested Visits Authorized [id number] Authorized Auto-Generat ed Referral 2 03/17/2023 99 99 Specialty Diagnoses / Procedures Referred By Contac t Referred To Contact [facility] Diagnoses Dizziness Procedures CONSULT TO PHYSICAL THERAPY PHYSICAL THERAPY EVALUATION HIGH COMPLEX 45 MINS Aleshia Ray MD [address] [place] [address] [facility] [place] [address] Referral ID Status Reason Start Date Expiration Date Visits Requested Visits Authorized [id number] Authorized PCP Requested Referral Auto-Generate d Referral 2 03/17/2023 99 99 Specialty Diagnoses / Procedures Referred By Contac t Referred To Contact MR IMAGING Diagnoses Dizziness Procedures MRI BRAIN WO IVCON MRI BRAIN BRAIN STEM W/O CONTRAST MATERIAL Aleshia Ray MD [address] [place] [address] Mr Imaging Referral ID Status Reason Start Date Expiration Date Visits Requested Visits Authorized [id number] Authorized Auto-Generat ed Referral 2 04/16/2023 1 1 Specialty Diagnoses / Procedures Referred By Contac t Referred To Contact [facility] Diagnoses Dizziness Procedures PT REHAB FOLLOW UP ORDER THERAPEUTIC EXERCISES RE, EA 15 MIN. Robb Rosas, PT [facility] [place] [address] [place] [address] Referral ID Status Reason Start Date Expiration Date Visits Requested Visits Authorized [id number] Pending Review PCP Requested Referral Auto-Generate d Referral 2 06/23/2022 1 1 Specialty Diagnoses / Procedures Referred By Contac t Referred To Contact MR IMAGING Diagnoses Dizziness Procedures MRI BRAIN WO IVCON MRI BRAIN BRAIN STEM W/O CONTRAST MATERIAL Aleshia Ray MD [address] [place] [address] [place] [id number] Referral ID Status Reason Start Date Expiration Date V isits Requested Visits Authorized [id number] Closed Auto-Generate d Referral 03/17/2022 04/16/2023 1 1 Advance Directives Documents on File Type Date Recorded Patient Health Unit Coordinator Expl anation Advance Directive(s) 06/25/2011 1:44 PM Documents on File Type Date Recorded Patient Health Unit Coordinator Expl anation Advance Directive(s) 06/25/2011 1:44 PM [...] or prosecute any alcohol or drug abuse patient.[facility] the event this information is protected by the Federal Confidentiality of Alcohol and Drug Abuse Patient Records regulations: The Federal rules restrict any use of the information to criminally investigate or prosecute any alcohol or drug abuse patient.[facility] the event this information is protected by the Federal Confidentiality of Alcohol and Drug Abuse Patient Records regulations: The Federal rules restrict any use of the information to criminally investigate or prosecute any alcohol or drug abuse patient.[facility] the event this information is protected by the Federal Confidentiality of Alcohol and Drug Abuse Patient Records regulations: The Federal rules restrict any use of the information to criminally investigate or prosecute any alcohol or drug abuse patient.[facility] the event this information is protected by the Federal Confidentiality of Alcohol and Drug Abuse Patient Records regulations: The Federal rules restrict any use of the information to criminally investigate or prosecute any alcohol or drug abuse patient.[facility] the event this information is protected by the Federal Confidentiality of Alcohol and Drug Abuse Patient Records regulations: The Federal rules restrict any use of the information to criminally investigate or prosecute any alcohol or drug abuse patient.[facility] the event this information is protected by the Federal Confidentiality of Alcohol and Drug Abuse Patient Records regulations: The Federal rules restrict any use of the information to criminally investigate or prosecute any alcohol or drug abuse patient.[facility] the event this information is protected by the Federal Confidentiality of Alcohol and Drug Abuse Patient Records regulations: The Federal rules restrict any use of the information to criminally investigate or prosecute any alcohol or drug abuse patient.[facility] the event this information is protected by the Federal Confidentiality of Alcohol and Drug Abuse Patient Records regulations: The Federal rules restrict any use of the information to criminally investigate or prosecute any alcohol or drug abuse patient.[facility] the event this information is protected by the Federal Confidentiality of Alcohol and Drug Abuse Patient Records regulations: The Federal rules restrict any use of the information to criminally investigate or prosecute any alcohol or drug abuse patient.[facility] the event this information is protected by the Federal Confidentiality of Alcohol and Drug Abuse Patient Records regulations: The Federal rules restrict any use of the information to criminally investigate or prosecute any alcohol or drug abuse patient.[facility] Hospital[facility] the event this information is protected by the Federal Confidentiality of Alcohol and Drug Abuse Patient Records regulations: The Federal rules restrict any use of the information to criminally investigate or prosecute any alcohol or drug abuse patient.[facility] the event this information is protected by the Federal Confidentiality of Alcohol and Drug Abuse Patient Records regulations: The Federal rules restrict any use of the information to criminally investigate or prosecute any alcohol or drug abuse patient.[facility] Hospital[facility] the event this information is protected by the Federal Confidentiality of Alcohol and Drug Abuse Patient Records regulations: The Federal rules restrict any use of the information to criminally investigate or prosecute any alcohol or drug abuse patient.[facility] Hospital[facility] the event this information is protected by the Federal Confidentiality of Alcohol and Drug Abuse Patient Records regulations: The Federal rules restrict any use of the information to criminally investigate or prosecute any alcohol or drug abuse patient.[facility] Hospital[facility] the event this information is protected by the Federal Confidentiality of Alcohol and Drug Abuse Patient Records regulations: The Federal rules restrict any use of the information to criminally investigate or prosecute any alcohol or drug abuse patient.[facility] Hospital[facility] the event this information is protected by the Federal Confidentiality of Alcohol and Drug Abuse Patient Records regulations: The Federal rules restrict any use of the information to criminally investigate or prosecute any alcohol or drug abuse patient.[facility] Hospital[facility] the event this information is protected by the Federal Confidentiality of Alcohol and Drug Abuse Patient Records regulations: The Federal rules restrict any use of the information to criminally investigate or prosecute any alcohol or drug abuse patient.[facility] Hospital[facility] the event this information is protected by the Federal Confidentiality of Alcohol and Drug Abuse Patient Records regulations: The Federal rules restrict any use of the information to criminally investigate or prosecute any alcohol or drug abuse patient.[facility] HospitalIn the event this information is protected by the Federal Confidentiality of Alcohol and Drug Abuse Patient Records regulations: The Federal rules restrict any use of the information to criminally investigate or prosecute any alcohol or drug abuse patient.[facility] HospitalIn the event this information is protected by the Federal Confidentiality of Alcohol and Drug Abuse Patient Records regulations: The Federal rules restrict any use of the information to criminally investigate or prosecute any alcohol or drug abuse patient.[facility] HospitalIn the event this information is protected by the Federal Confidentiality of Alcohol and Drug Abuse Patient Records regulations: The Federal rules restrict any use of the information to criminally investigate or prosecute any alcohol or drug abuse patient.[facility] HospitalIn the event this information is protected by the Federal Confidentiality of Alcohol and Drug Abuse Patient Records regulations: The Federal rules restrict any use of the information to criminally investigate or prosecute any alcohol or drug abuse patient.[facility] Reason for Visit (unrecogniz ed section and content) Specialty Diagnoses / Procedures Referred By Darrell rapp Referred To Contact [facility] Diagnoses Dizziness Procedures CONSULT TO PHYSICAL THERAPY PHYSICAL THERAPY EVALUATION HIGH COMPLEX 45 MINS Aleshia Ray MD [address] [place] [address] [facility] [address] [address] Referral ID Status Reason Start Date Expiration Date Visits Requested Visits Authorized [id number] Authorized PCP Requested Referral Auto-Generate d Referral 2 03/17/2023 99 99 Reason Comments Consult Light headed balance fatigue Reason Comments Patient Question Reason Comments PT Eval Specialty Diagnoses / Procedures Referred By Darrell rapp Referred To Contact [facility] Diagnoses Dizziness Procedures CONSULT TO PHYSICAL THERAPY PHYSICAL THERAPY EVALUATION HIGH COMPLEX 45 MINS Aleshia Ray MD [address] [place] [address] [facility] [place] [address] [place] [address] Reason Comments Physical Therapy Reason Comments Patient Question MRI Results Reason Comments Patient Update Xray and office note s Reason Comments Patient Update Release Of Medical Records Reason Comments Patient Question Confirm if records w ere received Reason Comments Results [facility] R ecords- Previous Cardiology Records Reason Comments Results History Report/ Labs Reason Comments Procedure Upcoming Autonomic T esting 5/16-ANS W/TILT Specialty Diagnoses / Procedures Referred By Contac t Referred To Contact Cardiology Diagnoses Orthostatic hypotension Procedures CONSULT TO CARDIOLOGY OFFICE/OUTPATIENT [facility] 60-74 MINUTES Aleshia Ray MD [address] [place] [address] Referral ID Status Reason Start Date Expiration Date V isits Requested Visits Authorized [id number] Closed PCP Requested Referral 03/17/2022 03/17/2023 1 1 Reason Comments Received Outside Medical Records ECG/ He alth Chart Reason Comments Procedure Upcoming Autonomic T esting 6-ANS W/TILT Reason Comments Supine Hypertension Specialty Diagnoses / Procedures Referred By Contac t Referred To Contact MR IMAGING Diagnoses Dizziness Procedures MRI BRAIN WO IVCON MRI BRAIN BRAIN STEM W/O CONTRAST MATERIAL Aleshia Ray MD [address] [place] [address] Mr Imaging [facility] Referral ID Status Reason Start Date Expiration Date V isits Requested Visits Authorized [id number] Closed Auto-Generate d Referral 03/17/2022 04/16/2023 1 1 Care Teams (unrecognized sec tion and content) Squad Sergeant Relationship Specialty Start Date End Date Marii Kenny [address] [place] [address] PCP - General Family Medicine 08/14/22 Markos Dey [address] [place], [place] [address] Referring Cardiology 08/14/22 Squad Sergeant Relationship Specialty Start Date End Date Marii Kenny [address] [place], [place] [id number] PCP - General Family Medicine 08/14/22 Yissel, Markos S [address] [place] [address] Referring Cardiology 08/14/22 Squad Sergeant Relationship Specialty Start Date End Date Marii Kenny [address] [place] [address] PCP - General Family Medicine 08/14/22 Yissel, Markos S [address] [place] [address] Referring Cardiology 08/14/22 (unrecognized sect ion [...] BE BASED ON THE PRIMARY CLINICAL RECORDS. [email or web address] [facility]. provides no warranty or guarantee of the accuracy or completeness of information in this document.
[2023-05-28 22:47] LABS: Erythrocyte Sedimentation Rate 8 mm/hr (0-20)
[2023-05-28 23:08] LABS: AST(SGOT) 17 U/L (15-37); Alanine Aminotransfer ALT/SGPT 14 U/L (16-61); Albumin, Serum 3.1 g/dL (3.2-5.0); Alkaline Phosphatase 66 U/L (45-117); BNP,B-Type NATRIURETIC PEPTIDE 694.6 pg/mL (0-100); Bilirubin, Direct 0.39 mg/dL (0.00-0.30); CPK Total, Creatine Kinase 57 U/L (39-308); Ferritin 318 ng/mL (26-388); LDH 166 U/L (87-241); Protein, Total 6.1 g/dL (6.4-8.2); Troponin-I HS 17 pg/mL (3.0-78.0)
[2023-05-28 23:11] LABS: D-Dimer Quantitative (DVT/PE) 0.65 FEU/ug/m (0.27-0.49)
[2023-05-28 23:27] LABS: Procalcitonin 0.05 ng/mL (0.00-0.09)
[2023-05-29 00:09] VITALS: BMI 25.8
[2023-05-29 00:10] VITALS: BP 171/58; PULSE 67; RESP 20; TEMP 36.9; O2SAT 94
[2023-05-29] MEDS: 0.9% Normal Saline (1000mL) 1,000 ML 100 ML IV (00:39)
[2023-05-29] MEDS: dexAMETHasone 4 MG/ML Vial 6 MG IV ×2 (00:54→09:07)
[2023-05-29 03:13] VITALS: BMI 25.8
[2023-05-29 04:15] VITALS: BP 157/70; PULSE 67; RESP 18; TEMP 36.8; O2SAT 99
[2023-05-29 06:06] LABS: Absolute Lymphocyte Count 0.25 X10^3/uL (0.83-4.51); Absolute Neutrophil Count 5.4 X10^3/uL (2.0-7.7); Basophil# 0.01 X10^3/uL; Basophil% 0.2 % (0-1); Hematocrit 32.6 % (40-54); Hemoglobin 11.2 g/dL (13.0-16.5); Lymphocyte # 0.25 X10^3/ul (0.83-4.51); Lymphocyte % 4.3 % (19-41); Mean Corp Hgb Conc 34.4 g/dL (32-36); Mean Corpuscular Volume 104.8 fL (80-94); Mean Platelet Vol. 10.6 fl (6.2-12.0); Monocyte# 0.11 X10^3/uL; Monocyte% 1.9 % (0-10); NRBC Flagged by Analyzer 0 % (0-5); Neutrophil # 5.36 X10^3/uL (2.7-7.7); Neutrophil % 92.9 % (47-70); POSITIVE DIFFERENTIAL YES; Platelet Count 113 K/mm3 (150-450); RBC Distribution Width CV 12.6 % (11.6-14.6); RBC Distribution Width SD 48.4 fl (35.1-43.9); Red Blood Count 3.11 M/mm3 (4.6-6.2); White Blood Count 5.8 K/mm3 (4.4-11.0)
[2023-05-29 06:57] LABS: AST(SGOT) 17 U/L (15-37); Alanine Aminotransfer ALT/SGPT 14 U/L (16-61); Albumin, Serum 2.8 g/dL (3.2-5.0); Alkaline Phosphatase 58 U/L (45-117); Anion Gap 5 (5-15); BUN 22 mg/dL (7-18); BUN/Creat Ratio 15.6 RATIO (10-20); Calcium,Total 8.1 mg/dL (8.5-10.1); Chloride 107 mmol/L (98-107); Creatinine, Serum 1.41 mg/dL (0.70-1.30); EST Glomerular Filtration Rate 51 mL/min (>60); Est Glom Filt Rate - Afr Amer 62 mL/min (>60); Estimated Creatinine Clearance 40.39 ml/min; Globulin 2.9 g/dL (2.2-4.2); Glucose 111 mg/dL (74-106); Potassium 4.3 mmol/L (3.5-5.1); Protein, Total 5.7 g/dL (6.4-8.2); Sodium Level 134 mmol/L (136-145)
[2023-05-29 08:00] VITALS: BP 148/59; PULSE 68; RESP 18; TEMP 37.2; O2SAT 93
[2023-05-29] MEDS: Aspirin E.C. 81 MG Tablet PO ×2 (09:09→21:43)
[2023-05-29] MEDS: Ranolazine 500 MG Tablet 1000 MG PO ×2 (09:10→21:43)
[2023-05-29] MEDS: Atenolol 25 MG Tablet 12.5 MG PO ×2 (09:11→21:43)
[2023-05-29] MEDS: 0.9% Normal Saline (250mL Bag) 250 ML 15 ML IV (10:42)
--- NOTE | 2023-05-29 12:12 | PN_ITS ---
Subjective Subjective Patient seen and examined. His daughter was by his bedside. He had no active complaints. He is still coughing and is occasionally productive. He is on room air. Review of systems otherwise negative. Objective Data Objective Data Vital Signs: Vital Signs Temp Pulse Resp BP Pulse Ox O2 Del Method 99.0 F 68 18 148/59 H 93 Room Air 05/29/23 08:00 05/29/23 08:00 05/29/23 08:00 05/29/23 08:00 05/29/23 08:00 05/29/23 10:00 Oxygen Delivery Method Room Air Weight: 175 lb 0.752 oz Body Mass Index (BMI) 25.8 Intake & Output: Intake and Output for Last 24 Hours 05/27/23 05/28/23 05/29/23 23:59 23:59 23:59 Intake Total 612.5 / 612.5 1000 / 1000 Output Total 250 / 250 Balance 612.5 / 612.5 750 / 750 Lab / Micro Data 05/29/23 05:05 05/29/23 05:05 Labs: Laboratory Results - last 24 hr 05/28/23 19:35: WBC 5.9, RBC 3.33 L, Hgb 12.0 L, Hct 34.7 L, MCV 104.2 H, MCH 36.0 H, MCHC 34.6, RDW Std Deviation 47.9 H, RDW Coeff of Fidelia 12.4, Plt Count 116 L, MPV 10.0, Immature Gran % (Auto) 0.700, Neut % (Auto) 88.7 H, Lymph % (Auto) 4.9 L, Dent % (Auto) 5.1, Eos % (Auto) 0.3, Baso % (Auto) 0.3, Absolute Neuts (auto) 5.2, Absolute Lymphs (auto) 0.29 L, Nucleated RBC % 0, ESR 8, D- Dimer Quant (PE/DVT) 0.65 H*, Sodium 137, Potassium 4.7, Chloride 107, Carbon Dioxide 25.0, Anion Gap 5, BUN 22 H, Creatinine 1.50 H, Estim Creat Clear Calc 37.97, Est GFR (MDRD) Af Amer 58 L, Est GFR (MDRD) Non-Af 48 L, BUN/Creatinine Ratio 14.7, Glucose 99, Calcium 8.5, Ferritin 318, Total Bilirubin 1.00, Direct Bilirubin 0.39 H, AST 17, ALT 14 L, Alkaline Phosphatase 66, Lactate Dehydrogenase 166, Total Creatine Kinase 57, Troponin I High Sens 17, C-React Prot Ext Range 17.00 H, B-Natriuretic Peptide 694.6 H, Total Protein 6.1 L, Albumin 3.1 L, Globulin 3.0 05/28/23 19:45: Urine Color Yellow, Urine Clarity Clear, Urine pH 5.0, Ur Specific [place] 1.020, Urine Protein 15 H, Urine Glucose (UA) Normal, Urine Ketones Negative, Urine Occult Blood Negative, Urine Nitrite Negative, Urine Bilirubin Negative, Urine Urobilinogen Normal, Ur Leukocyte Esterase Negative, Urine RBC 0 SEEN, Urine WBC 0 SEEN, Ur Squamous Epith Cells 0 SEEN, Urine Bacteria 0 SEEN, Urine Mucus 0 SEEN 05/28/23 22:54: Procalcitonin 0.05 05/29/23 05:05: WBC 5.8, RBC 3.11 L, Hgb 11.2 L, Hct 32.6 L, MCV 104.8 H, MCH 36.0 H, MCHC 34.4, RDW Std Deviation 48.4 H, RDW Coeff of Fidelia 12.6, Plt Count 113 L, MPV 10.6, Immature Gran % (Auto) 0.700, Neut % (Auto) 92.9 H, Lymph % (Auto) 4.3 L, Dent % (Auto) 1.9, Eos % (Auto) 0.0, Baso % (Auto) 0.2, Absolute Neuts (auto) 5.4, Absolute Lymphs (auto) 0.25 L, Nucleated RBC % 0, Sodium 134 L , Potassium 4.3, Chloride 107, Carbon Dioxide 22.0, Anion Gap 5, BUN 22 H, Creatinine 1.41 H, Estim Creat Clear Calc 40.39, Est GFR (MDRD) Af Amer 62, Est GFR (MDRD) Non-Af 51 L, BUN/Creatinine Ratio 15.6, Glucose 111 H, Calcium 8.1 L, Total Bilirubin 0.80, AST 17, ALT 14 L, Alkaline Phosphatase 58, Total Protein 5.7 L, Albumin 2.8 L, Globulin 2.9, Albumin/Globulin Ratio 1.0 Micro: Microbiology 05/28/23 19:48 Mucosa - Nose SARS-CoV-2, Influenza & RSV (PCR) - Final SARS-CoV-2 (COVID 19) Radiography Diagnostic Testing: Radiology Impression Brain CT 05/28/23 19:31 IMPRESSION: Chronic changes as described with no acute intracranial hemorrhage or space-occupying lesion. Electronically Signed: Kalie Anderson MD at 20:20 EST , Chest X-Ray 05/28/23 20:00 IMPRESSION: Possible left mid lung pneumonitis with minimal right midlung atelectasis. No pleural effusion or pneumothorax. Electronically Signed: Kalie Anderson MD at 20:50 EST Reading Location ID and State: [facility] / [place] , Service support , Physical Exam Const alert, oriented x3 and no apparent distress Constitutional Narrative: frail and weak HEENT normocephalic, head/scalp atraumatic, moist oral mucous membranes and oropharynx normal Neck no lymphadenopathy, supple and no JVD Lymph Lymphatic: no lymphadenopathy noted and no lymphedema noted Resp Resp Narrative: mildly diminished breath sounds bilaterally, no wheezes or crackles. On room air. Cardio regular rate, regular rhythm, S1 normal heart sound, S2 normal heart sound and no murmurs GI normal to inspection, nondistended, normoactive bowel sounds, soft to palpation, non-tender and non-distended Extremity normal capillary refill, no clubbing, cyanosis or edema and no calf tenderness General Extremity: no tenderness to palpation of joints or extremities Skin General Skin Exam: no breakdown Neuro CN's II-XII intact bilaterally, no focal motor deficits and no sensory deficits noted Motor Exam: general weakness Psych thought process normal and cooperative Mood & Affect: flat affect Assessment & Plan Assessment/Plan (1) COVID-19: (2) Weakness: PLAN: Plan #Failure to thrive due to COVID 19 infection * on room air. * breathing treatment with bronchodilators. * Titrate oxygen to maintain sats >90% * on decadron 6mg daily x 10 doses in total * PT/OT on board * fall precautions * #CAD s/p CABG; on on medial therapy. On aspirin, statin, atenolol. #Chronic thrombocytopenia: ill monitor and trend. CKD stage III: Creatinine at baseline. Will monitor. #Hypertension: on atenolol #Dementia: on donepezil. #Hyperlipidemia: On statin DVT prophylaxis: on lovenox. Charges/Coding Visit Charges Inpatient E&M: 04557 Subs Hosp L2
--- NOTE | 2023-05-29 12:18 | CASEMGMT ---
Social Work SW met w/pt in room to review prior level of function and anticipated discharge plan. Pt does have dementia but was able to answer all SW questions. SW did follow up w/daughter afterward. PCP: Dr. Patrick Specialists: Dr. Dey, cardiology Pharmacy: Uses [place] or locally [facility] Insurance: Medicare/MMO LNOK: Daughter with whom he is living at present, son Cristian who lives in [place]. Pt's of 31 years just on Wednesday. SW offered support to pt. Living arrangements: Pt lives home in a one story home, daughter is staying w/him at present. She normally lives in [place]. was home on hospice and just . LW/POA: There is a POA form on file stating is POA. There are no alternates listed. Pt has the two children, both involved. Prior level of function: Pt's daughter helping pt w/transportation, medication, cooking and cleaning. She helps him intermittently with dressing and self care. Since being sick however pt has needed more assist DME: Pt uses a walker, has a cane, wheelchair, raised toilet seat. He plans to get a shower chair SNF/HHC/Outpt PT: Pt states has not been to SNF, has not had home health. He [facility] to [facility] for outpt PT as well as [facility] Plan: Pt states that the plan is for him to move to a skilled nursing village in [place] near where his son lives, states he is on a wait list there. He is agreeable to short term rehab in the area first though. Pt agreeable to JAZMIN calling his daughter to check in w/her on the plan. JAZMIN did leave a list of snf facilities via [employer] in the room for pt's daughter, that includes facilities in their preferred geographic area, insurance network and complete w/quality and resource use data. JAZMIN then called daughter Archie. She confirms the plan is for pt to move to [facility] in [place]. She states they just learned the room will be available mid June. We spoke about pt going somewhere locally for rehab and then transitioning there, daughter is in agreement with this. JAZMIN asked her to review the list in the room and pick 5 places to send referrals, as pt has COVID and it is not certain which facilities will take a COVID pt at this time. Daughter states understanding. SW explained the Medicare benefit for SNF to daughter. She states pt has a trust and spoke about possibly needing to pay privately for the assisted instead of him going under his Medicare. She states the trust may not allow for pt to go under his Medicare. she states that once pt is at the facility in [place] for two years private pay he will qualify for the Medicaid waiver. She does not want to mess this up and is concerned that pt going to the assisted here under Medicare could cause an issue with this process. SW explained had not heard before of a trust not allowing a pt to use his insurance benefit. She is going to call the tax attorney on Wednesday to check into this. SW explained that SW will follow up w/her Wednesday for assisted choices, and she can let us know what the tax attorney says in regard to using pt's Medicare benefit vs private paying at the assisted locally. Plan: SNF, daughter to let us know where she would like referrals Wednesday, and she also needs to let us know if plan will be to pay privately vs going to the assisted under his Medicare. PARVIN Wu
--- NOTE | 2023-05-29 12:35 | ECHOD_ITS ---
Reason For Study: DYSPNEA/SOB Procedure This was a 2D Doppler, Color Flow transthoracic echocardiogram. Exam performed portable in patient room. The exam was abbreviated due to the COVID 19 protocol. Left Ventricle Normal LV size. The estimated ejection fraction is 65 %. Unable to assess diastolic dysfunction. No regional wall motion abnormalities noted. Right Ventricle Normal RV size. Normal systolic function. Atria The left atrium is moderately enlarged. Normal right atrium. No doppler evidence for ASD. Mitral Valve There is no mitral valve stenosis. Trivial mitral valve insufficiency. Tricuspid Valve There is no tricuspid stenosis. Trivial tricuspid valve insufficiency. Pulmonary artery systolic pressure is 45 mmHg. Aortic Valve Trisinus/trileaflet aortic valve. There is no aortic stenosis. No aortic valve insufficiency. Pulmonic Valve There is no pulmonic valvular stenosis. Trivial pulmonic valve insufficiency. Great Vessels Normal aortic root. Pericardium/Pleural No pericardial effusion. MMode/2D Measurements & Calculations LVIDd: 4.7 cm IVSd: 1.1 cm Ao root diam: 3.4 cm LVIDs: 3.1 cm LVPWd: 1.1 cm FS: 35.5 % LAV(MOD-bp): 68.1 ml LVAd ap4: 30.7 cm2 SV(MOD-sp4): 67.7 ml LAV(MOD-bp) Indexed: 34.5 ml/m2 LVLd ap4: 7.7 cm LAV(MOD-sp2): 70.1 ml EDV(MOD-sp4): 101.9 ml LAV(MOD-sp4): 65.7 ml EDV(sp4-el): 103.4 ml LVAs ap4: 15.9 cm2 LVLs ap4: 6.3 cm ESV(MOD-sp4): 34.2 ml ESV(sp4-el): 34.3 ml EF(MOD-sp4): 66.4 % EF(sp4-el): 66.8 % SV(sp4-el): 69.0 ml LA A4 area: 23.1 cm2 LA dimension(2D): 4.7 cm RA A4 area: 18.8 cm2 Doppler Measurements & Calculations Ao V2 max: 151.6 cm/sec LV V1 max: 120.3 cm/sec TR max moreno: 319.6 cm/sec Ao max P.2 mmHg LV V1 max P.8 mmHg TR max P.9 mmHg ECHO/Echo Complete Interpretation Summary The estimated ejection fraction is 65 %. Unable to assess diastolic dysfunction. The left atrium is moderately enlarged. Trivial mitral valve insufficiency. Ordering Physician: Ekaterina Isidro Referring Physician: MARII CARDENAS Performed By: Promise Hamm RDCS
[2023-05-29 13:29] VITALS: BP 122/77; PULSE 62; RESP 16; TEMP 36.6; O2SAT 99
[2023-05-29] MEDS: Furosemide 40 MG/4 ML Vial IV (13:32)
[2023-05-29] MEDS: Menthol/Lanolin/Calamine/Znox 113 GM Tube 1 APPLIC TOPICAL (16:19)
[2023-05-29 18:14] VITALS: BP 132/50; PULSE 65; RESP 16; TEMP 36.4; O2SAT 99
[2023-05-29] MEDS: Donepezil HCl 5 MG Tablet PO (21:42)
[2023-05-29] MEDS: Pravastatin 20 MG Tablet 10 MG PO (21:43)
[2023-05-29 21:46] VITALS: BP 162/60; PULSE 64; RESP 14; TEMP 36.6; O2SAT 95
[2023-05-30 03:45] VITALS: BP 159/72; PULSE 62; RESP 15; TEMP 36.2; O2SAT 97
[2023-05-30 06:00] VITALS: BMI 26.6
[2023-05-30 06:22] LABS: Absolute Lymphocyte Count 0.53 X10^3/uL (0.83-4.51); Basophil# 0.01 X10^3/uL; Basophil% 0.1 % (0-1); Hematocrit 31.3 % (40-54); Hemoglobin 10.8 g/dL (13.0-16.5); Lymphocyte # 0.53 X10^3/ul (0.83-4.51); Lymphocyte % 4.7 % (19-41); Mean Corp Hgb Conc 34.5 g/dL (32-36); Mean Corpuscular Hgb 35.6 pg (27.0-32.0); Mean Corpuscular Volume 103.3 fL (80-94); Mean Platelet Vol. 10.6 fl (6.2-12.0); Monocyte# 0.65 X10^3/uL; Monocyte% 5.8 % (0-10); NRBC Flagged by Analyzer 0 % (0-5); Neutrophil # 9.98 X10^3/uL (2.7-7.7); POSITIVE DIFFERENTIAL YES; Platelet Count 119 K/mm3 (150-450); RBC Distribution Width CV 12.5 % (11.6-14.6); Red Blood Count 3.03 M/mm3 (4.6-6.2); White Blood Count 11.2 K/mm3 (4.4-11.0)
[2023-05-30 06:57] LABS: Anion Gap 3 (5-15); BUN 44 mg/dL (7-18); BUN/Creat Ratio 29.3 RATIO (10-20); Calcium,Total 8.6 mg/dL (8.5-10.1); Chloride 109 mmol/L (98-107); EST Glomerular Filtration Rate 48 mL/min (>60); Est Glom Filt Rate - Afr Amer 58 mL/min (>60); Estimated Creatinine Clearance 37.97 ml/min; Glucose 158 mg/dL (74-106); Potassium 4.1 mmol/L (3.5-5.1); Sodium Level 136 mmol/L (136-145)
[2023-05-30 09:11] VITALS: BP 146/59; PULSE 57; RESP 16; TEMP 36.6; O2SAT 100
[2023-05-30] MEDS: Aspirin E.C. 81 MG Tablet PO ×2 (09:13→21:14)
[2023-05-30] MEDS: Furosemide 40 MG/4 ML Vial IV (09:14)
[2023-05-30] MEDS: dexAMETHasone 4 MG/ML Vial 6 MG IV (09:14)
[2023-05-30] MEDS: Ranolazine 500 MG Tablet 1000 MG PO ×2 (09:16→21:12)
[2023-05-30] MEDS: Atenolol 25 MG Tablet 12.5 MG PO ×2 (09:17→21:13)
--- NOTE | 2023-05-30 10:52 | PN_ITS ---
Subjective Subjective Patient seen and examined. He had no active complaints. He is on room air. Review of systems is otherwise negative. Review of systems is otherwise negative. Objective Data Objective Data Vital Signs: Vital Signs Temp Pulse Resp BP Pulse Ox O2 Del Method 97.8 F 57 L 16 146/59 H 100 Room Air 05/30/23 09:11 05/30/23 09:11 05/30/23 09:11 05/30/23 09:11 05/30/23 09:11 05/30/23 09:11 Oxygen Delivery Method Room Air Weight: 180 lb 5.41 oz Body Mass Index (BMI) 26.6 Intake & Output: Intake and Output for Last 24 Hours 05/28/23 05/29/23 05/30/23 23:59 23:59 23:59 Intake Total 612.5 / 612.5 1428.25 / 1428.25 Output Total 1050 / 1050 350 / 350 Balance 612.5 / 612.5 378.25 / 378.25 -350 / -350 Lab / Micro Data 05/30/23 05:56 05/30/23 05:56 Labs: Laboratory Results - last 24 hr 05/30/23 05:56: WBC 11.2 H, RBC 3.03 L, Hgb 10.8 L, Hct 31.3 L, MCV 103.3 H, MCH 35.6 H, MCHC 34.5, RDW Std Deviation 47.0 H, RDW Coeff of Fidelia 12.5, Plt Count 119 L, MPV 10.6, Immature Gran % (Auto) 0.400, Neut % (Auto) 89.0 H, Lymph % (Auto) 4.7 L, [place] % (Auto) 5.8, Eos % (Auto) 0.0, Baso % (Auto) 0.1, Absolute Neuts (auto) 10.0 H, Absolute Lymphs (auto) 0.53 L, Nucleated RBC % 0, Sodium 136, Potassium 4.1, Chloride 109 H, Carbon Dioxide 24.0, Anion Gap 3 L, BUN 44 H , Creatinine 1.50 H, Estim Creat Clear Calc 37.97, Est GFR (MDRD) Af Amer 58 L, Est GFR (MDRD) Non-Af 48 L, BUN/Creatinine Ratio 29.3 H, Glucose 158 H, Calcium 8.6 Micro: Microbiology 05/28/23 19:48 Mucosa - Nose SARS-CoV-2, Influenza & RSV (PCR) - Final SARS-CoV-2 (COVID 19) Physical Exam Const alert, oriented x3 and no apparent distress Constitutional Narrative: frail and weak HEENT normocephalic, head/scalp atraumatic, moist oral mucous membranes and oropharynx normal Neck no lymphadenopathy, supple and no JVD Lymph Lymphatic: no lymphadenopathy noted and no lymphedema noted Resp Resp Narrative: mildly diminished breath sounds bilaterally, no wheezes or crackles. On room air. Cardio regular rate, regular rhythm, S1 normal heart sound, S2 normal heart sound and no murmurs GI normal to inspection, nondistended, normoactive bowel sounds, soft to palpation, non-tender and non-distended Extremity normal capillary refill, no clubbing, cyanosis or edema and no calf tenderness General Extremity: no tenderness to palpation of joints or extremities Skin General Skin Exam: no breakdown Neuro CN's II-XII intact bilaterally, no focal motor deficits and no sensory deficits noted Motor Exam: general weakness Psych thought process normal and cooperative Appearance: appropriate Assessment & Plan Assessment/Plan (1) COVID-19: (2) Weakness: PLAN: Plan #Failure to thrive due to COVID 19 infection * on room air. * breathing treatment with bronchodilators. * Titrate oxygen to maintain sats >90% * on decadron 6mg daily x 10 doses in total * PT/OT on board * fall precautions * #CAD s/p CABG; on on medial therapy. On aspirin, statin, atenolol. #Chronic thrombocytopenia: ill monitor and trend. CKD stage III: Creatinine remains at baseline. Will monitor. #Hypertension: on atenolol #Dementia: on donepezil. #Hyperlipidemia: On statin DVT prophylaxis: on lovenox. Disposition: depends on how he does with therapy. Charges/Coding Visit Charges Inpatient E&M: 31968 Subs Hosp L2
[2023-05-30 15:20] VITALS: BP 129/54; PULSE 55; RESP 16; TEMP 36.2; O2SAT 100
[2023-05-30] MEDS: Acetaminophen 325 MG Tablet 650 MG PO (21:12)
[2023-05-30] MEDS: MELATONIN 3 MG TABLET PO (21:12)
[2023-05-30] MEDS: Donepezil HCl 5 MG Tablet PO (21:13)
[2023-05-30] MEDS: Pravastatin 20 MG Tablet 10 MG PO (21:14)
[2023-05-30] MEDS: guaiFENesin 10 ML UDC (200MG/10ML) 20 ML PO (21:16)
[2023-05-30 21:17] VITALS: BP 143/47; PULSE 60; RESP 14; TEMP 36.7; O2SAT 97
[2023-05-31 03:20] VITALS: BP 153/60; PULSE 54; RESP 16; TEMP 36.7; O2SAT 98
[2023-05-31 06:00] VITALS: BMI 26.6
[2023-05-31 07:00] VITALS: BP 122/77; PULSE 62; RESP 16; TEMP 36.6; O2SAT 99
[2023-05-31 07:42] LABS: Absolute Lymphocyte Count 0.73 X10^3/uL (0.83-4.51); Absolute Neutrophil Count 10.5 X10^3/uL (2.0-7.7); Basophil# 0.01 X10^3/uL; Basophil% 0.1 % (0-1); Hematocrit 33.8 % (40-54); Hemoglobin 11.4 g/dL (13.0-16.5); Lymphocyte # 0.73 X10^3/ul (0.83-4.51); Lymphocyte % 6.1 % (19-41); Mean Corp Hgb Conc 33.7 g/dL (32-36); Mean Corpuscular Hgb 35.3 pg (27.0-32.0); Mean Corpuscular Volume 104.6 fL (80-94); Mean Platelet Vol. 10.6 fl (6.2-12.0); Monocyte# 0.52 X10^3/uL; Monocyte% 4.4 % (0-10); NRBC Flagged by Analyzer 0 % (0-5); Neutrophil # 10.52 X10^3/uL (2.7-7.7); Neutrophil % 88.6 % (47-70); Platelet Count 150 K/mm3 (150-450); RBC Distribution Width CV 12.5 % (11.6-14.6); Red Blood Count 3.23 M/mm3 (4.6-6.2); White Blood Count 11.9 K/mm3 (4.4-11.0)
[2023-05-31 08:05] LABS: Anion Gap 4 (5-15); BUN 52 mg/dL (7-18); BUN/Creat Ratio 32.9 RATIO (10-20); Calcium,Total 8.7 mg/dL (8.5-10.1); Chloride 108 mmol/L (98-107); Creatinine, Serum 1.58 mg/dL (0.70-1.30); EST Glomerular Filtration Rate 45 mL/min (>60); Est Glom Filt Rate - Afr Amer 54 mL/min (>60); Estimated Creatinine Clearance 36.05 ml/min; Glucose 159 mg/dL (74-106); Potassium 4.1 mmol/L (3.5-5.1); Sodium Level 138 mmol/L (136-145)
--- NOTE | 2023-05-31 08:55 | CASEMGMT ---
SW spoke with patient's daughter Archie. Archie said her SNF choices are [facility] and [facility]. SW will check with facilities and get back to her when SW has some answers. SW made a referral to [facility]. Await response. Kathia STEWART
[2023-05-31 09:20] VITALS: BP 139/53; PULSE 54; RESP 18; TEMP 36.7; O2SAT 98
[2023-05-31] MEDS: Menthol/Lanolin/Calamine/Znox 113 GM Tube 1 APPLIC TOPICAL ×3 (10:03→17:02)
[2023-05-31] MEDS: 0.9% Saline Lock 10 ML Syringe IV (10:06)
[2023-05-31] MEDS: Atenolol 25 MG Tablet 12.5 MG PO ×2 (10:06→22:00)
[2023-05-31] MEDS: Aspirin E.C. 81 MG Tablet PO ×2 (10:07→21:59)
[2023-05-31] MEDS: Ranolazine 500 MG Tablet 1000 MG PO ×2 (10:07→21:59)
[2023-05-31] MEDS: Furosemide 40 MG/4 ML Vial IV (10:07)
[2023-05-31] MEDS: dexAMETHasone 4 MG/ML Vial 6 MG IV (10:07)
[2023-05-31] MEDS: Enoxaparin 40 MG/0.4 ML Syringe SC (10:08)
[2023-05-31] MEDS: guaiFENesin 10 ML UDC (200MG/10ML) 20 ML PO (10:22)
--- NOTE | 2023-05-31 10:46 | PN_ITS ---
Subjective Subjective Patient seen and examined. He said he felt a bit dizzy this morning but said he knew he would feel better once he ate. He is on room air. He had no active complaints. Review of systems otherwise negative. He has remained hemodynamically stable. Objective Data Objective Data Vital Signs: Vital Signs Temp Pulse Resp BP Pulse Ox O2 Del Method 98.0 F 54 L 18 139/53 H 98 Room Air 05/31/23 09:20 05/31/23 09:20 05/31/23 09:20 05/31/23 09:20 05/31/23 09:20 05/31/23 09:56 Oxygen Delivery Method Room Air Weight: 180 lb 1.883 oz Body Mass Index (BMI) 26.6 Intake & Output: Intake and Output for Last 24 Hours 05/29/23 05/30/23 05/31/23 23:59 23:59 23:59 Intake Total 1428.25 / 1428.25 451.75 / 451.75 Output Total 1050 / 1050 850 / 850 425 / 425 Balance 378.25 / 378.25 -398.25 / -398.25 -425 / -425 Lab / Micro Data 05/31/23 07:15 05/31/23 07:15 Labs: Laboratory Results - last 24 hr 05/31/23 07:15: WBC 11.9 H, RBC 3.23 L, Hgb 11.4 L, Hct 33.8 L, MCV 104.6 H, MCH 35.3 H, MCHC 33.7, RDW Std Deviation 49.0 H, RDW Coeff of Fidelia 12.5, Plt Count 150, MPV 10.6, Immature Gran % (Auto) 0.800, Neut % (Auto) 88.6 H, Lymph % (Auto) 6.1 L, [place] % (Auto) 4.4, Eos % (Auto) 0.0, Baso % (Auto) 0.1, Absolute Neuts (auto) 10.5 H, Absolute Lymphs (auto) 0.73 L, Nucleated RBC % 0, Sodium 138, Potassium 4.1, Chloride 108 H, Carbon Dioxide 26.0, Anion Gap 4 L, BUN 52 H , Creatinine 1.58 H, Estim Creat Clear Calc 36.05, Est GFR (MDRD) Af Amer 54 L, Est GFR (MDRD) Non-Af 45 L, BUN/Creatinine Ratio 32.9 H, Glucose 159 H, Calcium 8.7 Micro: Microbiology 05/28/23 19:48 Mucosa - Nose SARS-CoV-2, Influenza & RSV (PCR) - Final SARS-CoV-2 (COVID 19) Physical Exam Const alert, oriented x3 and no apparent distress Constitutional Narrative: frail and weak HEENT normocephalic, head/scalp atraumatic, moist oral mucous membranes and oropharynx normal Neck no lymphadenopathy, supple and no JVD Lymph Lymphatic: no lymphadenopathy noted and no lymphedema noted Resp Resp Narrative: mildly diminished breath sounds bilaterally, no wheezes or crackles. On room air. Cardio regular rate, regular rhythm, S1 normal heart sound, S2 normal heart sound and no murmurs GI normal to inspection, nondistended, normoactive bowel sounds, soft to palpation, non-tender and non-distended Extremity normal capillary refill, no clubbing, cyanosis or edema and no calf tenderness General Extremity: no tenderness to palpation of joints or extremities Skin General Skin Exam: no breakdown Neuro CN's II-XII intact bilaterally, no focal motor deficits and no sensory deficits noted Motor Exam: general weakness Psych thought process normal and cooperative Appearance: appropriate Assessment & Plan Assessment/Plan (1) COVID-19: (2) Weakness: PLAN: Plan #Failure to thrive due to COVID 19 infection * on room air. * breathing treatment with bronchodilators. * Titrate oxygen to maintain sats >90% * on decadron 6mg daily x 10 doses in total * PT/OT on board * fall precautions * #CAD s/p CABG; on on medial therapy. On aspirin, statin, atenolol. #Chronic thrombocytopenia: ill monitor and trend. CKD stage III: Creatinine remains at baseline. Will monitor. #Hypertension: on atenolol #Dementia: on donepezil. #Hyperlipidemia: On statin DVT prophylaxis: on lovenox. Disposition: awaiting placement. Charges/Coding Visit Charges Inpatient E&M: 21718 Subs Hosp L2
[2023-05-31 13:00] VITALS: BP 122/77; PULSE 62; RESP 16; TEMP 36.6; O2SAT 99
--- NOTE | 2023-05-31 13:10 | CASEMGMT ---
Addendum entered by Deb Jasso 05/31/23 14:01: Patient has been accepted by [facility]. SW updated. Deb Jasso, Discharge Planning Asst. Original Note: Discharge Planning Referral sent via [facility] to [facility]. Deb Jasso, Discharge Planning Asst.
--- NOTE | 2023-05-31 14:26 | CASEMGMT ---
Addendum entered by Kathia Wills 05/31/23 14:36: Archie spoke with JAZMIN and they would like patient to go to [facility]. SW notified Cecile in TCU. Plan: d/c to [facility] under skilled level of care. Kathia STEWART Original Note: TCU can take patient, but due to Covid he could not go until 2-29. Patient will likely be ready before then. [facility] also accepted patient and they can take patient tomorrow. JAZMIN called patient's daughter Archie and let her know this information. JAZMIN also let Archie know physician told SW patient is ready for discharge. Archie was going to check with her brother, but she thinks the sooner they get started on rehab the better. Plan: [facility] Kathia STEWART
[2023-05-31 15:20] VITALS: BP 146/58; PULSE 54; RESP 18; TEMP 36.6; O2SAT 99
[2023-05-31 21:57] VITALS: BP 145/60; PULSE 61; RESP 16; TEMP 36.7; O2SAT 95
[2023-05-31] MEDS: Pravastatin 20 MG Tablet 10 MG PO (21:59)
[2023-05-31] MEDS: Donepezil HCl 5 MG Tablet PO (21:59)
[2023-05-31] MEDS: MELATONIN 3 MG TABLET PO (23:08)
[2023-06-01 03:42] VITALS: BP 149/59; PULSE 52; RESP 18; TEMP 36.4; O2SAT 97
[2023-06-01 04:39] VITALS: BMI 25.7
[2023-06-01 07:20] VITALS: O2SAT 95
[2023-06-01 07:55] LABS: Absolute Lymphocyte Count 0.87 X10^3/uL (0.83-4.51); Absolute Neutrophil Count 9.3 X10^3/uL (2.0-7.7); Basophil# 0.01 X10^3/uL; Basophil% 0.1 % (0-1); Hematocrit 34.3 % (40-54); Hemoglobin 11.6 g/dL (13.0-16.5); Lymphocyte # 0.87 X10^3/ul (0.83-4.51); Lymphocyte % 7.9 % (19-41); Mean Corp Hgb Conc 33.8 g/dL (32-36); Mean Corpuscular Hgb 35.3 pg (27.0-32.0); Mean Corpuscular Volume 104.3 fL (80-94); Mean Platelet Vol. 10.2 fl (6.2-12.0); Monocyte# 0.76 X10^3/uL; Monocyte% 6.9 % (0-10); NRBC Flagged by Analyzer 0 % (0-5); Neutrophil # 9.32 X10^3/uL (2.7-7.7); Neutrophil % 84.4 % (47-70); Platelet Count 161 K/mm3 (150-450); RBC Distribution Width CV 12.5 % (11.6-14.6); RBC Distribution Width SD 48.2 fl (35.1-43.9); Red Blood Count 3.29 M/mm3 (4.6-6.2)
[2023-06-01 08:33] LABS: Anion Gap 4 (5-15); BUN 52 mg/dL (7-18); BUN/Creat Ratio 35.6 RATIO (10-20); Calcium,Total 8.6 mg/dL (8.5-10.1); Chloride 108 mmol/L (98-107); Creatinine, Serum 1.46 mg/dL (0.70-1.30); EST Glomerular Filtration Rate 49 mL/min (>60); Est Glom Filt Rate - Afr Amer 59 mL/min (>60); Estimated Creatinine Clearance 39.01 ml/min; Glucose 103 mg/dL (74-106); Potassium 4.2 mmol/L (3.5-5.1); Sodium Level 140 mmol/L (136-145)
[2023-06-01 08:35] VITALS: BP 171/71; PULSE 58; RESP 18; TEMP 35.7; O2SAT 100
[2023-06-01] MEDS: Enoxaparin 40 MG/0.4 ML Syringe SC (10:11)
[2023-06-01] MEDS: Ranolazine 500 MG Tablet 1000 MG PO (10:12)
[2023-06-01] MEDS: Aspirin E.C. 81 MG Tablet PO (10:12)
[2023-06-01] MEDS: Atenolol 25 MG Tablet 12.5 MG PO (10:12)
[2023-06-01] MEDS: dexAMETHasone 4 MG/ML Vial 6 MG IV (10:12)
[2023-06-01] MEDS: Furosemide 40 MG/4 ML Vial IV (10:12)
--- NOTE | 2023-06-01 13:13 | TREXTCAR_ITS ---
Diet Diet Order/Speech Therapy: 05/28/23 23:53 Diet: Cardiac - Heart Healthy Food consistency:: Easy to Chew Liquid Consistency:: Regular/Thin Type of Dietary Supplement:: Ensure Plus High Protein Diet Comments: 240mL EPHP BID with breakfast and dinner, Supervision at meals Routine Orders/Code Status Enema Type: Fleetz Enema Frequency: Daily PRN Suppository Type: Dulcolax 10mg Wound(s) L elbow: Wound Type: Skin Tear Therapies Weight Bearing: Weight bearing as tolerated Physical Therapy: Eval and Treat Occupational Therapy: Eval and Treat Problem/Diagnosis (1) COVID-19: Status: Acute Code(s): U07.1 - COVID-19 (2) Weakness: Status: Acute Code(s): R53.1 - Weakness Plan #Failure to thrive due to COVID 19 infection * on room air. * breathing treatment with bronchodilators. * Titrate oxygen to maintain sats >90% * on decadron 6mg daily x 10 doses in total * PT/OT on board * fall precautions * #CAD s/p CABG; on on medial therapy. On aspirin, statin, atenolol. #Chronic thrombocytopenia: ill monitor and trend. CKD stage III: Creatinine remains at baseline. Will monitor. #Hypertension: on atenolol #Dementia: on donepezil. #Hyperlipidemia: On statin DVT prophylaxis: on lovenox. Disposition: awaiting placement. Allergies/Procedures Done in Hospital Allergies Penicillins Allergy (Verified 11/18/22 11:30) Hives amlodipine Adverse Reaction (Intermediate, Verified 11/18/22 11:30) dizziness Iodinated Contrast Media [DYEE] Adverse Reaction (Verified 11/18/22 11:30) Other Type of Care/Length of Stay Estimated LOS: Convalescent Care Less Than 30 days Type of Care Needed: Skilled Rehab Potential: Fair Prognosis: Fair Additional Orders/Day of Discharge Day of Discharge: 06/01/23 Dietary and Speech Recommendations Dietitian Recommendations/Changes: Continue Cardiac diet to manage medical conditions. RD will order 240mL EPHP BID with meals for supplemental PO. Discharge Plan Admission Admit Date/Time: 05/28/23 22:19 Primary Reason for Your Visit: covid Attending Provider: Ekaterina Isidro Primary Care Provider: Marino Patrick Consulting Providers: Ana Stewart Instructions Patient Instructions: Coronavirus Disease 2019 (COVID-19): Overview, Coronavirus Disease 2019 (COVID-19): Prevention Discharge Orders/Prescriptions Prescriptions: Continued ranolazine [Ranexa] 1,000 mg tablet extended release 12 hr 1,000 mg PO BID Qty: 180 3RF atenolol 25 mg tablet 12.5 mg PO BID Rx Instructions: 1/2 tab bid cyanocobalamin (vitamin B-12) 1,000 MCG tablet 1,000 mcg PO DAILY Patient Comments: Vitamin B supplement aspirin 81 MG tablet 81 mg PO BID Patient Comments: Blood thinner for heart health nitroglycerin 0.4 MG tablet 0.4 mg SUBLINGUAL Q5M PRN (Reason: Chest Pain) Patient Comments: Chest pain cholecalciferol (vitamin D3) 1,000 UNIT tablet 1,000 unit PO BID Patient Comments: Vitamin D supplement donepezil 5 mg tablet 5 mg PO QHS Patient Comments: TAKE 1 TABLET BY MOUTH AT BEDTIME (DME) Handicap Parking Placard See Rx Instructions .Route .MEDSUPPLY Qty: 1 0RF Rx Instructions: As directed pravastatin 10 mg tablet 10 mg PO QHS Qty: 30 11RF Referrals / Follow Up: Marino Patrick MD [Primary Care Provider] - Within 2 Weeks Disposition Disposition (needs filled in before D/C Order can be placed): [facility]
--- NOTE | 2023-06-01 13:17 | PCM.DC.SUM ---
Providers Date of Admission: 05/28/23 Date of Discharge: 06/01/23 Primary Care Physician: Dr. Marino Patrick MD Reason For Visit: COVID, ADULT FFT Diagnosis Discharge Diagnosis (1) COVID-19: Status: Acute Code(s): U07.1 - COVID-19 (2) Weakness: Status: Acute Code(s): R53.1 - Weakness Plan #Failure to thrive due to COVID 19 infection on room air. breathing treatment with bronchodilators. Titrate oxygen to maintain sats >90% on decadron 6mg daily x 10 doses in total PT/OT on board fall precautions #CAD s/p CABG; on on medial therapy. On aspirin, statin, atenolol. #Chronic thrombocytopenia: ill monitor and trend. CKD stage III: Creatinine remains at baseline. Will monitor. #Hypertension: on atenolol #Dementia: on donepezil. #Hyperlipidemia: On statin DVT prophylaxis: on lovenox. Disposition: awaiting placement. Medications at Discharge Home Medications aspirin 81 mg tablet,delayed release 81 mg PO BID 05/13/15 cholecalciferol (vitamin D3) 25 mcg (1,000 unit) tablet 1,000 unit PO BID 05/13/15 cyanocobalamin (vitamin B-12) 1,000 mcg tablet 1,000 mcg PO DAILY 05/13/15 nitroglycerin 0.4 mg sublingual tablet 0.4 mg sublingual Q5M PRN Chest Pain 05/13/15 Handicap Parking Placard #1 ea 06/03/21 ranolazine 1,000 mg tablet,extended release,12 hr (Ranexa) 1,000 mg PO BID #180 tabs 08/21/21 pravastatin 10 mg tablet 10 mg PO QHS #30 tabs 11/20/21 atenolol 25 mg tablet 12.5 mg PO BID 02/24/22 donepezil 5 mg tablet 5 mg PO QHS 05/28/23 Hospital Course Operations None Procedures None Summary of Care Provided Minutes Spent on Discharge: 47 Hospital Course: Patient is an 82-year-old man with a past medical history as outlined was admitted through the ED on 05/28/2023 with a complaint of shortness of breath, cough and generalized malaise as well as body aches. States is ongoing for about 24 hours with worsening persistent occasional intake and alterations in his taste and smell. Patient had recently lost his spouse earlier in the week. Creatinine was 1.5. CBC was significant for platelets of 116. 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 COVID test was positive. Flu test was negative. Chest x-ray showed evidence of COVID-19 infection. Patient did not require oxygen throughout his stay. He was able to work with physical therapy and continues to feel better. He was noted to have difficulty with food whilst eating and his daughter said he had been on diet modification at home. Speech therapy was consulted and recommended that patient continue to follow-up with speech therapy in his assisted facility. Patient had come from home but family was trying to get him placed in a [facility]. They were agreeable to him going to a [facility] and he was discharged to assisted facility on 06/01/2023. He is follow-up with his primary care doctor within 1 to 2 weeks. Patient seen and examined prior to discharge. He had no complaints and had an uneventful night. Review of systems otherwise negative. Labs and vitals reviewed. Home medication reviewed and reconciled. H Physical Exam Const alert, oriented x3 and no apparent distress Constitutional Narrative: frail and weak General Appearance: cooperative and comfortable HEENT normocephalic, head/scalp atraumatic, hearing grossly normal bilaterally, moist oral mucous membranes and oropharynx normal Mouth: oral and palatal mucosa normal Eyes PERRL and EOMs intact bilaterally Neck no lymphadenopathy, supple and no JVD Lymph Lymphatic: no lymphadenopathy noted and no lymphedema noted Resp Resp Narrative: mildly diminished breath sounds bilaterally, no wheezes or crackles. On room air. Cardio regular rate, regular rhythm, S1 normal heart sound, S2 normal heart sound and no murmurs GI normal to inspection, nondistended, normoactive bowel sounds, soft to palpation, non-tender and non-distended Extremity normal capillary refill, no clubbing, cyanosis or edema and no calf tenderness General Extremity: no tenderness to palpation of joints or extremities Skin General Skin Exam: no breakdown Neuro CN's II-XII intact bilaterally, no focal motor deficits and no sensory deficits noted Motor Exam: general weakness Psych thought process normal and cooperative Appearance: appropriate Mood & Affect: flat affect Weight / BMI Weight Weight: 174 lb 9.698 oz Body Mass Index (BMI) 25.7 ABG / Lab / Microbiology Data 06/01/23 07:30 06/01/23 07:30 Laboratory: Laboratory Results - last 24 hr 06/01/23 07:30: WBC 11.0, RBC 3.29 L, Hgb 11.6 L, Hct 34.3 L, MCV 104.3 H, MCH 35.3 H, MCHC 33.8, RDW Std Deviation 48.2 H, RDW Coeff of Fidelia 12.5, Plt Count 161, MPV 10.2, Immature Gran % (Auto) 0.700, Neut % (Auto) 84.4 H, Lymph % (Auto) 7.9 L, [place] % (Auto) 6.9, Eos % (Auto) 0.0, Baso % (Auto) 0.1, Absolute Neuts (auto) 9.3 H, Absolute Lymphs (auto) 0.87, Nucleated RBC % 0, Sodium 140, Potassium 4.2, Chloride 108 H, Carbon Dioxide 28.0, Anion Gap 4 L, BUN 52 H, Creatinine 1.46 H, Estim Creat Clear Calc 39.01, Est GFR (MDRD) Af Amer 59 L, Est GFR (MDRD) Non-Af 49 L, BUN/Creatinine Ratio 35.6 H, Glucose 103, Calcium 8.6 Microbiology: Microbiology 05/28/23 19:48 Mucosa - Nose SARS-CoV-2, Influenza & RSV (PCR) - Final SARS-CoV-2 (COVID 19) D/C Instructions Discharge Diet: Low fat / Low cholesterol Discharge Activity: Return to Normal Activity Weight Bearing Status: Weight bearing as tolerated Call your doctor if you observe: Fever of 101 or Higher, Shortness of breath, Dizziness, Swelling in the ankles and Chest pain Meaningful Use Info Meaningful Use Diagnoses (Choose all that apply): None applicable Discharge Plan Admission Admit Date/Time: 05/28/23 22:19 Primary Reason for Your Visit: covid Attending Provider: Ekaterina Isidro Primary Care Provider: Marino Patrick Consulting Providers: Ana Stewart Instructions Patient Instructions: Coronavirus Disease 2019 (COVID-19): Overview, Coronavirus Disease 2019 (COVID-19): Prevention Discharge Orders/Prescriptions Prescriptions: Continued ranolazine [Ranexa] 1,000 mg tablet extended release 12 hr 1,000 mg PO BID Qty: 180 3RF atenolol 25 mg tablet 12.5 mg PO BID Rx Instructions: 1/2 tab bid cyanocobalamin (vitamin B-12) 1,000 MCG tablet 1,000 mcg PO DAILY Patient Comments: Vitamin B supplement aspirin 81 MG tablet 81 mg PO BID Patient Comments: Blood thinner for heart health nitroglycerin 0.4 MG tablet 0.4 mg SUBLINGUAL Q5M PRN (Reason: Chest Pain) Patient Comments: Chest pain cholecalciferol (vitamin D3) 1,000 UNIT tablet 1,000 unit PO BID Patient Comments: Vitamin D supplement donepezil 5 mg tablet 5 mg PO QHS Patient Comments: TAKE 1 TABLET BY MOUTH AT BEDTIME (DME) Handicap Parking Placard See Rx Instructions .Route .MEDSUPPLY Qty: 1 0RF Rx Instructions: As directed pravastatin 10 mg tablet 10 mg PO QHS Qty: 30 11RF Referrals / Follow Up: Marino Patrick MD [Primary Care Provider] - Within 2 Weeks Disposition Disposition (needs filled in before D/C Order can be placed): [facility] Charges/Coding Visit Charges Inpatient E&M: 95796 Disch Hosp >30min
--- NOTE | 2023-06-01 13:36 | PHA.DC.MR.R ---
Pharmacy [facility] Med Reconciliation Pharmacy Service has performed discharge medication reconciliation for this patient. The patient's discharge medication list was reviewed for discrepancies and discrepancies were resolved. Medications at Discharge Home Medications aspirin 81 mg tablet,delayed release 81 mg PO BID 05/13/15 cholecalciferol (vitamin D3) 25 mcg (1,000 unit) tablet 1,000 unit PO BID 05/13/15 cyanocobalamin (vitamin B-12) 1,000 mcg tablet 1,000 mcg PO DAILY 05/13/15 nitroglycerin 0.4 mg sublingual tablet 0.4 mg sublingual Q5M PRN Chest Pain 05/13/15 Handicap Parking Placard #1 ea 06/03/21 ranolazine 1,000 mg tablet,extended release,12 hr (Ranexa) 1,000 mg PO BID #180 tabs 08/21/21 pravastatin 10 mg tablet 10 mg PO QHS #30 tabs 11/20/21 atenolol 25 mg tablet 12.5 mg PO BID 02/24/22 donepezil 5 mg tablet 5 mg PO QHS 05/28/23
--- NOTE | 2023-06-01 13:56 | CASEMGMT ---
Addendum entered by Kathia Wills 06/01/23 14:27: SW notified secretary of police and RN of steel pickler time. RN stated she will call patient's daughter to notify her of steel pickler time. Kathia STEWART Original Note: JAZMIN called [facility] and arranged for patient to get picked up at 5p via wheelchair van. JAZMIN completed a 7000 in [employer] system. JAZMIN will send orders to [facility] once JAZMIN has a signed med list. Plan: d/c to [facility] under skilled level of care on a convalescent stay. Kathia STEWART
--- NOTE | 2023-06-01 14:48 | CASEMGMT ---
SW sent orders and supervisor picking crew time to [facility] via [employer]. Plan: d/c to [facility] under skilled level of care on a convalescent stay. Physicians will transport patient. Kathia STEWART
--- NOTE | 2023-06-01 17:49 | NURSING ---
report called to [facility], lemon picker now changed to 183
== END 2023-06-01 19:15 | disposition skilled nursing facility (03) | DRG 177 ==
LOC: ED 21:52 → PCU 22:38
PROVIDERS: Admitting Provider Family Medicine; Emergency Provider Emergency Medicine; PCP Family Medicine; Visit Provider Student in an Organized Health Care Education/Training Program
DX: U07.1 COVID-19 (principal); J12.82 Pneumonia due to coronavirus disease 2019; F03.90 Unspecified dementia, unspecified severity, without behavioral disturbance, psychotic disturbance, mood disturbance, and anxiety; N18.30 Chronic kidney disease, stage 3 unspecified; D53.9 Nutritional anemia, unspecified; I12.9 Hypertensive chronic kidney disease with stage 1 through stage 4 chronic kidney disease, or unspecified chronic kidney disease; I25.10 Atherosclerotic heart disease of native coronary artery without angina pectoris; E78.5 Hyperlipidemia, unspecified; R62.7 Adult failure to thrive; Z68.25 Body mass index [BMI] 25.0-25.9, adult; R53.1 Weakness; R53.81 Other malaise; Z66 Do not resuscitate; Z79.82 Long term (current) use of aspirin; Z79.899 Other long term (current) drug therapy; Z87.891 Personal history of nicotine dependence; Z95.1 Presence of aortocoronary bypass graft
CPT/HCPCS: 36415; 70450; 71045; 80048; 80053; 80076; 81001; 82550; 82728; 83615; 83880; 84145; 84484; 85025; 85379; 85652; 86140; 87631; 92610; 93005; 93306; 97110; 97116; 97162; 97166; 97530; 97535; 99285; J7030; J7050; A4216; J1940